=== PATIENT | female | born 1955 | race Caucasian/White ===

== ENCOUNTER 2019-02-26 06:15 | Inpatient (IN) ==
[2019-02-26 06:33] LABS: Basophils % 0.6 % (0.1-2.0); Eosinophils # 0.1 K/mm3 (0.0-0.4); Eosinophils % 2.4 % (0.1-12.0); Hematocrit 38.7 % (37.0-47.0); Hemoglobin 12.9 g/dL (12.2-16.2); Lymphocytes # 0.8 K/mm3 (0.7-4.5); Lymphocytes % 18.7 % (10-50); Mean Corpuscular HGB Conc 33.4 g/dL (31.8-35.4); Mean Corpuscular Volume 96.7 fl (81-99); Mean Platelet Volume 9.5 fl (7.4-10.4); Monocytes # 0.4 K/mm3 (0.1-1.0); Monocytes % 7.9 % (1.7-9.3); Neutrophils # 3.1 K/mm3 (1.8-7.8); Neutrophils % 70.3 % (37.0-80.0); Platelet Count 159 K/mm3 (142-424); Red Blood Count 4.01 M/mm3 (4.20-5.40); Red Cell Distribution Width 13.9 % (11.5-17.5); White Blood Count 4.4 K/mm3 (4.8-10.8)
--- NOTE | 2019-02-26 06:38 | Emergency Department Note ---
ED Disposition Clinical Impression: Obesity (BMI 30.0-34.9), Tobacco use Chest pain Qualifiers: Chest pain type: precordial pain Qualified Code(s): R07.2 - Precordial pain Diabetes Qualifiers: Diabetes mellitus type: type 2 Diabetes mellitus correction insulin use: unspecified correction insulin use status Diabetes mellitus complication status: with other specified complication Qualified Code(s): E11.69 - Type 2 diabetes mellitus with other specified complication Disposition: Admitted as Observation Condition on Discharge: Good Referrals: Provider,Referral, [Referring] - - Critical Care Critical Care Time: No Attestation: On 02/26/19, the high probability of a clinically significant, sudden or life threatening deterioration of the following system(s) required my full and direct attention, intervention and personal management. The time I documented below is in addition to time spent performing reported procedures but includes the following listed in this critical care notation. Medical Decision Making - Medical Records Medical records reviewed: Yes: I reviewed the patient's medical records. - Hi Inquiry Pt receiving controlled substance: No Vital Signs: 02/26/19 06:16 Temperature 97.9 F Temperature Source Oral Pulse Rate [Right] 88 Respiratory Rate 16 Blood Pressure [Right Arm] 113/51 L Blood Pressure Mean [Right Arm] 71 Blood Pressure Position [Right Arm] Supine 02 Sat by Pulse Oximetry 94 L Oxygen Delivery Method Room Air - Lab Data Lab results reviewed: Yes: I reviewed the patient's lab results. Lab Results 02/26/19 06:15: WBC 4.4 L, RBC 4.01 L, Hgb 12.9, Hct 38.7, MCV 96.7, MCH 32.3 H, MCHC 33.4, RDW 13.9, Plt Count 159, MPV 9.5, Neut % (Auto) 70.3, Lymph % (Auto) 18.7, [place] % (Auto) 7.9, Eos % (Auto) 2.4, Baso % (Auto) 0.6, Neut # (Auto) 3.1, Lymph # (Auto) 0.8, [place] # (Auto) 0.4, Eos # (Auto) 0.1, Baso # (Auto) 0.0, ESR 58 H 02/26/19 06:15: Sodium 137, Potassium 3.6, Chloride 103, Carbon Dioxide 25, Anion Gap 12.6, BUN 9, Creatinine 0.88, Estimated Creat Clear 65, Estimated GFR 65, Est GFR ( Amer) 78, Glucose 291 H, Calcium 7.7 L, Troponin I 0.28 H, C-Reactive Protein 6.9 H Result diagrams: 02/26/19 06:15 02/26/19 06:15 Orders (Tests/Meds): ED MEDICATIONS Generic Name Dose Route Start Last Admin Trade Name Freq PRN Reason Stop Dose Admin Sodium Chloride 1,000 mls @ 999 mls/hr 02/26/19 06:30 02/26/19 06:27 Sod Chlor 0.9% 1000ml Bag IV 02/26/19 07:30 999 mls/hr .Q1H1M RALF Administration Discontinued Medications Generic Name Dose Route Start Last Admin Trade Name Freq PRN Reason Stop Dose Admin Nitroglycerin 1 gm 02/26/19 06:24 02/26/19 06:28 Nitroglycerin 1 Inch Oint Udp TD 02/26/19 06:25 1 gm ONCE ONE Administration ORDERS Category Date Time Status XR chest 2V Stat Exams 02/26/19 06:24 Taken Troponin I Q3H Lab 02/26/19 09:30 Ordered Troponin I Q3H Lab 02/26/19 12:30 Ordered - Radiology Data #1 Image(s): Chest Image Reviewed: Yes I reviewed the patient's radiology image Preliminary Findings: Abnormal (copd) - ECG Data Tracing #1 Normal Sinus Rhythm: Yes Ischemic changes: non-specific ST-T wave changes - Physician Consults Physician Consulted: april Reason -: Pt condition Chest Pain HPI - General Chief Complaint: Chest Pain Stated Complaint: chest Pain Time Seen by Provider: 02/26/19 06:25 Mode of Arrival: EMS Source of Information: Patient, Relative, EMS, Medical Record Limitations: No Limitations Description of Symptoms (Recalled from ER Triage Doc. by RN): Pt states she has had chest pain for days, 324 ASA and 2 nitro SL given by EMS - History of Present Illness HPI narrative: progressive chest pain over the last few days - worse this am - had stents in distant past -about 2009 - pt with hx of tob use and diabetes - MD complaint: chest pain indicative of cardiac Onset (ago): day(s) Duration: now resolved Activity at onset: during rest Pain location: left chest Severity: moderate Quality: heaviness Associated symptoms: dyspnea Risk Factors for CAD: Family Hx of CAD, Diabetes, Smoking Treatments prior to or on arrival for Cardiac Chest Pain: aspirin - PURVI Score for Non-Stemi Age of Patient: 60-69 years old Heart Rate: 70-89 bpm Systolic Blood Pressure: 100-119 mmHg Serum Creatinine: 0.80-1.19 mg/dl CHF [place] Class: I-No CHF Other Risk Factors: Elevated Cardiac Enzymes or Biomarkers Non-Stemi Risk Score: 131 - Related Data Prior Cardiac Testing/Procedures: Stenting On Oral Contraceptives: No Home Medications Medication Instructions Recorded Confirmed No Known Home Medications 02/26/19 02/26/19 Allergies Allergy/AdvReac Type Severity Reaction Status Date / Time pentazocine Allergy Severe S-SWELLS-OR Verified 02/26/19 06:48 AL/THROAT [facility] History - Hepatitis A Screen Drug use history?: No High risk sexual behaviors?: No History of sexually transmitted infection?: No Currently employed?: No Childcare worker?: No Do you have indoor plumbing?: Yes Do you have electricity?: Yes Attestation statement:: This patient has been screened for Hepatitis A risk factors. I have reviewed the patient's past medical history: Yes Medical History: Denies:: Diabetes Mellitus Type 1, Diabetes Mellitus Type 2, Internal Pacemaker Other Surgeries: No: Pacemaker Amputation: No Fractures: No - Social History Smoking Status: Current every day smoker Tobacco Type: cigarettes # Packs/Day (cigarettes): 1 Alcohol Intake: never Occupational Status: unemployed ROS Obtained: Yes All systems reviewed & no additional complaints - Constitutional Constitutional: Denies fever(s) - Eyes Eyes: Denies change in vision - ENT Ears, Nose, Mouth, and Throat: Denies sore throat - Cardiovascular Cardiovascular: Reports as per HPI, Reports chest pain, Reports dyspnea - Respiratory Respiratory: No cough - Gastrointestinal Gastrointestingal: Denies: abdominal pain - Genitourinary Female Genitourinary: Denies hematuria - Musculoskeletal Musculoskeletal: Denies joint swelling - Integumentary/Breasts Skin/Breast: Denies rash - Neurologic Neurologic: Denies seizure-like activity Physical Exam - General General appearance: alert, obese - Head Head exam: normocephalic - Eye Eye exam: Present: PERRL, EOMI. Absent: scleral icterus - ENT ENT exam: Present: mucous membranes dry - Neck Neck exam: Present: trachea midline - Respiratory Respiratory exam: Present: normal lung sounds bilaterally, respiratory distress - Cardiovascular Cardiovascular exam: Present: regular rate, systolic murmur, +S4 - Abdominal Exam Abdominal exam: Present: soft - Extremities Exam Extremities exam: Present: full ROM. Absent: calf tenderness - Neurological Exam Neurological exam: Present: alert, oriented X3, CN II-XII intact - Psychiatric Psychiatric exam: Present: normal affect - Skin Skin exam: Absent: rash
[2019-02-26 06:43] LABS: Anion Gap 12.6 mEq/L (5-15); C-Reactive Protein 6.9 mg/dL (0.0-0.9); Calcium 7.7 mg/dL (8.5-10.1)
[2019-02-26 06:58] LABS: Erythrocyte Sedimentation Rate 58 mm/hr (0-30)
[2019-02-26 08:08] LABS: Chol/HDL Ratio 6.7 (1-3.5)
--- NOTE | 2019-02-26 09:27 | History & Physical Report ---
*Admission Date: 02/26/19 *Chief complaint: chest pain *History of present illness: this wf presented to the ed with progressive anterior chest pain which was worse this am - pt has hx of diabetes and tob use and prev cad with stent last in 2009 - pt was seen in the ed with pain relieved with ntg and had elevated troponin [facility] History I have reviewed the patient's past medical history: Yes Medical History: Reports:: Hyperlipidemia, Hypertension, Myocardial Infarction Denies:: Diabetes Mellitus Type 1, Diabetes Mellitus Type 2, Internal Pacemaker *Have you ever received a pneumonia vaccine?: No *Have you received a flu vaccine this season?: No Other Medical History: Reports: Arthritis Other Surgeries: Yes: Cholecystectomy. No: Pacemaker Amputation: No Fractures: No - *Social History Educational Level: Completed High School Smoking Status: Current every day smoker Tobacco Type: cigarettes # Packs/Day (cigarettes): 1 Alcohol Intake: never *Occupational Status:: unemployed Housing: house Household Members: family *Travel in the last 8 weeks: None Family Hx:: Cancer Review of Systems - Review of Systems Review of systems:: pertinent systems reviewed and negative unless documented below - Constitutional Denies fever(s) - Eyes Denies change in vision - ENT Denies sore throat - *Cardiovascular Reports chest pain at rest - *Respiratory Reports shortness of breath, Denies cough - *Gastrointestinal Denies abdominal pain - *Genitourinary Denies blood in urine - *Musculoskeletal Denies joint pain - Integumentary/Breasts Denies rash - *Neurologic Denies seizure-like activity - Psychiatric Denies anxiety Meds Home Medications Medication Instructions Recorded Confirmed Type No Known Home Medications 02/26/19 02/26/19 History Allergies Allergy/AdvReac Type Severity Reaction Status Date / Time pentazocine Allergy Severe S-SWELLS-OR Verified 02/26/19 06:48 AL/THROAT Exam Vital signs and Labs for Last 24 Hours: Temp Pulse Resp BP Pulse Ox 97.7 F 72 22 113/53 L 93 L 02/26/19 09:00 02/26/19 09:00 02/26/19 09:00 02/26/19 09:00 02/26/19 09:00 Laboratory Results - last 24 hr 02/26/19 06:15: WBC 4.4 L, RBC 4.01 L, Hgb 12.9, Hct 38.7, MCV 96.7, MCH 32.3 H, MCHC 33.4, RDW 13.9, Plt Count 159, MPV 9.5, Neut % (Auto) 70.3, Lymph % (Auto) 18.7, [place] % (Auto) 7.9, Eos % (Auto) 2.4, Baso % (Auto) 0.6, Neut # (Auto) 3.1, Lymph # (Auto) 0.8, [place] # (Auto) 0.4, Eos # (Auto) 0.1, Baso # (Auto) 0.0, ESR 58 H 02/26/19 06:15: Sodium 137, Potassium 3.6, Chloride 103, Carbon Dioxide 25, Anion Gap 12.6, BUN 9, Creatinine 0.88, Estimated Creat Clear 65, Estimated GFR 65, Est GFR ( Amer) 78, Glucose 291 H, Calcium 7.7 L, Troponin I 0.28 H, C-Reactive Protein 6.9 H 02/26/19 06:15: Hemoglobin A1c 6.7 02/26/19 06:15: Magnesium 1.9, Triglycerides 99, Cholesterol 114 L, LDL Cholesterol 77, VLDL Cholesterol 20, HDL Cholesterol 17 L, Cholesterol/HDL Ratio 6.7 H I & O for Last 24 hours: Intake & Output 02/23/19 02/24/19 02/25/19 02/26/19 11:59 11:59 11:59 11:59 Weight 176 lb 4 oz - Constitutional no acute distress, obese - *Routine HEENT Exam Head: Present: normocephalic Eye: Present: EOMI, PERRL ENT: Present: mucous membranes dry - *Routine Neck Exam Present: supple. Absent: JVD - *Routine Respiratory Exam Present: rhonchi - *Routine Cardiovascular Exam Present: RRR, murmur, S4 - *Routine Abdominal Exam Present: soft. 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
--- NOTE | 2019-02-26 10:13 | Pharmacy Consult Notes ---
[facility] Pharmacy VTE Monitoring - Patient Demographics Admission date: 02/26/19 Report Date: 02/26/19 Time: 10:13 Allergies/Adverse Reactions: Patient Allergies pentazocine Allergy (Severe, Verified 02/26/19 06:48) [id number]/THROAT Height: 1.52 m Weight: 79.946 kg Patient Problems: Current Active Problems Chest pain (Acute) Diabetes (Acute) Obesity (BMI 30.0-34.9) (Acute) Tobacco use (Acute) - VTE Risk Labs: VTE Related Lab Results Hgb 12.9 g/dL (12.2-16.2) 02/26/19 06:15 Hct 38.7 % (37.0-47.0) 02/26/19 06:15 Plt Count 159 K/mm3 (142-424) 02/26/19 06:15 BUN 9 mg/dL (7-18) 02/26/19 06:15 Creatinine 0.88 mg/dL (0.55-1.02) 02/26/19 06:15 Estimated Creat Clear 65 mL/min (50-200) 02/26/19 06:15 Was VTE Risk Assessment Performed: Yes VTE Score: 6 VTE Risk Level: Moderate Risk - Prophylaxis VTE Prophylaxis Ordered?: Yes Types of VTE Prophylaxis: TEDS Knee High Location of Applied Device: Bilateral Lower Extremeties
--- NOTE | 2019-02-26 11:14 | Electrocardiograph Report ---
APPROVED REPORT Exam: Resting ECG HR:86 bpm ECG Measurements Heart Rate 86 AXES KS 134 P 51 QRSd 76 QRS -60 QT 402 T70 QTc 481 <Conclusion> Normal sinus rhythm Left axis deviation Late R-wave progression Abnormal ECG Electronically signed by : Severiano Moe, 02/26/2019 11:14:23
[2019-02-27 06:08] LABS: Basophils % 0.4 % (0.1-2.0); Eosinophils # 0.2 K/mm3 (0.0-0.4); Eosinophils % 3.6 % (0.1-12.0); Hematocrit 36.1 % (37.0-47.0); Hemoglobin 11.8 g/dL (12.2-16.2); Lymphocytes % 23.2 % (10-50); Mean Corpuscular HGB Conc 32.6 g/dL (31.8-35.4); Mean Corpuscular Volume 98.3 fl (81-99); Mean Platelet Volume 8.5 fl (7.4-10.4); Monocytes # 0.4 K/mm3 (0.1-1.0); Monocytes % 8.9 % (1.7-9.3); Neutrophils # 2.7 K/mm3 (1.8-7.8); Neutrophils % 63.9 % (37.0-80.0); Platelet Count 159 K/mm3 (142-424); Red Blood Count 3.67 M/mm3 (4.20-5.40); Red Cell Distribution Width 14.2 % (11.5-17.5); White Blood Count 4.2 K/mm3 (4.8-10.8)
[2019-02-27 06:16] LABS: Anion Gap 12.4 mEq/L (5-15); Calcium 7.6 mg/dL (8.5-10.1)
--- NOTE | 2019-02-27 09:23 | Progress Note ---
Internal Medicine - PN: Subj *Date: 02/27/19 *Time: 09:20 Interval history: doing better - has occ back pain - trop elevated Exam Vital signs and Labs for Last 24 Hours: Temp Pulse Resp BP Pulse Ox 99.2 F 72 17 131/58 L 97 02/27/19 07:18 02/27/19 07:18 02/27/19 07:18 02/27/19 07:18 02/27/19 07:18 Laboratory Results - last 24 hr 02/26/19 09:15: Troponin I 1.54 H 02/26/19 11:32: POC Glucose 216 H 02/26/19 16:49: POC Glucose 111 H 02/26/19 20:18: POC Glucose 178 H 02/27/19 05:34: POC Glucose 134 H 02/27/19 05:35: WBC 4.2 L, RBC 3.67 L, Hgb 11.8 L, Hct 36.1 L, MCV 98.3, MCH 32.0 H, MCHC 32.6, RDW 14.2, Plt Count 159, MPV 8.5, Neut % (Auto) 63.9, Lymph % (Auto) 23.2, [place] % (Auto) 8.9, Eos % (Auto) 3.6, Baso % (Auto) 0.4, Neut # (Auto) 2.7, Lymph # (Auto) 1.0, [place] # (Auto) 0.4, Eos # (Auto) 0.2, Baso # (Auto) 0.0 02/27/19 05:35: Sodium 141, Potassium 3.4 L, Chloride 107, Carbon Dioxide 25, Anion Gap 12.4, BUN 9, Creatinine 0.73, Estimated Creat Clear 73, Estimated GFR 80, Est GFR ( Amer) 97 D, Glucose 141 H D, Calcium 7.6 L I & O for Last 24 hours: Intake & Output 02/24/19 02/25/19 02/26/19 02/27/19 11:59 11:59 11:59 11:59 Intake Total 110 / 110 1374 / 1374 Output Total 400 / 400 Balance 110 / 110 974 / 974 Weight 176 lb 4 oz 180 lb 5 oz - Constitutional no acute distress, obese - *Routine HEENT Exam Head: Present: normocephalic Eye: Present: EOMI, PERRL ENT: Present: mucous membranes dry - *Routine Neck Exam Absent: JVD - *Routine Respiratory Exam Present: CTA bilaterally - *Routine Cardiovascular Exam Present: RRR, murmur, S4 - *Routine Abdominal Exam Present: soft - *Routine Extremities Exam Absent: calf tenderness - *Routine Skin Exam Present: intact - *Routine Neurological Exam Present: alert, CN II-XII intact - Routine Psychiatric Exam Present: normal affect Assessment and Plan (1) Chest pain Current visit: Yes Status: Acute Qualifiers: Chest pain type: precordial pain Qualified Code(s): R07.2 - Precordial pain Category: Medical Code(s): R07.9 - Chest pain, unspecified (2) Diabetes Current visit: Yes Status: Acute Qualifiers: Diabetes mellitus 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 Diabetes mellitus complication status: with other specified complication Qualified Code(s): E11.69 - Type 2 diabetes mellitus with other specified complication Category: Medical Code(s): E11.9 - Type 2 diabetes mellitus without complications (3) Obesity (BMI 30.0-34.9) Current visit: Yes Status: Acute Category: Medical Code(s): E66.9 - Obesity, unspecified (4) Tobacco use Current visit: Yes Status: Acute Category: Medical Code(s): Z72.0 - Tobacco use (5) Non-STEMI (non-ST elevated myocardial infarction) Current visit: Yes Status: Acute Category: Medical Code(s): I21.4 - Non-ST elevation (NSTEMI) myocardial infarction
[2019-02-28 06:07] LABS: Basophils % 0.6 % (0.1-2.0); Eosinophils # 0.2 K/mm3 (0.0-0.4); Eosinophils % 3.9 % (0.1-12.0); Hematocrit 37.5 % (37.0-47.0); Hemoglobin 12.1 g/dL (12.2-16.2); Lymphocytes # 0.9 K/mm3 (0.7-4.5); Lymphocytes % 21.4 % (10-50); Mean Corpuscular HGB Conc 32.3 g/dL (31.8-35.4); Mean Corpuscular Volume 98.3 fl (81-99); Mean Platelet Volume 8.4 fl (7.4-10.4); Monocytes # 0.4 K/mm3 (0.1-1.0); Monocytes % 9.6 % (1.7-9.3); Neutrophils # 2.6 K/mm3 (1.8-7.8); Neutrophils % 64.5 % (37.0-80.0); Platelet Count 148 K/mm3 (142-424); Red Blood Count 3.81 M/mm3 (4.20-5.40); Red Cell Distribution Width 14.2 % (11.5-17.5); White Blood Count 4.1 K/mm3 (4.8-10.8)
[2019-02-28 06:40] LABS: Anion Gap 11.4 mEq/L (5-15); Calcium 7.7 mg/dL (8.5-10.1)
--- NOTE | 2019-02-28 09:35 | Progress Note ---
Subjective Date: 02/28/19 Time: 09:32 Principal diagnosis: nonstemi Interval history: This is a 64-year-old white female who presented to the hospital with complaints of chest pain. The patient was found to have a non-ST elevation myocardial infarction. She did not undergo left cardiac catheterization yesterday with stenting to her LAD. The patient did have persistent disease to her circumflex artery and right coronary artery. She had a normal EF and an elevated LVEDP consistent with diastolic dysfunction. The patient will be on Brilinta and aspirin for dual antiplatelet therapy. The patient needs aggressive risk factor modifications. Tobacco cessation. MCKENNA inhibitors and beta-blockers. This morning she denies any chest pain or pressure. She denies any shortness of breath or edema. She denies any fevers, chills, nausea, vomiting, diarrhea, PND or orthopnea. The patient states that she is ready to go home. Exam Vital signs and Labs for Last 24 Hours: Temp Pulse Resp BP Pulse Ox 98.3 F 75 15 106/67 L 91 L 02/28/19 08:00 02/28/19 08:00 02/28/19 08:00 02/28/19 08:00 02/28/19 08:00 Laboratory Results - last 24 hr 02/27/19 11:07: POC Glucose 146 H 02/27/19 13:52: Activated Clotting Time > 400 H* 02/27/19 16:10: POC Glucose 150 H 02/27/19 20:00: POC Glucose 159 H 02/28/19 05:11: POC Glucose 150 H 02/28/19 05:42: WBC 4.1 L, RBC 3.81 L, Hgb 12.1 L, Hct 37.5, MCV 98.3, MCH 31.7 H, MCHC 32.3, RDW 14.2, Plt Count 148, MPV 8.4, Neut % (Auto) 64.5, Lymph % (Auto) 21.4, [place] % (Auto) 9.6 H, Eos % (Auto) 3.9, Baso % (Auto) 0.6, Neut # (Auto) 2.6, Lymph # (Auto) 0.9, [place] # (Auto) 0.4, Eos # (Auto) 0.2, Baso # (Auto) 0.0 02/28/19 05:42: Sodium 140, Potassium 3.4 L, Chloride 107, Carbon Dioxide 25, Anion Gap 11.4, BUN 11, Creatinine 0.76, Estimated Creat Clear 73, Estimated GFR 77, Est GFR ( Amer) 93, Glucose 147 H, Calcium 7.7 L I & O for Last 24 hours: Intake & Output 02/25/19 02/26/19 02/27/19 02/28/19 23:59 23:59 23:59 23:59 Intake Total 410 / 410 2027 / 2027 613 / 613 Output Total 100 / 100 300 / 300 Balance 310 / 310 1728 / 1728 613 / 613 Weight 176 lb 4 oz 180 lb 5 oz 180 lb 1 oz Narrative: Her telemetry strip shows sinus rhythm with a rate of 76. LHC shows: Acute non-ST elevation myocardial infarction involving the mid LAD accompanied by significant regional wall motion abnormality Successful stenting of the mid LAD reducing the 50% culprit stenosis/lesion to 0% with one drug-eluting stent Mild to moderate disease in the large dominant circumflex artery Severe diffuse disease in a very small vestigial nondominant right coronary artery which does not contribute any blood supply to the left ventricle Preserved ejection fraction with significant regional wall motion abnormality Moderate Lazaro elevated LVEDP consistent with diastolic dysfunction PLAN 1. Brilinta 90 twice daily plus aspirin 81 mg daily for 1 year 2. LDL less than 55 3. MCKENNA inhibitors beta-blockers specifically carvedilol 4. Cardiac rehabilitation 5. Avoidance of tobacco products - Constitutional no acute distress, obese - *Routine HEENT Exam Head: Present: normocephalic, atraumatic Eye: Present: EOMI, PERRL ENT: Present: mucous membranes moist - *Routine Neck Exam Present: supple, full ROM, normal carotid upstroke. Absent: JVD, carotid bruit, lymphadenopathy - *Routine Respiratory Exam Present: decreased breath sounds, wheezes (Expiratory wheezes noted throughout) - *Routine Cardiovascular Exam Present: RRR, Normal S1, Normal S2. Absent: murmur - *Routine Abdominal Exam Present: soft, normoactive bowel sounds. Absent: tenderness, distended - *Routine Extremities Exam Present: full ROM, pulses intact, normal capillary refill. Absent: cyanosis, clubbing, edema - *Routine Skin Exam Present: intact, warm. Absent: erythema, rash - *Routine Neurological Exam Present: alert, oriented X3, CN II-XII intact. Absent: sensory deficit, motor deficit - Detailed Eye Exam Eyelids: Left normal inspection Progress Note: A&P (1) Non-STEMI (non-ST elevated myocardial infarction) Status: Acute Current Visit: Yes (2) Acute coronary syndrome Status: Acute Current Visit: Yes (3) Chest pain Status: Acute Current Visit: Yes (4) Diabetes Status: Acute Current Visit: Yes (5) Obesity (BMI 30.0-34.9) Status: Chronic Current Visit: Yes (6) Tobacco use Status: Chronic Current Visit: Yes Assessment and Plan for All Diagnoses:: Plan: 1. The patient was admitted to the hospital with chest pain and found to have an elevated troponin consistent with a non-ST elevation myocardial infarction. Given the patient's non-STEMI and acute coronary syndrome, the patient underwent left cardiac catheterization. The patient did have a stent to her LAD which was the culprit of her non-ST elevation myocardial infarction. She had persistent disease to her circumflex artery and right coronary artery. She will be on Brilinta and aspirin for dual antiplatelet therapy. I had a long discussion with the patient about dual antiplatelet therapy, bleeding and side effects of Brilinta. The patient has verbalized understanding and will call our office if she begins to experience any side effects. 2. The patient had a normal EF and an elevated LVEDP consistent with diastolic dysfunction. She may benefit from diuretics in the future if she continues to have chest pain and shortness of breath. We will hold off on this for now as we have added multiple medications at this point. 3. The patient is status post non-STEMI. She will need to be on MCKENNA inhibitors and beta-blockers. We will start her on carvedilol 3.125 mg p.o. twice daily. We will hold off on MCKENNA inhibitor's at this time as her blood pressure is marginal. If she is tolerating the carvedilol well at her outpatient follow-up we will consider starting an MCKENNA inhibitor at that time. 4. Her LDL goal is less than 55. Her LDL is 77. She has been started on Lipitor. 5. We will get an echocardiogram to evaluate her LV function given her non- STEMI. 6. Tobacco cessation is highly advised and counseled. 7. The patient is stable for discharge home today from a cardiac standpoint after her echocardiogram. She will need to follow-up in 1 to 2 weeks on an outpatient basis. Thank you for the opportunity to help participate in the care of this patient.
--- NOTE | 2019-02-28 09:40 | Consult Report ---
History of Present Illness Consult date: 02/27/19 Requesting physician: Salvador Rincon Consult reason: chest pain Chief complaint: chest pain Additional Medical History:: 1. diabetes 2. smoker 3. CAD with stenting in 2009 History of present illness: This is a 64-year-old white female who presented to the emergency department with complaints of progressive chest pain. The patient states that the pain was in the anterior aspect of her chest, The left side of her chest. She describes this as a heavy sensation. The pain did not radiate. It is associated with shortness of breath. Her chest heaviness is at least moderate in severity. The patient reports that it had started several days ago and progressively worsened. She states that nothing was helping to improve her pain and nothing made her chest pain worse. She did take aspirin with no improvement in her symptoms. The patient states that this pain is the same pain that she had had previously when she required stents. Her last stents for coronary artery disease were approximately in 2009. She continues to smoke. She denies any fever, chills, nausea, vomiting, diarrhea, PND or orthopnea. Her chest pain did improve in the emergency department with nitroglycerin. She was found to have an elevated troponin consistent with a non-ST elevation myocardial infarction. [facility] History Medical History: Reports:: Coronary Artery Disease (Coronary stents in 2009), Hyperlipidemia, Hypertension, Myocardial Infarction Denies:: Diabetes Mellitus Type 1, Diabetes Mellitus Type 2, Internal Pacemaker *Have you ever received a pneumonia vaccine?: No *Have you received a flu vaccine this season?: No Other Medical History: Reports: Arthritis Other Surgeries: Yes: Cholecystectomy. No: Pacemaker Amputation: No Fractures: No - *Social History Educational Level: Completed High School Smoking Status: Current every day smoker Tobacco Type: cigarettes # Packs/Day (cigarettes): 1 Alcohol Intake: never *Occupational Status:: unemployed Housing: house Household Members: family *Travel in the last 8 weeks: None Family Hx:: Cancer Meds Home Medications Medication Instructions Recorded Confirmed Type No Known Home Medications 02/26/19 02/26/19 History Allergies Allergy/AdvReac Type Severity Reaction Status Date / Time pentazocine Allergy Severe S-SWELLS-OR Verified 02/26/19 06:48 AL/THROAT Review of Systems - Review of Systems Review of systems:: pertinent systems reviewed and negative unless documented below - *Cardiovascular Reports chest pain, Reports chest pain at rest, Reports chest pain with activity, Reports shortness of breath, Reports shortness of breath with activity - *Respiratory Reports shortness of breath, Reports shortness of breath with activity - *Neurologic Denies seizure-like activity Exam Vital signs and Labs for Last 24 Hours: Temp Pulse Resp BP Pulse Ox 98.3 F 75 15 106/67 L 91 L 02/28/19 08:00 02/28/19 08:00 02/28/19 08:00 02/28/19 08:00 02/28/19 08:00 Laboratory Results - last 24 hr 02/27/19 11:07: POC Glucose 146 H 02/27/19 13:52: Activated Clotting Time > 400 H* 02/27/19 16:10: POC Glucose 150 H 02/27/19 20:00: POC Glucose 159 H 02/28/19 05:11: POC Glucose 150 H 02/28/19 05:42: WBC 4.1 L, RBC 3.81 L, Hgb 12.1 L, Hct 37.5, MCV 98.3, MCH 31.7 H, MCHC 32.3, RDW 14.2, Plt Count 148, MPV 8.4, Neut % (Auto) 64.5, Lymph % (Auto) 21.4, Elliott % (Auto) 9.6 H, Eos % (Auto) 3.9, Baso % (Auto) 0.6, Neut # (Auto) 2.6, Lymph # (Auto) 0.9, Elliott # (Auto) 0.4, Eos # (Auto) 0.2, Baso # (Auto) 0.0 02/28/19 05:42: Sodium 140, Potassium 3.4 L, Chloride 107, Carbon Dioxide 25, Anion Gap 11.4, BUN 11, Creatinine 0.76, Estimated Creat Clear 73, Estimated GFR 77, Est GFR ( Amer) 93, Glucose 147 H, Calcium 7.7 L I & O for Last 24 hours: Intake & Output 02/25/19 02/26/19 02/27/19 02/28/19 23:59 23:59 23:59 23:59 Intake Total 410 / 410 2027 613 / 613 Output Total 100 / 100 300 / 300 Balance 310 / 310 172 / 172 613 / 613 Weight 176 lb 4 oz 180 lb 5 oz 180 lb 1 oz Narrative: EKG is sinus rhythm with a rate of 86, old septal [place] pattern and left axis deviation. - Constitutional no acute distress, obese - *Routine HEENT Exam Head: Present: normocephalic, atraumatic Eye: Present: EOMI, PERRL ENT: Present: mucous membranes moist - *Routine Neck Exam Present: supple, full ROM, normal carotid upstroke. Absent: JVD, carotid bruit, lymphadenopathy - *Routine Respiratory Exam Present: CTA bilaterally - *Routine Cardiovascular Exam Present: RRR, Normal S1, Normal S2. Absent: murmur - *Routine Abdominal Exam Present: soft, normoactive bowel sounds. Absent: tenderness, distended - *Routine Extremities Exam Present: full ROM, pulses intact, normal capillary refill. Absent: cyanosis, clubbing, edema - *Routine Skin Exam Present: intact, warm. Absent: erythema, rash - *Routine Neurological Exam Present: alert, oriented X3, CN II-XII intact. Absent: sensory deficit, motor deficit - Routine Psychiatric Exam Present: normal affect, normal thought process - Detailed Eye Exam Eyelids: Left normal inspection Assessment and Plan (1) Non-STEMI (non-ST elevated myocardial infarction) Current visit: Yes Status: Acute Category: Medical Code(s): I21.4 - Non-ST elevation (NSTEMI) myocardial infarction (2) Acute coronary syndrome Current visit: Yes Status: Acute Category: Medical Code(s): I24.9 - Acute ischemic heart disease, unspecified (3) Diabetes Current visit: Yes Status: Acute Qualifiers: Diabetes mellitus type: type 2 Diabetes mellitus moth exterminator insulin use: unspecified moth exterminator insulin use status Diabetes mellitus complication status: with other specified complication Qualified Code(s): E11.69 - Type 2 diabetes mellitus with other specified complication Category: Medical Code(s): E11.9 - Type 2 diabetes mellitus without complications (4) Obesity (BMI 30.0-34.9) Current visit: Yes Status: Chronic Category: Medical Code(s): E66.9 - Obesity, unspecified (5) Tobacco use Current visit: Yes Status: Chronic Category: Medical Code(s): Z72.0 - Tobacco use (6) Coronary artery disease Current visit: Yes Status: Chronic Category: Medical Code(s): I25.10 - Atherosclerotic heart disease of [place] coronary artery without angina pectoris - Assessment and plan all Dx Assessment and Plan for all problems:: Plan: 1. The patient was admitted to the hospital with chest pain that had progressively worsened over the last several days. She was found to have an elevated troponin consistent with a non-ST elevation myocardial infarction. Given her non-STEMI and her acute coronary syndrome, the patient will be taken to the Oral Surgery Assistant to undergo left cardiac catheterization to evaluate her coronary artery disease. The patient does have a history of coronary disease with stents in approximately 2009. She continues to smoke and is diabetic placing her at high risk for coronary artery disease progression. 2. The patient has been educated the risk and benefits of proceeding with left cardiac catheterization. The patient verbalized understanding is agreeable to proceed with procedure. 3. The patient will be n.p.o. in preparation for left cardiac catheterization. 4. She will get IV fluids and premedications prior to the procedure. 5. Coronary artery disease is present. 6. Her blood pressure is well controlled. 7. Her LDL goal is less than 55. Her LDL is 77. She is on a statin. 8. Tobacco cessation is highly advised and counseled. 9. Further recommendations were made pending the patient's response to treatment and the results of her left cardiac catheterization later today. Thank you for the opportunity to help participate in the care of this patient.
--- NOTE | 2019-02-28 13:34 | Discharge Summary ---
General - General Admission date:: 02/26/19 Discharge date: 02/28/19 HPI HPI: this wf presented to the ed with progressive anterior chest pain which was worse this am - pt has hx of diabetes and tob use and prev cad with stent last in 2009 - pt was seen in the ed with pain relieved with ntg and had elevated troponin Hospital Course Hospital Course: pt did well in the hospital with dec pain but had increased troponin- she had angiogram by dr chen he left main artery Normal The left anterior descending artery Is a large caliber long vessel which has very proximal 10 to 20% luminal irregularities followed by a proximal LAD stent which extends through the mid segment. The stent is widely patent with minimal in-stent restenosis. Distal to the stent is a hazy 50% stenosis which appears to represent a ruptured plaque. The remaining vessel has mild 10% luminal irregularities. The circumflex artery Is a massively large dominant vessel giving rise to multiple very large obtuse marginal arteries. The first obtuse marginal artery has an ostial 30% stenosis and a mid vessel 50 to 60% stenosis. The third obtuse marginal artery has an ostial proximal 40 to 50% stenosis while the terminal obtuse marginal artery is a large posterior descending artery and has a mid vessel 50 to 60% stenosis. The right coronary artery Is a small vestigial vessel with proximal mid vessel and distal 80% stenoses. The entire vessel is 1 mm in diameter. The KEEN ventriculogram reveals Small ventricle normal ejection fraction with mid anterior apical hypokinesis The left ventricular end-diastolic pressure Elevated at 25 to 30 mmHg IMPRESSION Acute non-ST elevation myocardial infarction involving the mid LAD accompanied by significant regional wall motion abnormality Successful stenting of the mid LAD reducing the 50% culprit stenosis/lesion to 0% with one drug-eluting stent Mild to moderate disease in the large dominant circumflex artery Severe diffuse disease in a very small vestigial nondominant right coronary artery which does not contribute any blood supply to the left ventricle Preserved ejection fraction with significant regional wall motion abnormality pt has did well and is toleration room air and diet and meds and is ambulatory-s is a 64-year-old white female who presented to the hospital with complaints of chest pain. The patient was found to have a non-ST elevation myocardial infarction. She did not undergo left cardiac catheterization yesterday with stenting to her LAD. The patient did have persistent disease to her circumflex artery and right coronary artery. She had a normal EF and an elevated LVEDP consistent with diastolic dysfunction. The patient will be on Brilinta and aspirin for dual antiplatelet therapy. The patient needs aggressive risk factor modifications. Tobacco cessation. MCKENNA inhibitors and beta-blockers. This morning she denies any chest pain or pressure. She denies any shortness of breath or edema. She denies any fevers, chills, nausea, vomiting, diarrhea, PND or orthopnea. The patient states that she is ready to go home. The patient was admitted to the hospital with chest pain and found to have an elevated troponin consistent with a non-ST elevation myocardial infarction. Given the patient's non-STEMI and acute coronary syndrome, the patient underwent left cardiac catheterization. The patient did have a stent to her LAD which was the culprit of her non-ST elevation myocardial infarction. She had persistent disease to her circumflex artery and right coronary artery. She will be on Brilinta and aspirin for dual antiplatelet therapy. I had a long discussion with the patient about dual antiplatelet therapy, bleeding and side effects of Brilinta. The patient has verbalized understanding and will call our office if she begins to experience any side effects. 2. The patient had a normal EF and an elevated LVEDP consistent with diastolic dysfunction. She may benefit from diuretics in the future if she continues to have chest pain and shortness of breath. We will hold off on this for now as we have added multiple medications at this point. 3. The patient is status post non-STEMI. She will need to be on MCKENNA inhibitors and beta-blockers. We will start her on carvedilol 3.125 mg p.o. twice daily. We will hold off on MCKENNA inhibitor's at this time as her blood pressure is jad nal. If she is tolerating the carvedilol well at her outpatient follow-up we will consider starting an MCKENNA inhibitor at that time. 4. Her LDL goal is less than 55. Her LDL is 77. She has been started on Lipitor. 5. We will get an echocardiogram to evaluate her LV function given her non- STEMI. 6. Tobacco cessation is highly advised and counseled. 7. The patient is stable for discharge home today from a cardiac standpoint after her echocardiogram. She will need to follow-up in 1 to 2 weeks on an outpatient basis. Thank you for the opportunity to help participate in the care of this patient. will follow closely with pt Objective Vital signs: Temp Pulse Resp BP Pulse Ox 98.3 F 70 16 103/66 L 91 L 02/28/19 08:00 02/28/19 12:00 02/28/19 12:00 02/28/19 12:00 02/28/19 12:00 no acute distress, obese - *Routine HEENT Exam Head: Present: normocephalic Eye: Present: EOMI, PERRL ENT: Present: mucous membranes dry - *Routine Neck Exam Absent: JVD - *Routine Respiratory Exam Present: CTA bilaterally - *Routine Cardiovascular Exam Present: RRR, murmur - *Routine Abdominal Exam Present: soft - *Routine Extremities Exam Absent: calf tenderness - *Routine Skin Exam Present: intact - *Routine Neurological Exam Present: alert, CN II-XII intact - Routine Psychiatric Exam Present: normal affect Results Labs on day of discharge: Labs from last 24 hours 02/28/19 02/28/19 02/28/19 05:42 05:42 05:11 WBC 4.1 L RBC 3.81 L Hgb 12.1 L Hct 37.5 MCV 98.3 MCH 31.7 H MCHC 32.3 RDW 14.2 Plt Count 148 MPV 8.4 Neut % (Auto) 64.5 Lymph % (Auto) 21.4 Jasper % (Auto) 9.6 H Eos % (Auto) 3.9 Baso % (Auto) 0.6 Neut # (Auto) 2.6 Lymph # (Auto) 0.9 Jasper # (Auto) 0.4 Eos # (Auto) 0.2 Baso # (Auto) 0.0 Sodium 140 Potassium 3.4 L Chloride 107 Carbon Dioxide 25 Anion Gap 11.4 BUN 11 Creatinine 0.76 Estimated Creat Clear 73 Estimated GFR 77 Est GFR ( Amer) 93 Glucose 147 H POC Glucose 150 H Calcium 7.7 L 02/27/19 02/27/19 20:00 16:10 WBC RBC Hgb Hct MCV MCH MCHC RDW Plt Count MPV Neut % (Auto) Lymph % (Auto) Jasper % (Auto) Eos % (Auto) Baso % (Auto) Neut # (Auto) Lymph # (Auto) Jasper # (Auto) Eos # (Auto) Baso # (Auto) Sodium Potassium Chloride Carbon Dioxide Anion Gap BUN Creatinine Estimated Creat Clear Estimated GFR Est GFR ( Amer) Glucose POC Glucose 159 H 150 H Calcium DS: Diagnosis - Discharge Diagnosis (1) Non-STEMI (non-ST elevated myocardial infarction) Status: Acute (2) Acute coronary syndrome Status: Acute (3) Diabetes Status: Acute (4) Obesity (BMI 30.0-34.9) Status: Chronic (5) Tobacco use Status: Chronic (6) Coronary artery disease Status: Chronic Discharge Plan - Patient Discharge Instructions ACTIVITY: Continue current activity DIET: continue same diet Patient Instructions: DI for Heart Attack, Heart Attack, Cardiac Catheterization, Heart-Healthy Diet, DI for Cardiac Catheterization, DI for Surgical Site Infection, How to Quit Smoking - Follow up Plan Follow up with: Salvador Rincon MD [Primary Care Provider] - Andre Chen MD [Staff Physician] - 03/07/19 1:30 pm Disposition: Home, Self-[facility] Medications: Home Medications Medication Instructions Recorded Confirmed Type Aspirin [Aspirin 81mg EC Tab] 81 mg PO DAILY #90 tablet. 02/28/19 Rx Atorvastatin Calcium [Lipitor 10mg 10 mg PO HS #90 tab 02/28/19 Rx Tablet] Nicotine [Nicoderm 21mg/24hr 21 mg TD DAILYP PRN #30 patch.td24 02/28/19 Rx patch] Ticagrelor [Brilinta 90mg Tablet] 90 mg PO BID #60 tab 02/28/19 Rx carvediloL [Coreg 3.125mg Tablet] 3.125 mg PO BID #60 tab 02/28/19 Rx Prescriptions/Medication Reconciliation: New carvediloL [Coreg 3.125mg Tablet] 3.125 mg PO BID #60 tab Nicotine [Nicoderm 21mg/24hr patch] 21 mg TD DAILYP PRN #30 patch.td24 PRN Reason: Nicotine Cravings Aspirin [Aspirin 81mg EC Tab] 81 mg PO DAILY #90 tablet. Ticagrelor [Brilinta 90mg Tablet] 90 mg PO BID #60 tab Atorvastatin Calcium [Lipitor 10mg Tablet] 10 mg PO HS #90 tab - Problem Reconciliation Problems Reviewed?: Yes
== END 2019-02-28 14:47 | disposition home or self-care (01) | DRG 247 ==
LOC: 2ND 06:15 → ER 06:15 → 2ND 08:50 → OBSVTOIN 08:55 → 2ND 02-27 13:38
PROVIDERS: ADMIT Emergency Medicine; ATTEND Emergency Medicine
CPT/HCPCS: 36415; 71020; 71046; 80048; 80061; 82962; 83036; 83735; 84484; 85025; 85347; 85651; 86140; 92928; 93005; 93306; 93458; 96365; 96375; 99152; 99285; C1725; C1769; C1876; C9600; J1644; J2405; Q9967

== ENCOUNTER → 2019-03-07 12:13 | Outpatient (CLI) | payer OTHER, SELFPAY ==
[2019-03-07 13:23] LABS: Anion Gap 14.2 mEq/L (5-15); Blood Urea Nitrogen 10 mg/dL (7-18); Calcium 8.2 mg/dL (8.5-10.1); Carbon Dioxide 25 mmol/L (21.0-32.0); Chloride 105 mmol/L (98-107); Creatinine,Serum 0.75 mg/dL (0.55-1.02); Estimated Glomerular Filt Rate 78 ml/min (>60); GFR (African American) 94 ML/MIN (>60); Potassium 4.2 mmoL/L (3.5-5.1); Sodium 140 mmol/L (136-145)
[2019-03-07 13:31] LABS: Glucose 129 mg/dL (74-106)
== END ==
PROVIDERS: Visit Provider Internal Medicine
DX: I25.10 Atherosclerotic heart disease of native coronary artery without angina pectoris (principal)
CPT/HCPCS: 36415; 80048

== ENCOUNTER → 2019-04-25 15:00 | Outpatient (CLI) | payer MEDICAID, SELFPAY ==
[2019-04-25 18:06] LABS: Anion Gap 9.3 mEq/L (5-15); Blood Urea Nitrogen 14 mg/dL (7-18); Calcium 8.5 mg/dL (8.5-10.1); Carbon Dioxide 32 mmol/L (21.0-32.0); Chloride 106 mmol/L (98-107); Creatinine,Serum 0.93 mg/dL (0.55-1.02); Estimated Glomerular Filt Rate 61 ml/min (>60); GFR (African American) 73 ML/MIN (>60); Glucose 158 mg/dL (74-106); Potassium 3.3 mmoL/L (3.5-5.1); Sodium 144 mmol/L (137-145)
== END ==
PROVIDERS: Visit Provider Physician Assistant
DX: R07.9 Chest pain, unspecified (principal); R06.00 Dyspnea, unspecified; E11.9 Type 2 diabetes mellitus without complications; E78.5 Hyperlipidemia, unspecified; I25.10 Atherosclerotic heart disease of native coronary artery without angina pectoris; E66.9 Obesity, unspecified; Z72.0 Tobacco use
CPT/HCPCS: 36415; 80048

== ENCOUNTER → 2019-05-16 12:58 | Outpatient (CLI) | payer MEDICAID, SELFPAY ==
[2019-05-16 14:14] LABS: Anion Gap 8.2 mEq/L (5-15); Blood Urea Nitrogen 14 mg/dl (7-17); Calcium 9.1 mg/dl (8.4-10.2); Carbon Dioxide 28 mmol/L (22.0-30.0); Chloride 104 mmol/L (98-107); Estimated Glomerular Filt Rate 84 ml/min (>60); GFR (African American) 102 ML/MIN (>60); Glucose 181 mg/dl (74-100); Potassium 4.2 mmoL/L (3.5-5.1); Sodium 136 mmol/L (136-145)
== END ==
PROVIDERS: Visit Provider Physician Assistant
DX: E87.6 Hypokalemia (principal)
CPT/HCPCS: 36415; 80048

== ENCOUNTER → 2019-11-24 13:04 | Outpatient (CLI) | payer MEDICAID, SELFPAY | PROVIDERS: PCP Emergency Medicine; Visit Provider Urology | DX: G47.33 Obstructive sleep apnea (adult) (pediatric) (principal) | CPT/HCPCS: G0399 ==

== ENCOUNTER → 2019-12-22 15:00 | Outpatient (CLI) | payer MEDICAID, SELFPAY ==
[2019-12-22 17:33] LABS: Thyroid Stimulating Hormone 3.04 uIU/mL (0.465-4.68)
== END ==
PROVIDERS: Visit Provider Specialist
DX: E03.9 Hypothyroidism, unspecified (principal)
CPT/HCPCS: 36415; 84443

== ENCOUNTER → 2021-01-30 18:12 | Outpatient (CLI) | payer MEDICARE, MEDICAID, SELFPAY ==
[2021-01-30 19:05] LABS: Basophils % 0.6 % (0.1-2.0); Eosinophils # 0.1 K/mm3 (0.0-0.4); Eosinophils % 1.8 % (0.1-12.0); Hematocrit 44.5 % (37.0-47.0); Hemoglobin 14.7 g/dL (12.2-16.2); Lymphocytes # 1.2 K/mm3 (0.7-4.5); Lymphocytes % 19.1 % (10-50); Mean Corpuscular HGB Conc 33.1 g/dL (31.8-35.4); Mean Corpuscular Hemoglobin 33.6 pg (27.0-31.2); Mean Corpuscular Volume 101.7 fl (81-99); Mean Platelet Volume 12.7 fl (7.4-10.4); Monocytes # 0.4 K/mm3 (0.1-1.0); Monocytes % 5.9 % (1.7-9.3); Neutrophils # 4.6 K/mm3 (1.8-7.8); Neutrophils % 72.6 % (37.0-80.0); Platelet Count 139 K/mm3 (142-424); Red Blood Count 4.37 M/mm3 (4.20-5.40); Red Cell Distribution Width 13.6 % (11.5-17.5); White Blood Count 6.3 K/mm3 (4.8-10.8)
[2021-01-30 19:09] LABS: Alanine Aminotransferase 14 U/L (12-78); Albumin Level 3.8 g/dl (3.5-5.0); Albumin/Globulin Ratio 1.2 (1.1-1.8); Alkaline Phosphatase 128 U/L (38-126); Aspartate Amino Transferase 33 U/L (14-36); Blood Urea Nitrogen 14 mg/dl (7-17); Calcium 9.3 mg/dl (8.4-10.2); Carbon Dioxide 25 mmol/L (22.0-30.0); Chloride 102 mmol/L (98-107); Chol/HDL Ratio 3.7 (1-3.5); Cholesterol 140 mg/dl (140-200); Estimated Glomerular Filt Rate 63 ml/min (>60); GFR (African American) 76 ML/MIN (>60); Globulin 3.2 g/dL (1.3-3.2); Glucose 364 mg/dl (74-100); HDL Cholesterol 38 mg/dl (40-60); Sodium 134 mmol/L (136-145); Triglycerides 135 mg/dl (30-150); VLDL Cholesterol 27 mg/dL (0-40)
[2021-01-30 19:20] LABS: Direct LDL Cholesterol 85.48 mg/dL (100-129)
[2021-01-30 19:26] LABS: Free T4 (Free Thyroxine) 1.61 ng/dl (0.78-2.19)
[2021-01-30 19:27] LABS: 25-OH Vitamin D, Total 25.2 ng/mL (30-100)
[2021-01-30 20:17] LABS: Thyroid Stimulating Hormone 2.56 uIU/mL (0.465-4.68)
== END ==
PROVIDERS: Visit Provider Nurse Practitioner Family
DX: I20.9 Angina pectoris, unspecified (principal); R06.00 Dyspnea, unspecified; E55.9 Vitamin D deficiency, unspecified
CPT/HCPCS: 80053; 80061; 82306; 84439; 84443; 85025

== ENCOUNTER 2021-02-14 16:06 | Inpatient (IN) | payer MEDICARE, MEDICAID, SELFPAY ==
[2021-02-14] VITALS (9 sets, daily range): BP systolic 92–110; BP diastolic 54–70; PULSE 84–115; RESP 16–19; TEMP 36.5–36.8; O2SAT 93–98; BMI 33.4; BMI 35.4
--- NOTE | 2021-02-14 16:26 | CT_ITS ---
PROCEDURE INFORMATION: Exam: CT Abdomen And Pelvis With Contrast Exam date and time: 02/14/2021 4:26 PM Age: 66 years old Clinical indication: Nausea and vomiting and other: Diarrhea; Abdominal pain; Generalized; Additional info: N/v/d, lower abd pain TECHNIQUE: Imaging protocol: Computed tomography of the abdomen and pelvis with contrast. Radiation optimization: All CT scans at this facility use at least one of these dose optimization techniques: automated exposure control; mA and/or kV adjustment per patient size (includes targeted exams where dose is matched to clinical indication); or iterative reconstruction. Contrast material: ISOVUE; Contrast volume: 75 ml; Contrast route: IV; COMPARISON: ABDPELW/O CT ABD PELVIS W/O CONTRAST 07/17/2015 10:42 AM FINDINGS: Tubes, catheters and devices: None noted. Lungs: Lung bases appear clear. Heart: No significant coronary calcifications. No cardiomegaly. No significant pericardial effusion. Liver: Normal. No mass. Gallbladder and bile ducts: Cholecystectomy. No ductal dilation. Pancreas: Normal. No ductal dilation. Spleen: Normal. No splenomegaly. Adrenal glands: Normal. No mass. Kidneys and ureters: Normal. No hydronephrosis. Stomach and bowel: Unremarkable. No obstruction. No mucosal thickening. Appendix: No evidence of appendicitis. Intraperitoneal space: Unremarkable. No free air. No significant fluid collection. Retroperitoneal space: No significant retroperitoneal inflammatory changes are noted. Vasculature: Esophageal varices. No abdominal aortic aneurysm. Lymph nodes: Shotty mesenteric adenopathy. No enlarged lymph nodes. Urinary bladder: Unremarkable as visualized. Reproductive: Unremarkable as visualized. Bones/joints: Vacuum disc L5-S1. No acute fracture. Soft tissues: Soft tissue defect in the subxiphoid region contains fat and vascularized omentum. Suspect trocar access point. Anterior abdominal wall mesh in the periumbilical area. IMPRESSION: 1. No CT evidence of bowel obstruction. 2. Gastroesophageal varices. 3. Recanalized umbilical vein 4. Splenomegaly. 5. Cholecystectomy. 6. Vacuum disc L5-S1.
--- NOTE | 2021-02-14 16:46 | HMH.EDGENADL ---
ED Disposition Clinical Impression: Upper gastrointestinal bleeding, Hyperglycemia Esophageal varices Qualifiers: Esophageal varices type: unspecified type Esophageal varices bleeding: with bleeding Qualified Code(s): I85.01 - Esophageal varices with bleeding Disposition: Admitted as Observation Condition on Discharge: Serious Referrals: Salvador Rincon MD [Primary Care Provider] - - Critical Care Critical Care Time: No Attestation: On 02/14/21, the high probability of a clinically significant, sudden or life threatening deterioration of the following system(s) required my full and direct attention, intervention and personal management. The time I documented below is in addition to time spent performing reported procedures but includes the following listed in this critical care notation. Medical Decision Making - Hi Inquiry Pt receiving controlled substance: No Vital Signs: 02/14/21 16:08 02/14/21 16:26 02/14/21 16:50 Temperature 98.2 F Temperature Source Oral Pulse Rate 115 H 93 H Pulse Rate [Right Radial] 99 H Respiratory Rate 18 16 16 Blood Pressure 99/70 L 109/64 L Blood Pressure [Right Arm] 99/70 L Blood Pressure Mean [Right Arm] 79 Blood Pressure Source Automatic Cuff Blood Pressure Source [Right Arm] Automatic Cuff Blood Pressure Position Sitting Blood Pressure Position [Right Arm] Sitting 02 Sat by Pulse Oximetry 93 L 95 98 Oxygen Delivery Method Room Air 02/14/21 19:44 Temperature Temperature Source Pulse Rate Pulse Rate [Right Radial] Respiratory Rate Blood Pressure 93/56 L Blood Pressure [Right Arm] Blood Pressure Mean [Right Arm] Blood Pressure Source Blood Pressure Source [Right Arm] Blood Pressure Position Blood Pressure Position [Right Arm] 02 Sat by Pulse Oximetry Oxygen Delivery Method - Lab Data Lab Results 02/14/21 17:10: WBC 15.7 H, RBC 3.75 L, Hgb 12.3, Hct 37.2, MCV 99.3 H, MCH 32.7 H, MCHC 32.9, RDW 13.7, Plt Count 242, MPV 9.6, Neut % (Auto) 80.4 H, Lymph % (Auto) 14.4, Fisher % (Auto) 3.9, Eos % (Auto) 0.9, Baso % (Auto) 0.5, Neut # (Auto) 12.6 H, Lymph # (Auto) 2.3, Fisher # (Auto) 0.6, Eos # (Auto) 0.1, Baso # (Auto) 0.1, Total Counted 100, Neutrophils % (Manual) 85 H, Lymphocytes % (Manual) 12, Monocytes % (Manual) 3, Platelet Estimate Normal, Macrocytosis 1+ 02/14/21 17:10: Sodium 132 L, Potassium 4.8, Chloride 98, Carbon Dioxide 26, Anion Gap 12.8, BUN 52 H, Creatinine 1.10 H, Estimated Creat Clear 62, Estimated GFR 50 L, Est GFR ( Amer) 60, Glucose 506 H*, Calcium 10.3 H, Total Bilirubin 1.1, AST 36, ALT 26, Alkaline Phosphatase 84, Total Protein 6.5, Albumin 3.5, Globulin 3.0, Albumin/Globulin Ratio 1.2, Amylase 58, Lipase 66 02/14/21 17:10: PT 11.7, INR 1.04, APTT 20.6 L 02/14/21 17:10: Acetone Level None detected 02/14/21 17:15: Urine Color Yellow, Urine Appearance Clear, Urine pH 6.0, Ur Specific Penrose 1.025, Urine Protein Negative, Urine Glucose (UA) 3+, Urine Ketones Negative, Urine Blood 3+, Urine Nitrate Negative, Urine Bilirubin Negative, Urine Urobilinogen 0.2, Ur Leukocyte Esterase Negative, Urine RBC 5-10, Urine WBC Occasional, Ur Squamous Epith Cells 3-5, Urine Bacteria 1+ 02/14/21 17:15: Stool Occult Blood Positive A 02/14/21 18:18: VBG pH 7.27 L, VBG pCO2 50.6, VBG pO2 29.8, VBG HCO3 22.9 L, VBG Total CO2 24.5, VBG O2 Saturation 53.6, VBG Base Excess -3.9 L Result diagrams: 02/14/21 17:10 02/14/21 17:10 Orders (Tests/Meds): ED MEDICATIONS Generic Name Dose Route Start Last Admin Trade Name Freq PRN Reason Stop Dose Admin Pantoprazole Sodium 80 mg/ 100 mls @ 10 mls/hr 02/14/21 18:15 02/14/21 18:40 Sodium Chloride IV 02/17/21 18:14 10 mls/hr .Q10H RALF Administration Octreotide Acetate 500 mcg/ 255 mls @ 25.5 mls/hr 02/14/21 20:30 Sodium Chloride IV 03/16/21 20:29 .Q10H RALF 50 MCG/HR Sodium Chloride 10 ml 02/14/21 17:28 Sodium Chloride 0.9% 10ml Vial IV 03/16/21 17:2
[2021-02-14 17:21] LABS: Campylobacter Not Detected (NotDetected); Clostridium Difficile A/B, PCR Not Detected (NotDetected); Cryptosporidium Not Detected (NotDetected); Enteroaggregative E coli Not Detected (NotDetected); Enteropathogenic E coli Not Detected (NotDetected); Enterotoxigenic E coli Not Detected (NotDetected); Microscopic, Urine URINE MICROSCOPIC (MICROSCOPIC); Plesimonas Shigalloides, PCR Not Detected (NotDetected); Salmonella, PCR Not Detected (NotDetected); Shiga-like toxin E coli Not Detected (NotDetected); Shigella Enterovasive E coli Not Detected (NotDetected); Vibrio Cholerae Not Detected (NotDetected); Vibrio, PCR Not Detected (NotDetected); Yersinia Entercolitica, PCR Not Detected (NotDetected)
[2021-02-14 17:22] LABS: Basophils # 0.1 K/mm3 (0-0.2); Basophils % 0.5 % (0.1-2.0); Eosinophils # 0.1 K/mm3 (0.0-0.4); Eosinophils % 0.9 % (0.1-12.0); Hematocrit 37.2 % (37.0-47.0); Hemoglobin 12.3 g/dL (12.2-16.2); Lymphocytes # 2.3 K/mm3 (0.7-4.5); Lymphocytes % 14.4 % (10-50); Mean Corpuscular HGB Conc 32.9 g/dL (31.8-35.4); Mean Corpuscular Hemoglobin 32.7 pg (27.0-31.2); Mean Corpuscular Volume 99.3 fl (81-99); Mean Platelet Volume 9.6 fl (7.4-10.4); Monocytes # 0.6 K/mm3 (0.1-1.0); Monocytes % 3.9 % (1.7-9.3); Neutrophils # 12.6 K/mm3 (1.8-7.8); Neutrophils % 80.4 % (37.0-80.0); Platelet Count 242 K/mm3 (142-424); Red Blood Count 3.75 M/mm3 (4.20-5.40); Red Cell Distribution Width 13.7 % (11.5-17.5); White Blood Count 15.7 K/mm3 (4.8-10.8)
[2021-02-14 17:22] LABS: Adenovirus F 40/41, stool Not Detected (NotDetected); Astrovirus Not Detected (NotDetected); Cyclospora Cayetanesis Not Detected (NotDetected); Entamoeba histolytica Not Detected (NotDetected); Giardia lamblia Not Detected (NotDetected); Norovirus Not Detected (NotDetected); Rotavirus A Not Detected (NotDetected); Sapovirus Not Detected (NotDetected)
--- NOTE | 2021-02-14 17:27 | XR_ITS ---
PROCEDURE INFORMATION: Exam: XR Chest Exam date and time: 02/14/2021 5:27 PM Age: 66 years old Clinical indication: Condition or disease; Other: Prior diagnosis of lung mass per patient. ; Additional info: Says prior dx of lung mass TECHNIQUE: Imaging protocol: XR of the chest. Views: 1 view. COMPARISON: CR XR CHEST 2V 02/26/2019 6:42 AM FINDINGS: Lungs: Unremarkable. No consolidation. Pleural spaces: Unremarkable. No pleural effusion. No pneumothorax. Heart/Mediastinum: Unremarkable. No cardiomegaly. Bones/joints: Unremarkable. IMPRESSION: No acute findings.
[2021-02-14 17:31] LABS: MANUAL DIFFERENTIAL MANUAL DIFFERENTIAL (MANUAL DIFF)
[2021-02-14 17:41] LABS: Appearance,Urine CLEAR (Clear); Bilirubin,Urine Negative (Negative); Blood, Urine 3+ (Negative); Color,Urine YELLOW (Yellow); Glucose,Urine (UA) 3+ (Negative); Ketones,Urine Negative (Negative); Leukocyte Esterase,Urine Negative (Negative); Nitrate,Urine Negative (Negative); Protein,Urine Negative (Negative); Specific Gravity, Urine 1.025 (1.005-1.030); Urobilinogen,Urine 0.2 EU/dl (0.2)
[2021-02-14 17:48] LABS: Alanine Aminotransferase 26 U/L (12-78); Albumin Level 3.5 g/dl (3.5-5.0); Albumin/Globulin Ratio 1.2 (1.1-1.8); Alkaline Phosphatase 84 U/L (38-126); Amylase 58 U/L (30-110); Anion Gap 12.8 mEq/L (5-15); Aspartate Amino Transferase 36 U/L (14-36); Bilirubin,Total 1.1 mg/dl (0.2-1.3); Blood Urea Nitrogen 52 mg/dl (7-17); Calcium 10.3 mg/dl (8.4-10.2); Carbon Dioxide 26 mmol/L (22.0-30.0); Chloride 98 mmol/L (98-107); Creatinine Clearance Estimated 62 mL/min (50-200); Estimated Glomerular Filt Rate 50 ml/min (>60); GFR (African American) 60 ML/MIN (>60); Lipase 66 U/L (23-300); Potassium 4.8 mmoL/L (3.5-5.1); Sodium 132 mmol/L (136-145); Total Protein,Serum 6.5 g/dl (6.3-8.2)
[2021-02-14 18:01] LABS: Bacteria,Urine 1+ /lpf; WBC,Urine Occasional #/hpf (0-3)
[2021-02-14 18:12] LABS: Glucose 506 mg/dl (74-100)
--- NOTE | 2021-02-14 18:12 | PC.NURSE ---
Anali called from lab to advise of a glucose of 506. notified.
--- NOTE | 2021-02-14 18:15 | PC.NURSE ---
PT STARTED VOMITING DARK BLOOD WITH LOTS OF CLOTS APPROX 300CC
[2021-02-14 18:16] LABS: Lymphocytes % 12 % (10-50); Macrocytosis 1+; Monocytes % 3 % (2-9); Neutrophils % 85 % (42-76); Platelet Estimate Normal; Total Cells Counted 100
[2021-02-14 18:35] LABS: Activated Partial Thrombo Time 20.6 seconds (22.8-30.6); INR 1.04 (0.9-1.1); Prothrombin Time 11.7 seconds (10.1-12.5)
[2021-02-14 18:35] LABS: Occult Blood,Stool Positive (Negative)
[2021-02-14 18:39] LABS: VBG Base Excess -3.9 mmol/L (-2.4-2.3); VBG HCO3 22.9 mmol/L (23-30); VBG Oxygen Saturation 53.6 % (50-70); VBG PH 7.27 mmol/L (7.31-7.41); VBG PO2 29.8 mmol/L (28-40); VBG Total CO2 24.5 mmol/L (23-27)
[2021-02-14 18:44] LABS: VBG PCO2 50.6 mmol/L (35-51)
--- NOTE | 2021-02-14 18:44 | PC.NURSE ---
Spoke with clara from [facility] pts VBGS are PH-7.27, PCO-50.6, PO-29.8, BICARB-22.9, SAT-53.6, glucose-534, and LAC-6.35.
[2021-02-14 19:32] LABS: Acetone, Serum (Rapid) None Detected (None Detect)
--- NOTE | 2021-02-14 20:11 | PC.NURSE ---
10units iv push insulin given to patient per Mar order. Dose verified with REYMUNDO Borjas rn.
[2021-02-14 20:44] LABS: Coronavirus 19, PCR Not Detected (NotDetected); Influenza A, PCR Not Detected (NotDetected); Influenza B, PCR Not Detected (NotDetected)
--- NOTE | 2021-02-14 21:15 | PC.NURSE ---
500mcg of octreotide not avalible on had. This RN spoke with [employer] and was advised to do 200mcg octreotide in 100ml of NS instead.
--- NOTE | 2021-02-14 21:28 | PC.NURSE ---
Protonix stopped at this time
--- NOTE | 2021-02-14 22:07 | PC.NURSE ---
I spoke with Dillon in pharmacy and he says he will come in early in the AM and get more octreotide
--- NOTE | 2021-02-14 22:09 | PC.NURSE ---
pt arrived to the floor via stretcher at this time
[2021-02-15] VITALS (26 sets, daily range): BP systolic 99–133; BP diastolic 46–73; PULSE 84–101; RESP 14–20; TEMP 36.5–37.3; O2SAT 94–100; BMI 35.4; BMI 35.0
--- NOTE | 2021-02-15 05:30 | PC.NURSE ---
pt complains of abdominal cramping and nausea, no vomiting noted, pt is still have dark tarry black stools, VSS, pt medicated x1 for nausea.
[2021-02-15 05:35] LABS: POC Glucose,Bedside 464 (70-110)
--- NOTE | 2021-02-15 06:55 | HMH.PHAVTE ---
[facility] Pharm[facility] VTE Monitoring - Patient Demographics Admission date: 02/14/21 Report Date: 02/15/21 Time: 06:55 Allergies/Adverse Reactions: Patient Allergies pentazocine Allergy (Severe, Verified 01/30/21 14:32) [id number]/THROAT Height: 1.52 m Weight: 81.828 kg Patient Problems: Current Active Problems Upper gastrointestinal bleeding (Acute) Esophageal varices (Acute) Hyperglycemia (Acute) - VTE Risk Labs: VTE Related Lab Results Hgb 12.3 g/dL (12.2-16.2) 02/14/21 17:10 Hct 37.2 % (37.0-47.0) 02/14/21 17:10 Plt Count 242 K/mm3 (142-424) 02/14/21 17:10 PT 11.7 seconds (10.1-12.5) 02/14/21 17:10 INR 1.04 (0.9-1.1) 02/14/21 17:10 APTT 20.6 seconds (22.8-30.6) L 02/14/21 17:10 BUN 52 mg/dl (7-17) H 02/14/21 17:10 Creatinine 1.10 mg/dl (0.52-1.04) H 02/14/21 17:10 Estimated Creat Clear 62 mL/min (50-200) 02/14/21 17:10 Was VTE Risk Assessment Performed: Yes VTE Score: 6 VTE Risk Level: Moderate Risk - Prophylaxis VTE Prophylaxis Ordered?: Yes Types of VTE Prophylaxis: TEDS Knee High Location of Applied Device: Bilateral Lower Extremeties
--- NOTE | 2021-02-15 07:24 | PC.NURSE ---
Dr. quevedo notified of consult.
[2021-02-15 07:49] LABS: Basophils # 0.1 K/mm3 (0-0.2); Basophils % 0.5 % (0.1-2.0); Eosinophils # 0.1 K/mm3 (0.0-0.4); Eosinophils % 0.5 % (0.1-12.0); Hematocrit 27.6 % (37.0-47.0); Lymphocytes # 2.5 K/mm3 (0.7-4.5); Mean Corpuscular HGB Conc 32.3 g/dL (31.8-35.4); Mean Corpuscular Hemoglobin 32.7 pg (27.0-31.2); Mean Corpuscular Volume 101.3 fl (81-99); Mean Platelet Volume 11.6 fl (7.4-10.4); Monocytes # 1.1 K/mm3 (0.1-1.0); Monocytes % 7.8 % (1.7-9.3); Neutrophils # 10.9 K/mm3 (1.8-7.8); Neutrophils % 74.3 % (37.0-80.0); Platelet Count 215 K/mm3 (142-424); Red Blood Count 2.72 M/mm3 (4.20-5.40); Red Cell Distribution Width 13.7 % (11.5-17.5); White Blood Count 14.6 K/mm3 (4.8-10.8)
[2021-02-15 08:10] LABS: Hemoglobin 8.9 g/dL (12.2-16.2)
--- NOTE | 2021-02-15 10:34 | HMH.GSCON ---
*Admission Date: 02/14/21 *Reason for consult:: Upper gastrointestinal hemorrhage/esophageal varices *History of present illness: This is a 66-year-old female with a diagnosis of esophageal varices and recent upper gastrointestinal hemorrhage. She presented to emergency department with concerns for hematemesis and was admitted to the primary service. Please see HPI and additional data forwarded from emergency department evaluation below. Currently, the patient states that everything's seems to have slowed down . Forwarded from emergency department evaluation: - Reevaluation(s) Time: 18:07 Reevaluation #1: Nurse reports patient vomited up a large amount of bright red blood. Medical Decision Narrative: Discussed esophageal varices seen on CT with patient. No prior diagnosis of esophageal varices. No diagnosis of cirrhosis, no history of alcohol abuse/alcoholism. She states that she was diagnosed with hepatitis B at a young age. General Adult HPI - General Chief complaint: Nausea/Vomiting/Diarrhea Stated complaint: stool is black,vomiting blood Time Seen by Provider: 02/14/21 16:46 Mode of Arrival: Wheelchair Limitations: No Limitations Description of Symptoms (Recalled from ER Triage Doc. by RN): Pt states that she has had black, tarry diarrhea since 0200 and began having dark emesis at approx 1200 today. C/O lower abd pain - History of Present Illness HPI narrative: States that in the middle of the night she began having nausea, vomiting, diarrhea, abdominal cramping, dizziness. States that her diarrhea is very black. Her vomitus had blood in it. She is still having abdominal cramping. States that she has had this once before couple of years ago and was seen in the emergency department in [facility]. She says she had a scam and was told that there was an issue with her colon and a mass on her lung that needed follow-up, but she has never followed up. Denies fever. Review of Systems - Constitutional Denies chills - *Cardiovascular Denies chest pain - *Respiratory Denies cough - *Gastrointestinal Reports vomiting blood, Reports black, tarry stools, Denies abdominal pain [facility] History Medical History: Reports:: Atherosclerotic Heart Disease, Cancer, Chronic Obstructive Pulmonary Disease (COPD), Coronary Artery Disease, Diabetes Mellitus Type 2, Gastroesophageal Reflux Disease(GERD), Hyperlipidemia, Hypertension, Myocardial Infarction Denies:: Diabetes Mellitus Type 1, Internal Pacemaker, MRSA *Have you ever received a pneumonia vaccine?: No *Have you received a flu vaccine this season?: No Other Medical History: Reports: Arthritis Laterality Cases: Bilateral: Cataract Other Surgeries: Yes: Cardiac Catheterization, Cholecystectomy, Coronary Stent, Hernia Repair, Other. No: Pacemaker Amputation: No Fractures: No - *Social History Last grade of school completed: High school graduate Smoking Status: Current every day smoker Tobacco Type: cigarettes # Packs/Day (cigarettes): 1 Alcohol Intake: never Substance Use Type: denies use *Occupational Status:: unemployed Housing: house Household Members: children *Travel in the last 8 weeks: None Family Hx:: Adopted, Unable to obtain Meds Home Medications Medication Instructions Recorded Confirmed Type Aspirin [Aspirin 81mg EC Tab] 81 mg PO DAILY 02/14/21 02/15/21 History Atorvastatin Calcium [Lipitor 10mg 10 mg PO DAILY 02/14/21 02/15/21 History Tab] Cholecalciferol (Vitamin D3) 1,250 mcg PO WEEKLY 02/14/21 02/15/21 History [Dialyvite Vitamin D3 Max] Cholecalciferol (Vitamin D3) 50 mcg PO DAILY 02/14/21 02/15/21 History [Vitamin D3] Clopidogrel Bisulfate [Plavix] 75 mg PO DAILY 02/14/21 02/15/21 History Losartan Potassium [Cozaar 25mg 25 mg PO DAILY 02/14/21 02/15/21 History Tablets]
--- NOTE | 2021-02-15 10:46 | HMH.PHAINT ---
Confirmed home medications with [facility]
[2021-02-15 11:35] LABS: POC Glucose,Bedside 423 (70-110)
--- NOTE | 2021-02-15 13:47 | HMH.HP ---
*Admission Date: 02/14/21 *Chief complaint: gi bleed *History of present illness: 66-year-old female presented to ed with c/o of gi bleeding. Patient states she has been having blood tinged coffee ground vomit and dark stools. Ct in ed shows a diagnosis of esophageal varices and recent upper gastrointestinal hemorrhage. Patient admitted for gi bleeding and surgery consult. [facility] History I have reviewed the patient's past medical history: Yes Medical History: Reports:: Atherosclerotic Heart Disease, Cancer, Chronic Obstructive Pulmonary Disease (COPD), Coronary Artery Disease, Diabetes Mellitus Type 2, Gastroesophageal Reflux Disease(GERD), Hyperlipidemia, Hypertension, Myocardial Infarction Denies:: Diabetes Mellitus Type 1, Internal Pacemaker, MRSA *Have you ever received a pneumonia vaccine?: No *Have you received a flu vaccine this season?: No Other Medical History: Reports: Arthritis Laterality Cases: Bilateral: Cataract Other Surgeries: Yes: Cardiac Catheterization, Cholecystectomy, Coronary Stent, Hernia Repair, Other. No: Pacemaker Amputation: No Fractures: No - *Social History Last grade of school completed: High school graduate Smoking Status: Current every day smoker Tobacco Type: cigarettes # Packs/Day (cigarettes): 1 Alcohol Intake: never Substance Use Type: denies use *Occupational Status:: unemployed Housing: house Household Members: children *Travel in the last 8 weeks: None Family Hx:: Adopted, Unable to obtain Review of Systems - Review of Systems Review of systems:: pertinent systems reviewed and negative unless documented below - Constitutional Denies body ache(s) - Eyes Denies blurry vision - ENT Denies bleeding gums - *Cardiovascular Denies chest pain at rest - *Respiratory Denies change in phlegm color - *Gastrointestinal Reports abdominal pain, Reports coffee ground vomit, Reports black, tarry stools, Reports nausea, Reports vomiting - *Genitourinary Denies vaginal odor - *Musculoskeletal Denies joint pain - Integumentary/Breasts Denies rash - *Neurologic Denies dizziness, Denies fainting - Psychiatric Denies lack of enjoyment - Endocrine Denies excessive sweating - Hematologic/Lymphatic Denies easy bruising - Allergic/Immunologic Denies itchy eyes Meds Home Medications Medication Instructions Recorded Confirmed Type Aspirin [Aspirin 81mg EC Tab] 81 mg PO DAILY 02/14/21 02/15/21 History Atorvastatin Calcium [Lipitor 10mg 10 mg PO DAILY 02/14/21 02/15/21 History Tab] Cholecalciferol (Vitamin D3) 1,250 mcg PO WEEKLY 02/14/21 02/15/21 History [Dialyvite Vitamin D3 Max] Cholecalciferol (Vitamin D3) 50 mcg PO DAILY 02/14/21 02/15/21 History [Vitamin D3] Clopidogrel Bisulfate [Plavix] 75 mg PO DAILY 02/14/21 02/15/21 History Losartan Potassium [Cozaar 25mg 25 mg PO DAILY 02/14/21 02/15/21 History Tablets] Metformin HCl 500 mg PO BID 02/14/21 02/15/21 History Spironolactone [Spironolactone 25 mg PO DAILY 02/14/21 02/15/21 History 25mg Tablet] carvediloL [Carvedilol 3.125mg Tab] 3.125 mg PO BID 02/14/21 02/15/21 History Allergies Allergy/AdvReac Type Severity Reaction Status Date / Time pentazocine Allergy Severe S-SWELLS-OR Verified 01/30/21 14:32 AL/THROAT Exam Vital signs and Labs for Last 24 Hours: Temp Pulse Resp BP Pulse Ox 98.9 F 88 14 124/60 99 02/15/21 13:00 02/15/21 13:00 02/15/21 13:00 02/15/21 13:00 02/15/21 13:00 Laboratory Results - last 24 hr 02/14/21 17:10: WBC 15.7 H, RBC 3.75 L, Hgb 12.3, Hct 37.2, MCV 99.3 H, MCH 32.7 H, MCHC 32.9, RDW 13.7, Plt Count 242, MPV 9.6, Neut % (Auto) 80.4 H, Lymph % (Auto) 14.4, [place] % (Auto) 3.9, Eos % (Auto) 0.9, Baso % (Auto) 0.5, Neut # (Auto) 12.6 H, Lymph # (Auto) 2.3, [place] # (Auto) 0.6, Eos # (Auto) 0.1, Baso # (Auto) 0.1, Total Counted 100, Neutrophils % (Manual) 85 H, Lymphocytes % (Manual) 12, Monocytes % (Manual) 3, Platelet Estimate Normal,
[2021-02-15 16:03] LABS: POC Glucose,Bedside 350 (70-110)
--- NOTE | 2021-02-15 17:11 | PC.NURSE ---
Pt has been pleasant and cooperative this shift. A&O X4. Pt has had a few complaints of abdominal pain for which she has been medicated with Morphine per MAR. Pt reports favorable results. Pt is on room air with sats. >90%. Lungs CTA. No edema noted. Skin is C/D/I. Appetite is good and pt is tolerating a clear liquid diet well. Pt is currently receiving her 2nd unit of PRBC's. Pt ambulates with stand-by assistance in the room and uses the BSC. Pt has had a few episodes of incontinence this shift due to urgency/diarrhea. Urine is clear and yellow. Stool is dark and tarry. FSBS results have been 423 and 350. 20 G peripheral IV in the RT AC is patent and infusing NS @ 100 ML/HR + Octreotide @ 25.5 ML/HR. 20 G peripheral IV in the LT AC is patent and SL. 20 G peripheral IV in the LT hand is patent and infusing Protonix @ 10 ML/HR. VSS. Call light within reach. Will continue to monitor.
[2021-02-15 20:45] LABS: Basophils # 0.1 K/mm3 (0-0.2); Basophils % 0.6 % (0.1-2.0); Eosinophils # 0.2 K/mm3 (0.0-0.4); Eosinophils % 1.4 % (0.1-12.0); Hematocrit 31.8 % (37.0-47.0); Lymphocytes # 3.3 K/mm3 (0.7-4.5); Lymphocytes % 22.4 % (10-50); Mean Corpuscular Hemoglobin 32.2 pg (27.0-31.2); Mean Corpuscular Volume 97.5 fl (81-99); Mean Platelet Volume 9.2 fl (7.4-10.4); Monocytes # 1.1 K/mm3 (0.1-1.0); Monocytes % 7.3 % (1.7-9.3); Neutrophils % 68.2 % (37.0-80.0); Platelet Count 159 K/mm3 (142-424); Red Blood Count 3.26 M/mm3 (4.20-5.40); Red Cell Distribution Width 15.1 % (11.5-17.5); White Blood Count 14.7 K/mm3 (4.8-10.8)
[2021-02-15 20:50] LABS: Hemoglobin 10.5 g/dL (12.2-16.2)
[2021-02-15 21:47] LABS: POC Glucose,Bedside 334 (70-110)
[2021-02-16] VITALS (22 sets, daily range): BP systolic 92–165; BP diastolic 36–74; PULSE 64–107; RESP 14–20; TEMP 36.8–37.5; O2SAT 93–99; BMI 36.7
--- NOTE | 2021-02-16 04:33 | PC.NURSE ---
pt A&Ox4, has had one BM this shift, dark red in color, pt did remove IV in right arm, has two IVs remaining in left arm, has not complained of pain this shift, remains on room air with sats 95-99%
[2021-02-16 06:33] LABS: Basophils # 0.1 K/mm3 (0-0.2); Basophils % 0.5 % (0.1-2.0); Eosinophils # 0.3 K/mm3 (0.0-0.4); Eosinophils % 2.2 % (0.1-12.0); Hemoglobin 9.5 g/dL (12.2-16.2); Lymphocytes # 2.4 K/mm3 (0.7-4.5); Lymphocytes % 15.8 % (10-50); Mean Corpuscular HGB Conc 33.7 g/dL (31.8-35.4); Mean Corpuscular Hemoglobin 32.7 pg (27.0-31.2); Mean Corpuscular Volume 97.1 fl (81-99); Mean Platelet Volume 9.6 fl (7.4-10.4); Monocytes # 1.1 K/mm3 (0.1-1.0); Monocytes % 7.4 % (1.7-9.3); Neutrophils # 11.1 K/mm3 (1.8-7.8); Neutrophils % 74.2 % (37.0-80.0); Platelet Count 165 K/mm3 (142-424); Red Cell Distribution Width 15.3 % (11.5-17.5); White Blood Count 14.9 K/mm3 (4.8-10.8)
[2021-02-16 06:34] LABS: Hematocrit 28.1 % (37.0-47.0)
[2021-02-16 06:52] LABS: Chloride 106 mmol/L (98-107); Potassium 5.1 mmoL/L (3.5-5.1); Sodium 134 mmol/L (136-145)
[2021-02-16 06:55] LABS: Anion Gap 8.1 mEq/L (5-15); Blood Urea Nitrogen 46 mg/dl (7-17); Calcium 7.8 mg/dl (8.4-10.2); Carbon Dioxide 25 mmol/L (22.0-30.0); Creatinine Clearance Estimated 74 mL/min (50-200); Estimated Glomerular Filt Rate 55 ml/min (>60); GFR (African American) 67 ML/MIN (>60); Glucose 308 mg/dl (74-100)
--- NOTE | 2021-02-16 09:51 | HMH.ACPN2 ---
Internal Medicine - PN: Subj *Date: 02/16/21 *Time: 09:51 Interval history: feels better w/o vomiting blood but still dark stool-pt has no abd pain - no fever Exam Vital signs and Labs for Last 24 Hours: Temp Pulse Resp BP Pulse Ox 98.2 F 64 16 115/36 L 98 02/16/21 08:00 02/16/21 08:00 02/16/21 08:00 02/16/21 08:00 02/16/21 08:00 Laboratory Results - last 24 hr 02/15/21 06:21: Blood Type Confirm O Positive 02/15/21 09:20: Blood Type O Positive, Antibody Screen Negative, Crossmatch (AHG) See Detail 02/15/21 10:43: POC Glucose 423 H* 02/15/21 15:48: POC Glucose 350 H* 02/15/21 20:11: WBC 14.7 H, RBC 3.26 L, Hgb 10.5 L D, Hct 31.8 L, MCV 97.5, MCH 32.2 H, MCHC 33.0, RDW 15.1, Plt Count 159 D, MPV 9.2, Neut % (Auto) 68.2, Lymph % (Auto) 22.4, [place] % (Auto) 7.3, Eos % (Auto) 1.4, Baso % (Auto) 0.6, Neut # (Auto) 10.0 H, Lymph # (Auto) 3.3, [place] # (Auto) 1.1 H, Eos # (Auto) 0.2, Baso # (Auto) 0.1 02/15/21 21:32: POC Glucose 334 H* 02/16/21 05:50: WBC 14.9 H, RBC 2.90 L, Hgb 9.5 L, Hct 28.1 L, MCV 97.1, MCH 32.7 H, MCHC 33.7, RDW 15.3, Plt Count 165, MPV 9.6, Neut % (Auto) 74.2, Lymph % (Auto) 15.8, [place] % (Auto) 7.4, Eos % (Auto) 2.2, Baso % (Auto) 0.5, Neut # (Auto) 11.1 H, Lymph # (Auto) 2.4, [place] # (Auto) 1.1 H, Eos # (Auto) 0.3, Baso # (Auto) 0.1 02/16/21 05:50: Sodium 134 L, Potassium 5.1, Chloride 106, Carbon Dioxide 25, Anion Gap 8.1, BUN 46 H, Creatinine 1.00, Estimated Creat Clear 74, Estimated GFR 55 L, Est GFR ( Amer) 67, Glucose 308 H, Calcium 7.8 L I & O for Last 24 hours: Intake & Output 02/13/21 02/14/21 02/15/21 02/16/21 11:59 11:59 11:59 11:59 Intake Total 1000 / 1000 3035 / 3035 Output Total 0 / 0 Balance 1000 / 1000 3035 / 3035 Weight 180 lb 6.398 oz 187 lb 1 oz - Constitutional no acute distress, obese - *Routine HEENT Exam Head: Present: normocephalic Eye: Present: EOMI, PERRL ENT: Present: mucous membranes dry - *Routine Neck Exam Absent: JVD - *Routine Respiratory Exam Present: CTA bilaterally - *Routine Cardiovascular Exam Present: RRR - *Routine Abdominal Exam Present: soft. Absent: tenderness, distended, rebound - *Routine Extremities Exam Absent: calf tenderness - *Routine Skin Exam Present: intact - *Routine Neurological Exam Present: alert, CN II-XII intact - Routine Psychiatric Exam Present: cooperative Assessment and Plan (1) Esophageal varices Status: Acute Qualifiers: Esophageal varices type: unspecified type Esophageal varices bleeding: with bleeding Qualified Code(s): I85.01 - Esophageal varices with bleeding Category: Medical Code(s): I85.00 - Esophageal varices without bleeding (2) Upper gastrointestinal bleeding Status: Acute Category: Medical Code(s): K92.2 - Gastrointestinal hemorrhage, unspecified (3) Coronary artery disease Status: Chronic Qualifiers: Coronary Disease-Associated Artery/Lesion type: [place] artery [place] vs. 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
--- NOTE | 2021-02-16 10:12 | P.PN_ITS ---
Subjective Narrative: Feels a little weak . Continues to have melena. Progress Note: A&P (1) Esophageal varices Status: Acute (2) Upper gastrointestinal bleeding Status: Acute Assessment and plan: Most likely secondary to variceal bleeding. Banding of esophageal varices and/or sclerotherapy not performed by the general surgical service at this facility. Continue to recommend transfer to a facility where banding and/or sclerotherapy performed as soon as a bed becomes available. Repeat hemoglobin/hematocrit at 12 noon. Transfuse as needed. (3) Coronary artery disease Status: Chronic (4) Diabetes Status: Chronic (5) Obesity (BMI 30-39.9) Status: Acute (6) Anemia Status: Acute Exam Vital signs and Labs for Last 24 Hours: Temp Pulse Resp BP Pulse Ox 98.2 F 64 16 115/36 L 98 02/16/21 08:00 02/16/21 08:00 02/16/21 08:00 02/16/21 08:00 02/16/21 08:00 Laboratory Results - last 24 hr 02/15/21 06:21: Blood Type Confirm O Positive 02/15/21 09:20: Blood Type O Positive, Antibody Screen Negative, Crossmatch (AHG) See Detail 02/15/21 10:43: POC Glucose 423 H* 02/15/21 15:48: POC Glucose 350 H* 02/15/21 20:11: WBC 14.7 H, RBC 3.26 L, Hgb 10.5 L D, Hct 31.8 L, MCV 97.5, MCH 32.2 H, MCHC 33.0, RDW 15.1, Plt Count 159 D, MPV 9.2, Neut % (Auto) 68.2, Lymph % (Auto) 22.4, [place] % (Auto) 7.3, Eos % (Auto) 1.4, Baso % (Auto) 0.6, Neut # (Auto) 10.0 H, Lymph # (Auto) 3.3, [place] # (Auto) 1.1 H, Eos # (Auto) 0.2, Baso # (Auto) 0.1 02/15/21 21:32: POC Glucose 334 H* 02/16/21 05:50: WBC 14.9 H, RBC 2.90 L, Hgb 9.5 L, Hct 28.1 L, MCV 97.1, MCH 32.7 H, MCHC 33.7, RDW 15.3, Plt Count 165, MPV 9.6, Neut % (Auto) 74.2, Lymph % (Auto) 15.8, [place] % (Auto) 7.4, Eos % (Auto) 2.2, Baso % (Auto) 0.5, Neut # (Auto) 11.1 H, Lymph # (Auto) 2.4, [place] # (Auto) 1.1 H, Eos # (Auto) 0.3, Baso # (Auto) 0.1 02/16/21 05:50: Sodium 134 L, Potassium 5.1, Chloride 106, Carbon Dioxide 25, Anion Gap 8.1, BUN 46 H, Creatinine 1.00, Estimated Creat Clear 74, Estimated GFR 55 L, Est GFR ( Amer) 67, Glucose 308 H, Calcium 7.8 L I & O for Last 24 hours: Intake & Output 02/13/21 02/14/21 02/15/21 02/16/21 11:59 11:59 11:59 11:59 Intake Total 1000 / 1000 3035 / 3035 Output Total 0 / 0 Balance 1000 / 1000 3035 / 3035 Weight 180 lb 6.398 oz 187 lb 1 oz Narrative: 2 unit packed red blood cell transfusion yesterday - Constitutional no acute distress - *Routine Respiratory Exam Absent: respiratory distress - *Routine Cardiovascular Exam Absent: tachycardia
[2021-02-16 13:10] LABS: POC Glucose,Bedside 341 (70-110)
[2021-02-16 13:47] LABS: Hematocrit 23.9 % (37.0-47.0)
[2021-02-16 13:53] LABS: Hemoglobin 7.9 g/dL (12.2-16.2)
[2021-02-16 17:12] LABS: POC Glucose,Bedside 283 (70-110)
--- NOTE | 2021-02-16 17:25 | PC.NURSE ---
Pt has been pleasant and cooperative this shift. A&O X4. Pt has complained of abdominal pain X1 thus far today and received Morphine per MAR with favorable results. Pt also reported nausea this AM and received Zofran. No vomiting noted. Pt is on room air with sats. >90%. Lungs CTA. No edema noted. Skin is C/D/I. Appetite is fair and pt is tolerating a clear liquid diet well. Pt is currently receiving #1 of 3 units of PRBC's. Pt ambulates with stand-by assistance in the room and uses the BSC. Pt has had a few episodes of incontinence this shift due to urgency/diarrhea. Attends in place. Urine is clear and yellow. Stool is dark and tarry. 3 stools thus far today. FSBS results have been 341 and 283. 20 G peripheral IV in the LT upper arm is patent and infusing NS @ 100 ML/HR + Octreotide @ 25.5 ML/HR. 20 G peripheral IV in the LT AC is patent and infusing Protonix @ 10 ML/HR. VSS. Call light within reach. Will continue to monitor.
--- NOTE | 2021-02-16 20:30 | PC.NURSE ---
Addendum entered by Anais Mcrae RN 02/17/21 16:19: spoke with Dr Holloway this am and notified him of issues with non compressible veins. stated he still would like a PICC line. Attempted to stick for PICC line x 4. all attempts were unsuccessful. 2nd PICC RN attempted to insert PICC as well, which was also unsuccessful. Dr Holloway was notified of unsuccessful attempts. asked what IV access pt currently had. as of 1527 pt had 20g us in r ua, and 20 l ac. was asked if he was interested in inserting a central line. states that he would rather pt to have PIV as opposed to inserting a deep line. was informed that at this time the pt does not have any veins that can be access with or without US guidance. Original Note: pt has multiple peripheral and US guided IV's attempted and then some started as well. pt has had 2 of [address] US iv's infiltrate. Dr Holloway was notified and asked about vascular access. stated to attempt a PICC line. was informed of difficulty with veins being accessed and lasting with and without using the US. R/t order being received at 1820 for PICC, when asked MD said it was ok to wait and attempt picc in the am r/t minimal resources and lack of in house radiologist. was agreeable. At the end of dayshift 02/16 US iv was started but was difficult to obtain r/t several non compressible veins. IV was ultimately achieved.
[2021-02-16 21:33] LABS: POC Glucose,Bedside 415 (70-110)
[2021-02-16 21:33] LABS: POC Glucose,Bedside 352 (70-110)
[2021-02-16 21:55] LABS: POC Glucose,Bedside 218 (70-110)
[2021-02-17] VITALS (16 sets, daily range): BP systolic 93–128; BP diastolic 39–67; PULSE 64–91; RESP 14–20; TEMP 36.7–37.4; O2SAT 90–97; BMI 36.6
[2021-02-17 05:37] LABS: POC Glucose,Bedside 234 (70-110)
--- NOTE | 2021-02-17 07:03 | PC.NURSE ---
pt has rested well t/o shift, has remained on room air, no complaints of pain this shift, received 2 units of blood this shift with no s/s of transfusion reaction
--- NOTE | 2021-02-17 07:16 | HMH.GSPN ---
Subjective Narrative: The patient received 3 units of additional packed red blood cells yesterday. She has had a total of 5 units of packed red blood cells during this admission. She states that she currently feels better . Posttransfusion hemoglobin/hematocrit is pending. Per nursing, she has had very tenuous IV access. A PICC has been ordered. Additional attempts at transfer to a facility capable of endoscopic treatment (banding and/or sclerotherapy) for esophageal varices were made yesterday. As of now, no bed availability remains an issue. Progress Note: A&P (1) Esophageal varices Status: Acute (2) Upper gastrointestinal bleeding Status: Acute Assessment and plan: Most likely secondary from esophageal varices. 3 additional units of packed red blood cells transfused yesterday. Follow-up hemoglobin/hematocrit this morning Additional transfusion as needed Efforts for transfer to facility were banding/sclerotherapy available will continue (3) Coronary artery disease Status: Chronic (4) Diabetes Status: Chronic (5) Obesity (BMI 30-39.9) Status: Acute (6) Anemia Status: Acute Exam Vital signs and Labs for Last 24 Hours: Temp Pulse Resp BP Pulse Ox 98.5 F 83 15 110/62 92 L 02/17/21 05:45 02/17/21 05:45 02/17/21 05:45 02/17/21 05:45 02/17/21 05:45 Laboratory Results - last 24 hr 02/15/21 06:16: POC Glucose 415 H* 02/15/21 09:20: Blood Type O Positive, Antibody Screen Negative, Crossmatch (AHG) See Detail 02/16/21 06:02: POC Glucose 352 H* 02/16/21 12:53: POC Glucose 341 H* 02/16/21 13:11: Hgb 7.9 L D, Hct 23.9 L 02/16/21 16:15: POC Glucose 283 H 02/16/21 21:39: POC Glucose 218 H 02/17/21 05:26: POC Glucose 234 H I & O for Last 24 hours: Intake & Output 02/14/21 02/15/21 02/16/21 02/17/21 11:59 11:59 11:59 11:59 Intake Total 1000 / 1000 3035 / 3035 2651 / 2651 Output Total 0 / 0 Balance 1000 / 1000 3035 / 3035 2651 / 2651 Weight 180 lb 6.398 oz 187 lb 1 oz 186 lb 4 oz - Constitutional no acute distress - *Routine Respiratory Exam Absent: respiratory distress - *Routine Cardiovascular Exam Absent: tachycardia
[2021-02-17 08:55] LABS: Hematocrit 31.7 % (37.0-47.0)
[2021-02-17 08:56] LABS: Hemoglobin 10.6 g/dL (12.2-16.2)
--- NOTE | 2021-02-17 10:32 | P.PN_ITS ---
Internal Medicine - PN: Subj *Date: 02/17/21 *Time: 10:32 Interval history: doing ok - no vomiting - surg note reviewed Exam Vital signs and Labs for Last 24 Hours: Temp Pulse Resp BP Pulse Ox 98.8 F 64 16 121/39 L 93 L 02/17/21 08:00 02/17/21 08:00 02/17/21 08:00 02/17/21 08:00 02/17/21 08:00 Laboratory Results - last 24 hr 02/15/21 06:16: POC Glucose 415 H* 02/15/21 09:20: Blood Type O Positive, Antibody Screen Negative, Crossmatch (AHG) See Detail 02/16/21 06:02: POC Glucose 352 H* 02/16/21 12:53: POC Glucose 341 H* 02/16/21 13:11: Hgb 7.9 L D, Hct 23.9 L 02/16/21 16:15: POC Glucose 283 H 02/16/21 21:39: POC Glucose 218 H 02/17/21 05:26: POC Glucose 234 H 02/17/21 07:10: Hgb 10.6 L D, Hct 31.7 L I & O for Last 24 hours: Intake & Output 02/14/21 02/15/21 02/16/21 02/17/21 11:59 11:59 11:59 11:59 Intake Total 1000 / 1000 3035 / 3035 2771 / 2771 Output Total 0 / 0 Balance 1000 / 1000 3035 / 3035 2771 / 2771 Weight 180 lb 6.398 oz 187 lb 1 oz 186 lb 4 oz - Constitutional no acute distress - *Routine HEENT Exam Head: Present: normocephalic Eye: Present: EOMI, PERRL ENT: Present: mucous membranes dry - *Routine Neck Exam Absent: JVD - *Routine Respiratory Exam Present: CTA bilaterally - *Routine Cardiovascular Exam Present: RRR - *Routine Abdominal Exam Present: soft - *Routine Extremities Exam Absent: calf tenderness - *Routine Skin Exam Present: intact - *Routine Neurological Exam Present: alert, CN II-XII intact - Routine Psychiatric Exam Present: normal affect Assessment and Plan (1) Esophageal varices Status: Acute Qualifiers: Esophageal varices type: unspecified type Esophageal varices bleeding: with bleeding Qualified Code(s): I85.01 - Esophageal varices with bleeding Category: Medical Code(s): I85.00 - Esophageal varices without bleeding (2) Upper gastrointestinal bleeding Status: Acute Category: Medical Code(s): K92.2 - Gastrointestinal hemorrhage, unspecified (3) Coronary artery disease Status: Chronic Qualifiers: Coronary Disease-Associated Artery/Lesion type: [place] artery [place] vs. 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
[2021-02-17 11:58] LABS: POC Glucose,Bedside 328 (70-110)
[2021-02-17 15:11] LABS: Hematocrit 32.1 % (37.0-47.0); Hemoglobin 11.1 g/dL (12.2-16.2)
[2021-02-17 16:10] LABS: POC Glucose,Bedside 124 (70-110)
--- NOTE | 2021-02-17 16:59 | PC.NURSE ---
Pt has been pleasant and cooperative this shift. A&O X4. No complaints of pain or SOA. Pt is on room air with sats. >90%. Lungs CTA. No edema noted. Scattered bruising noted to BUE. Appetite is fair and pt is tolerating a clear liquid diet well. No nausea reported today. Pt ambulates with stand-by assistance to/from the bathroom and throughout the room. Urine is clear and yellow. Stool is dark and tarry. 2 stools thus far today. FSBS results have been 328 and 124. 20 G peripheral IV in the RT upper arm is patent and infusing NS @ 100 ML/HR + Octreotide @ 25.5 ML/HR. VSS. Call light within reach. Will continue to monitor.
[2021-02-17 22:19] LABS: POC Glucose,Bedside 223 (70-110)
[2021-02-18 04:00] VITALS: BP 146/86; PULSE 92; RESP 22; TEMP 37.2; O2SAT 94
[2021-02-18 05:06] VITALS: BMI 35.3
[2021-02-18 05:53] LABS: POC Glucose,Bedside 349 (70-110)
--- NOTE | 2021-02-18 06:24 | PC.NURSE ---
pt has rested well this shift, has remained on room air with O2 sats 94-97%, lost IV access again this shift, Dr. Rincon made aware
[2021-02-18 07:03] LABS: Hemoglobin 10.1 g/dL (12.2-16.2)
[2021-02-18 08:00] VITALS: BP 111/37; PULSE 88; RESP 18; TEMP 36.9; O2SAT 98
--- NOTE | 2021-02-18 08:39 | HMH.GSPN ---
Subjective Patient reports: no new complaints Narrative: Per nursing the patient no longer has IV access. Progress Note: A&P (1) Esophageal varices Status: Acute (2) Upper gastrointestinal bleeding Status: Acute Assessment and plan: Likely from esophageal varices. Overall, the patient is currently stable with no signs of definitive/ongoing blood loss. If she is deemed appropriate for discharge...she will need outpatient follow-up as soon as possible with gastroenterology at a facility capable of esophageal variceal banding and/or sclerotherapy. If she is not deemed appropriate for discharge...she will likely require a triple-lumen catheter for IV access as she has none currently. (3) Coronary artery disease Status: Chronic (4) Diabetes Status: Chronic (5) Obesity (BMI 30-39.9) Status: Acute (6) Anemia Status: Acute Exam Vital signs and Labs for Last 24 Hours: Temp Pulse Resp BP Pulse Ox 99.0 F 92 H 22 146/86 H 94 L 02/18/21 04:00 02/18/21 04:00 02/18/21 04:00 02/18/21 04:00 02/18/21 04:00 Laboratory Results - last 24 hr 02/17/21 07:10: Hgb 10.6 L D, Hct 31.7 L 02/17/21 11:31: POC Glucose 328 H* 02/17/21 14:45: Hgb 11.1 L, Hct 32.1 L 02/17/21 15:38: POC Glucose 124 H 02/17/21 22:08: POC Glucose 223 H 02/18/21 05:37: POC Glucose 349 H* 02/18/21 06:14: Hgb 10.1 L, Hct 30.0 L I & O for Last 24 hours: Intake & Output 02/15/21 02/16/21 02/17/21 02/18/21 11:59 11:59 11:59 11:59 Intake Total 1000 / 1000 3035 / 3035 2771 / 2771 2523 / 252 Output Total 0 / 0 Balance 1000 / 1000 3035 / 3035 2771 / 2771 2523 / 2523 Weight 180 lb 6.398 oz 187 lb 1 oz 186 lb 4 oz 180 lb - Constitutional no acute distress - *Routine Respiratory Exam Absent: respiratory distress - *Routine Cardiovascular Exam Absent: tachycardia
[2021-02-18 11:39] LABS: POC Glucose,Bedside 158 (70-110)
--- NOTE | 2021-02-18 11:56 | HMH.DCSUM ---
General - General Admission date:: 02/14/21 Discharge date: 02/18/21 HPI HPI: 66-year-old female presented to ed with c/o of gi bleeding. Patient states she has been having blood tinged coffee ground vomit and dark stools. Ct in ed shows a diagnosis of esophageal varices and recent upper gastrointestinal hemorrhage. Patient admitted for gi bleeding and surgery consult. Hospital Course Hospital Course: Laboratory Tests 02/14/21 02/14/21 02/14/21 17:10 17:10 17:10 WBC 15.7 H RBC 3.75 L Hgb 12.3 Hct 37.2 MCV 99.3 H MCH 32.7 H MCHC 32.9 RDW 13.7 Plt Count 242 MPV 9.6 Neut % (Auto) 80.4 H Lymph % (Auto) 14.4 [place] % (Auto) 3.9 Eos % (Auto) 0.9 Baso % (Auto) 0.5 Neut # (Auto) 12.6 H Lymph # (Auto) 2.3 [place] # (Auto) 0.6 Eos # (Auto) 0.1 Baso # (Auto) 0.1 Total Counted 100 Neutrophils % (Manual) 85 H Lymphocytes % (Manual) 12 Monocytes % (Manual) 3 Platelet Estimate Normal Macrocytosis 1+ PT 11.7 INR 1.04 APTT 20.6 L VBG pH VBG pCO2 VBG pO2 VBG HCO3 VBG Total CO2 VBG O2 Saturation VBG Base Excess Sodium 132 L Potassium 4.8 Chloride 98 Carbon Dioxide 26 Anion Gap 12.8 BUN 52 H Creatinine 1.10 H Estimated Creat Clear 62 Estimated GFR 50 L Est GFR ( Amer) 60 Glucose 506 H* POC Glucose Calcium 10.3 H Total Bilirubin 1.1 AST 36 ALT 26 Alkaline Phosphatase 84 Total Protein 6.5 Albumin 3.5 Globulin 3.0 Albumin/Globulin Ratio 1.2 Amylase 58 Lipase 66 Urine Color Urine Appearance Urine pH Ur Specific [place] Urine Protein Urine Glucose (UA) Urine Ketones Urine Blood Urine Nitrate Urine Bilirubin Urine Urobilinogen Ur Leukocyte Esterase Urine RBC Urine WBC Ur Squamous Epith Cells Urine Bacteria Stool Occult Blood Stl Aeromonas (PCR) Stl C. cayetanensis PCR Stool Rotavirus (PCR) Stl Adenov F 40/41 PCR Stool Astrovirus (PCR) Stool Campylobacter PCR Stl C.difficile Tox PCR Stool Cryptosporidium PCR Stl E.coli Shiga Tox PCR Stool E coli O157 PCR Stl Enterotoxigenic E PCR Stool EPEC (PCR) Stool EAEC (PCR) Stl E. histolytica PCR Stool Giardia Lamblia PCR Stool Salmonella PCR Stool Sapovirus (PCR) Stl P. shigelloides PCR Stl Shigella/EIEC PCR St Y.enterocolitica PCR Stool Vibrio (PCR) Stl Vibrio cholerae PCR Stl Norovirus GI/GII PCR Acetone Level SARS-CoV-2 (PCR) Influenza A Untype (PCR) Influenza Type B (PCR) Blood Type Blood Type Confirm Antibody Screen Crossmatch (AHG) 02/14/21 02/14/21 02/14/21 17:10 17:15 17:15 WBC RBC Hgb Hct MCV MCH MCHC RDW Plt Count MPV Neut % (Auto) Lymph % (Auto) [place] % (Auto) Eos % (Auto) Baso % (Auto) Neut # (Auto) Lymph # (Auto) [place] # (Auto) Eos # (Auto) Baso # (Auto) Total Counted Neutrophils % (Manual) Lymphocytes % (Manual) Monocytes % (Manual) Platelet Estimate Macrocytosis PT INR APTT VBG pH VBG pCO2 VBG pO2 VBG HCO3 VBG Total CO2 VBG O2 Saturation VBG Base Excess Sodium Potassium Chloride Carbon Dioxide Anion Gap BUN Creatinine Estimated Creat Clear Estimated GFR Est GFR ( Amer) Glucose POC Glucose Calcium Total Bilirubin AST ALT Alkaline Phosphatase Total Protein Albumin Globulin Albumin/Globulin Ratio Amylase Lipase Urine Color Yellow Urine Appearance Clear Urine pH 6.0 Ur Specific [place] 1.025 Urine Protein Negative Urine Glucose (UA) 3+ Urine Ketones Negative Urine Blood 3+ Urine Nitrate Negative Urine Bilirubin Negative Urine Urobilinogen 0.2 Ur Sal
== END 2021-02-18 15:48 | disposition home or self-care (01) | DRG 369 ==
LOC: ER 20:37 → 2ND 21:14
PROVIDERS: Nurse Practitioner Family; Surgery; Admitting Provider Family Medicine; Emergency Provider Emergency Medicine; PCP Emergency Medicine; Visit Provider Emergency Medicine
DX: I85.01 Esophageal varices with bleeding (principal); D62 Acute posthemorrhagic anemia; E11.9 Type 2 diabetes mellitus without complications; I25.10 Atherosclerotic heart disease of native coronary artery without angina pectoris; Z95.5 Presence of coronary angioplasty implant and graft; Z79.01 Long term (current) use of anticoagulants; Z20.822 Contact with and (suspected) exposure to COVID-19; F17.210 Nicotine dependence, cigarettes, uncomplicated; J44.9 Chronic obstructive pulmonary disease, unspecified; K21.9 Gastro-esophageal reflux disease without esophagitis; E78.5 Hyperlipidemia, unspecified; I25.2 Old myocardial infarction; M19.90 Unspecified osteoarthritis, unspecified site; E66.9 Obesity, unspecified; Z68.35 Body mass index [BMI] 35.0-35.9, adult; I11.0 Hypertensive heart disease with heart failure; I50.9 Heart failure, unspecified
CPT/HCPCS: 36415; 71045; 74177; 80048; 80053; 81001; 82009; 82150; 82272; 82803; 82962; 83690; 85007; 85014; 85018; 85025; 85610; 85730; 86850; 87506; 96365; 96367; 96375; 96376; 99284; C1751; C9803; G0328; J2354; J2405; P9016; Q9967; U0003; U0005

== ENCOUNTER → 2021-02-21 11:22 | Outpatient (CLI) | payer MEDICARE, MEDICAID, SELFPAY ==
--- NOTE | 2021-02-21 | CA_ITS ---
APPROVED REPORT Exam: Pharmacologic Technologist: Mary Spann, Ht: 4 ft 11 in Wt: 180 lbs BSA: 1.76 m2 HR: 72 bpm BP: 99/50 mmHg Rhythm: NSR, old septal VA, low voltage QRS Indications: CP, CAD, preop Medical History Medical History: HTN, Hyperlipidemia, Diabetic ??? Insulin Medications: Metformin,,,,, Losartan,,,,, Pantoprazole,,,,, Atorvastatin,,,,, Carvedilol,,,,, Vit D3,,,,, SpirOnALACTONE,,,,, Cardiac Risk Factors: HTN, Hyperlipidemia, Diabetes (insulin), Smoking Stress Test Details Test: LEXISCAN HR Resting HR: 74 bpm Max Heart Rate (APMHR): 154.770301 bpm Max HR Achieved: 89 bpm Target HR (85% APMHR): 130.123345 bpm % of APMHR: 57.79 Recovery HR: 81 bpm BP Resting BP: 99/50 mmHg Max BP: 99/50 mmHg Recovery BP: 87.0/35.0 mmHg ECG Resting ECG: NSR, old septal VA, low voltage QRS Clinical Exercise duration: 04:01 min Highest Stage Achieved: Exercise capacity: 1.0 METs Stress ECG Conclusion During lexiscan pt experinced SOA, nausea, lightheaded. No CP. No arrthymthias noted. No significant ST changes. Non diagnostic lexiscan stress. Myoview images reported separately. Aminophylline 100mg slow IV given at 1 minute recovery. Pt went back to baseline. Test Summary REST . . . . . . . Sitting REST 04:31 . . 74 . 99/ 50 . . Stage 1 01:00 . . 86 . . . . Stage 2 01:00 . . 89 . . . . Stage 3 01:00 . . 85 . 95/ 48 . . Stage 4 01:00 . . 83 . 85/ 42 . . Stage 4 01:01 . . 83 . 85/ 42 . Stop exercise at 04:01 RECOVERY 01:00 . . 84 . . . . RECOVERY 02:00 . . 84 . . . . RECOVERY 03:00 . . 80 . . . . RECOVERY 04:00 . . 77 . 87/ 35 . . RECOVERY 05:00 . . 82 . 87/ 35 . . RECOVERY 06:00 . . 81 . 90/ 43 . . RECOVERY 07:00 . . 81 . 90/ 43 . . RECOVERY 07:30 . . 83 . 98/ 53 . . Electronically signed by : Jamarcus Mayen MD 02/21/2021 14:31:47
--- NOTE | 2021-02-21 11:23 | CA_ITS ---
APPROVED REPORT EXAM: Comprehensive 2D, Doppler, and color-flow Echocardiogram Graduate Advisor: WANDA Perla, RVS Ht: 4 ft 11 in Wt: 180lbs BSA: 1.76 BP: 100/54 mmHg Indications: GI Bleed with hemoptisi, Smoker, SOA, CP, COPDHTN, DM 2D Dimensions LVDs 2.62 cm LA Volume 27.00 mL Left Atrium 3.54 cm LA Volume Index 15.648079 mL/m2 (M/F) 16-34 LVOT 1.63 cm (M/F) 1.5-2.5 M-Mode Dimensions TAPSE 2.04 (<1.7) LV Diastology E Decel Time 237.00 (160-240 msec) E/A Ratio 1.01 MED E' 8.50 (< 7 cm/sec) MED A' 14.20 cm/s E'/MED E' Ratio 12.19 (>14) LAT E' 10.20 (<10 cm/sec) LAT A' 13.50 cm/s E/LAT E' Ratio 10.16 (>14) Aortic Valve LVOT Max 147.00 (70-110 cm/s) LVOT VTI 32.24 cm AoV Peak Sotero. 183.00 (50-130 cm/s) AO Peak GR. 13.30 mmHg AO Mean GR. 5.90 (<5 mmHg) AO VTI 33.86 (18-25 cm) FITZ (VTI) 1.99 (2.5-4.5 cm2) Mitral Valve MV A Velocity 102.00 (40-130 cm/s) E/A Ratio 1.01 MV Decel. Time 237.00 (160-240 ms) Tricuspid Valve TR P. Velocity 130.00 cm/s RAP Estimate 10.00 mmHg RVSP 16.80 mmHg Left Ventricle Left atrium is mildly enlarged, left ventricle is normal size, mild concentric left ventricular hypertrophy, visually estimated 55% with no regional wall motion abnormality, grade 1 diastolic dysfunction seen without tissue Doppler evidence of raise left atrial pressure. Right Ventricle Right atrium and right ventricle are normal size and contractility. Aortic Valve Aortic valve is minimally thickened and fibrosed, there is no aortic stenosis or aortic insufficiency. Mitral Valve Mitral valve is grossly normal, there is no mitral stenosis, there is mild mitral regurgitation. Tricuspid Valve Tricuspid valve grossly normal, there is mild tricuspid regurgitation, tricuspid regurgitation jet velocity is inadequate for calculation of the right ventricular systolic pressure. Pulmonic Valve Pulmonic valve is poorly visualized. Great Vessels Aortic root is normal size. Pericardium There is small pericardial effusion noted. There is large left-sided pleural effusion seen. Conclusion 1. Mildly enlarged left atrium, normal left ventricular size, mild concentric left ventricular hypertrophy, visually estimated ejection fraction 55% with no regional wall motion abnormality, diastolic parameters are consistent with grade 1 diastolic dysfunction without tissue Doppler evidence of raise left atrial pressure. 2. Mild mitral and tricuspid regurgitation. 3. Small pericardial effusion and large left-sided pleural effusion seen. 4. Inferior vena cava is poorly visualized. Electronically signed by : Jamarcus Mayen MD 02/22/2021 09:16:55
--- NOTE | 2021-02-21 11:34 | NM_ITS ---
APPROVED REPORT Exam: Nuclear Stress Test Indication: chest pain..short of breath..syncope..fatigue Stress Tech: Mary Maria Ines RAMOS Tech:Anais ElizondoSAM RT(R)(N) Ht: 5 ft 0 in Wt: 170 lbs Bra Size: c HR: 72 bpm BP: 99/50 mmHg BSA: 1.74 m2 History: chest pain..short of breath..syncope..fatigue Procedure: Patient received a 0.4 mg of intravenous Lexiscan, resting heart rate 72 bpm, resting blood pressure 99/50 mmHg, with Lexiscan maximum heart rate achived was 87 bpm which is Less than 85 % of the maximum predicted heart rate and blood pressure was 95/48 mmHg. With Lexiscan, patient denied any complaint of chest pain. pt was unable to lay on her belly for prone pictures Electrocardiogram Resting electrocardiogram shows sinus rhythm, with Lexiscan there is less than 1.[address] segment depression noted from the baseline EKG. X-ray scan is nondiagnostic. Cardiac Stress and Resting SPECT Images: Cardiac Stress and Resting SPECT images were obtained using technetium 99m Myoview 31.8 mCi stress and 9.95 mCi at rest. Gated SPECT for analysis of segmental wall motion and calculation of the ejection fraction also done. Cardiac stress and resting SPECT images show uniform myocardial activity without segmental perfusion abnormality, computer derived ejection fraction is over 65% with no regional wall motion abnormality, right ventricle is normal size and contractility. Reported transient ischemic dilatation appears to be artifactual. Conclusion: 1. The EKG portion of the Lexiscan is nondiagnostic. 2. No scintigraphic evidence of reversible ischemia seen, compared right ejection fraction is over 65% with no regional wall motion abnormality, right ventricle is normal size and contractility. Computer derived transient ischemic dilatation appears to be artifactual. 3. Likely normal Lexiscan Myoview study. Electronically signed by : Jamarcus Mayen MD 02/21/2021 14:51:01
== END ==
PROVIDERS: PCP Emergency Medicine; Visit Provider Physician Assistant
DX: E11.9 Type 2 diabetes mellitus without complications (principal); E66.9 Obesity, unspecified; E78.5 Hyperlipidemia, unspecified; I11.9 Hypertensive heart disease without heart failure; I20.9 Angina pectoris, unspecified; R06.00 Dyspnea, unspecified
CPT/HCPCS: 78452; 93017; 93306; A9502; J2785

== ENCOUNTER 2021-02-21 15:10 | Inpatient (IN) | payer MEDICARE, MEDICAID, SELFPAY ==
[2021-02-21] VITALS (12 sets, daily range): BP systolic 114–143; BP diastolic 46–82; PULSE 65–95; RESP 16–28; TEMP 36.7–36.8; O2SAT 96–100; BMI 33.4; BMI 37.3
--- NOTE | 2021-02-21 15:28 | ECG_ITS ---
APPROVED REPORT Exam: Resting ECG HR:75 bpm ECG Measurements Heart Rate 75 AXES AK 130 P 41 QRSd 72 QRS -22 QT 420 T 87 QTc 469 Conclusion Normal sinus rhythm Low voltage QRS Septal infarct, age undetermined Abnormal ECG Electronically signed by : Severiano Moe MD 02/23/2021 06:20:52
--- NOTE | 2021-02-21 15:35 | HMH.EDGENADL ---
ED Disposition Clinical Impression: Pleural effusion, left Disposition: Admitted as Observation Condition on Discharge: Fair Referrals: Salvador Rincon MD [Primary Care Provider] - - Critical Care Critical Care Time: No Attestation: On 02/21/21, the high probability of a clinically significant, sudden or life threatening deterioration of the following system(s) required my full and direct attention, intervention and personal management. The time I documented below is in addition to time spent performing reported procedures but includes the following listed in this critical care notation. Medical Decision Making - Medical Records Medical records reviewed: Yes: I reviewed the patient's medical records. MR Comment: Reviewed stress test results from today, see below. Reviewed discharge summary from recent admission 02/14/2021 through 02/18/2021 for upper GI bleed, presumed esophageal varices source. - Hi Inquiry Pt receiving controlled substance: No Vital Signs: 02/21/21 15:11 02/21/21 16:15 02/21/21 16:27 Temperature 98.2 F Temperature Source Oral Pulse Rate 76 79 Pulse Rate [Radial] 76 Respiratory Rate 28 H 21 20 Blood Pressure 124/56 L 143/46 H Blood Pressure [Right Radial Artery] 128/50 L Blood Pressure Mean 78 Blood Pressure Mean [Right Radial Artery] 76 Blood Pressure Position [Right Radial Artery] Sitting 02 Sat by Pulse Oximetry 98 98 98 Oxygen Delivery Method Nasal Cannula Nasal Cannula Nasal Cannula Oxygen Flow Rate (LPM) 2 2 2 02/21/21 16:31 02/21/21 17:00 02/21/21 17:30 Temperature Temperature Source Pulse Rate 65 78 83 Pulse Rate [Radial] Respiratory Rate 21 23 21 Blood Pressure 119/56 L 120/82 132/78 Blood Pressure [Right Radial Artery] Blood Pressure Mean 77 Blood Pressure Mean [Right Radial Artery] Blood Pressure Position [Right Radial Artery] 02 Sat by Pulse Oximetry 99 97 97 Oxygen Delivery Method Nasal Cannula Oxygen Flow Rate (LPM) 2 02/21/21 18:00 Temperature Temperature Source Pulse Rate 81 Pulse Rate [Radial] Respiratory Rate 21 Blood Pressure 114/82 Blood Pressure [Right Radial Artery] Blood Pressure Mean Blood Pressure Mean [Right Radial Artery] Blood Pressure Position [Right Radial Artery] 02 Sat by Pulse Oximetry 100 Oxygen Delivery Method Oxygen Flow Rate (LPM) - Lab Data Lab Results 02/21/21 18:30: WBC 9.9, RBC 3.32 L, Hgb 10.8 L, Hct 31.5 L, MCV 95.0, MCH 32.6 H, MCHC 34.3, RDW 16.2, Plt Count 215, MPV 9.0, Neut % (Auto) 72.0, Lymph % (Auto) 17.4, [place] % (Auto) 7.6, Eos % (Auto) 2.3, Baso % (Auto) 0.7, Neut # (Auto) 7.1, Lymph # (Auto) 1.7, [place] # (Auto) 0.8, Eos # (Auto) 0.2, Baso # (Auto) 0.1 02/21/21 18:30: Sodium 136, Potassium 3.6, Chloride 104, Carbon Dioxide 25, Anion Gap 10.6, BUN 22 H, Creatinine 1.00, Estimated Creat Clear 68, Estimated GFR 55 L, Est GFR ( Amer) 67, Glucose 250 H, Calcium 8.5, Troponin I < 0.01, NT-Pro-B Natriuret Pep 289 H 02/21/21 18:30: SARS-CoV-2 (PCR) Not detected, Influenza A Untype (PCR) Not detected, Influenza Type B (PCR) Not detected Result diagrams: 02/21/21 18:30 02/21/21 18:30 Orders (Tests/Meds): ED MEDICATIONS Discontinued Medications Generic Name Dose Route Start Last Admin Trade Name Kennethq PRN Reason Stop Dose Admin Iopamidol 70 ml 02/21/21 19:54 02/21/21 19:55 Iopamidol-370 (76%);100ml Bottle IV 02/21/21 19:55 70 ml ONCE ONE Administration Ondansetron HCl 4 mg 02/21/21 18:39 02/21/21 18:39 Ondansetron 4mg/2ml Vial IV 02/21/21 18:40 4 mg ONCE ONE Administration Sodium Chloride 50 ml 02/21/21 19:54 02/21/21 19:56 0.9 % Sodium Chloride 50 Ml Vial IV 02/21/21 19:55 50 ml ONCE ONE Administration Sodium Chloride 10 ml 02/21/21 19:54 02/21/21 19:56 Sodium Chloride 0.9% 10ml Syr (Rad Only) IV 02/21/21 19:55 10 ml ONCE ONE Administration ORDERS Category Date Time Status CTA Chest [CT angio lizzie
--- NOTE | 2021-02-21 15:38 | XR_ITS ---
PROCEDURE: XR CHEST PORTABLE CLINICAL HISTORY: SOB COMPARISON: CR CXR1 CHEST-PORTABLE from 02/01/2014 CR XR CHEST 2V from 02/26/2019 CR XR CHEST PORTABLE from 02/14/[address] ABDOMEN PELVIS W CON from 02/14/2021 FINDINGS: There is complete whiteout of the left lung. No mediastinal shift. This has developed since 02/14/2021 and may be related to large effusion. Cannot exclude underlying pneumonia. The right lung is clear. No acute bony findings. IMPRESSION: Interval development of complete whiteout of the left lung without mediastinal shift suggesting large left effusion. Cannot exclude underlying alveolar disease. Dictated by: Wan Osuna MD 02/21/2021 16:00 Wan Osuna MD in [facility] 02/21/2021 16:00
--- NOTE | 2021-02-21 16:39 | PC.NURSE ---
Johanna at bedside with the US machine attempting IV
--- NOTE | 2021-02-21 16:50 | PC.NURSE ---
speaking with Dr. Hardy
--- NOTE | 2021-02-21 16:58 | PC.NURSE ---
PT DIFFICULT IV ACCESS. ATTEMPTING ULTRASOUND IV
--- NOTE | 2021-02-21 18:29 | XR_ITS ---
PROCEDURE INFORMATION: Exam: XR Chest Exam date and time: 02/21/2021 6:29 PM Age: 66 years old Clinical indication: Device placement; Other: Central line placed in er. ; Patient HX: Evaluate central line placement. ; Additional info: Confirm central line TECHNIQUE: Imaging protocol: XR of the chest. Views: 1 view. COMPARISON: CR XR CHEST PORTABLE 02/21/2021 3:54 PM FINDINGS: Tubes, catheters and devices: Right IJ line terminates in the right atrium. Lungs: Persistent left lung white out. Right lung is grossly clear. Pleural spaces: No right effusion or pneumothorax Heart/Mediastinum: Unremarkable. No cardiomegaly. Bones/joints: Unremarkable. IMPRESSION: Right IJ line terminates in the right atrium.
--- NOTE | 2021-02-21 18:30 | PC.NURSE ---
Pt was difficult IV stick, multiple people attempted, attempted EJ's and US guided IV with no success. Dr. Guillaume made the decision to place central line.
[2021-02-21 18:42] LABS: Coronavirus 19, PCR Not Detected (NotDetected); Influenza A, PCR Not Detected (NotDetected); Influenza B, PCR Not Detected (NotDetected)
[2021-02-21 18:44] LABS: Basophils # 0.1 K/mm3 (0-0.2); Basophils % 0.7 % (0.1-2.0); Eosinophils # 0.2 K/mm3 (0.0-0.4); Eosinophils % 2.3 % (0.1-12.0); Hematocrit 31.5 % (37.0-47.0); Hemoglobin 10.8 g/dL (12.2-16.2); Lymphocytes # 1.7 K/mm3 (0.7-4.5); Lymphocytes % 17.4 % (10-50); Mean Corpuscular HGB Conc 34.3 g/dL (31.8-35.4); Mean Corpuscular Hemoglobin 32.6 pg (27.0-31.2); Monocytes # 0.8 K/mm3 (0.1-1.0); Monocytes % 7.6 % (1.7-9.3); Neutrophils # 7.1 K/mm3 (1.8-7.8); Platelet Count 215 K/mm3 (142-424); Red Blood Count 3.32 M/mm3 (4.20-5.40); Red Cell Distribution Width 16.2 % (11.5-17.5); White Blood Count 9.9 K/mm3 (4.8-10.8)
[2021-02-21 18:53] LABS: Anion Gap 10.6 mEq/L (5-15); Blood Urea Nitrogen 22 mg/dl (7-17); Calcium 8.5 mg/dl (8.4-10.2); Carbon Dioxide 25 mmol/L (22.0-30.0); Chloride 104 mmol/L (98-107); Creatinine Clearance Estimated 68 mL/min (50-200); Estimated Glomerular Filt Rate 55 ml/min (>60); GFR (African American) 67 ML/MIN (>60); Glucose 250 mg/dl (74-100); Potassium 3.6 mmoL/L (3.5-5.1); Sodium 136 mmol/L (136-145)
[2021-02-21 19:06] LABS: NT Pro Brain Natriuretic Pep. 289 pg/mL (0-125)
--- NOTE | 2021-02-21 19:07 | CT_ITS ---
PROCEDURE INFORMATION: Exam: CTA Chest With Contrast Exam date and time: 02/21/2021 7:07 PM Age: 66 years old Clinical indication: Abnormal findings; Abnormal radiologic exam of lung or chest; Additional info: White out left hemithorax TECHNIQUE: Imaging protocol: Computed tomographic angiography of the chest with contrast. 3D rendering (Not supervised by radiologist): MIP and/or 3D reconstructed images were created by the technologist. Radiation optimization: All CT scans at this facility use at least one of these dose optimization techniques: automated exposure control; mA and/or kV adjustment per patient size (includes targeted exams where dose is matched to clinical indication); or iterative reconstruction. Contrast material: ISOVUE 370; Contrast volume: 70 ml; Contrast route: INTRAVENOUS (IV); COMPARISON: CR XR CHEST PORTABLE 02/21/2021 6:35 PM FINDINGS: Tubes, catheters and devices: Right IJ line terminates near the tricuspid valve. Consider repositioning. Pulmonary arteries: No evidence of pulmonary embolus to lobar level. Motion limits exam. Systemic arteries: There is high-grade stenosis in the proximal left subclavian artery. Irregular atherosclerosis seen in the aorta. No aneurysmal dilatation. Lungs: Large left effusion. Complete collapse of the left lung. There is occlusion of the left mainstem bronchus. Concern is for tumor or potentially aspiration. On the right in the lower lobe medially is 15 mm nodule that is worrisome for metastatic disease. It was present on comparison abdominal CT. A few other tiny nodules are seen in the right lung measuring 3 mm or smaller. Pleural spaces: Unremarkable. No pneumothorax. No pleural effusion. Heart: Coronary artery calcifications seen. Lymph nodes: Mild mediastinal adenopathy. Intraperitoneal space: Small volume ascites partially imaged. Bones/joints: Unremarkable. No acute fracture. Soft tissues: Unremarkable. IMPRESSION: 1. Obstructed left mainstem bronchus may be due to tumor or less likely aspiration. 2. Complete left lung collapse and large left effusion. 3. Right IJ line terminates near the tricuspid valve. Consider repositioning. 4. A 15 mm pulmonary nodule in the right base is worrisome for malignancy. 5. No evidence of pulmonary embolus.
[2021-02-21 19:17] LABS: Troponin I < 0.01 ng/ml (0.00-0.034)
--- NOTE | 2021-02-21 21:56 | PC.NURSE ---
patient up to floor via wheelchair @ this time.
[2021-02-21 23:12] LABS: POC Glucose,Bedside 377 (70-110)
[2021-02-22] VITALS (11 sets, daily range): BP systolic 110–132; BP diastolic 51–66; PULSE 70–100; RESP 14–21; TEMP 36.6–38.1; O2SAT 90–96
[2021-02-22 02:13] LABS: Troponin I 0.07 ng/ml (0.00-0.034)
[2021-02-22 06:37] LABS: POC Glucose,Bedside 220 (70-110)
--- NOTE | 2021-02-22 09:15 | HMH.PHAINT ---
MEDICATION RECONCILIATION COMPLETE USING LIST FROM MOST RECENT MD OFFICE VISIT.
--- NOTE | 2021-02-22 09:16 | HMH.PHAVTE ---
[facility] Pharmacy VTE Monitoring - Patient Demographics Admission date: 02/21/21 Report Date: 02/22/21 Time: 09:16 Allergies/Adverse Reactions: Patient Allergies pentazocine Allergy (Severe, Verified 02/20/21 13:25) [id number]/THROAT Height: 1.52 m Weight: 86.319 kg Patient Problems: Current Active Problems Pleural effusion, left (Acute) - VTE Risk Labs: VTE Related Lab Results Hgb 10.8 g/dL (12.2-16.2) L 02/21/21 18:30 Hct 31.5 % (37.0-47.0) L 02/21/21 18:30 Plt Count 215 K/mm3 (142-424) 02/21/21 18:30 BUN 22 mg/dl (7-17) H 02/21/21 18:30 Creatinine 1.00 mg/dl (0.52-1.04) 02/21/21 18:30 Estimated Creat Clear 68 mL/min (50-200) 02/21/21 18:30 Was VTE Risk Assessment Performed: Yes VTE Score: 6 VTE Risk Level: Moderate Risk Clinical Trial Participant: No - Prophylaxis VTE Prophylaxis Ordered?: Yes Types of VTE Prophylaxis: TEDS Knee High Location of Applied Device: Bilateral Lower Extremeties
--- NOTE | 2021-02-22 09:47 | HMH.CNCARD ---
History of Present Illness Consult date: 02/22/21 Requesting physician: Oswaldo Gooden Consult reason: known to you Chief complaint: SOA History of present illness: This is a 66-year-old white female who presented to the emergency department today with complaints of shortness of breath. The patient had recently been admitted here at [facility] for an upper GI bleed and was discharged and supposed to have an EGD with Dr. Chaudhry in [facility] today. She states since being discharged from the hospital she has been short of breath and having tightness in her chest. She needed a cardiology work-up prior to having her EGD. She came into the hospital yesterday and underwent Myoview stress testing which showed no ischemia and the patient was cleared to have her EGD completed. While they were completing her echocardiogram the patient had sudden onset of severe shortness of breath while trying to lie flat. She states that this was severe and associated with chest tightness. The patient states that her shortness of breath is associated with cough which is nonproductive. She states that her shortness of breath is also associated with orthopnea. She denies any fevers, chills, nausea, vomiting or diarrhea. The patient states that since discharge she has not had any vomiting of blood. On her last hospital admission she was noted to have bleeding esophageal varices and that is why she was scheduled to have an EGD with Dr. Chaudhry. [facility] History I have reviewed the patient's past medical history: Yes Medical History: Reports:: Atherosclerotic Heart Disease, Cancer, Chronic Obstructive Pulmonary Disease (COPD), Coronary Artery Disease, Diabetes Mellitus Type 2, Gastroesophageal Reflux Disease(GERD), Hyperlipidemia, Hypertension, Myocardial Infarction Denies:: Diabetes Mellitus Type 1, Internal Pacemaker, MRSA *Have you ever received a pneumonia vaccine?: No *Have you received a flu vaccine this season?: No Other Medical History: Reports: Arthritis Laterality Cases: Bilateral: Cataract Other Surgeries: Yes: Cardiac Catheterization, Cholecystectomy, Coronary Stent, Hernia Repair, Other. No: Pacemaker Amputation: No Fractures: No - *Social History Last grade of school completed: High school graduate Smoking Status: Current every day smoker Tobacco Type: cigarettes # Packs/Day (cigarettes): 1 Alcohol Intake: never Substance Use Type: denies use *Occupational Status:: unemployed Housing: house Household Members: children *Travel in the last 8 weeks: None Family Hx:: Adopted, Unable to obtain Meds Home Medications Medication Instructions Recorded Confirmed Type Atorvastatin Calcium [Lipitor 10mg 10 mg PO DAILY 02/14/21 02/21/21 History Tab] Cholecalciferol (Vitamin D3) 1,250 mcg PO WEEKLY 02/14/21 02/21/21 History [Dialyvite Vitamin D3 Max] Cholecalciferol (Vitamin D3) 50 mcg PO DAILY 02/14/21 02/21/21 History [Vitamin D3] Losartan Potassium [Cozaar 25mg 25 mg PO DAILY 02/14/21 02/21/21 History Tablets] Metformin HCl 500 mg PO BID 02/14/21 02/21/21 History Spironolactone [Spironolactone 25 mg PO DAILY 02/14/21 02/21/21 History 25mg Tablet] carvediloL [Carvedilol 3.125mg Tab] 3.125 mg PO BID 02/14/21 02/21/21 History Pantoprazole Sodium [Protonix 40mg 40 mg PO DAILY 02/21/21 02/21/21 History tablet] Allergies Allergy/AdvReac Type Severity Reaction Status Date / Time pentazocine Allergy Severe S-SWELLS-OR Verified 02/20/21 13:25 AL/THROAT Exam Vital signs and Labs for Last 24 Hours: Temp Pulse Resp BP Pulse Ox 98.2 F 75 20 132/62 95 02/22/21 07:34 02/22/21 07:34 02/22/21 07:34 02/22/21 07:34 02/22/21 07:34 Laboratory Results - last 24 hr 02/21/21 18:30: WBC 9.9, RBC 3.32 L, Hgb 10.8 L, Hct 31.5 L, MCV 95.0, MCH 32.6 H, MCHC 34.3, RDW 16.2, Plt Count 215, MPV 9.0, Neut % (Auto) 72.0, Lymph % (Auto) 17.4, [place] % (Auto) 7.6, Eos % (Auto) 2.3, Baso % (Auto) 0.7,
--- NOTE | 2021-02-22 10:43 | HMH.HP ---
*Admission Date: 02/21/21 *Chief complaint: soa *History of present illness: 66-year-old white female who presented to the emergency department today with complaints of shortness of breath. The patient had recently been admitted here at [facility] for an upper GI bleed and was discharged and supposed to have an EGD with Dr. Chaudhry in [facility] today. She states since being discharged from the hospital she has been short of breath and having tightness in her chest. She needed a cardiology work-up prior to having her EGD. She came into the hospital yesterday and underwent Myoview stress testing which showed no ischemia and the patient was cleared to have her EGD completed. While they were completing her echocardiogram the patient had sudden onset of severe shortness of breath while trying to lie flat. She states that this was severe and associated with chest tightness. The patient states that her shortness of breath is associated with cough which is nonproductive. She states that her shortness of breath is also associated with orthopnea. She denies any fevers, chills, nausea, vomiting or diarrhea. The patient states that since discharge she has not had any vomiting of blood. On her last hospital admission she was noted to have bleeding esophageal varices and that is why she was scheduled to have an EGD with Dr. Chaudhry.- per cardiology [facility] History I have reviewed the patient's past medical history: Yes Medical History: Reports:: Atherosclerotic Heart Disease, Cancer, Chronic Obstructive Pulmonary Disease (COPD), Coronary Artery Disease, Diabetes Mellitus Type 2, Gastroesophageal Reflux Disease(GERD), Hyperlipidemia, Hypertension, Myocardial Infarction Denies:: Diabetes Mellitus Type 1, Internal Pacemaker, MRSA *Have you ever received a pneumonia vaccine?: No *Have you received a flu vaccine this season?: No Other Medical History: Reports: Arthritis Laterality Cases: Bilateral: Cataract Other Surgeries: Yes: Cardiac Catheterization, Cholecystectomy, Coronary Stent, Hernia Repair, Other. No: Pacemaker Amputation: No Fractures: No - *Social History Last grade of school completed: High school graduate Smoking Status: Current every day smoker Tobacco Type: cigarettes # Packs/Day (cigarettes): 1 Alcohol Intake: never Substance Use Type: denies use *Occupational Status:: unemployed Housing: house Household Members: children *Travel in the last 8 weeks: None Family Hx:: Adopted, Unable to obtain Review of Systems - Review of Systems Review of systems:: pertinent systems reviewed and negative unless documented below - Constitutional Denies body ache(s), Denies lack of energy - Eyes Denies blurry vision - ENT Denies bleeding gums - *Cardiovascular Denies chest pain at rest - *Respiratory Reports cough, Reports wheezing, Denies change in phlegm color - *Gastrointestinal Denies abdominal pain - *Genitourinary Denies abnormal periods - *Musculoskeletal Denies joint pain - Integumentary/Breasts Denies hair loss - *Neurologic Denies abnormal walking - Psychiatric Denies abnormal sleep pattern - Endocrine Denies cold intolerance - Hematologic/Lymphatic Denies easy bleeding Meds Home Medications Medication Instructions Recorded Confirmed Type Atorvastatin Calcium [Lipitor 10mg 10 mg PO DAILY 02/14/21 02/21/21 History Tab] Cholecalciferol (Vitamin D3) 1,250 mcg PO WEEKLY 02/14/21 02/21/21 History [Dialyvite Vitamin D3 Max] Cholecalciferol (Vitamin D3) 50 mcg PO DAILY 02/14/21 02/21/21 History [Vitamin D3] Losartan Potassium [Cozaar 25mg 25 mg PO DAILY 02/14/21 02/21/21 History Tablets] Metformin HCl 500 mg PO BID 02/14/21 02/21/21 History Spironolactone [Spironolactone 25 mg PO DAILY 02/14/21 02/21/21 History 25mg Tablet] carvediloL [Carvedilol 3.125mg Tab] 3.125 mg PO BID 02/14/21 02/21/21 History Pantoprazole Sodium [Protonix 40mg 40 mg PO DAILY 1
--- NOTE | 2021-02-22 10:57 | US_ITS ---
PROCEDURE: US THORACENTESIS CLINICAL INDICATION: Pleural Effusion COMPARISON: No exams were available for comparison FINDINGS: Ultrasound was used to localize left-sided pleural effusion demonstrating a large left effusion. IMPRESSION: Ultrasound localization for left pleural effusion Dictated by: Wan Osuna MD 02/22/2021 17:58 Wan Osuna MD in [place] 02/22/2021 17:58
--- NOTE | 2021-02-22 14:07 | HMH.PULMCON ---
*Admission Date: 02/21/21 *Reason for consult:: Acute hypoxic respiratory failure, pleural effusion *History of present illness: Ms. Ardon is a 66-year-old female greater than [id number] smoking history, baseline respiratory symptoms not on any inhalers, not on any home oxygen therapy, history hepatitis B, esophageal varices status post GI bleeding presented hospital worsening respiratory status and found to be having large left-sided pleural effusion with atelectasis and pulmonary was called for further management. [facility] History Medical History: Reports:: Atherosclerotic Heart Disease, Cancer, Chronic Obstructive Pulmonary Disease (COPD), Coronary Artery Disease, Diabetes Mellitus Type 2, Gastroesophageal Reflux Disease(GERD), Hyperlipidemia, Hypertension, Myocardial Infarction Denies:: Diabetes Mellitus Type 1, Internal Pacemaker, MRSA *Have you ever received a pneumonia vaccine?: No *Have you received a flu vaccine this season?: No Other Medical History: Reports: Arthritis Laterality Cases: Bilateral: Cataract Other Surgeries: Yes: Cardiac Catheterization, Cholecystectomy, Coronary Stent, Hernia Repair, Other. No: Pacemaker Amputation: No Fractures: No - *Social History Last grade of school completed: High school graduate Smoking Status: Current every day smoker Tobacco Type: cigarettes # Packs/Day (cigarettes): 1 Alcohol Intake: never Substance Use Type: denies use *Occupational Status:: unemployed Housing: house Household Members: children *Travel in the last 8 weeks: None Family Hx:: Adopted, Unable to obtain ROS - Cons Reports anorexia, Denies body ache(s), Denies chills - ENT Denies bleeding gums - Card Reports shortness of breath, Reports shortness of breath with activity - Resp Respiratory: Reports shortness of breath, Denies chest congestion, Reports cough, Reports non-productive cough, Reports dyspnea, Denies cough with sputum production - GI Gastrointestingal: Reports: nausea. Denies: abdominal pain - Psych Denies thoughts of hurting/killing others, Denies thoughts of hurting/killing yourself Meds Home Medications Medication Instructions Recorded Confirmed Type Atorvastatin Calcium [Lipitor 10mg 10 mg PO DAILY 02/14/21 02/21/21 History Tab] Cholecalciferol (Vitamin D3) 1,250 mcg PO WEEKLY 02/14/21 02/21/21 History [Dialyvite Vitamin D3 Max] Cholecalciferol (Vitamin D3) 50 mcg PO DAILY 02/14/21 02/21/21 History [Vitamin D3] Losartan Potassium [Cozaar 25mg 25 mg PO DAILY 02/14/21 02/21/21 History Tablets] Metformin HCl 500 mg PO BID 02/14/21 02/21/21 History Spironolactone [Spironolactone 25 mg PO DAILY 02/14/21 02/21/21 History 25mg Tablet] carvediloL [Carvedilol 3.125mg Tab] 3.125 mg PO BID 02/14/21 02/21/21 History Pantoprazole Sodium [Protonix 40mg 40 mg PO DAILY 02/21/21 02/21/21 History tablet] Allergies Allergy/AdvReac Type Severity Reaction Status Date / Time pentazocine Allergy Severe S-SWELLS-OR Verified 02/20/21 13:25 AL/THROAT Exam - Constitutional Constitutional:: Present: no acute distress, comfortable - HENMT Exam HENMT: Present: normocephalic, atraumatic - Eye Exam Eyes:: Present: normal appearance both eyes and related structures - Neck Exam Neck:: Present: normal visual inspection - Respiratory Exam Respiratory:: Present: able to speak in complete sentences, respiratory distress, decreased breath sounds. Absent: wheezing - Cardiovascular Exam Cardiac:: Present: S1, S2 - GI Exam GI:: Present: soft, no tenderness - Skin Exam Skin: Present: warm, no rash - Neurological Exam Neurological: Present: alert, awake, normal cognition - Extremities Exam Extremities: Present: no cyanosis, no clubbing, no edema Internal Medicine - CN: Reslt - Labs CBC & Chem 7: 02/21/21 18:30 02/21/21 18:30 Labs: Short CBC 02/21/21 Range/Units 18:30 WBC 9.9 (4.8-10.8) K/mm3 Hgb 10.8 L (12.2-16.2) g/dL Hct
--- NOTE | 2021-02-22 14:31 | XR_ITS ---
PROCEDURE: XR CHEST PORTABLE CLINICAL HISTORY: Postprocedure COMPARISON: CR XR CHEST PORTABLE from 02/14/[address] ANGIO CHEST PE PROTOCOL from 02/21/2021 CR XR CHEST PORTABLE from 02/21/2021 CR XR CHEST PORTABLE from 02/21/2021 FINDINGS: Status post left-sided thoracentesis with marked decrease in size of the left-sided pleural effusion. Airspace disease noted in the left upper and left lower lobe greater in the lower lobe which could be due to pneumonia or re-expansion edema.. There is no evidence of pneumothorax. Right lung is clear. Right IJ central venous line is present. The tip is in the region of the right atrium. The lungs are clear without infiltrates, suspicious nodules, or pleural effusions. No acute bony abnormalities. IMPRESSION: Status post left-sided thoracentesis with marked decrease in size of left pleural effusion with opacification of the left upper and lower lobe which could be due to pneumonia or re-expansion edema. No evidence of pneumothorax. Dictated by: Wan Osuna MD 02/22/2021 15:05 Wan Osuna MD in [place] 02/22/2021 15:05
--- NOTE | 2021-02-22 15:09 | HMH.PROC ---
[facility] Procedure Note Procedure Note:: Procedure: Left Thoracentesis Indication for procedure: Pleural Effusion, Hypoxic Respiratory failure A time out was performed and the chest x-ray was reviewed, the appropriate side was confirmed and marked. My hands were washed immediately prior to the procedure. I wore a surgical cap, mask with protective eyewear, sterile gown and sterile gloves throughout the procedure. The patient was prepped and draped in a sterile manner using chlorhexidine scrub after the appropriate level was percussed and confirmed by ultrasound. 1% lidocaine was used to anesthesize the skin, subcutaneous tissue, superior aspect of the rib periosteum and parietal pleura. A finder needle was then introduced at the seventh intercoastal space posteriorly to locate the pleural fluid; straw colored / Clear / blood tinged fluid was aspirated. A 10-blade scalpel was used to nunu the skin at the insertion site. The Leqi-q-Vuoubygs needle was then introduced through the skin incision into the pleural space using negative aspiration pressure and the red colormetric indicator to confirm appropriate positioning of the needle. The thoracentesis catheter was then threaded without difficulty. 2250 ml of straw colored fluid was removed without difficulty. The catheter was then removed. No immediate complications were noted during the procedure. A post-procedure chest X-ray is pending at the time of this note. The fluid will be sent for routine pleural studies, cultures along with cytopathology. Patient tolerated the procedure well Estimated blood loss is 2cc.
[2021-02-22 15:23] LABS: Appearance,Body Fld. Slightly hazy; Source, Body Fld. Thoracentesis Fluid
[2021-02-22 15:34] LABS: Volume,Body Fld. 20 mL
[2021-02-22 16:05] LABS: RBC,Body Fluid < 10 cells/uL (< 10 X 10^3); TNC,Body Fluid 57 cells/uL (< 1000)
[2021-02-22 18:07] LABS: Mononuclear WBCs,Body Fluid 82 %; Polynuclear WBC,Body Fluid 18 %
[2021-02-22 20:15] LABS: Alanine Aminotransferase 16 U/L (12-78); Albumin Level 2.3 g/dl (3.5-5.0); Albumin/Globulin Ratio 0.9 (1.1-1.8); Alkaline Phosphatase 79 U/L (38-126); Anion Gap 6.9 mEq/L (5-15); Aspartate Amino Transferase 34 U/L (14-36); Blood Urea Nitrogen 16 mg/dl (7-17); Calcium 7.8 mg/dl (8.4-10.2); Carbon Dioxide 27 mmol/L (22.0-30.0); Chloride 105 mmol/L (98-107); Creatinine Clearance Estimated 75 mL/min (50-200); Estimated Glomerular Filt Rate 84 ml/min (>60); GFR (African American) 101 ML/MIN (>60); Globulin 2.6 g/dL (1.3-3.2); Glucose 351 mg/dl (74-100); Lactate Dehydrogenase 390 U/L (313-618); Potassium 3.9 mmoL/L (3.5-5.1); Sodium 135 mmol/L (136-145); Total Protein,Serum 4.9 g/dl (6.3-8.2)
[2021-02-23] VITALS (10 sets, daily range): BP systolic 93–111; BP diastolic 48–76; PULSE 67–80; RESP 16–18; TEMP 36.5–37.3; O2SAT 93–98; BMI 37.3
--- NOTE | 2021-02-23 05:49 | PC.NURSE ---
pt slept all night, VSS, pt with crackles noted in LLL, o2 sat 96% on o2 at 4 L, will attempt to wean 02 as tolerated.
[2021-02-23 06:43] LABS: POC Glucose,Bedside 233 (70-110)
--- NOTE | 2021-02-23 08:07 | XR_ITS ---
PROCEDURE INFORMATION: Exam: XR Chest Exam date and time: 02/23/2021 8:07 AM Age: 66 years old Clinical indication: Shortness of breath; Additional info: Hypoxia TECHNIQUE: Imaging protocol: XR of the chest. Views: 1 view. COMPARISON: CR XR CHEST PORTABLE 02/22/2021 2:43 PM FINDINGS: Tubes, catheters and devices: Right central line terminates in the right atrium and is stable. Overlying EKG wires Lungs: Diffuse opacities in the left hemithorax and right base may represent atelectasis or pneumonia.. Pleural spaces: Unremarkable. No pleural effusion. No pneumothorax. Heart/Mediastinum: Stable cardiac silhouette Bones/joints: Unremarkable. IMPRESSION: Diffuse opacities in the left hemithorax and right base may represent atelectasis or pneumonia..
--- NOTE | 2021-02-23 09:18 | PC.NURSE ---
RESP CARE NOTE: Oxygen saturations at 98% on 4 lpm. Oxygen weaned to 2lpm per Dr Tipton t/o to wean oxygen to keep SPO2 above 90%. Will monitor patient.
--- NOTE | 2021-02-23 11:53 | HMH.ACPN2 ---
Internal Medicine - PN: Subj *Date: 02/23/21 *Time: 11:57 Interval history: feels better -and labs pending - will obtain repeat ct today Exam Vital signs and Labs for Last 24 Hours: Temp Pulse Resp BP Pulse Ox 98.2 F 70 16 93/76 L 98 02/23/21 11:16 02/23/21 11:16 02/23/21 11:16 02/23/21 11:16 02/23/21 11:16 Laboratory Results - last 24 hr 02/22/21 13:00: Fluid Source Thoracentesis fluid, Fluid Volume 20, Fluid Appearance Slightly hazy, Fluid RBC (Auto) < 10, Fld Tot Nucleated Cell 57, Fld Polynuclear WBCs % 18, Fld Mononuclear WBCs % 82 02/22/21 19:45: Sodium 135 L, Potassium 3.9, Chloride 105, Carbon Dioxide 27, Anion Gap 6.9, BUN 16 D, Creatinine 0.70 D, Estimated Creat Clear 75, Estimated GFR 84, Est GFR ( Amer) 101 D, Glucose 351 H, Calcium 7.8 L, Total Bilirubin 1.0, AST 34, ALT 16, Alkaline Phosphatase 79, Lactate Dehydrogenase 390, Total Protein 4.9 L, Albumin 2.3 L, Globulin 2.6, Albumin/Globulin Ratio 0.9 L 02/23/21 06:30: POC Glucose 233 H I & O for Last 24 hours: Intake & Output 02/20/21 02/21/21 02/22/21 02/23/21 11:59 11:59 11:59 11:59 Intake Total 360 / 360 Output Total 0 / 0 Balance 0 / 0 360 / 360 Weight 190 lb 4.8 oz 189 lb 14.4 oz Microbiology Reports for the Last 24 Hours: Microbiology 02/22/21 13:00 Pleural Fluid - Pleura,Lt Lung Gram Stain - Final - Constitutional no acute distress, obese - *Routine HEENT Exam Head: Present: normocephalic Eye: Present: EOMI, PERRL. Absent: conjunctival icterus ENT: Present: mucous membranes dry - *Routine Neck Exam Absent: JVD - *Routine Respiratory Exam Present: decreased breath sounds - *Routine Cardiovascular Exam Present: RRR, murmur. Absent: rubs - *Routine Abdominal Exam Present: soft. Absent: tenderness - *Routine Extremities Exam Absent: calf tenderness - *Routine Skin Exam Present: intact - *Routine Neurological Exam Present: alert, CN II-XII intact - Routine Psychiatric Exam Present: normal affect Assessment and Plan (1) Collapse of left lung Status: Acute Category: Medical Code(s): J98.11 - Atelectasis (2) Pleural effusion, left Status: Acute Category: Medical Code(s): J90 - Pleural effusion, not elsewhere classified (3) HHD (hypertensive heart disease) Status: Chronic Qualifiers: Heart failure presence: without heart failure Qualified Code(s): I11.9 - Hypertensive heart disease without heart failure Category: Medical Code(s): I11.9 - Hypertensive heart disease without heart failure (4) HLD (hyperlipidemia) Status: Chronic Qualifiers: Hyperlipidemia type: mixed hyperlipidemia Qualified Code(s): E78.2 - Mixed hyperlipidemia Category: Medical Code(s): E78.5 - Hyperlipidemia, unspecified (5) Esophageal varices Status: Acute Qualifiers: Esophageal varices type: unspecified type Esophageal varices bleeding: with bleeding Qualified Code(s): I85.01 - Esophageal varices with bleeding Category: Medical Code(s): I85.00 - Esophageal varices without bleeding (6) Upper gastrointestinal bleeding Status: Acute Category: Medical Code(s): K92.2 - Gastrointestinal hemorrhage, unspecified (7) Coronary artery disease Status: Chronic Qualifiers: Coronary Disease-Associated Artery/Lesion type: [place] artery [place] vs. transplanted heart: [place] heart Associated angina: with other forms of angina Qualified Code(s): I25.118 - Atherosclerotic heart disease of [place] coronary artery with other forms of angina pectoris Category: Medical Code(s): I25.10 - Atherosclerotic heart disease of [place] coronary artery without angina pectoris (8) Obesity (BMI 30-39.9) Status: Acute Category: Medical Code(s): E66.9 - Obesity, unspecified (9) Diabetes Status: Chronic Qualifiers: Diabetes mellitus type: type 2 Diabetes mellitus longterm insulin use: without terminal computer operator use Diabetes anastasiya
--- NOTE | 2021-02-23 12:00 | CT_ITS ---
PROCEDURE INFORMATION: Exam: CT Chest Without Contrast; Diagnostic Exam date and time: 02/23/2021 12:00 PM Age: 66 years old Clinical indication: Other: Pleural effusion; Patient HX: Post thoracentesis- possible mass TECHNIQUE: Imaging protocol: Diagnostic computed tomography of the chest without contrast. Radiation optimization: All CT scans at this facility use at least one of these dose optimization techniques: automated exposure control; mA and/or kV adjustment per patient size (includes targeted exams where dose is matched to clinical indication); or iterative reconstruction. COMPARISON: CT ANGIO CHEST PE PROTOCOL 02/21/2021 7:28 PM FINDINGS: Tubes, catheters and devices: Transvenous pacemaker leads in the heart Lungs: Opacities in the left lung parenchyma may represent atelectasis or pneumonia. Recommend follow-up studies to rule out persistent mass. Pleural spaces: Status post thoracentesis of the left pleural effusion. Mild to moderate pleural effusion remains.. 14 mm pleural based nodule in the right lower lobe. Heart: Coronary artery calcifications may indicate coronary artery disease.. Transvenous pacemaker leads in the heart . Aorta: Unremarkable. No aortic aneurysm. Lymph nodes: Pathologic node 13 mm anterior to the trachea Gallbladder and bile ducts: Cholecystectomy Intraperitoneal space: Mild ascites in the upper abdomen Bones/joints: Unremarkable. No acute fracture. Soft tissues: Ventral hernia contains fluid. Series 3, image 69 IMPRESSION: 1. Status post thoracentesis of the left pleural effusion. Mild to moderate pleural effusion remains.. 2. Opacities in the left lung parenchyma may represent atelectasis or pneumonia. Recommend follow-up studies to rule out persistent mass. 3. 14 mm pleural based nodule in the right lower lobe. For both low risk and high risk patients, consider CT Chest at 3 months, PET/CT, or biopsy. (Reference: Rima) References: Rima Manriquez et al. Guidelines for Management of Incidental Pulmonary Nodules Detected on CT Images: From the Fleischner Society 2017. Radiology. 2017;284(1):228-243.
[2021-02-23 12:43] LABS: POC Glucose,Bedside 282 (70-110)
[2021-02-23 13:01] LABS: Chloride 108 mmol/L (98-107)
[2021-02-23 13:02] LABS: Potassium 3.9 mmoL/L (3.5-5.1); Sodium 138 mmol/L (136-145)
[2021-02-23 13:04] LABS: Alanine Aminotransferase 16 U/L (12-78); Alkaline Phosphatase 88 U/L (38-126); Anion Gap 7.9 mEq/L (5-15); Aspartate Amino Transferase 29 U/L (14-36); Bilirubin,Total 0.6 mg/dl (0.2-1.3); Blood Urea Nitrogen 14 mg/dl (7-17); Carbon Dioxide 26 mmol/L (22.0-30.0); Creatinine Clearance Estimated 75 mL/min (50-200); Estimated Glomerular Filt Rate 72 ml/min (>60); GFR (African American) 87 ML/MIN (>60)
[2021-02-23 13:05] LABS: Albumin Level 2.4 g/dl (3.5-5.0); Albumin/Globulin Ratio 0.9 (1.1-1.8); Calcium 7.6 mg/dl (8.4-10.2); Globulin 2.8 g/dL (1.3-3.2); Glucose 269 mg/dl (74-100); Total Protein,Serum 5.2 g/dl (6.3-8.2)
[2021-02-23 13:50] LABS: Basophils % 0.4 % (0.1-2.0); Eosinophils # 0.2 K/mm3 (0.0-0.4); Eosinophils % 2.5 % (0.1-12.0); Hematocrit 30.1 % (37.0-47.0); Hemoglobin 10.2 g/dL (12.2-16.2); Lymphocytes # 1.1 K/mm3 (0.7-4.5); Lymphocytes % 14.8 % (10-50); Mean Corpuscular HGB Conc 33.8 g/dL (31.8-35.4); Mean Corpuscular Hemoglobin 32.3 pg (27.0-31.2); Mean Corpuscular Volume 95.4 fl (81-99); Monocytes # 0.4 K/mm3 (0.1-1.0); Monocytes % 5.7 % (1.7-9.3); Neutrophils # 5.5 K/mm3 (1.8-7.8); Neutrophils % 76.6 % (37.0-80.0); Platelet Count 127 K/mm3 (142-424); Red Blood Count 3.15 M/mm3 (4.20-5.40); Red Cell Distribution Width 15.6 % (11.5-17.5); White Blood Count 7.2 K/mm3 (4.8-10.8)
[2021-02-23 16:57] LABS: POC Glucose,Bedside 266 (70-110)
[2021-02-23 17:21] LABS: POC Glucose,Bedside 398 (70-110)
--- NOTE | 2021-02-23 18:51 | PC.NURSE ---
No acute events throughout shift. Central line dressing changed completed aseptically. Hubs and all tubing changed as per protocol.
[2021-02-23 21:20] LABS: POC Glucose,Bedside 203 (70-110)
[2021-02-24] VITALS: BP 110/55; PULSE 67; PULSE 70; RESP 19; TEMP 37.1; O2SAT 94
[2021-02-24 04:00] VITALS: BP 104/55; PULSE 60; PULSE 64; RESP 18; TEMP 37.1; O2SAT 94
[2021-02-24 05:05] VITALS: BMI 39.0
[2021-02-24 06:43] LABS: POC Glucose,Bedside 229 (70-110)
--- NOTE | 2021-02-24 07:10 | PC.NURSE ---
pt rested well, 02 at 2L pnc, noted bilateral expiratory rhonchi, VSS, pt complaints of lower back pain and given tylenol through the night, no other issues noted, central line to right IJ CDI
[2021-02-24 08:00] VITALS: BP 98/54; PULSE 74; PULSE 77; RESP 20; TEMP 36.8; O2SAT 90
[2021-02-24 09:08] LABS: Basophils % 0.5 % (0.1-2.0); Eosinophils # 0.2 K/mm3 (0.0-0.4); Eosinophils % 2.7 % (0.1-12.0); Hematocrit 31.5 % (37.0-47.0); Lymphocytes # 1.1 K/mm3 (0.7-4.5); Lymphocytes % 17.7 % (10-50); Mean Corpuscular HGB Conc 31.8 g/dL (31.8-35.4); Mean Corpuscular Hemoglobin 31.7 pg (27.0-31.2); Mean Corpuscular Volume 99.5 fl (81-99); Monocytes # 0.6 K/mm3 (0.1-1.0); Neutrophils # 4.5 K/mm3 (1.8-7.8); Neutrophils % 70.1 % (37.0-80.0); Platelet Count 120 K/mm3 (142-424); Red Blood Count 3.17 M/mm3 (4.20-5.40); Red Cell Distribution Width 15.6 % (11.5-17.5); White Blood Count 6.4 K/mm3 (4.8-10.8)
[2021-02-24 09:09] LABS: Chloride 109 mmol/L (98-107)
[2021-02-24 09:10] LABS: Potassium 3.7 mmoL/L (3.5-5.1); Sodium 137 mmol/L (136-145)
[2021-02-24 09:12] LABS: Alanine Aminotransferase 16 U/L (12-78); Alkaline Phosphatase 76 U/L (38-126); Anion Gap 5.7 mEq/L (5-15); Aspartate Amino Transferase 31 U/L (14-36); Bilirubin,Total 0.5 mg/dl (0.2-1.3); Blood Urea Nitrogen 13 mg/dl (7-17); Carbon Dioxide 26 mmol/L (22.0-30.0); Creatinine Clearance Estimated 79 mL/min (50-200); Estimated Glomerular Filt Rate 84 ml/min (>60); GFR (African American) 101 ML/MIN (>60)
[2021-02-24 09:13] LABS: Albumin Level 2.3 g/dl (3.5-5.0); Albumin/Globulin Ratio 0.8 (1.1-1.8); Calcium 7.5 mg/dl (8.4-10.2); Globulin 2.8 g/dL (1.3-3.2); Glucose 290 mg/dl (74-100); Total Protein,Serum 5.1 g/dl (6.3-8.2)
[2021-02-24 12:00] VITALS: BP 98/60; PULSE 101; PULSE 73; RESP 18; TEMP 37.5; O2SAT 100
--- NOTE | 2021-02-24 12:57 | CT_ITS ---
PROCEDURE INFORMATION: Exam: CT Abdomen And Pelvis With Contrast Exam date and time: 02/24/2021 12:57 PM Age: 66 years old Clinical indication: Other: Ascites; Additional info: Cirrhosis and ascites TECHNIQUE: Imaging protocol: Computed tomography of the abdomen and pelvis with contrast. Radiation optimization: All CT scans at this facility use at least one of these dose optimization techniques: automated exposure control; mA and/or kV adjustment per patient size (includes targeted exams where dose is matched to clinical indication); or iterative reconstruction. Contrast material: ISOVUE; Contrast volume: 75 ml; Contrast route: IV; COMPARISON: CT ABDOMEN PELVIS W CON 02/14/2021 7:07 PM FINDINGS: Pleural spaces: Moderate left pleural effusion.. Liver: Mildly lobulated liver may reflect cirrhosis Gallbladder and bile ducts: Cholecystectomy. The common duct is prominent. It measures 18 millimeters. This may be due to post cholecystectomy state and elderly status. However, if biliary obstruction is suspected clinically, recommend further evaluation. Pancreas: Inflammatory changes around the pancreas may represent mild pancreatitis in the appropriate clinical setting.. Spleen: Normal. No splenomegaly. Adrenal glands: Normal. No mass. Kidneys and ureters: Normal. No hydronephrosis. Stomach and bowel: Unremarkable. No obstruction. No mucosal thickening. Appendix: No evidence of appendicitis. Intraperitoneal space: Moderate ascites in the abdomen and pelvis. Soft tissue densities and inflammatory changes in the anterior aspect of the omentum. For example series 3, image 48 and adjacent images. Findings may reflect omental metastasis.. Vasculature: Unremarkable. No abdominal aortic aneurysm. Lymph nodes: Unremarkable. No enlarged lymph nodes. Urinary bladder: Unremarkable as visualized. Reproductive: Unremarkable as visualized. Bones/joints: Unremarkable. No acute fracture. Soft tissues: The ventral hernia anteriorly in the midline contains ascites. Sutures in the midline anteriorly consistent with anterior herniorrhaphy. Mesh herniorrhaphy anteriorly in the midline. Series 3, image [id number] -[id number] . Edema in the flanks IMPRESSION: 1. Inflammatory changes around the pancreas may represent mild pancreatitis in the appropriate clinical setting.. 2. The common duct is prominent. It measures 18 millimeters. This may be due to post cholecystectomy state and elderly status. However, if biliary obstruction is suspected clinically, recommend further evaluation. 3. Moderate left pleural effusion.. 4. Sutures in the midline anteriorly consistent with anterior herniorrhaphy. Mesh herniorrhaphy anteriorly in the midline. Series 3, image [id number] -[id number] . 5. Soft tissue densities and inflammatory changes in the anterior aspect of the omentum. For example series 3, image 48 and adjacent images. Findings may reflect omental metastasis..
--- NOTE | 2021-02-24 13:00 | HMH.ACPN2 ---
Internal Medicine - PN: Subj *Date: 02/24/21 *Time: 13:00 Interval history: Patient denies significant adverse events overnight. He is status post centesis with a total of 2250 mL returned. Grow so far showing no growth. He has a history of hepatitis with varices no active bleeding. Pulmonary notes are reviewed, there is a questionable lesion in the left mainstem bronchus with several worrisome nodules. She has a history of heavy tobacco. She is maintaining decent saturations on 2 L/min [id number] glucose has been in the 200s Exam Vital signs and Labs for Last 24 Hours: Temp Pulse Resp BP Pulse Ox 98.3 F 74 20 98/54 L 90 L 02/24/21 08:00 02/24/21 08:00 02/24/21 08:00 02/24/21 08:00 02/24/21 08:00 Laboratory Results - last 24 hr 02/22/21 20:17: POC Glucose 398 H* 02/23/21 12:32: WBC 7.2 D, RBC 3.15 L, Hgb 10.2 L, Hct 30.1 L, MCV 95.4, MCH 32.3 H, MCHC 33.8, RDW 15.6, Plt Count 127 L D, MPV 11.0 H, Neut % (Auto) 76.6, Lymph % (Auto) 14.8, [place] % (Auto) 5.7, Eos % (Auto) 2.5, Baso % (Auto) 0.4, Neut # (Auto) 5.5, Lymph # (Auto) 1.1, [place] # (Auto) 0.4, Eos # (Auto) 0.2, Baso # (Auto) 0.0 02/23/21 12:32: Sodium 138, Potassium 3.9, Chloride 108 H, Carbon Dioxide 26, Anion Gap 7.9, BUN 14, Creatinine 0.80, Estimated Creat Clear 75, Estimated GFR 72, Est GFR ( Amer) 87, Glucose 269 H D, Calcium 7.6 L, Total Bilirubin 0.6, AST 29, ALT 16, Alkaline Phosphatase 88, Total Protein 5.2 L, Albumin 2.4 L, Globulin 2.8, Albumin/Globulin Ratio 0.9 L 02/23/21 16:37: POC Glucose 266 H 02/23/21 21:02: POC Glucose 203 H 12/19/21 06:30: POC Glucose 229 H 02/24/21 08:49: WBC 6.4, RBC 3.17 L, Hgb 10.0 L, Hct 31.5 L, MCV 99.5 H, MCH 31.7 H, MCHC 31.8, RDW 15.6, Plt Count 120 L, MPV 10.0, Neut % (Auto) 70.1, Lymph % (Auto) 17.7, [place] % (Auto) 9.0, Eos % (Auto) 2.7, Baso % (Auto) 0.5, Neut # (Auto) 4.5, Lymph # (Auto) 1.1, [place] # (Auto) 0.6, Eos # (Auto) 0.2, Baso # (Auto) 0.0 02/24/21 08:49: Sodium 137, Potassium 3.7, Chloride 109 H, Carbon Dioxide 26, Anion Gap 5.7, BUN 13, Creatinine 0.70, Estimated Creat Clear 79, Estimated GFR 84, Est GFR ( Amer) 101, Glucose 290 H, Calcium 7.5 L, Total Bilirubin 0.5, AST 31, ALT 16, Alkaline Phosphatase 76, Total Protein 5.1 L, Albumin 2.3 L, Globulin 2.8, Albumin/Globulin Ratio 0.8 L I & O for Last 24 hours: Intake & Output 02/21/21 02/22/21 02/23/21 02/24/21 23:59 23:59 23:59 23:59 Intake Total 60 / 120 1020 / 1020 1815 / 1815 Output Total 0 / 0 Balance 60 / 120 1020 / 1020 1815 / 1815 Weight 190 lb 4.8 oz 189 lb 14.4 oz 199 lb Microbiology Reports for the Last 24 Hours: Microbiology 02/22/21 13:00 Pleural Fluid - Pleura,Lt Lung Gram Stain - Final 02/22/21 13:00 Pleural Fluid - Pleura,Lt Lung Body Fluid Culture - Preliminary NO GROWTH AFTER 24 HOURS - Constitutional no acute distress, obese, chronically ill appearing - *Routine HEENT Exam Head: Present: normocephalic Eye: Present: EOMI, PERRL ENT: Present: mucous membranes moist - *Routine Neck Exam Present: supple. Absent: lymphadenopathy - *Routine Respiratory Exam Present: diminished air movement. Absent: accessory muscle use Comments: blunted left - *Routine Cardiovascular Exam Present: RRR - *Routine Abdominal Exam Present: soft, distended, obese. Absent: tenderness, rigid, mass - *Routine Extremities Exam Absent: cyanosis, clubbing, edema - *Routine Skin Exam Present: warm. Absent: cyanosis, jaundice, rash - *Routine Neurological Exam Present: alert, oriented X3, vision grossly intact, hearing grossly intact. Absent: altered mental status Assessment and Plan (1) Collapse of left lung Status: Acute Category: Medical Code(s): J98.11 - Atelectasis (2) Pleural effusion, left Status: Acute Category: Medical Code(s): J90 - Pleural effusion, not elsewhere classified (3) HHD (hypertensive heart disease) Status: Chronic Qualif
[2021-02-24 16:00] VITALS: BP 132/70; PULSE 100; PULSE 81; RESP 18; TEMP 36.9; O2SAT 95
[2021-02-24 16:10] LABS: POC Glucose,Bedside 327 (70-110)
[2021-02-24 20:00] VITALS: BP 107/55; PULSE 62; PULSE 70; RESP 17; TEMP 37; O2SAT 93; O2SAT 96
[2021-02-24 21:01] LABS: POC Glucose,Bedside 385 (70-110)
--- NOTE | 2021-02-24 22:59 | PC.NURSE ---
PT ARRIVED TO FLOOR VIA STRETCHER FROM ED W/STAFF @ [id number]
[2021-02-25] VITALS (7 sets, daily range): BP systolic 100–128; BP diastolic 39–71; PULSE 61–90; RESP 15–18; TEMP 36.4–37.1; O2SAT 92–95; BMI 37.3
[2021-02-25 00:58] LABS: POC Glucose,Bedside 241 (70-110)
--- NOTE | 2021-02-25 05:29 | PC.NURSE ---
pt was restless through the night, pt seemed in better spirits, VSS, right IJ central line intact, pt axo, tele reveals NSR, pt up with assist to BR, no other issues or concerns noted at this time.
--- NOTE | 2021-02-25 09:12 | XR_ITS ---
PROCEDURE: XR CHEST PORTABLE CLINICAL HISTORY: Effusion COMPARISON: CR XR CHEST PORTABLE from 02/21/2021 CR XR CHEST PORTABLE from 02/22/2021 CR XR CHEST PORTABLE from 02/23/[address] CHEST WO CON from 02/23/2021 FINDINGS: The cardiomediastinal silhouette and pulmonary vascularity are within normal limits. Right IJ central venous line tip in the region of the right atrium. Left-sided pleural effusion with left perihilar infiltrate and increasing atelectatic change in the left midlung. No acute bony findings. IMPRESSION: Medium-sized left pleural effusion with left perihilar infiltrate and increasing atelectatic change in the left midlung. Dictated by: Wan Osuna MD 02/25/2021 10:37 Wan Osuna MD in [facility] 02/25/2021 10:37
[2021-02-25 09:27] LABS: Basophils % 0.6 % (0.1-2.0); Eosinophils # 0.2 K/mm3 (0.0-0.4); Eosinophils % 3.4 % (0.1-12.0); Hematocrit 30.1 % (37.0-47.0); Hemoglobin 9.6 g/dL (12.2-16.2); Lymphocytes # 1.3 K/mm3 (0.7-4.5); Lymphocytes % 20.8 % (10-50); Mean Corpuscular HGB Conc 31.9 g/dL (31.8-35.4); Mean Corpuscular Hemoglobin 31.7 pg (27.0-31.2); Mean Corpuscular Volume 99.1 fl (81-99); Mean Platelet Volume 9.4 fl (7.4-10.4); Monocytes # 0.5 K/mm3 (0.1-1.0); Monocytes % 7.8 % (1.7-9.3); Neutrophils # 4.1 K/mm3 (1.8-7.8); Neutrophils % 67.4 % (37.0-80.0); Platelet Count 111 K/mm3 (142-424); Red Blood Count 3.03 M/mm3 (4.20-5.40); Red Cell Distribution Width 15.9 % (11.5-17.5); White Blood Count 6.1 K/mm3 (4.8-10.8)
[2021-02-25 09:31] LABS: Chloride 108 mmol/L (98-107)
[2021-02-25 09:32] LABS: Potassium 3.6 mmoL/L (3.5-5.1); Sodium 137 mmol/L (136-145)
[2021-02-25 09:34] LABS: Alanine Aminotransferase 16 U/L (12-78); Albumin Level 2.3 g/dl (3.5-5.0); Albumin/Globulin Ratio 0.9 (1.1-1.8); Alkaline Phosphatase 84 U/L (38-126); Anion Gap 6.6 mEq/L (5-15); Aspartate Amino Transferase 31 U/L (14-36); Bilirubin,Total 0.4 mg/dl (0.2-1.3); Blood Urea Nitrogen 10 mg/dl (7-17); Carbon Dioxide 26 mmol/L (22.0-30.0); Creatinine Clearance Estimated 75 mL/min (50-200); Estimated Glomerular Filt Rate 84 ml/min (>60); GFR (African American) 101 ML/MIN (>60); Globulin 2.7 g/dL (1.3-3.2)
[2021-02-25 09:35] LABS: Calcium 7.4 mg/dl (8.4-10.2); Glucose 251 mg/dl (74-100)
--- NOTE | 2021-02-25 11:19 | HMH.PULMPN ---
Internal Medicine - PN: Subj *Date: 02/25/21 *Time: 11:19 Interval history: No acute respiratory events over the weekend. Patient weaned to room air with saturation maintained in 92% and above. Exam - Constitutional Constitutional:: Present: no acute distress, comfortable - HENMT Exam HENMT: Present: normocephalic, atraumatic - Eye Exam Eyes:: Present: normal appearance both eyes and related structures - Neck Exam Neck:: Present: normal visual inspection - Respiratory Exam Respiratory:: Present: able to speak in complete sentences, no respiratory distress, decreased breath sounds - Cardiovascular Exam Cardiac:: Present: S1, S2 - GI Exam GI:: Present: soft - Skin Exam Skin: Present: warm, no rash - Neurological Exam Neurological: Present: alert, awake, normal cognition - Extremities Exam Extremities: Present: no cyanosis, no clubbing, no edema Assessment and Plan (1) Collapse of left lung Status: Acute Category: Medical Code(s): J98.11 - Atelectasis (2) Pleural effusion, left Status: Acute Category: Medical Code(s): J90 - Pleural effusion, not elsewhere classified (3) HHD (hypertensive heart disease) Status: Chronic Qualifiers: Heart failure presence: without heart failure Qualified Code(s): I11.9 - Hypertensive heart disease without heart failure Category: Medical Code(s): I11.9 - Hypertensive heart disease without heart failure (4) HLD (hyperlipidemia) Status: Chronic Qualifiers: Hyperlipidemia type: mixed hyperlipidemia Qualified Code(s): E78.2 - Mixed hyperlipidemia Category: Medical Code(s): E78.5 - Hyperlipidemia, unspecified (5) Esophageal varices Status: Acute Qualifiers: Esophageal varices type: unspecified type Esophageal varices bleeding: with bleeding Qualified Code(s): I85.01 - Esophageal varices with bleeding Category: Medical Code(s): I85.00 - Esophageal varices without bleeding (6) Upper gastrointestinal bleeding Status: Acute Category: Medical Code(s): K92.2 - Gastrointestinal hemorrhage, unspecified (7) Coronary artery disease Status: Chronic Qualifiers: Coronary Disease-Associated Artery/Lesion type: [place] artery [place] vs. 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 History hepatitis B, esophageal varices and GI bleeding. Patient recent CT chest from February 2021 did not show any evidence of cirrhosis. CTA patient chest imaging from 10 days ago did not show any evidence of effusion, given rapid accumulation of effusion and pleural fluid being nonbloody and concerned that patient may be having cirrhosis with hepatohydrothorax at this point of time. Thoracentesis performed with removal of straw-colored 2050 cc fluid, sent for studies will follow. Patient repeat chest x-ray AND CT abdomen 48 hours post thoracentesis continue to show reaccumulation of fluid which makes this
--- NOTE | 2021-02-25 11:58 | HMH.DCSUM ---
General - General Admission date:: 02/21/21 Discharge date: 02/25/21 HPI HPI: 66-year-old white female who presented to the emergency department today with complaints of shortness of breath. The patient had recently been admitted here at [facility] for an upper GI bleed and was discharged and supposed to have an EGD with Dr. Chaudhry in [facility] today. She states since being discharged from the hospital she has been short of breath and having tightness in her chest. She needed a cardiology work-up prior to having her EGD. She came into the hospital yesterday and underwent Myoview stress testing which showed no ischemia and the patient was cleared to have her EGD completed. While they were completing her echocardiogram the patient had sudden onset of severe shortness of breath while trying to lie flat. She states that this was severe and associated with chest tightness. The patient states that her shortness of breath is associated with cough which is nonproductive. She states that her shortness of breath is also associated with orthopnea. She denies any fevers, chills, nausea, vomiting or diarrhea. The patient states that since discharge she has not had any vomiting of blood. On her last hospital admission she was noted to have bleeding esophageal varices and that is why she was scheduled to have an EGD with Dr. Chaudhry.- per cardiology Hospital Course Hospital Course: Laboratory Tests 02/21/21 02/21/21 02/21/21 18:30 18:30 18:30 WBC 9.9 RBC 3.32 L Hgb 10.8 L Hct 31.5 L MCV 95.0 MCH 32.6 H MCHC 34.3 RDW 16.2 Plt Count 215 MPV 9.0 Neut % (Auto) 72.0 Lymph % (Auto) 17.4 [place] % (Auto) 7.6 Eos % (Auto) 2.3 Baso % (Auto) 0.7 Neut # (Auto) 7.1 Lymph # (Auto) 1.7 [place] # (Auto) 0.8 Eos # (Auto) 0.2 Baso # (Auto) 0.1 Sodium 136 Potassium 3.6 Chloride 104 Carbon Dioxide 25 Anion Gap 10.6 BUN 22 H Creatinine 1.00 Estimated Creat Clear 68 Estimated GFR 55 L Est GFR ( Amer) 67 Glucose 250 H POC Glucose Calcium 8.5 Total Bilirubin AST ALT Alkaline Phosphatase Lactate Dehydrogenase Troponin I < 0.01 NT-Pro-B Natriuret Pep 289 H Total Protein Albumin Globulin Albumin/Globulin Ratio Fluid Source Fluid Volume Fluid Appearance Fluid RBC (Auto) Fld Tot Nucleated Cell Fld Polynuclear WBCs % Fld Mononuclear WBCs % SARS-CoV-2 (PCR) Not detected Influenza A Untype (PCR) Not detected Influenza Type B (PCR) Not detected 02/21/21 02/21/21 02/22/21 21:40 22:56 01:42 WBC RBC Hgb Hct MCV MCH MCHC RDW Plt Count MPV Neut % (Auto) Lymph % (Auto) [place] % (Auto) Eos % (Auto) Baso % (Auto) Neut # (Auto) Lymph # (Auto) [place] # (Auto) Eos # (Auto) Baso # (Auto) Sodium Potassium Chloride Carbon Dioxide Anion Gap BUN Creatinine Estimated Creat Clear Estimated GFR Est GFR ( Amer) Glucose POC Glucose 377 H* Calcium Total Bilirubin AST ALT Alkaline Phosphatase Lactate Dehydrogenase Troponin I 0.10 H 0.07 H NT-Pro-B Natriuret Pep Total Protein Albumin Globulin Albumin/Globulin Ratio Fluid Source Fluid Volume Fluid Appearance Fluid RBC (Auto) Fld Tot Nucleated Cell Fld Polynuclear WBCs % Fld Mononuclear WBCs % SARS-CoV-2 (PCR) Influenza A Untype (PCR) Influenza Type B (PCR) 02/22/21 02/22/21 02/22/21 06:23 13:00 19:45 WBC RBC Hgb Hct MCV MCH MCHC RDW Plt Count MPV Neut % (Auto) Lymph % (Auto) [place] % (Auto) Eos % (Auto) Baso % (Auto) Neut # (Auto) Lymph # (Auto) [place] # (Auto) Eos # (Auto) Baso # (Auto) Sodium 135 L Potassium 3.9 Chloride 105 Ca
[2021-02-25 12:27] LABS: POC Glucose,Bedside 241 (70-110)
--- NOTE | 2021-02-25 12:48 | US_ITS ---
PROCEDURE: US ABDOMEN LIMITED CLINICAL INDICATION: check fluid in abd/pelvis COMPARISON: CT CT ANGIO CHEST PE PROTOCOL from 02/21/[address] ABDOMEN W CON from 02/24/2021 FINDINGS: Study is obtained for ascites evaluation. Small pocket of fluid is present in the right lower quadrant. No other abnormal abdominal or pelvic fluid demonstrated. The IMPRESSION: Small amount of ascites demonstrated by ultrasound Dictated by: Wan Osuna MD 02/25/2021 16:02 Wan Osuna MD in [facility] 02/25/2021 16:02
[2021-02-25 14:09] LABS: Lactate Dehydrogenase 312 U/L (313-618)
--- NOTE | 2021-02-25 16:25 | HMH.ACPN2 ---
Internal Medicine - PN: Subj *Date: 02/25/21 *Time: 09:10 Interval history: pt states she is feeling better and wants to go home Exam Vital signs and Labs for Last 24 Hours: Temp Pulse Resp BP Pulse Ox 98.8 F 67 16 121/61 92 L 02/25/21 16:00 02/25/21 16:00 02/25/21 16:00 02/25/21 16:00 02/25/21 16:00 Laboratory Results - last 24 hr 02/24/21 16:58: POC Glucose 385 H* 02/24/21 21:47: POC Glucose 241 H 02/25/21 09:05: WBC 6.1, RBC 3.03 L, Hgb 9.6 L, Hct 30.1 L, MCV 99.1 H, MCH 31.7 H, MCHC 31.9, RDW 15.9, Plt Count 111 L, MPV 9.4, Neut % (Auto) 67.4, Lymph % (Auto) 20.8, [place] % (Auto) 7.8, Eos % (Auto) 3.4, Baso % (Auto) 0.6, Neut # (Auto) 4.1, Lymph # (Auto) 1.3, [place] # (Auto) 0.5, Eos # (Auto) 0.2, Baso # (Auto) 0.0 02/25/21 09:05: Sodium 137, Potassium 3.6, Chloride 108 H, Carbon Dioxide 26, Anion Gap 6.6, BUN 10, Creatinine 0.70, Estimated Creat Clear 75, Estimated GFR 84, Est GFR ( Amer) 101, Glucose 251 H, Calcium 7.4 L, Total Bilirubin 0.4, AST 31, ALT 16, Alkaline Phosphatase 84, Total Protein 5.0 L, Albumin 2.3 L, Globulin 2.7, Albumin/Globulin Ratio 0.9 L 02/25/21 09:05: Lactate Dehydrogenase 312 L 02/25/21 12:13: POC Glucose 241 H I & O for Last 24 hours: Intake & Output 02/23/21 02/24/21 02/25/21 02/26/21 11:59 11:59 11:59 11:59 Intake Total 360 / 360 2415 / 2415 2627 / 2627 120 / 120 Output Total 350 / 350 Balance 360 / 360 2415 / 2415 2277 / 2277 120 / 120 Weight 189 lb 14.4 oz 199 lb 190 lb Microbiology Reports for the Last 24 Hours: Microbiology 02/22/21 13:00 Pleural Fluid - Pleura,Lt Lung Gram Stain - Final 02/22/21 13:00 Pleural Fluid - Pleura,Lt Lung Body Fluid Culture - Preliminary NO GROWTH AFTER 72 HOURS - Constitutional no acute distress, chronically ill appearing - *Routine HEENT Exam Head: Present: normocephalic Eye: Present: PERRL ENT: Present: mucous membranes moist - *Routine Neck Exam Present: supple. Absent: lymphadenopathy - *Routine Respiratory Exam Present: CTA bilaterally - *Routine Cardiovascular Exam Present: RRR - *Routine Abdominal Exam Present: soft, normoactive bowel sounds. Absent: tenderness - *Routine Extremities Exam Absent: cyanosis, clubbing, edema - *Routine Skin Exam Present: warm. Absent: rash - *Routine Neurological Exam Present: alert, oriented X3 Assessment and Plan (1) Collapse of left lung Status: Acute Category: Medical Code(s): J98.11 - Atelectasis (2) Pleural effusion, left Status: Acute Category: Medical Code(s): J90 - Pleural effusion, not elsewhere classified (3) HHD (hypertensive heart disease) Status: Chronic Qualifiers: Heart failure presence: without heart failure Qualified Code(s): I11.9 - Hypertensive heart disease without heart failure Category: Medical Code(s): I11.9 - Hypertensive heart disease without heart failure (4) HLD (hyperlipidemia) Status: Chronic Qualifiers: Hyperlipidemia type: mixed hyperlipidemia Qualified Code(s): E78.2 - Mixed hyperlipidemia Category: Medical Code(s): E78.5 - Hyperlipidemia, unspecified (5) Esophageal varices Status: Acute Qualifiers: Esophageal varices type: unspecified type Esophageal varices bleeding: with bleeding Qualified Code(s): I85.01 - Esophageal varices with bleeding Category: Medical Code(s): I85.00 - Esophageal varices without bleeding (6) Upper gastrointestinal bleeding Status: Acute Category: Medical Code(s): K92.2 - Gastrointestinal hemorrhage, unspecified (7) Coronary artery disease Status: Chronic Qualifiers: Coronary Disease-Associated Artery/Lesion type: [place] artery [place] vs. transplanted heart: [place] heart Associated angina: with other forms of angina Qualified Code(s): I25.118 - Atherosclerotic heart disease of [place] coronary artery with other forms of angina pectoris Category: Medical Code(s):
--- NOTE | 2021-02-25 16:29 | HMH.ITSTN ---
Dr. Osuna spoke to physician and advised to cancel he is not doing the paracentisis on patient. I called 2nd floor and advised Ashely at desk. I also cancelled order per Dr. Osuna
[2021-02-25 21:03] LABS: POC Glucose,Bedside 174 (70-110)
--- NOTE | 2021-02-25 21:48 | PC.NURSE ---
No care needed
[2021-02-26] VITALS: BP 110/55; PULSE 70; PULSE 75; RESP 16; TEMP 37.1; O2SAT 90
[2021-02-26 03:35] VITALS: BP 124/57; PULSE 70; RESP 16; TEMP 36.9; O2SAT 91
[2021-02-26 04:00] VITALS: PULSE 70
--- NOTE | 2021-02-26 04:09 | PC.NURSE ---
Pt. has not c/o n/v/d, soa, dizziness or pain. Remains on ra.
[2021-02-26 05:04] VITALS: BMI 39.2
--- NOTE | 2021-02-26 05:46 | PC.NURSE ---
Gave orange juice. Emptied trash and linens
[2021-02-26 06:07] LABS: POC Glucose,Bedside 236 (70-110)
[2021-02-26 06:40] LABS: Basophils % 0.5 % (0.1-2.0); Eosinophils # 0.2 K/mm3 (0.0-0.4); Eosinophils % 3.1 % (0.1-12.0); Hematocrit 29.8 % (37.0-47.0); Hemoglobin 9.9 g/dL (12.2-16.2); Lymphocytes # 1.5 K/mm3 (0.7-4.5); Lymphocytes % 23.6 % (10-50); Mean Corpuscular HGB Conc 33.3 g/dL (31.8-35.4); Mean Corpuscular Hemoglobin 32.6 pg (27.0-31.2); Mean Platelet Volume 8.6 fl (7.4-10.4); Monocytes # 0.4 K/mm3 (0.1-1.0); Monocytes % 6.3 % (1.7-9.3); Neutrophils # 4.1 K/mm3 (1.8-7.8); Neutrophils % 66.5 % (37.0-80.0); Platelet Count 93 K/mm3 (142-424); Red Blood Count 3.04 M/mm3 (4.20-5.40); Red Cell Distribution Width 15.7 % (11.5-17.5); White Blood Count 6.2 K/mm3 (4.8-10.8)
[2021-02-26 07:20] LABS: Chloride 109 mmol/L (98-107)
[2021-02-26 07:21] LABS: Potassium 3.9 mmoL/L (3.5-5.1); Sodium 138 mmol/L (136-145)
[2021-02-26 07:23] LABS: Alanine Aminotransferase 12 U/L (12-78); Alkaline Phosphatase 94 U/L (38-126); Aspartate Amino Transferase 35 U/L (14-36); Bilirubin,Total 0.7 mg/dl (0.2-1.3); Blood Urea Nitrogen 10 mg/dl (7-17); Creatinine Clearance Estimated 79 mL/min (50-200); Estimated Glomerular Filt Rate 84 ml/min (>60); GFR (African American) 101 ML/MIN (>60)
[2021-02-26 07:24] LABS: Albumin Level 2.3 g/dl (3.5-5.0); Albumin/Globulin Ratio 0.8 (1.1-1.8); Anion Gap 3.9 mEq/L (5-15); Calcium 7.9 mg/dl (8.4-10.2); Carbon Dioxide 29 mmol/L (22.0-30.0); Globulin 2.8 g/dL (1.3-3.2); Glucose 220 mg/dl (74-100); Total Protein,Serum 5.1 g/dl (6.3-8.2)
[2021-02-26 08:00] VITALS: BP 154/60; PULSE 87; RESP 18; RESP 22; TEMP 36.6; O2SAT 92
--- NOTE | 2021-02-26 09:05 | HMH.DCSUM ---
General - General Admission date:: 02/21/21 Discharge date: 02/26/21 HPI HPI: 66-year-old white female who presented to the emergency department today with complaints of shortness of breath. The patient had recently been admitted here at [facility] for an upper GI bleed and was discharged and supposed to have an EGD with Dr. Chaudhry in [facility] today. She states since being discharged from the hospital she has been short of breath and having tightness in her chest. She needed a cardiology work-up prior to having her EGD. She came into the hospital yesterday and underwent Myoview stress testing which showed no ischemia and the patient was cleared to have her EGD completed. While they were completing her echocardiogram the patient had sudden onset of severe shortness of breath while trying to lie flat. She states that this was severe and associated with chest tightness. The patient states that her shortness of breath is associated with cough which is nonproductive. She states that her shortness of breath is also associated with orthopnea. She denies any fevers, chills, nausea, vomiting or diarrhea. The patient states that since discharge she has not had any vomiting of blood. On her last hospital admission she was noted to have bleeding esophageal varices and that is why she was scheduled to have an EGD with Dr. Chaudhry.- per cardiology Hospital Course Hospital Course: 02/21/21 CXR: FINDINGS: There is complete whiteout of the left lung. No mediastinal shift. This has developed since 02/14/2021 and may be related to large effusion. Cannot exclude underlying pneumonia. The right lung is clear. No acute bony findings. IMPRESSION: Interval development of complete whiteout of the left lung without mediastinal shift suggesting large left effusion. Cannot exclude underlying alveolar disease. Dictated by: Wan Osuna MD 02/23/[address]: FINDINGS: Tubes, catheters and devices: Transvenous pacemaker leads in the heart Lungs: Opacities in the left lung parenchyma may represent atelectasis or pneumonia. Recommend follow-up studies to rule out persistent mass. Pleural spaces: Status post thoracentesis of the left pleural effusion. Mild to moderate pleural effusion remains.. 14 mm pleural based nodule in the right lower lobe. Heart: Coronary artery calcifications may indicate coronary artery disease.. Transvenous pacemaker leads in the heart Aorta: Unremarkable. No aortic aneurysm. Lymph nodes: Pathologic node 13 mm anterior to the trachea Gallbladder and bile ducts: Cholecystectomy Intraperitoneal space: Mild ascites in the upper abdomen Bones/joints: Unremarkable. No acute fracture. Soft tissues: Ventral hernia contains fluid. Series 3, image 69 IMPRESSION: 1. Status post thoracentesis of the left pleural effusion. Mild to moderate pleural effusion remains.. 2. Opacities in the left lung parenchyma may represent atelectasis or pneumonia. Recommend follow-up studies to rule out persistent mass. 3. 14 mm pleural based nodule in the right lower lobe. For both low risk and high risk patients, consider CT Chest at 3 months, PET/CT, or biopsy. Electronically signed by Allison Thomson MD 02/25/21 CXR: FINDINGS: The cardiomediastinal silhouette and pulmonary vascularity are within normal limits. Right IJ central venous line tip in the region of the right atrium. Left-sided pleural effusion with left perihilar infiltrate and increasing atelectatic change in the left midlung. No acute bony findings. IMPRESSION: Medium-sized left pleural effusion with left perihilar infiltrate and increasing atelectatic change in the left midlung. Dictated by: Wan Osuna MD 02/25/2021 02/25/21 Abd US: FINDINGS: Study is obtained for ascites evaluation. Small pocket of fluid is present in the right lower quadrant. No other abnormal abdominal or pe
--- NOTE | 2021-02-26 10:01 | HMH.PULMPN ---
Internal Medicine - PN: Subj *Date: 02/26/21 *Time: 10:01 Interval history: No acute respiratory vents overnight. Patient continued to remain on room air. Exam - Constitutional Constitutional:: Present: no acute distress - HENMT Exam HENMT: Present: normocephalic, atraumatic - Eye Exam Eyes:: Present: normal appearance both eyes and related structures - Neck Exam Neck:: Present: normal visual inspection - Respiratory Exam Respiratory:: Present: able to speak in complete sentences, no respiratory distress, decreased breath sounds. Absent: wheezing - Cardiovascular Exam Cardiac:: Present: S1, S2 - GI Exam GI:: Present: soft, no tenderness. Absent: rebound, guarding - Skin Exam Skin: Present: warm, no rash - Neurological Exam Neurological: Present: alert, awake, normal cognition - Extremities Exam Extremities: Present: no cyanosis, no clubbing, no edema Assessment and Plan (1) Collapse of left lung Status: Acute Category: Medical Code(s): J98.11 - Atelectasis (2) Pleural effusion, left Status: Acute Category: Medical Code(s): J90 - Pleural effusion, not elsewhere classified (3) HHD (hypertensive heart disease) Status: Chronic Qualifiers: Heart failure presence: without heart failure Qualified Code(s): I11.9 - Hypertensive heart disease without heart failure Category: Medical Code(s): I11.9 - Hypertensive heart disease without heart failure (4) HLD (hyperlipidemia) Status: Chronic Qualifiers: Hyperlipidemia type: mixed hyperlipidemia Qualified Code(s): E78.2 - Mixed hyperlipidemia Category: Medical Code(s): E78.5 - Hyperlipidemia, unspecified (5) Esophageal varices Status: Acute Qualifiers: Esophageal varices type: unspecified type Esophageal varices bleeding: with bleeding Qualified Code(s): I85.01 - Esophageal varices with bleeding Category: Medical Code(s): I85.00 - Esophageal varices without bleeding (6) Upper gastrointestinal bleeding Status: Acute Category: Medical Code(s): K92.2 - Gastrointestinal hemorrhage, unspecified (7) Coronary artery disease Status: Chronic Qualifiers: Coronary Disease-Associated Artery/Lesion type: [place] artery [place] vs. transplanted heart: [place] heart Associated angina: with other forms of angina Qualified Code(s): I25.118 - Atherosclerotic heart disease of [place] coronary artery with other forms of angina pectoris Category: Medical Code(s): I25.10 - Atherosclerotic heart disease of [place] coronary artery without angina pectoris (8) Obesity (BMI 30-39.9) Status: Acute Category: Medical Code(s): E66.9 - Obesity, unspecified (9) Diabetes Status: Chronic Qualifiers: Diabetes mellitus type: type 2 Diabetes mellitus buttermaker helper insulin use: without buttermaker helper use Diabetes mellitus complication status: without complication Qualified Code(s): E11.9 - Type 2 diabetes mellitus without complications Category: Medical Code(s): E11.9 - Type 2 diabetes mellitus without complications - Assessment and plan all Dx Assessment and Plan for all problems:: #Acute hypoxic respiratory failure: #Left-sided pleural effusion: #Hepatic hydrothorax: 66-year-old female greater than [id number] smoking no significant baseline symptom burden, not using any inhalers or oxygen at home. History hepatitis B, esophageal varices and GI bleeding. Patient recent CT chest from February 2021 did not show any evidence of cirrhosis. CTA patient chest imaging from 10 days ago did not show any evidence of effusion, given rapid accumulation of effusion and pleural fluid being nonbloody and concerned that patient may be having cirrhosis with hepatohydrothorax at this point of time. Thoracentesis performed with removal of straw-colored 2050 cc fluid, sent for studies will follow. Patient repeat chest x-ray AND CT abdomen 48 hours post thoracentesis continue to show reaccumulation of fluid which ma
[2021-02-26 11:20] VITALS: BP 102/63; PULSE 72; RESP 18; TEMP 36.7; O2SAT 90
--- NOTE | 2021-02-26 11:47 | SW/DCPLANNER ---
SPOKE WITH PATIENT THIS MORNING AFTER MD MADE ROUNDS AND IS DISCHARGING HOME TODAY.. SHE SAID SHE COULD BENEFIT FROM HOME HEALTH SERVICES AND [facility] WILL BE HER AGENCY PER REQUEST. SHE WILL RECEIVE HOME HEALTH PT/OT AND [facility].. SOMEONE WILL BE CONTACTING PATIENT TO START SERVICES...DAUGHTER IS COMING TO PICK HER UP SHORTLY AFTER LUNCH...MEDS SENT TO [facility]...
[2021-02-26 12:49] LABS: Albumin, Body Fluid 0.2 g/dL (Not Estab.); Glucose, Body Fluid 256 mg/dL (.); LD, Body Fluid 63 IU/L (.); Protein, Body Fluid 0.6 g/dL (.)
[2021-02-26 21:19] LABS: POC Glucose,Bedside 322 (70-110)
[2021-02-26 21:19] LABS: POC Glucose,Bedside 259 (70-110)
[2021-02-26 21:19] LABS: POC Glucose,Bedside 262 (70-110)
== END 2021-02-26 13:14 | disposition home health service (06) | DRG 432 ==
LOC: ER 20:42 → 2ND 21:08
PROVIDERS: Internal Medicine Pulmonary Disease; Nurse Practitioner Family; Admitting Provider Emergency Medicine; Emergency Provider Emergency Medicine; PCP Emergency Medicine; Visit Provider Emergency Medicine
DX: K74.60 Unspecified cirrhosis of liver (principal); J96.01 Acute respiratory failure with hypoxia; J90 Pleural effusion, not elsewhere classified; J98.11 Atelectasis; J94.8 Other specified pleural conditions; J98.19 Other pulmonary collapse; I85.00 Esophageal varices without bleeding; Z20.822 Contact with and (suspected) exposure to COVID-19; Z95.5 Presence of coronary angioplasty implant and graft; J44.9 Chronic obstructive pulmonary disease, unspecified; I25.10 Atherosclerotic heart disease of native coronary artery without angina pectoris; E11.9 Type 2 diabetes mellitus without complications; K21.9 Gastro-esophageal reflux disease without esophagitis; I25.2 Old myocardial infarction; F17.210 Nicotine dependence, cigarettes, uncomplicated; E78.5 Hyperlipidemia, unspecified; I10 Essential (primary) hypertension; R91.1 Solitary pulmonary nodule; E66.9 Obesity, unspecified; Z68.39 Body mass index [BMI] 39.0-39.9, adult; R77.8 Other specified abnormalities of plasma proteins
CPT/HCPCS: 32554; 32555; 71045; 71250; 71275; 74160; 76705; 78452; 80048; 80053; 82042; 82945; 82962; 83615; 83880; 84155; 84484; 85025; 87070; 87205; 88112; 89051; 93005; 93017; 93306; 94760; 94761; 96374; 99284; A9502; C1751; C9803; J2405; J2785; Q9967; U0003; U0005

== ENCOUNTER 2021-03-04 01:05 | Inpatient (IN) | payer MEDICAID, MEDICARE, SELFPAY ==
[2021-03-04] VITALS (15 sets, daily range): BP systolic 85–172; BP diastolic 47–84; PULSE 69–78; RESP 16–26; TEMP 36.7–36.8; O2SAT 83–98; BMI 52.7; BMI 37.0; BMI 38.1; BMI 38.0
--- NOTE | 2021-03-04 01:17 | ECG_ITS ---
APPROVED REPORT Exam: Resting ECG HR:80 bpm ECG Measurements Heart Rate 80 AXES [place] 128 P 32 QRSd 74 QRS 46 QT 380 T 73 QTc 438 Conclusion Normal sinus rhythm Low voltage QRS Septal infarct, age undetermined Abnormal ECG Electronically signed by : Severiano Moe MD 03/06/2021 13:28:27
--- NOTE | 2021-03-04 01:52 | XR_ITS ---
PROCEDURE INFORMATION: Exam: XR Chest Exam date and time: 03/04/2021 1:52 AM Age: 66 years old Clinical indication: Shortness of breath; Additional info: santiago MADRIGAL TECHNIQUE: Imaging protocol: XR of the chest. Views: 2 views. COMPARISON: CR XR CHEST PORTABLE 02/25/2021 9:38 AM FINDINGS: Lungs: There is opacification of the majority of the left hemithorax with relative sparing of the left upper lobe. This is increased from prior exam. This may reflect a combination of pleural fluid and parenchymal process. Correlate clinically. Cannot exclude postobstructive atelectasis. The right lung appears overall clear with slight increase in lung volumes. Pleural spaces: No pleural effusions or appreciable adenopathy. Negative for pneumothorax. Heart/Mediastinum: Heart size and pulmonary vasculature are difficult to evaluate due to left hemithorax opacification, but are likely within range of normal. Bones/joints: There is no evidence of acute fracture. The thoracic spine demonstrates mild degenerative changes at multiple levels. IMPRESSION: Increase in near complete opacification of the left hemithorax since prior exam with relative mild sparing of the left lung apex. Findings likely reflect a combination of pleuroparenchymal process. Cannot exclude postobstructive atelectasis. Correlate clinically.
[2021-03-04 02:00] LABS: Basophils # 0.1 K/mm3 (0-0.2); Basophils % 1.6 % (0.1-2.0); Eosinophils # 0.2 K/mm3 (0.0-0.4); Eosinophils % 2.8 % (0.1-12.0); Hematocrit 35.3 % (37.0-47.0); Hemoglobin 11.1 g/dL (12.2-16.2); Lymphocytes # 1.1 K/mm3 (0.7-4.5); Lymphocytes % 16.9 % (10-50); Mean Corpuscular HGB Conc 31.4 g/dL (31.8-35.4); Mean Corpuscular Hemoglobin 32.1 pg (27.0-31.2); Mean Corpuscular Volume 102.1 fl (81-99); Mean Platelet Volume 10.9 fl (7.4-10.4); Monocytes # 0.4 K/mm3 (0.1-1.0); Monocytes % 6.7 % (1.7-9.3); Neutrophils # 4.5 K/mm3 (1.8-7.8); Platelet Count 148 K/mm3 (142-424); Red Blood Count 3.46 M/mm3 (4.20-5.40); Red Cell Distribution Width 16.8 % (11.5-17.5); White Blood Count 6.2 K/mm3 (4.8-10.8)
--- NOTE | 2021-03-04 02:03 | HMH.EDCP ---
ED Disposition Clinical Impression: Pleural effusion Diabetes Qualifiers: Diabetes mellitus type: type 2 Diabetes mellitus care home insulin use: unspecified buttermaker helper insulin use status Diabetes mellitus complication status: with other specified complication Qualified Code(s): E11.69 - Type 2 diabetes mellitus with other specified complication Esophageal varices Qualifiers: Esophageal varices type: unspecified type Esophageal varices bleeding: without bleeding Qualified Code(s): I85.00 - Esophageal varices without bleeding Disposition: Admitted as Observation Condition on Discharge: Fair - Critical Care Critical Care Time: No Attestation: On 03/04/21, the high probability of a clinically significant, sudden or life threatening deterioration of the following system(s) required my full and direct attention, intervention and personal management. The time I documented below is in addition to time spent performing reported procedures but includes the following listed in this critical care notation. Medical Decision Making - Medical Records Medical records reviewed: Yes: I reviewed the patient's medical records. - Hi Inquiry Pt receiving controlled substance: No Vital Signs: 03/04/21 01:06 03/04/21 01:42 Temperature 98.3 F Temperature Source Oral Pulse Rate 76 Pulse Rate [Right] 77 Respiratory Rate 26 H Blood Pressure 121/65 Blood Pressure [Right Arm] 172/69 H Blood Pressure Mean [Right Arm] 103 Blood Pressure Source [Right Arm] Automatic Cuff 02 Sat by Pulse Oximetry 83 L 98 Oxygen Delivery Method Room Air Room Air - Lab Data Lab results reviewed: Yes: I reviewed the patient's lab results. Lab Results 03/04/21 01:26: SARS-CoV-2 (PCR) Not detected, Influenza A Untype (PCR) Not detected, Influenza Type B (PCR) Not detected 03/04/21 01:36: WBC 6.2, RBC 3.46 L, Hgb 11.1 L, Hct 35.3 L, MCV 102.1 H, MCH 32.1 H, MCHC 31.4 L, RDW 16.8, Plt Count 148, MPV 10.9 H, Neut % (Auto) 72.0, Lymph % (Auto) 16.9, [place] % (Auto) 6.7, Eos % (Auto) 2.8, Baso % (Auto) 1.6, Neut # (Auto) 4.5, Lymph # (Auto) 1.1, [place] # (Auto) 0.4, Eos # (Auto) 0.2, Baso # (Auto) 0.1 03/04/21 01:36: Sodium 138, Potassium 4.4, Chloride 104, Carbon Dioxide 26, Anion Gap 12.4, BUN 23 H, Creatinine 1.30 H, Estimated Creat Clear 31, Estimated GFR 41 L, Est GFR ( Amer) 50 L, Glucose 250 H, Calcium 9.0, Magnesium 1.7, Total Bilirubin 1.1, Direct Bilirubin 0.2, Conjugated Bilirubin 0.0, Indirect Bilirubin 0.9, Unconjugated Bilirubin 0.9, AST 35, ALT 19, Alkaline Phosphatase 105, Troponin I < 0.01, C-Reactive Protein 28.5 H, NT-Pro-B Natriuret Pep 329 H, Total Protein 5.8 L, Albumin 2.9 L 03/04/21 01:36: ESR 50 H 03/04/21 01:36: Lactate 3.3 H 03/04/21 01:36: Procalcitonin 0.071 Result diagrams: 03/04/21 01:36 03/04/21 01:36 Orders (Tests/Meds): ED MEDICATIONS Generic Name Dose Route Start Last Admin Trade Name Freq PRN Reason Stop Dose Admin Vancomycin/PEG/NADA/Lysine/Water 1.5 gm in 300 mls @ 150 mls/hr 03/04/21 04:00 Vancomycin 1.5gm/300ml (Peg) Premix IV 03/18/21 03:59 Q24H [facility] Cefepime HCl 1 gm/ Sodium 50 mls @ 100 mls/hr 03/04/21 03:45 Chloride IV 03/18/21 03:44 Q12H [facility] ORDERS Category Date Time Status Troponin I Q3H Lab 03/04/21 05:00 Ordered Troponin I Q3H Lab 03/04/21 08:00 Ordered UA [Urinalysis and Microscopic] Routine Lab 03/04/21 Ordered Blood Culture Stat Micro 03/04/21 03:00 Received ECG Request by /Hemanth Stat Y 03/04/21 01:52 Ordered - Radiology Data #1 Image(s): Chest Image Reviewed: Yes I have reviewed radiologist's interpretation Preliminary Findings: Abnormal (lt pleural effusion) - ECG Data Tracing #1 Normal Sinus Rhythm: Yes Ischemic changes: non-specific ST-T wave changes Medical Decision Narrative: has low sat with pleural effusion - has hx of copd and has cirrhosis - will cover with abx and admit Chest Pain HPI - General Chief Compl
[2021-03-04 02:08] LABS: Alanine Aminotransferase 19 U/L (12-78); Albumin Level 2.9 g/dl (3.5-5.0); Alkaline Phosphatase 105 U/L (38-126); Anion Gap 12.4 mEq/L (5-15); Aspartate Amino Transferase 35 U/L (14-36); Bilirubin,Direct 0.2 mg/dl (0.0-0.4); Bilirubin,Indirect 0.9 mg/dL (0.0-0.9); Bilirubin,Total 1.1 mg/dl (0.2-1.3); Bilirubin,Unconjugated 0.9 mg/dL (0.0-1.1); Blood Urea Nitrogen 23 mg/dl (7-17); Carbon Dioxide 26 mmol/L (22.0-30.0); Chloride 104 mmol/L (98-107); Creatinine Clearance Estimated 31 mL/min (50-200); Estimated Glomerular Filt Rate 41 ml/min (>60); GFR (African American) 50 ML/MIN (>60); Glucose 250 mg/dl (74-100); Magnesium 1.7 mg/dl (1.6-2.3); Potassium 4.4 mmoL/L (3.5-5.1); Sodium 138 mmol/L (136-145); Total Protein,Serum 5.8 g/dl (6.3-8.2)
[2021-03-04 02:13] LABS: C-Reactive Protein 28.5 mg/L (0-4); Lactic Acid 3.3 mmol/L (0.7-2.1)
[2021-03-04 02:22] LABS: NT Pro Brain Natriuretic Pep. 329 pg/mL (0-125)
[2021-03-04 02:24] LABS: Erythrocyte Sedimentation Rate 50 mm/hr (0-30)
[2021-03-04 02:25] LABS: Troponin I < 0.01 ng/ml (0.00-0.034)
[2021-03-04 02:27] LABS: Procalcitonin 0.071 ng/mL (0.0-2.0)
[2021-03-04 03:16] LABS: Coronavirus 19, PCR Not Detected (NotDetected); Influenza A, PCR Not Detected (NotDetected); Influenza B, PCR Not Detected (NotDetected)
[2021-03-04 03:39] LABS: Reflex Lactic Add Lactic Reflex
--- NOTE | 2021-03-04 04:36 | PC.NURSE ---
patient up to floor via wheelchair @ this time .
[2021-03-04 04:59] LABS: INR 1.16 (0.9-1.1)
[2021-03-04 06:04] LABS: Troponin I < 0.01 ng/ml (0.00-0.034)
[2021-03-04 06:54] LABS: POC Glucose,Bedside 220 (70-110)
[2021-03-04 08:37] LABS: Troponin I < 0.01 ng/ml (0.00-0.034)
--- NOTE | 2021-03-04 09:12 | HMH.HP ---
*Admission Date: 03/04/21 *Chief complaint: soa *History of present illness: 66 yr old female presented to ed with c/o generalized chest pain that began 03/03 that accompanied SOA. Patient states increasing sob over the last few days - has hx of cirrhosis and had gi bleed and received blood transfusion and has f/u at for egd and eval- pt has been seen by card and noted to have lt pleural effusion and seen by pul med and thoracentesis. Patient has been out of hospital for about 1 week. the 1st was for GI bleed that pt states she was taken off her aspirin in preparation for egd and gi bleed. Patient was admitted for plural effusion, pulm consult. will obtain us abd also due to swelling. [facility] History I have reviewed the patient's past medical history: Yes Medical History: Reports:: Atherosclerotic Heart Disease, Cancer, Chronic Obstructive Pulmonary Disease (COPD), Coronary Artery Disease, Diabetes Mellitus Type 2, Gastroesophageal Reflux Disease(GERD), Hyperlipidemia, Hypertension, Myocardial Infarction Denies:: Diabetes Mellitus Type 1, Internal Pacemaker, MRSA *Have you ever received a pneumonia vaccine?: No *Have you received a flu vaccine this season?: No Other Medical History: Reports: Arthritis Other Surgeries: Yes: Cardiac Catheterization, Cholecystectomy, Coronary Stent, Hernia Repair, Other. No: Pacemaker Amputation: No Fractures: No - *Social History Last grade of school completed: GED Smoking Status: Former smoker Tobacco Type: cigarettes # Packs/Day (cigarettes): 2 Smoking End Date: 2 weeks ago Alcohol Intake: never Substance Use Type: denies use *Occupational Status:: unemployed Housing: house Household Members: family, children *Travel in the last 8 weeks: None Family Hx:: Adopted, Unable to obtain Review of Systems - Review of Systems Review of systems:: pertinent systems reviewed and negative unless documented below - Constitutional Reports fatigue, Reports weakness - Eyes Denies blurry vision - ENT Denies bleeding gums - *Cardiovascular Reports shortness of breath, Reports shortness of breath with activity, Denies chest pain at rest - *Respiratory Reports cough, Reports shortness of breath, Reports shortness of breath with activity - *Gastrointestinal Denies abdominal pain - *Genitourinary Denies urinary incontinence - *Musculoskeletal Denies abnormal walking - Integumentary/Breasts Denies rash - *Neurologic Denies headache(s), Denies seizure-like activity - Psychiatric Denies anxiety - Endocrine Denies excessive sweating - Hematologic/Lymphatic Denies easy bruising - Allergic/Immunologic Denies GI upset with certain foods Meds Home Medications Medication Instructions Recorded Confirmed Type Atorvastatin Calcium [Lipitor 10mg 10 mg PO DAILY 02/14/21 03/04/21 History Tab] Losartan Potassium [Cozaar 25mg 25 mg PO DAILY 02/14/21 03/04/21 History Tablets] Metformin HCl 500 mg PO BID 02/14/21 03/04/21 History Spironolactone [Spironolactone 25 mg PO DAILY 02/14/21 03/04/21 History 25mg Tablet] carvediloL [Carvedilol 3.125mg Tab] 3.125 mg PO BID 02/14/21 03/04/21 History Pantoprazole Sodium [Protonix 40mg 40 mg PO DAILY 02/21/21 03/04/21 History tablet] Blood Sugar Diagnostic [Blood 1 each TID 03/04/21 03/04/21 History Glucose Test Strip] Blood-Glucose Meter [Blood Glucose 1 each MC TID 03/04/21 03/04/21 History Meter] Blood-Glucose Meter [Blood Glucose 1 each MC TID 03/04/21 03/04/21 History Monitoring] Allergies Allergy/AdvReac Type Severity Reaction Status Date / Time pentazocine Allergy Severe S-SWELLS-OR Verified 02/20/21 13:25 AL/THROAT Exam Vital signs and Labs for Last 24 Hours: Temp Pulse Resp BP Pulse Ox 98.1 F 69 18 91/62 L 95 03/04/21 08:00 03/04/21 08:00 03/04/21 08:00 03/04/21 08:00 03/04/21 08:00 Laboratory Results - last 24 hr 03/04/21 01:26: SARS-CoV-2 (PCR) Not detect
--- NOTE | 2021-03-04 09:17 | US_ITS ---
PROCEDURE: US ABDOMEN COMPLETE CLINICAL INDICATION: swelling in abd COMPARISON: CT CT ABDOMEN W CON from 02/24/2021 US US ABDOMEN LIMITED from 02/25/2021 FINDINGS: PANCREAS: Poorly visualized due to overlying bowel gas LIVER: No focal liver lesion evident. There is coarse echogenicity of the liver which is nonspecific. There periphery direction of blood flow within non dilated portal vein. Small amount of perihepatic fluid noted RIGHT KIDNEY: Unremarkable. Normal size and echogenicity. No hydronephrosis LEFT KIDNEY: Unremarkable. Normal size and echogenicity. No hydronephrosis GALLBLADDER: Status post cholecystectomy. Common bile duct is normal at 3 mm. AORTA: Poorly demonstrated due to overlying bowel gas SPLEEN: Unremarkable. Normal size and echogenicity ASCITES: There is a mild amount of intra-abdominal ascites which appears to have increased since 02/25/2021. Left pleural effusion noted. IMPRESSION: Mild amount of ascites which appears greater compared to the previous exam. Left pleural effusion. Status post cholecystectomy. Poor visualization of the pancreas and aorta. Status post cholecystectomy Dictated by: Wan Osuna MD 03/04/2021 10:59 Wan Osuna MD in [place] 03/04/2021 10:59
--- NOTE | 2021-03-04 09:29 | HMH.PHACONS ---
- Pharmacy Consult Date: 03/04/21 Time: 09:29 Referring provider: DR. SUAREZ Reason for Consult:: VANCOMYCIN DOSING CONSULT Allergies and ADEs:: Allergies Allergy/AdvReac Type Severity Reaction Status Date / Time pentazocine Allergy Severe S-SWELLS-OR Verified 02/20/21 13:25 AL/THROAT Home Medications:: Home Medications Medication Instructions Recorded Confirmed Type Atorvastatin Calcium [Lipitor 10mg 10 mg PO DAILY 02/14/21 03/04/21 History Tab] Losartan Potassium [Cozaar 25mg 25 mg PO DAILY 02/14/21 03/04/21 History Tablets] Metformin HCl 500 mg PO BID 02/14/21 03/04/21 History Spironolactone [Spironolactone 25 mg PO DAILY 02/14/21 03/04/21 History 25mg Tablet] carvediloL [Carvedilol 3.125mg Tab] 3.125 mg PO BID 02/14/21 03/04/21 History Pantoprazole Sodium [Protonix 40mg 40 mg PO DAILY 02/21/21 03/04/21 History tablet] Blood Sugar Diagnostic [Blood 1 each MC TID 03/04/21 03/04/21 History Glucose Test Strip] Blood-Glucose Meter [Blood Glucose 1 each MC TID 03/04/21 03/04/21 History Meter] Blood-Glucose Meter [Blood Glucose 1 each MC TID 03/04/21 03/04/21 History Monitoring] Height: 1.52 m Weight: 88.621 kg Laboratory Results:: Laboratory Results - last 24 hr 03/04/21 01:26: SARS-CoV-2 (PCR) Not detected, Influenza A Untype (PCR) Not detected, Influenza Type B (PCR) Not detected 03/04/21 01:36: WBC 6.2, RBC 3.46 L, Hgb 11.1 L, Hct 35.3 L, MCV 102.1 H, MCH 32.1 H, MCHC 31.4 L, RDW 16.8, Plt Count 148, MPV 10.9 H, Neut % (Auto) 72.0, Lymph % (Auto) 16.9, [place] % (Auto) 6.7, Eos % (Auto) 2.8, Baso % (Auto) 1.6, Neut # (Auto) 4.5, Lymph # (Auto) 1.1, [place] # (Auto) 0.4, Eos # (Auto) 0.2, Baso # (Auto) 0.1 03/04/21 01:36: Sodium 138, Potassium 4.4, Chloride 104, Carbon Dioxide 26, Anion Gap 12.4, BUN 23 H, Creatinine 1.30 H, Estimated Creat Clear 31, Estimated GFR 41 L, Est GFR ( Amer) 50 L, Glucose 250 H, Calcium 9.0, Magnesium 1.7, Total Bilirubin 1.1, Direct Bilirubin 0.2, Conjugated Bilirubin 0.0, Indirect Bilirubin 0.9, Unconjugated Bilirubin 0.9, AST 35, ALT 19, Alkaline Phosphatase 105, Troponin I < 0.01, C-Reactive Protein 28.5 H, NT-Pro-B Natriuret Pep 329 H, Total Protein 5.8 L, Albumin 2.9 L 03/04/21 01:36: ESR 50 H 03/04/21 01:36: Lactate 3.3 H 03/04/21 01:36: Procalcitonin 0.071 03/04/21 01:36: PT 13.0 H, INR 1.16 H 03/04/21 05:31: Troponin I < 0.01 03/04/21 05:31: Lactate 2.0 03/04/21 05:40: POC Glucose 220 H 03/04/21 08:01: Troponin I < 0.01 Medical History: Reports:: Atherosclerotic Heart Disease, Cancer, Chronic Obstructive Pulmonary Disease (COPD), Coronary Artery Disease, Diabetes Mellitus Type 2, Gastroesophageal Reflux Disease(GERD), Hyperlipidemia, Hypertension, Myocardial Infarction Denies:: Diabetes Mellitus Type 1, Internal Pacemaker, MRSA Assessment and Plan (1) Esophageal varices Status: Acute Qualifiers: Esophageal varices type: unspecified type Esophageal varices bleeding: without bleeding Qualified Code(s): I85.00 - Esophageal varices without bleeding Category: Medical Code(s): I85.00 - Esophageal varices without bleeding (2) Pleural effusion Status: Acute Category: Medical Code(s): J90 - Pleural effusion, not elsewhere classified (3) Diabetes Status: Chronic Qualifiers: Diabetes mellitus type: type 2 Diabetes mellitus terminal make up operator insulin use: unspecified terminal make up operator insulin use status Diabetes mellitus complication status: with other specified complication Qualified Code(s): E11.69 - Type 2 diabetes mellitus with other specified complication Category: Medical Code(s): E11.9 - Type 2 diabetes mellitus without complications (4) Anemia Status: Acute Qualifiers: Anemia type: unspecified type Qualified Code(s): D64.9 - Anemia, unspecified Category: Medical Code(s): D64.9 - Anemia, unspecified (5) Pleural effusion, left Status: Acute Category: Medical Code(s): J90 - Pleural eff
--- NOTE | 2021-03-04 10:04 | HMH.PULMCON ---
*Admission Date: 03/04/21 *Reason for consult:: Pleural effusion *History of present illness: Ms. Ardon is a 66-year-old female greater than [id number] smoking history, last smoked 2 months ago, to hepatitis B, cirrhosis, esophageal varices status post bleeding recently admitted to the hospital for left-sided pleural effusion status post thoracentesis which is transudate of presented to the hospital again with worsening respiratory distress and chest pain and found to be having reaccumulation of her left-sided pleural fluid and pulmonary was called for further management [facility] History Medical History: Reports:: Atherosclerotic Heart Disease, Cancer, Chronic Obstructive Pulmonary Disease (COPD), Coronary Artery Disease, Diabetes Mellitus Type 2, Gastroesophageal Reflux Disease(GERD), Hyperlipidemia, Hypertension, Myocardial Infarction Denies:: Diabetes Mellitus Type 1, Internal Pacemaker, MRSA *Have you ever received a pneumonia vaccine?: No *Have you received a flu vaccine this season?: No Other Medical History: Reports: Arthritis Other Surgeries: Yes: Cardiac Catheterization, Cholecystectomy, Coronary Stent, Hernia Repair, Other. No: Pacemaker Amputation: No Fractures: No - *Social History Last grade of school completed: GED Smoking Status: Former smoker Tobacco Type: cigarettes # Packs/Day (cigarettes): 2 Smoking End Date: 2 weeks ago Alcohol Intake: never Substance Use Type: denies use *Occupational Status:: unemployed Housing: house Household Members: family, children *Travel in the last 8 weeks: None Family Hx:: Adopted, Unable to obtain ROS - Cons Reports anorexia, Reports body ache(s), Denies chills - ENT Denies bleeding gums - Card Reports chest pain, Reports chest pain at rest, Reports shortness of breath, Reports shortness of breath with activity - Resp Respiratory: Reports chest congestion, Reports cough, Reports non-productive cough, Reports dyspnea, Reports dyspnea on exertion, Denies excessive phlegm production, Denies coughing up blood, Denies pain on inspiration, Denies pain with cough, Denies cough with sputum production, Denies pain with breathing - GI Gastrointestingal: Reports: dyspepsia Comments: Abdominal distension - [place] Musculoskeletal: Reports muscle aches - Psych Denies thoughts of hurting/killing others, Denies thoughts of hurting/killing yourself Meds Home Medications Medication Instructions Recorded Confirmed Type Atorvastatin Calcium [Lipitor 10mg 10 mg PO DAILY 02/14/21 03/04/21 History Tab] Losartan Potassium [Cozaar 25mg 25 mg PO DAILY 02/14/21 03/04/21 History Tablets] Metformin HCl 500 mg PO BID 02/14/21 03/04/21 History Spironolactone [Spironolactone 25 mg PO DAILY 02/14/21 03/04/21 History 25mg Tablet] carvediloL [Carvedilol 3.125mg Tab] 3.125 mg PO BID 02/14/21 03/04/21 History Pantoprazole Sodium [Protonix 40mg 40 mg PO DAILY 02/21/21 03/04/21 History tablet] Blood Sugar Diagnostic [Blood 1 each MC TID 03/04/21 03/04/21 History Glucose Test Strip] Blood-Glucose Meter [Blood Glucose 1 each MC TID 03/04/21 03/04/21 History Meter] Blood-Glucose Meter [Blood Glucose 1 each MC TID 03/04/21 03/04/21 History Monitoring] Allergies Allergy/AdvReac Type Severity Reaction Status Date / Time pentazocine Allergy Severe S-SWELLS-OR Verified 02/20/21 13:25 AL/THROAT Exam - Constitutional Constitutional:: Present: no acute distress, comfortable - HENMT Exam HENMT: Present: normocephalic, atraumatic - Eye Exam Eyes:: Present: normal appearance both eyes and related structures - Neck Exam Neck:: Present: normal visual inspection - Respiratory Exam Respiratory:: Present: able to speak in complete sentences, normal respiratory effort, decreased breath sounds - Cardiovascular Exam Cardiac:: Present: S1, S2 - GI Exam GI:: Present: soft, no tenderness, distended. Absent: rebound, guarding, firm - Skin Exam Skin:
--- NOTE | 2021-03-04 10:32 | HMH.PHAVTE ---
[facility] Pharmacy VTE Monitoring - Patient Demographics Allergies/Adverse Reactions: Patient Allergies pentazocine Allergy (Severe, Verified 02/20/21 13:25) [id number]/THROAT Height: 1.52 m Weight: 88.621 kg Patient Problems: Current Active Problems Esophageal varices (Acute) Anemia (Acute) Pleural effusion, left (Acute) Pulmonary nodule seen on imaging study (Acute) Pleural effusion (Acute) Diabetes (Chronic) - VTE Risk Labs: VTE Related Lab Results Hgb 11.1 g/dL (12.2-16.2) L 03/04/21 01:36 Hct 35.3 % (37.0-47.0) L 03/04/21 01:36 Plt Count 148 K/mm3 (142-424) 03/04/21 01:36 PT 13.0 seconds (10.1-12.5) H 03/04/21 01:36 INR 1.16 (0.9-1.1) H 03/04/21 01:36 BUN 23 mg/dl (7-17) H 03/04/21 01:36 Creatinine 1.30 mg/dl (0.52-1.04) H 03/04/21 01:36 Estimated Creat Clear 31 mL/min (50-200) 03/04/21 01:36 Was VTE Risk Assessment Performed: No Clinical Trial Participant: No - Prophylaxis VTE Prophylaxis Ordered?: Yes Types of VTE Prophylaxis: TEDS Knee High Location of Applied Device: Bilateral Lower Extremeties
--- NOTE | 2021-03-04 10:33 | HMH.PHAINT ---
MEDICATION RECONCILIATION COMPLETE USING LIST FROM MD OFFICE.
[2021-03-04 11:50] LABS: POC Glucose,Bedside 148 (70-110)
--- NOTE | 2021-03-04 14:12 | DIET.NUTRFU ---
weight Review : Office visit on 01/30 weight was 175#, Current wt is 193.6# up 18.6# in 30 days or 10%. Significant unintentional weight gains. Hx of Atherosclerotic Heart Disease with elevated NT-Natriuretic Peptide elevated at 329 and takes aldactone at home, not currently in place. Currently on IVF which can cause weight changes. Will continue to monitor weights and review changes with provider
[2021-03-04 15:23] LABS: POC Glucose,Bedside 167 (70-110)
--- NOTE | 2021-03-04 19:43 | PC.NURSE ---
Dr. North international marketing specialist for Dr. Rincon and stated pt could have PO tylenol as ordered per may. VSS at this time. This RN did also request diet for pt and Dr. Red office requested pt to be NPO, for plans for paracentesis/thoracentesis. CB in reach.
--- NOTE | 2021-03-04 19:47 | PC.NURSE ---
Dr. North also stated liquid tylenol or suppository tylenol could be given if need be. Emilee,RN primary RN made aware.
[2021-03-04 22:19] LABS: POC Glucose,Bedside 138 (70-110)
[2021-03-05] VITALS (17 sets, daily range): BP systolic 84–143; BP diastolic 46–88; PULSE 70–91; RESP 16–20; TEMP 36.6–37.2; O2SAT 90–99; BMI 38.9
[2021-03-05 06:40] LABS: POC Glucose,Bedside 166 (70-110)
[2021-03-05 06:55] LABS: Basophils % 0.7 % (0.1-2.0); Eosinophils # 0.1 K/mm3 (0.0-0.4); Eosinophils % 2.2 % (0.1-12.0); Hematocrit 31.2 % (37.0-47.0); Hemoglobin 9.5 g/dL (12.2-16.2); Lymphocytes # 0.9 K/mm3 (0.7-4.5); Lymphocytes % 16.3 % (10-50); Mean Corpuscular HGB Conc 30.3 g/dL (31.8-35.4); Mean Corpuscular Hemoglobin 31.6 pg (27.0-31.2); Mean Platelet Volume 9.4 fl (7.4-10.4); Monocytes # 0.5 K/mm3 (0.1-1.0); Monocytes % 8.1 % (1.7-9.3); Neutrophils # 4.1 K/mm3 (1.8-7.8); Neutrophils % 72.6 % (37.0-80.0); Platelet Count 108 K/mm3 (142-424); Red Cell Distribution Width 16.7 % (11.5-17.5); White Blood Count 5.6 K/mm3 (4.8-10.8)
[2021-03-05 07:00] LABS: Chloride 110 mmol/L (98-107); Sodium 139 mmol/L (136-145)
[2021-03-05 07:01] LABS: Potassium 4.5 mmoL/L (3.5-5.1)
[2021-03-05 07:03] LABS: Blood Urea Nitrogen 21 mg/dl (7-17); Creatinine Clearance Estimated 79 mL/min (50-200); Estimated Glomerular Filt Rate 55 ml/min (>60); GFR (African American) 67 ML/MIN (>60)
[2021-03-05 07:04] LABS: Anion Gap 8.5 mEq/L (5-15); Calcium 8.1 mg/dl (8.4-10.2); Carbon Dioxide 25 mmol/L (22.0-30.0); Glucose 157 mg/dl (74-100)
--- NOTE | 2021-03-05 08:02 | PC.NURSE ---
pt axo, lungs diminished on left side and very sob with minimal to no exertion, pt abd distended and tender, pt V/S low b/p through the night, b/p noted to be higher in right arm and daughter states that it has been that way at home as well, o2 at 3L, no other issues or concerns noted.
--- NOTE | 2021-03-05 09:07 | US_ITS ---
PROCEDURE: US THORACENTESIS CLINICAL INDICATION: Right pleural effusion COMPARISON: No exams were available for comparison TECHNIQUE: Informed consent was obtain prior to procedure. After appropriate Time out, under aseptic conditions and local anesthesia with 1% buffered lidocaine using sonographic guidance a 6 Urdu Lrsv-N-Ppouooxy catheter was inserted into pleural space in the posterior hemithorax inferiorly. Patient began experiencing some coughing and unusual sensation. There was concern that the patient may be passing out, therefore, the study was discontinued and catheter was then withdrawn.. Approximately 1600 mL of serous fluid was drained. The patient tolerated the procedure well and left the radiology suite in stable condition. Post thoracentesis radiograph showed no evidence of pneumothorax FINDINGS: Large left pleural effusion IMPRESSION: Successful sonographic guided paracentesis without complication. Dictated by: Wan Osuna MD 03/05/2021 15:52 Wan Osuna MD in [facility] 03/05/2021 15:52
--- NOTE | 2021-03-05 09:09 | US_ITS ---
PROCEDURE: US PARACENTESIS CLINICAL INDICATION: Ascites COMPARISON: No exams were available for comparison TECHNIQUE: Informed consent was obtain prior to procedure. After appropriate Time out, under aseptic conditions and local anesthesia with 1% buffered lidocaine using sonographic guidance a 6 Telugu Azhp-O-Pnoykceq catheter was inserted into the largest pocket of fluid localized in the right lower quadrant. Approximately 2000 mL of serous fluid was drained. The patient tolerated the procedure well and left the radiology suite in stable condition. FINDINGS: Moderate ascites IMPRESSION: Successful sonographic guided paracentesis without complication. Dictated by: Wan Osuna MD 03/05/2021 16:01 Wan Osuna MD in [facility] 03/05/2021 16:01
--- NOTE | 2021-03-05 09:15 | HMH.PULMPN ---
Internal Medicine - PN: Subj *Date: 03/06/21 *Time: 09:12 Interval history: No acute respiratory vents overnight. Exam - Constitutional Constitutional:: Present: no acute distress, comfortable - HENMT Exam HENMT: Present: normocephalic, atraumatic - Eye Exam Eyes:: Present: normal appearance both eyes and related structures - Neck Exam Neck:: Present: normal visual inspection - Respiratory Exam Respiratory:: Present: able to speak in complete sentences, normal breath sounds, decreased breath sounds - Cardiovascular Exam Cardiac:: Present: S1, S2 - GI Exam GI:: Present: soft - Skin Exam Skin: Present: warm, no rash - Neurological Exam Neurological: Present: alert, awake - Extremities Exam Extremities: Present: no cyanosis, no clubbing, no edema Assessment and Plan (1) Esophageal varices Status: Acute Qualifiers: Esophageal varices type: unspecified type Esophageal varices bleeding: without bleeding Qualified Code(s): I85.00 - Esophageal varices without bleeding Category: Medical Code(s): I85.00 - Esophageal varices without bleeding (2) Pleural effusion Status: Acute Category: Medical Code(s): J90 - Pleural effusion, not elsewhere classified (3) Diabetes Status: Chronic Qualifiers: Diabetes mellitus type: type 2 Diabetes mellitus ferry terminal agent insulin use: unspecified ferry terminal agent insulin use status Diabetes mellitus complication status: with other specified complication Qualified Code(s): E11.69 - Type 2 diabetes mellitus with other specified complication Category: Medical Code(s): E11.9 - Type 2 diabetes mellitus without complications (4) Anemia Status: Acute Qualifiers: Anemia type: unspecified type Qualified Code(s): D64.9 - Anemia, unspecified Category: Medical Code(s): D64.9 - Anemia, unspecified (5) Pleural effusion, left Status: Acute Category: Medical Code(s): J90 - Pleural effusion, not elsewhere classified (6) Pulmonary nodule seen on imaging study Status: Acute Category: Medical Code(s): R91.1 - Solitary pulmonary nodule - Assessment and plan all Dx Assessment and Plan for all problems:: #Acute hypoxic respiratory failure: #Left-sided pleural effusion: 66-year-old female greater than 11-kuhh-lhnm smoking no significant baseline symptom burden, not using any inhalers or oxygen at home. History hepatitis B, esophageal varices and GI bleeding. Recent abdominal ultrasound showed minimal acetic fluid after thoracentesis and cirrhotic liver Pleural fluid studies from 02/22 reviewed, showed albumin of 0.2, total protein of 0.6 and LDH of 63 consistent with transudative pleural effusion. Pleural fluid glucose of 256. Pleural fluid cytology studies reviewed, negative for malignant cells. Acute on chronic inflammation with reactive mesothelial cells present. No neoplastic cells identified. 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 Afebrile. No evidence of leukocytosis. Abdominal ultrasound shows ascites, patient underwent paracentesis with removal of 2000 cc on thoracentesis with removal of 1600 cc this morning. Repeat chest x-ray improving aeration. We will follow repeat CT chest without contrast. Plan: -Follow with pleural fluid and ascitic fluid studies along with pleural fluid cytology. -DuoNebs every 6 hours on as-needed basis -No need for antibiotics at this point of time from pulmonary standpoint. #Multiple pulmonary nodules-14mm RLL nodule: #Left mainstem endobronchial lesion: CT also reported to be concerning for left main stem endobronchial lesion Patient CT scan also noted to have multiple pulmonary nodules the largest being 15 mm in the right lower lobe. Unclear of any other nodules on the left lung. Patient also noted to have 14 mm right lower lobe pulmonary nodule t
[2021-03-05 09:27] LABS: Lactate Dehydrogenase 254 U/L (313-618)
--- NOTE | 2021-03-05 10:34 | XR_ITS ---
PROCEDURE: XR CHEST PORTABLE CLINICAL HISTORY: POST THORA- EVAL LEFT LUNG COMPARISON: CR XR CHEST PORTABLE from 02/25/2021 FINDINGS: The cardiomediastinal silhouette and pulmonary vascularity are within normal limits. Decrease in size of left pleural effusion. Left basilar atelectasis noted. No evidence of pneumothorax. No acute bony abnormalities. IMPRESSION: Status post left-sided thoracentesis with decrease in effusion with no evidence of pneumothorax and with left basilar atelectasis. Dictated by: Wan Osuna MD 03/05/2021 11:28 Wan Osuna MD in [facility] 03/05/2021 11:28
--- NOTE | 2021-03-05 10:47 | HMH.ACPN2 ---
Internal Medicine - PN: Subj *Date: 03/05/21 *Time: 20:45 Interval history: 66-year-old female patient resting quietly in bed, daughter at bedside. Patient denies any chest pain or shortness of breath during the night does report some generalized abdominal pain. Explained paracentesis and thoracentesis to patient today she verbalizes understanding. Daughter does report some generalized depression and patient verbalizes agreement, Exam Vital signs and Labs for Last 24 Hours: Temp Pulse Resp BP Pulse Ox 98.7 F 73 18 121/88 96 03/05/21 08:00 03/05/21 08:00 03/05/21 08:00 03/05/21 08:00 03/05/21 08:00 Laboratory Results - last 24 hr 03/04/21 11:00: POC Glucose 148 H 03/04/21 15:06: POC Glucose 167 H 03/04/21 22:09: POC Glucose 138 H 03/05/21 06:33: POC Glucose 166 H 03/05/21 06:39: WBC 5.6, RBC 3.00 L, Hgb 9.5 L, Hct 31.2 L, MCV 104.0 H, MCH 31.6 H, MCHC 30.3 L, RDW 16.7, Plt Count 108 L D, MPV 9.4, Neut % (Auto) 72.6, Lymph % (Auto) 16.3, Parmer % (Auto) 8.1, Eos % (Auto) 2.2, Baso % (Auto) 0.7, Neut # (Auto) 4.1, Lymph # (Auto) 0.9, Parmer # (Auto) 0.5, Eos # (Auto) 0.1, Baso # (Auto) 0.0 03/05/21 06:39: Sodium 139, Potassium 4.5, Chloride 110 H, Carbon Dioxide 25, Anion Gap 8.5, BUN 21 H, Creatinine 1.00 D, Estimated Creat Clear 79, Estimated GFR 55 L, Est GFR ( Amer) 67 D, Glucose 157 H, Calcium 8.1 L 03/05/21 06:39: Lactate Dehydrogenase 254 L I & O for Last 24 hours: Intake & Output 03/02/21 03/03/21 03/04/21 03/05/21 23:59 23:59 23:59 23:59 Intake Total 0 / 0 1395 / 1395 Balance 0 / 0 1395 / 1395 Weight 194 lb 0.108 oz 198 lb 9 oz - Constitutional no acute distress, chronically ill appearing - *Routine HEENT Exam Head: Present: normocephalic Eye: Present: EOMI ENT: Present: mucous membranes moist - *Routine Neck Exam Present: trachea midline. Absent: tracheal deviation - *Routine Respiratory Exam Present: decreased breath sounds. Absent: accessory muscle use - *Routine Cardiovascular Exam Present: RRR - *Routine Abdominal Exam Present: soft, normoactive bowel sounds, tenderness, distended - *Routine Extremities Exam Present: full ROM, pulses intact. Absent: cyanosis, clubbing - *Routine Skin Exam Present: intact, dry, warm. Absent: cyanosis, erythema - *Routine Neurological Exam Present: alert, oriented X3. Absent: motor deficit, altered mental status - Routine Psychiatric Exam Present: normal affect, normal thought process. Absent: auditory hallucinations, visual hallucinations Assessment and Plan (1) Esophageal varices Status: Acute Qualifiers: Esophageal varices type: unspecified type Esophageal varices bleeding: without bleeding Qualified Code(s): I85.00 - Esophageal varices without bleeding Category: Medical Code(s): I85.00 - Esophageal varices without bleeding (2) Pleural effusion Status: Acute Category: Medical Code(s): J90 - Pleural effusion, not elsewhere classified (3) Diabetes Status: Chronic Qualifiers: Diabetes mellitus type: type 2 Diabetes mellitus care home insulin use: unspecified assistant terminal manager insulin use status Diabetes mellitus complication status: with other specified complication Qualified Code(s): E11.69 - Type 2 diabetes mellitus with other specified complication Category: Medical Code(s): E11.9 - Type 2 diabetes mellitus without complications (4) Anemia Status: Acute Qualifiers: Anemia type: unspecified type Qualified Code(s): D64.9 - Anemia, unspecified Category: Medical Code(s): D64.9 - Anemia, unspecified (5) Pleural effusion, left Status: Acute Category: Medical Code(s): J90 - Pleural effusion, not elsewhere classified (6) Pulmonary nodule seen on imaging study Status: Acute Category: Medical Code(s): R91.1 - Solitary pulmonary nodule - Assessment and plan all Dx Assessment and Plan for all problems:: Rounded with Dr. Gooden, all orders per
--- NOTE | 2021-03-05 12:04 | CT_ITS ---
PROCEDURE: CT CHEST WO CON CLINICAL INDICATION: Endobronchial lesion COMPARISON: CT CT ANGIO CHEST PE PROTOCOL from 02/21/[address] CHEST WO CON from 02/23/2021 CR XR CHEST PORTABLE from 03/05/2021 TECHNIQUE: Axial images obtained with sagittal and coronal reformats. All CT scans at the facility use one or more dose reduction, viz: automated exposure control, ma/kV adjustment per patient size (including targeted exams where dose is matched to indication, i.e. head), or iterative reconstruction technique. FINDINGS: HEART AND MEDIASTINAL STRUCTURES: There is a mildly prominent precarinal lymph node not significantly changed measuring 1.5 cm. It is a coronary artery stent is present in the LAD. The heart size is normal. LUNGS AND PLEURAL SPACES: There remains a moderate-sized left pleural effusion. There is trace right effusion. There is consolidation present within the lingula and left lower lobe with scattered areas of atelectasis versus more dense consolidation posteriorly. A 1.4 cm subpleural nodule is once again noted in the right lower lobe posteriorly unchanged. 3 mm nodule is present in the right upper lobe posteriorly unchanged. No evidence of pneumothorax. BONY STRUCTURES: Degenerative changes of the thoracic spine UPPER ABDOMEN: Prior cholecystectomy. Small amount fluid in the perirenal space laterally on the right. Minimal haziness of the central mesenteric fat. Ventral abdominal wall hernia incompletely imaged ADDITIONAL FINDINGS: No other significant abnormalities. IMPRESSION: Medium-sized left pleural effusion. Consolidation/pneumonia in the lingula, posterior aspect of the left upper lobe, and left lower lobe consistent with underlying pneumonia. Compared to the previous exam the consolidation in the left upper lobe has shown some improvement while the consolidation in the lingula and left lower lobe is somewhat worse. No change 1.4 cm subpleural nodule right lower lobe Dictated by: Wan Osuna MD 03/05/2021 15:04 Wan Osuna MD in [facility] 03/05/2021 15:04
--- NOTE | 2021-03-05 12:46 | PC.NURSE ---
called and spoke with chikis franco about patient blood pressure being significantly different in bilateral arms. l arm noted to be 60s systolic while the r was 120s. also relayed patient would like to eat. and asked if it would be okay to administer the morphine.
[2021-03-05 14:04] LABS: Appearance,Body Fld. Slightly hazy; Source, Body Fld. Thoracentesis Fluid
[2021-03-05 14:05] LABS: Volume,Body Fld. 16 mL
[2021-03-05 14:06] LABS: RBC,Body Fluid < 10 cells/uL (< 10 X 10^3); TNC,Body Fluid 58 cells/uL (< 1000)
--- NOTE | 2021-03-05 14:08 | PC.NURSE ---
mahesh edouard stated that we could advance diet as tolerated, and it would be fine ot give the morphine.
--- NOTE | 2021-03-05 14:13 | XR_ITS ---
PROCEDURE: XR CHEST 2V CLINICAL HISTORY: post thorocentesis COMPARISON: CT CT CHEST WO CON from 02/23/2021 CR XR CHEST PORTABLE from 02/25/2021 CR XR CHEST 2V from 03/04/2021 CR XR CHEST PORTABLE from 03/05/2021 FINDINGS: No evidence of pneumothorax. Unremarkable cardiovascular structures. Increased opacification noted in the left lower lobe and may represent re-expansion edema or pneumonia. Small left pleural effusion persists. Right lung is clear. No acute bony findings. IMPRESSION: Increasing opacification of the left lower lobe which could represent re-expansion edema or pneumonia with small left-sided pleural effusion and no evidence of pneumothorax. Dictated by: Wan Osuna MD 03/05/2021 15:20 Wan Osuna MD in [facility] 03/05/2021 15:20
[2021-03-05 14:42] LABS: Mononuclear WBCs,Body Fluid 72 %; Polynuclear WBC,Body Fluid 28 %
--- NOTE | 2021-03-05 17:13 | PC.NURSE ---
patient arrived back from paracentesis and thoracentesis earlier this shift in a better mood. patient had some relief after procedure and did request to eat. diet was obtained and able to advance as tolerated. has been up to chair. some cramping in abdomen noted. sites are clean and dry. vitals have been stable. md aware of difference in bp in arms. tolerated pain medication well. family has visited. did speak some with radha damian aprn, who will return to finish assessment with patient.
[2021-03-05 19:56] LABS: POC Glucose,Bedside 161 (70-110)
[2021-03-05 19:56] LABS: POC Glucose,Bedside 268 (70-110)
[2021-03-05 21:29] LABS: Microscopic, Urine URINE MICROSCOPIC (MICROSCOPIC)
[2021-03-05 21:30] LABS: Appearance,Urine CLEAR (Clear); Bilirubin,Urine Negative (Negative); Blood, Urine Negative (Negative); Color,Urine YELLOW (Yellow); Glucose,Urine (UA) 2+ (Negative); Ketones,Urine TRACE (Negative); Leukocyte Esterase,Urine TRACE (Negative); Nitrate,Urine Negative (Negative); PH,Urine 5.5 (5.0-8.5); Protein,Urine Negative (Negative); Specific Gravity, Urine 1.025 (1.005-1.030); Urobilinogen,Urine 0.2 EU/dl (0.2)
[2021-03-05 21:45] LABS: Bacteria,Urine 2+ /lpf; Mucus,Urine 1+ /lpf; Yeast,Urine 2+ /lpf
[2021-03-05 21:51] LABS: POC Glucose,Bedside 227 (70-110)
[2021-03-06] VITALS (7 sets, daily range): BP systolic 99–133; BP diastolic 37–61; PULSE 68–100; RESP 16–20; TEMP 36.6–37.1; O2SAT 90–94; BMI 38.3
[2021-03-06 06:48] LABS: Basophils % 0.7 % (0.1-2.0); Eosinophils # 0.2 K/mm3 (0.0-0.4); Eosinophils % 3.5 % (0.1-12.0); Hematocrit 30.6 % (37.0-47.0); Hemoglobin 9.5 g/dL (12.2-16.2); Lymphocytes # 1.1 K/mm3 (0.7-4.5); Lymphocytes % 20.5 % (10-50); Mean Corpuscular Hemoglobin 31.7 pg (27.0-31.2); Mean Corpuscular Volume 102.2 fl (81-99); Mean Platelet Volume 10.5 fl (7.4-10.4); Monocytes # 0.5 K/mm3 (0.1-1.0); Monocytes % 9.1 % (1.7-9.3); Neutrophils # 3.5 K/mm3 (1.8-7.8); Neutrophils % 66.1 % (37.0-80.0); Platelet Count 106 K/mm3 (142-424); Red Blood Count 2.99 M/mm3 (4.20-5.40); Red Cell Distribution Width 16.5 % (11.5-17.5); White Blood Count 5.2 K/mm3 (4.8-10.8)
--- NOTE | 2021-03-06 06:49 | PC.NURSE ---
pt rested well through the nite, iv restarted, pt states she feels much better and up ambulating well with minimal soa noted, vss, no other issues or concerns noted.
[2021-03-06 06:52] LABS: POC Glucose,Bedside 141 (70-110)
[2021-03-06 06:56] LABS: Chloride 108 mmol/L (98-107); Potassium 3.9 mmoL/L (3.5-5.1); Sodium 138 mmol/L (136-145)
[2021-03-06 06:59] LABS: Anion Gap 6.9 mEq/L (5-15); Blood Urea Nitrogen 17 mg/dl (7-17); Carbon Dioxide 27 mmol/L (22.0-30.0); Creatinine Clearance Estimated 77 mL/min (50-200); Estimated Glomerular Filt Rate 72 ml/min (>60); GFR (African American) 87 ML/MIN (>60); Glucose 137 mg/dl (74-100)
--- NOTE | 2021-03-06 09:12 | HMH.PULMPN ---
Internal Medicine - PN: Subj *Date: 03/06/21 *Time: 12:17 Interval history: No acute respiratory events overnight. Patient admits significant improvement in her symptoms. Exam - Constitutional Constitutional:: Present: no acute distress, comfortable - HENMT Exam HENMT: Present: normocephalic, atraumatic - Eye Exam Eyes:: Present: normal appearance both eyes and related structures - Neck Exam Neck:: Present: normal visual inspection - Respiratory Exam Respiratory:: Present: able to speak in complete sentences, no respiratory distress, decreased breath sounds, wheezing - Cardiovascular Exam Cardiac:: Present: S1, S2 - GI Exam GI:: Present: soft - Skin Exam Skin: Present: warm, no rash - Neurological Exam Neurological: Present: alert, awake, normal cognition - Extremities Exam Extremities: Present: no cyanosis, no clubbing, no edema - Psychiatric Exam Psychiatric: Present: normal affect Assessment and Plan (1) Esophageal varices Status: Acute Qualifiers: Esophageal varices type: unspecified type Esophageal varices bleeding: without bleeding Qualified Code(s): I85.00 - Esophageal varices without bleeding Category: Medical Code(s): I85.00 - Esophageal varices without bleeding (2) Pleural effusion Status: Acute Category: Medical Code(s): J90 - Pleural effusion, not elsewhere classified (3) Diabetes Status: Chronic Qualifiers: Diabetes mellitus type: type 2 Diabetes mellitus terminal computer operator insulin use: unspecified terminal computer operator insulin use status Diabetes mellitus complication status: with other specified complication Qualified Code(s): E11.69 - Type 2 diabetes mellitus with other specified complication Category: Medical Code(s): E11.9 - Type 2 diabetes mellitus without complications (4) Anemia Status: Acute Qualifiers: Anemia type: unspecified type Qualified Code(s): D64.9 - Anemia, unspecified Category: Medical Code(s): D64.9 - Anemia, unspecified (5) Pleural effusion, left Status: Acute Category: Medical Code(s): J90 - Pleural effusion, not elsewhere classified (6) Pulmonary nodule seen on imaging study Status: Acute Category: Medical Code(s): R91.1 - Solitary pulmonary nodule - Assessment and plan all Dx Assessment and Plan for all problems:: #Acute hypoxic respiratory failure: #Left-sided pleural effusion: # Greater than 85-kyka-oydr smokin-year-old female greater than 77-[id number]-syqp smoking no significant baseline symptom burden, not using any inhalers or oxygen at home. History hepatitis B, esophageal varices and GI bleeding. Recent abdominal ultrasound showed minimal acetic fluid after thoracentesis and cirrhotic liver Pleural fluid studies from 02/22 reviewed, showed albumin of 0.2, total protein of 0.6 and LDH of 63 consistent with transudative pleural effusion. Pleural fluid glucose of 256. Pleural fluid cytology studies reviewed, negative for malignant cells. Acute on chronic inflammation with reactive mesothelial cells present. No neoplastic cells identified. 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 Afebrile. No evidence of leukocytosis. Abdominal ultrasound shows ascites, patient underwent paracentesis with removal of 2000 cc on thoracentesis with removal of 1600 cc this morning. Repeat chest x-ray improving aeration. Repeat CT chest showed left upper lobe infiltrates concerning for reexpansion pulmonary edema Plan: -Trelegy 100 inhaler scheduled along with Albuterol Q6 hrs PRN -Lasix 40mg IV once -Follow with pleural fluid and ascitic fluid studies along with pleural fluid cytology. -No need for antibiotics at this point of time from pulmonary standpoint. -Management of decompensated cirrhosis as per primary team, patient may benefit from increasing her Lasix and spiron
--- NOTE | 2021-03-06 10:12 | HMH.PTEV ---
Physical Therapy Evaluation Rehab PT IP Evaluation Start: 03/06/21 10:03 Freq: ONCE Status: Active Protocol: Document 03/06/21 10:08 FRANDY (Rec: 03/06/21 10:11 FRANDY [id number]) Subjective/History History History 66 yr old female presented to ed with c/o generalized chest pain that began 03/03 that accompanied SOA. Patient states increasing sob over the last few days - has hx of cirrhosis and had gi bleed and received blood transfusion and has f/u at for egd and eval- pt has been seen by card and noted to have lt pleural effusion and seen by pul med and thoracentesis. Patient has been out of hospital for about 1 week. the 1st was for GI bleed that pt states she was taken off her aspirin in preparation for egd and gi bleed. Patient was admitted for plural effusion, pulm consult. will obtain us abd also due to swelling. copied from H&P Subjective Subjective No complaints from PT - pt states she is feeling better than when I came in Rehab PT IP Eval Objective Appearance Patient Behavior Appropriate,Cooperative Patient Orientation Place,Name,Birthday,Situation Difficulty following instructions none Speech Pattern Clear,Appropriate Ambulation Patient Able to Ambulate Yes Ambulation Observation IP General Gait Pattern Observation No Deviations/Normal Ambulation Distance (feet) 25 Ambulation Assistive Device None Ambulation Ability Supervision/Stand by,Contact Guard/Hand Hold Balance Ability to Arise Able, uses arms to help Sitting Balance Steady, safe Standing Balance Narrow stance w/o support Dynamic Sitting Balance Ability Normal Dynamic Standing Balance Ability Good Transfers Bed Transfer Ability Independent Chair Transfer Ability Independent Sit to Stand Bed Transfer Ability Independent Sit to Stand Chair Transfer Ability Independent ROM All Extremities PT ROM Status WFL MMT All Extremities PT MMT WFL Rehab PT IP prob,goals,plan Pro
[2021-03-06 10:29] LABS: Albumin, Body Fluid 0.4 g/dL (Not Estab.); Albumin, Body Fluid 0.5 g/dL (Not Estab.); Glucose, Body Fluid 162 mg/dL (.); LD, Body Fluid 27 IU/L (.); LD, Body Fluid 47 IU/L (.); Protein, Body Fluid 0.5 g/dL (.); Protein, Body Fluid 0.7 g/dL (.)
--- NOTE | 2021-03-06 11:38 | HMH.OTEV ---
OT Inpatient Evaluation Rehab OT IP Evaluation Start: 03/06/21 10:03 Freq: ONCE Status: Complete Protocol: Document 03/06/21 11:29 KUSUMRONN (Rec: 03/06/21 11:38 LOWELLERYNA [id number]) Rehab OT IP Assessment Subjective History 66 yr old female presented to ed with c/o generalized chest pain that began 03/03 that accompanied SOA. Patient states increasing sob over the last few days - has hx of cirrhosis and had gi bleed and received blood transfusion and has f/u at for egd and eval- pt has been seen by card and noted to have lt pleural effusion and seen by pul med and thoracentesis. Patient has been out of hospital for about 1 week. the 1st was for GI bleed that pt states she was taken off her aspirin in preparation for egd and gi bleed. Patient was admitted for plural effusion, pulm consult. will obtain us abd also due to swelling. [facility] History I have reviewed the patient's past medical history: Yes Medical History: Reports:: Atherosclerotic Heart Disease, Cancer, Chronic Obstructive Pulmonary Disease (COPD), Coronary Artery Disease, Diabetes Mellitus Type 2, Gastroesophageal Reflux Disease(GERD), Hyperlipidemia, Hypertension, Myocardial Infarction Denies:: Diabetes Mellitus Type 1, Internal Pacemaker, MRSA. Patient lives in 1 story home with 2 MATIAS. Patient was independent with all ADLs and fx'l mobility as needed within home. Patient lives with dtr, son-in-law and grandchildren who assist patient when needed . Patient stated being active and taki
[2021-03-06 12:01] LABS: POC Glucose,Bedside 243 (70-110)
--- NOTE | 2021-03-06 13:42 | DIET.NUTRFU ---
Patient continues to have stable wt at 88kg, anticipate weight loss d/t paracentesis of 2000ml yesterday. 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 She continues on low sodium full liquid diet with good intake at 100% at lunch. Diet handouts already provided and reviewed for cardiac and diabetic. Labs reviewed, hydration WNL on 03/06. Lasix was discontinued.
--- NOTE | 2021-03-06 16:22 | HMH.DCSUM ---
General - General Admission date:: 03/04/21 Discharge date: 03/06/21 HPI HPI: 66 yr old female presented to ed with c/o generalized chest pain that began 03/03 that accompanied SOA. Patient states increasing sob over the last few days - has hx of cirrhosis and had gi bleed and received blood transfusion and has f/u at for egd and eval- pt has been seen by card and noted to have lt pleural effusion and seen by pul med and thoracentesis. Patient has been out of hospital for about 1 week. the 1st was for GI bleed that pt states she was taken off her aspirin in preparation for egd and gi bleed. Patient was admitted for plural effusion, pulm consult. will obtain us abd also due to swelling. Hospital Course Hospital Course: Laboratory Tests 03/04/21 03/04/21 03/04/21 01:26 01:36 01:36 WBC 6.2 RBC 3.46 L Hgb 11.1 L Hct 35.3 L MCV 102.1 H MCH 32.1 H MCHC 31.4 L RDW 16.8 Plt Count 148 MPV 10.9 H Neut % (Auto) 72.0 Lymph % (Auto) 16.9 [place] % (Auto) 6.7 Eos % (Auto) 2.8 Baso % (Auto) 1.6 Neut # (Auto) 4.5 Lymph # (Auto) 1.1 [place] # (Auto) 0.4 Eos # (Auto) 0.2 Baso # (Auto) 0.1 ESR PT INR Sodium 138 Potassium 4.4 Chloride 104 Carbon Dioxide 26 Anion Gap 12.4 BUN 23 H Creatinine 1.30 H Estimated Creat Clear 31 Estimated GFR 41 L Est GFR ( Amer) 50 L Glucose 250 H POC Glucose Lactate Calcium 9.0 Magnesium 1.7 Total Bilirubin 1.1 Direct Bilirubin 0.2 Conjugated Bilirubin 0.0 Indirect Bilirubin 0.9 Unconjugated Bilirubin 0.9 AST 35 ALT 19 Alkaline Phosphatase 105 Lactate Dehydrogenase Troponin I < 0.01 C-Reactive Protein 28.5 H NT-Pro-B Natriuret Pep 329 H Total Protein 5.8 L Albumin 2.9 L Procalcitonin Urine Color Urine Appearance Urine pH Ur Specific [place] Urine Protein Urine Glucose (UA) Urine Ketones Urine Blood Urine Nitrate Urine Bilirubin Urine Urobilinogen Ur Leukocyte Esterase Urine WBC Ur Squamous Epith Cells Urine Bacteria Urine Mucus Urine Yeast Fluid Source Fluid Volume Fluid Appearance Fluid RBC (Auto) Fld Tot Nucleated Cell Fld Polynuclear WBCs % Fld Mononuclear WBCs % Fluid Glucose Fluid Total Protein Fluid Albumin Fluid LDH SARS-CoV-2 (PCR) Not detected Influenza A Untype (PCR) Not detected Influenza Type B (PCR) Not detected 03/04/21 03/04/21 03/04/21 01:36 01:36 01:36 WBC RBC Hgb Hct MCV MCH MCHC RDW Plt Count MPV Neut % (Auto) Lymph % (Auto) [place] % (Auto) Eos % (Auto) Baso % (Auto) Neut # (Auto) Lymph # (Auto) [place] # (Auto) Eos # (Auto) Baso # (Auto) ESR 50 H PT INR Sodium Potassium Chloride Carbon Dioxide Anion Gap BUN Creatinine Estimated Creat Clear Estimated GFR Est GFR ( Amer) Glucose POC Glucose Lactate 3.3 H Calcium Magnesium Total Bilirubin Direct Bilirubin Conjugated Bilirubin Indirect Bilirubin Unconjugated Bilirubin AST ALT Alkaline Phosphatase Lactate Dehydrogenase Troponin I C-Reactive Protein NT-Pro-B Natriuret Pep Total Protein Albumin Procalcitonin 0.071 Urine Color Urine Appearance Urine pH Ur Specific [place] Urine Protein Urine Glucose (UA) Urine Ketones Urine Blood Urine Nitrate Urine Bilirubin Urine Urobilinogen Ur Leukocyte Esterase Urine WBC Ur Squamous Epith Cells Urine Bacteria Urine Mucus Urine Yeast Fluid Source Fluid Volume Fluid Appearance Fluid RBC (Auto) Fld Tot Nucleated Cell Fld Polynuclear WBCs % Fld Mononuclear WBCs % Fluid Glucose Fluid Total Protein Fluid Albumin Flu
--- NOTE | 2021-03-07 09:12 | HMH.BHCONS ---
*Admission Date: 03/04/21 *Reason for consult:: depression *History of present illness: I interviewed Ms. Ardon in her room on 03/05/2021. She was accompanied by her daughter, Gina; but she stepped out while we talked. Maris states: -she has never had depression like this before -she did have some as a teenager and as an adult -but nothing like now; in the past month -she states that this past month has been terrible -it is the holidays; and she is in the hospital -2 of her [place] in [place] [facility] -one for a year; and her daughter is in there for 3 years -she states that this is the daughter that usually would help her get things done -would take her to the doctor; just the one that she would call on for anything -she states that this is really hard on her -with her kids not being there -she had 8 kids -all are living -5 girls; 3 boys -she states that 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 -she did go to the doctor once -they prescribed her prozac -but her mother in law at the time wouldn't let her take this -cause of bad stories they would see on the TV -she states that in the past she could always handle her anxiety and depression too -she never really felt that she needed to be on anything It was at this time that transport came to get her for a follow-up CT scan from a procedure she had this morning. -I instructed her that I would come back later today or tomorrow (03/05/2021) to continue talking to her. Before I was able to talk to her any further; patient was discharged on 03/05/2021. I will have my staff reach out to her to see if she would like to continue this; by seeing me in the outpatient clinic. And see if medications would be something she could benefit from at this time. [facility] History Medical History: Reports:: Atherosclerotic Heart Disease, Cancer, Chronic Obstructive Pulmonary Disease (COPD), Coronary Artery Disease, Diabetes Mellitus Type 2, Gastroesophageal Reflux Disease(GERD), Hyperlipidemia, Hypertension, Myocardial Infarction Denies:: Diabetes Mellitus Type 1, Internal Pacemaker, MRSA *Have you ever received a pneumonia vaccine?: No *Have you received a flu vaccine this season?: No Other Medical History: Reports: Arthritis Other Surgeries: Yes: Cardiac Catheterization, Cholecystectomy, Coronary Stent, Hernia Repair, Other. No: Pacemaker Amputation: No Fractures: No - *Social History Last grade of school completed: GED Smoking Status: Former smoker Tobacco Type: cigarettes # Packs/Day (cigarettes): 2 Smoking End Date: 2 weeks ago Alcohol Intake: never Substance Use Type: denies use *Occupational Status:: unemployed Housing: house Household Members: family, children *Travel in the last 8 weeks: None Family Hx:: Adopted, Unable to obtain Review of Systems - *Neurologic Reports weakness, Denies abnormal walking, Denies headache(s), Denies seizure-like activity Meds Home Medications Medication Instructions Recorded Confirmed Type Atorvastatin Calcium [Lipitor 10mg 10 mg PO DAILY 02/14/21 03/04/21 History Tab] Losartan Potassium [Cozaar 25mg 25 mg PO DAILY 02/14/21 03/04/21 History Tablets] Metformin HCl 500 mg PO BID 02/14/21 03/04/21 History Spironolactone [Spironolactone 25 mg PO DAILY 02/14/21 03/04/21 History 25mg Tablet] carvediloL [Carvedilol 3.125mg Tab] 3.125 mg PO BID
== END 2021-03-06 17:54 | disposition home or self-care (01) | DRG 186 ==
LOC: ER 01:47 → 2ND 03:26
PROVIDERS: Internal Medicine Pulmonary Disease; Nurse Practitioner Family; Admitting Provider Emergency Medicine; Emergency Provider Emergency Medicine; PCP Emergency Medicine; Visit Provider Emergency Medicine
DX: J94.8 Other specified pleural conditions (principal); J96.01 Acute respiratory failure with hypoxia; I85.00 Esophageal varices without bleeding; R18.8 Other ascites; N39.0 Urinary tract infection, site not specified; K74.60 Unspecified cirrhosis of liver; J43.9 Emphysema, unspecified; E11.9 Type 2 diabetes mellitus without complications; D64.9 Anemia, unspecified; R91.1 Solitary pulmonary nodule; Z20.822 Contact with and (suspected) exposure to COVID-19; Z79.84 Long term (current) use of oral hypoglycemic drugs; I25.10 Atherosclerotic heart disease of native coronary artery without angina pectoris; Z87.891 Personal history of nicotine dependence
CPT/HCPCS: 32554; 49082; 32555; 36415; 49083; 71045; 71046; 71250; 76700; 80048; 80076; 81001; 82042; 82945; 82962; 83605; 83615; 83735; 83880; 84145; 84155; 84484; 85025; 85610; 85651; 86140; 87040; 87070; 87077; 87086; 87186; 87205; 88112; 89051; 93005; 96365; 96367; 97161; 97165; 97530; 99284; C9803; J0280; J0692; U0003; U0005

== ENCOUNTER 2021-03-14 21:28 | Inpatient (IN) | payer MEDICARE, MEDICAID, SELFPAY ==
[2021-03-14 21:29] VITALS: BP 143/71; PULSE 101; RESP 26; TEMP 36.6; O2SAT 59; BMI 49.6
[2021-03-14 21:35] VITALS: BP 135/70; PULSE 92; RESP 27; O2SAT 89
--- NOTE | 2021-03-14 21:38 | ECG_ITS ---
APPROVED REPORT Exam: Resting ECG HR:98 bpm ECG Measurements Heart Rate 98 AXES HI 138 P 45 QRSd 70 QRS -23 QT 342 T 123 QTc 436 Conclusion Normal sinus rhythm Low voltage QRS Late r wave progression Abnormal ECG Electronically signed by : Severiano Moe MD 03/15/2021 14:25:43
[2021-03-14 21:40] VITALS: BMI 46.8
--- NOTE | 2021-03-14 21:49 | XR_ITS ---
PROCEDURE INFORMATION: Exam: XR Chest Exam date and time: 03/14/2021 9:49 PM Age: 66 years old Clinical indication: Shortness of breath; Additional info: SOA, desat, recent L pleural effusion TECHNIQUE: Imaging protocol: XR of the chest. Views: 1 view. COMPARISON: CT CHEST WO CON 03/05/2021 2:13 PM FINDINGS: Lungs: Hyperinflation/emphysema. Central vascular congestion with likely mild edema. Ill-defined patchy right infrahilar opacity. There is near complete atelectatic collapse of the left lung, with only a small portion of the left upper lobe aerated. A pneumonia was also noted within the left lung on recent CT of 03/05/2021, not well evaluated currently. Known right lower lobe nodule also not well seen. Pleural spaces: Large left pleural effusion occupying nearly the entire left hemithorax. No right pleural effusion. No pneumothorax. Heart/Mediastinum: Normal heart size. Bones/joints: Unremarkable. IMPRESSION: 1. Large left pleural effusion with near complete atelectatic collapse of the left lung. Underlying left pneumonia seen on prior chest CT not well visualized. 2. Suspect mild pulmonary edema. 3. Ill-defined patchy right infrahilar opacity could be atelectasis or pneumonia.
[2021-03-14 22:02] LABS: ABG Base Excess -2.5 mmol/L (-2.4-2.3); ABG HCO3 22.4 mmhg (22.0-26.0); ABG Oxygen Saturation 93 % (90-100); ABG PCO2 37.6 mmhg (35.0-45.0); ABG PH 7.39 mmol/L (7.35-7.45); ABG PO2 65.9 mmhg (80-100); ABG TCO2 23.6 mmhg (23-27); Oxygen 4 %
[2021-03-14 22:03] LABS: Allen's Test Non Applicable; Source Right Brachial
[2021-03-14 22:18] VITALS: BP 116/66; PULSE 86; RESP 30; O2SAT 95
[2021-03-14 22:20] LABS: Influenza A, PCR Not Detected (NotDetected); Influenza B, PCR Not Detected (NotDetected)
[2021-03-14 22:21] LABS: Basophils # 0.1 K/mm3 (0-0.2); Basophils % 1.7 % (0.1-2.0); Eosinophils % 0.1 % (0.1-12.0); Hematocrit 35.6 % (37.0-47.0); Hemoglobin 10.8 g/dL (12.2-16.2); Lymphocytes # 0.5 K/mm3 (0.7-4.5); Lymphocytes % 12.7 % (10-50); Mean Corpuscular HGB Conc 30.5 g/dL (31.8-35.4); Mean Corpuscular Hemoglobin 31.2 pg (27.0-31.2); Mean Corpuscular Volume 102.3 fl (81-99); Mean Platelet Volume 9.2 fl (7.4-10.4); Monocytes # 0.4 K/mm3 (0.1-1.0); Monocytes % 9.6 % (1.7-9.3); Neutrophils # 3.1 K/mm3 (1.8-7.8); Platelet Count 163 K/mm3 (142-424); Red Blood Count 3.48 M/mm3 (4.20-5.40); Red Cell Distribution Width 16.2 % (11.5-17.5); White Blood Count 4.1 K/mm3 (4.8-10.8)
[2021-03-14 22:33] LABS: Alanine Aminotransferase 24 U/L (12-78); Albumin Level 3.2 g/dl (3.5-5.0); Alkaline Phosphatase 88 U/L (38-126); Amylase 48 U/L (30-110); Anion Gap 13.9 mEq/L (5-15); Aspartate Amino Transferase 49 U/L (14-36); Bilirubin,Direct 0.3 mg/dl (0.0-0.4); Bilirubin,Indirect 0.2 mg/dL (0.0-0.9); Bilirubin,Total 0.5 mg/dl (0.2-1.3); Bilirubin,Unconjugated 0.2 mg/dL (0.0-1.1); Blood Urea Nitrogen 32 mg/dl (7-17); Calcium 8.7 mg/dl (8.4-10.2); Carbon Dioxide 26 mmol/L (22.0-30.0); Chloride 98 mmol/L (98-107); Creatinine Clearance Estimated 23 mL/min (50-200); Estimated Glomerular Filt Rate 30 ml/min (>60); GFR (African American) 36 ML/MIN (>60); Glucose 189 mg/dl (74-100); Potassium 4.9 mmoL/L (3.5-5.1); Sodium 133 mmol/L (136-145); Total Protein,Serum 6.3 g/dl (6.3-8.2)
[2021-03-14 22:37] LABS: C-Reactive Protein 34.2 mg/L (0-4)
[2021-03-14 22:43] LABS: NT Pro Brain Natriuretic Pep. 1450 pg/mL (0-125)
[2021-03-14 22:46] LABS: Troponin I 0.02 ng/ml (0.00-0.034)
[2021-03-14 22:49] LABS: Coronavirus 19, PCR Detected (NotDetected)
[2021-03-14 22:51] LABS: Procalcitonin 0.098 ng/mL (0.0-2.0)
[2021-03-14 22:59] LABS: Lipase 60 U/L (23-300)
[2021-03-14 23:00] VITALS: BP 97/72; PULSE 82; RESP 27; O2SAT 98
[2021-03-14 23:05] LABS: Erythrocyte Sedimentation Rate 59 mm/hr (0-30)
--- NOTE | 2021-03-14 23:22 | HMH.EDSOB ---
ED Disposition Clinical Impression: COVID-19, Pleural effusion, Tobacco use, Renal insufficiency Disposition: Admitted as Observation Condition on Discharge: Good Referrals: Salvador Rincon MD [Primary Care Provider] - - Critical Care Critical Care Time: No Attestation: On 03/14/21, the high probability of a clinically significant, sudden or life threatening deterioration of the following system(s) required my full and direct attention, intervention and personal management. The time I documented below is in addition to time spent performing reported procedures but includes the following listed in this critical care notation. Medical Decision Making - Medical Records Medical records reviewed: Yes: I reviewed the patient's medical records. - Hi Inquiry Pt receiving controlled substance: No Vital Signs: 03/14/21 21:29 03/14/21 21:35 03/14/21 22:18 Temperature 97.9 F Temperature Source Oral Pulse Rate 92 H 86 Pulse Rate [Right] 101 H Respiratory Rate 26 H 27 H 30 H Blood Pressure 135/70 116/66 Blood Pressure [Right Arm] 143/71 H Blood Pressure Mean 82 Blood Pressure Mean [Right Arm] 95 Blood Pressure Source [Right Arm] Automatic Cuff 02 Sat by Pulse Oximetry 59 L 89 L 95 Oxygen Delivery Method Room Air Nasal Cannula Nasal Cannula Oxygen Flow Rate (LPM) 4 4 03/14/21 23:00 Temperature Temperature Source Pulse Rate 82 Pulse Rate [Right] Respiratory Rate 27 H Blood Pressure 97/72 L Blood Pressure [Right Arm] Blood Pressure Mean 78 Blood Pressure Mean [Right Arm] Blood Pressure Source [Right Arm] 02 Sat by Pulse Oximetry 98 Oxygen Delivery Method Nasal Cannula Oxygen Flow Rate (LPM) 4 - Lab Data Lab results reviewed: Yes: I reviewed the patient's lab results. Lab Results 03/14/21 21:49: ABG pH 7.40 03/14/21 21:58: Specimen Source Right brachial, O2 % 4, ABG pH 7.39, ABG pCO2 37.6, ABG pO2 65.9 L, ABG HCO3 22.4, ABG Total CO2 23.6, ABG O2 Saturation 93, ABG Base Excess -2.5 L, Wan Test Non applicable 03/14/21 22:08: ESR 59 H 03/14/21 22:08: Troponin I 0.02, C-Reactive Protein 34.2 H, Procalcitonin 0.098 03/14/21 22:08: WBC 4.1 L, RBC 3.48 L, Hgb 10.8 L, Hct 35.6 L, MCV 102.3 H, MCH 31.2, MCHC 30.5 L, RDW 16.2, Plt Count 163, MPV 9.2, Neut % (Auto) 76.0, Lymph % (Auto) 12.7, [place] % (Auto) 9.6 H, Eos % (Auto) 0.1, Baso % (Auto) 1.7, Neut # (Auto) 3.1, Lymph # (Auto) 0.5 L, [place] # (Auto) 0.4, Eos # (Auto) 0.0, Baso # (Auto) 0.1 03/14/21 22:08: Sodium 133 L, Potassium 4.9, Chloride 98, Carbon Dioxide 26, Anion Gap 13.9, BUN 32 H, Creatinine 1.70 H, Estimated Creat Clear 23, Estimated GFR 30 L, Est GFR ( Amer) 36 L, Glucose 189 H, Calcium 8.7, Total Bilirubin 0.5, Direct Bilirubin 0.3, Conjugated Bilirubin 0.0, Indirect Bilirubin 0.2, Unconjugated Bilirubin 0.2, AST 49 H, ALT 24, Alkaline Phosphatase 88, NT-Pro-B Natriuret Pep 1450 H, Total Protein 6.3, Albumin 3.2 L, Amylase 48 03/14/21 22:08: Lactate 3.0 H 03/14/21 22:08: Lipase 60 03/14/21 22:10: SARS-CoV-2 (PCR) Detected A, Influenza A Untype (PCR) Not detected, Influenza Type B (PCR) Not detected Result diagrams: 03/14/21 22:08 03/14/21 22:08 Orders (Tests/Meds): ED MEDICATIONS Discontinued Medications Generic Name Dose Route Start Last Admin Trade Name Freq PRN Reason Stop Dose Admin Dexamethasone Sodium Phosphate 10 mg 03/14/21 23:06 03/14/21 23:12 Dexamethasone 4mg/Ml 5ml Mdv IV 03/14/21 23:07 10 mg ONCE ONE Administration ORDERS Category Date Time Status Troponin I Q3H Lab 03/15/21 01:00 Ordered Troponin I Q3H Lab 03/15/21 04:00 Ordered UA [Urinalysis and Microscopic] Stat Lab 03/14/21 21:51 Ordered Blood Culture Stat Micro 03/14/21 22:08 Received ECG Request by /Hemanth Stat Y 03/14/21 21:49 Ordered - Radiology Data #1 Image(s): Chest Image Reviewed: Yes I have reviewed radiologist's interpretation Preliminary Findings: Abnormal - ECG Data Tracing
--- NOTE | 2021-03-14 23:23 | CT_ITS ---
PROCEDURE INFORMATION: Exam: CT Abdomen And Pelvis Without Contrast Exam date and time: 03/14/2021 11:23 PM Age: 66 years old Clinical indication: Abdominal pain; Additional info: Abd pain, recent parcentesis (03/05) TECHNIQUE: Imaging protocol: Computed tomography of the abdomen and pelvis without contrast. Radiation optimization: All CT scans at this facility use at least one of these dose optimization techniques: automated exposure control; mA and/or kV adjustment per patient size (includes targeted exams where dose is matched to clinical indication); or iterative reconstruction. COMPARISON: CT ABDOMEN W CON 02/24/2021 1:23 PM FINDINGS: Tubes, catheters and devices: Prior ventral abdominal hernia repair with mesh. Cranial to the mass, there is a small to moderate size midline upper ventral abdominal hernia containing ascitic fluid and peritoneal fat. Lungs: Partially imaged large left pleural effusion with near complete atelectatic collapse of the left lung. Small right pleural effusion with mild right basilar atelectasis. Partially obscured posterior right lower lobe nodule measuring 1.4 cm, similar to prior. Liver: Nodular contour of the liver suggesting cirrhosis. Gallbladder and bile ducts: Cholecystectomy. No biliary dilation. Pancreas: Fatty atrophy of the pancreas. Peripancreatic fluid/stranding is mildly decreased since prior. Spleen: Spleen measures 11 cm in craniocaudal dimension, not abnormally enlarged. Adrenal glands: Normal. No mass. Kidneys and ureters: Renal vascular calcifications without definite caliceal calculi. No hydronephrosis. Stomach and bowel: Duodenal diverticula. No small bowel dilation or obstruction. [id number] amount of solid stool throughout the colon. There are scattered colonic diverticula, without evidence of acute diverticulitis. Appendix: No evidence of appendicitis. Intraperitoneal space: Moderate to large volume ascites, which measures simple attenuation. Despite interval recent paracentesis, the ascites volume is increased compared to prior CT of 02/24/2021. No pneumoperitoneum. Diffuse mesenteric congestion/edema. Perceived omental nodularity is slightly less conspicuous compared to prior, but continued follow-up is recommended. Vasculature: Scattered atherosclerotic calcifications. Mild fusiform ectasia of the distal abdominal aorta near the level of the inferior mesenteric artery ostium, measuring up to 2.5 cm in caliber. Lymph nodes: No enlarged lymph nodes. Urinary bladder: Bladder is mostly decompressed, without evidence of wall thickening. Reproductive: Unremarkable as visualized. Bones/joints: Multilevel degenerative changes of the spine, greatest distally. No acute fracture. Soft tissues: Body wall edema. IMPRESSION: 1. Cirrhosis. Moderate to large volume ascites, which has increased since 02/24/2021 despite interval paracentesis. 2. Mesenteric edema/congestion. Slight interval decrease in perceived omental nodularity as compared to prior, but continued follow-up is recommended to exclude metastatic disease. 3. Decreased peripancreatic fluid/stranding as compared to prior study. Unclear if this is related to partially resolved pancreatitis or generalized mesenteric edema and congestion. 4. Large left pleural effusion with near complete atelectatic collapse of the left lung (which recently also demonstrated pneumonia) partially visualized. Small right pleural effusion. 5. Body wall edema.
[2021-03-14 23:30] VITALS: BP 99/73; PULSE 80; RESP 26; O2SAT 92
[2021-03-14 23:38] VITALS: BMI 35.3
[2021-03-14 23:42] LABS: Microscopic, Urine URINE MICROSCOPIC (MICROSCOPIC)
[2021-03-14 23:57] VITALS: BP 97/62; PULSE 81; RESP 23; O2SAT 94
[2021-03-15] VITALS: BP 93/55; BP 98/60; PULSE 79; RESP 19; RESP 20; TEMP 36.9; O2SAT 95; O2SAT 98
[2021-03-15 00:23] LABS: Appearance,Urine CLEAR (Clear); Bilirubin,Urine 1+ (Negative); Blood, Urine Negative (Negative); Color,Urine YELLOW (Yellow); Glucose,Urine (UA) Negative (Negative); Ketones,Urine Negative (Negative); Leukocyte Esterase,Urine Negative (Negative); Nitrate,Urine Negative (Negative); Protein,Urine Negative (Negative); Specific Gravity, Urine >= 1.030 (1.005-1.030); Urobilinogen,Urine 0.2 EU/dl (0.2)
[2021-03-15 00:24] LABS: Bacteria,Urine 3+ /lpf
--- NOTE | 2021-03-15 00:57 | PC.NURSE ---
PT ARRIVED TO FLOOR VIA STRETCHER FROM ED W/STAFF @ [id number]
[2021-03-15 02:16] LABS: Reflex Lactic Add Lactic Reflex
[2021-03-15 02:22] LABS: Lactic Acid Follow Up (RFLX 1) 1.9 mmol/L (0.7-2.1)
[2021-03-15 04:00] VITALS: BP 111/67; PULSE 72; RESP 15; TEMP 37.4; O2SAT 93
[2021-03-15 05:13] VITALS: BMI 35.3
[2021-03-15 07:05] LABS: Lymphocytes # 0.3 K/mm3 (0.7-4.5); Mean Corpuscular Volume 101.4 fl (81-99); Monocytes # 0.1 K/mm3 (0.1-1.0); Platelet Count 118 K/mm3 (142-424)
[2021-03-15 07:18] LABS: Anion Gap 11.7 mEq/L (5-15); Blood Urea Nitrogen 35 mg/dl (7-17); Calcium 8.4 mg/dl (8.4-10.2); Carbon Dioxide 25 mmol/L (22.0-30.0); Chloride 101 mmol/L (98-107); Creatinine Clearance Estimated 48 mL/min (50-200); Estimated Glomerular Filt Rate 35 ml/min (>60); GFR (African American) 42 ML/MIN (>60); Glucose 202 mg/dl (74-100); INR 1.21 (0.9-1.1); Magnesium 1.5 mg/dl (1.6-2.3); Potassium 4.7 mmoL/L (3.5-5.1); Prothrombin Time 13.5 seconds (10.1-12.5); Sodium 133 mmol/L (136-145)
[2021-03-15 07:25] LABS: POC Glucose,Bedside 232 (70-110)
[2021-03-15 07:29] LABS: Basophils % 0.2 % (0.1-2.0); Eosinophils % 0.1 % (0.1-12.0); Hematocrit 31.4 % (37.0-47.0); Lymphocytes % 15.2 % (10-50); Mean Corpuscular HGB Conc 30.3 g/dL (31.8-35.4); Mean Corpuscular Hemoglobin 30.7 pg (27.0-31.2); Mean Platelet Volume 10.7 fl (7.4-10.4); Monocytes % 6.2 % (1.7-9.3); Neutrophils # 1.7 K/mm3 (1.8-7.8); Neutrophils % 78.4 % (37.0-80.0); White Blood Count 2.1 K/mm3 (4.8-10.8)
--- NOTE | 2021-03-15 07:29 | P.CONPHA_ITS ---
[facility] Pharmacy VTE Monitoring - Patient Demographics Admission date: 03/15/21 Report Date: 03/15/21 Time: 07:29 Allergies/Adverse Reactions: Patient Allergies pentazocine Allergy (Severe, Verified 03/15/21 01:41) [id number]/THROAT Height: 1.52 m Weight: 81.6 kg Patient Problems: Current Active Problems Pleural effusion (Acute) COVID-19 (Acute) Renal insufficiency (Acute) Tobacco use (Chronic) - VTE Risk Labs: VTE Related Lab Results Hgb 10.8 g/dL (12.2-16.2) L 03/14/21 22:08 Hct 35.6 % (37.0-47.0) L 03/14/21 22:08 Plt Count 163 K/mm3 (142-424) 03/14/21 22:08 BUN 35 mg/dl (7-17) H 03/15/21 06:30 Creatinine 1.50 mg/dl (0.52-1.04) H 03/15/21 06:30 Estimated Creat Clear 48 mL/min (50-200) 03/15/21 06:30 Was VTE Risk Assessment Performed: Yes VTE Score: 7 VTE Risk Level: Moderate Risk Clinical Trial Participant: No - Prophylaxis VTE Prophylaxis Ordered?: Yes Types of VTE Prophylaxis: TEDS Knee High
[2021-03-15 07:33] LABS: Hemoglobin 9.5 g/dL (12.2-16.2)
[2021-03-15 07:34] VITALS: BP 110/70; PULSE 66; RESP 16; TEMP 36.8; O2SAT 93
--- NOTE | 2021-03-15 07:34 | HMH.PHAINT ---
verified home medication list with the previous [facility] discharge list from 03/06/21
--- NOTE | 2021-03-15 07:46 | PC.NURSE ---
Patient rested comfortably through night without complaints. VSS on 4L per NC.
--- NOTE | 2021-03-15 09:19 | HMH.PULMCON ---
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 [facility] History Medical History: Reports:: Atherosclerotic Heart Disease, Congestive Heart Failure, Chronic Obstructive Pulmonary Disease (COPD), Coronary Artery Disease, Diabetes Mellitus Type 2, Gastroesophageal Reflux Disease(GERD), Hyperlipidemia, Hypertension, Myocardial Infarction Denies:: Cancer, Diabetes Mellitus Type 1, Internal Pacemaker, MRSA *Have you ever received a pneumonia vaccine?: No *Have you received a flu vaccine this season?: No Other Medical History: Reports: Anemia, Arthritis Other Surgeries: Yes: Cardiac Catheterization, Cholecystectomy, Coronary Stent, Hernia Repair, Other. No: Pacemaker Amputation: No Fractures: No - *Social History Smoking Status: Former smoker Tobacco Type: cigarettes # Packs/Day (cigarettes): 2 Alcohol Intake: never Substance Use Type: denies use *Occupational Status:: retired Housing: house Household Members: family, children *Travel in the last 8 weeks: None Family Hx:: Adopted, Unable to obtain ROS - Cons Reports anorexia, Reports body ache(s) - Card Reports shortness of breath with activity - Resp Respiratory: Reports chest congestion, Reports cough - GI Gastrointestingal: Reports: dyspepsia. Denies: abdominal pain Comments: distension - [place] Musculoskeletal: Denies joint stiffness - Psych Denies thoughts of hurting/killing others, Denies thoughts of hurting/killing yourself Meds Home Medications Medication Instructions Recorded Confirmed Type Atorvastatin Calcium [Lipitor 10mg 10 mg PO DAILY 02/14/21 03/14/21 History Tab] Losartan Potassium [Cozaar 25mg 25 mg PO DAILY 02/14/21 03/14/21 History Tablets] Metformin HCl 500 mg PO BID 02/14/21 03/15/21 History Spironolactone [Spironolactone 25 mg PO DAILY 02/14/21 03/15/21 History 25mg Tablet] carvediloL [Carvedilol 3.125mg Tab] 3.125 mg PO BID 02/14/21 03/15/21 History Pantoprazole Sodium [Protonix 40mg 40 mg PO DAILY 02/21/21 03/15/21 History tablet] Cholecalciferol (Vitamin D3) 50,000 unit PO WEEKLY 03/04/21 03/14/21 History [Vitamin D3 50,000 unit Cap] Cholecalciferol (Vitamin D3) 2,000 unit PO DAILY 03/04/21 03/15/21 History [Vitamin D3] albuterol sulfate 90 mcg/actuation 1 inh INHALATION Q6H PRN 90 Days 03/06/21 03/15/21 Rx aerosol inhaler #8.5 g diphenoxylate-atropine 2.5 1 tab PO BID PRN #10 tab 03/08/21 03/15/21 Rx mg-0.025 mg tablet ondansetron HCl 4 mg tablet 4 mg PO Q8H PRN #20 tab 03/08/21 03/15/21 Rx Fluticasone/Umeclidin/Vilanter 1 inh INHALATION DAILY 03/14/21 03/14/21 History [[place] 100-62.5-25] Allergies Allergy/AdvReac Type Severity Reaction Status Date / Time pentazocine Allergy Severe S-SWELLS-OR Verified 03/15/21 01:41 AL/THROAT Exam - Constitutional Constitutional:: Present: no acute distress, comfortable - HENMT Exam HENMT: Present: normocephalic, atraumatic - Eye Exam Eyes:: Present: normal appearance both eyes and related structures - Neck Exam Neck:: Present: normal visual inspection - Respiratory Exam Respiratory:: Present: able to speak in complete sentences, no respiratory distress, decreased breath sounds. Absent: wheezing - Cardiovascular Exam Cardiac:: Present: S1, S2 - GI Exam GI:: Present: soft, no tenderness, distended - Skin Exam Skin: Present: warm, no rash - Neurological Exam Neurological: Present: alert, awake, normal cognition - Extremities Exam Extremities: Present: no cyanosis, no clubbing, no edema Internal Medicine - CN: Reslt - Labs CBC & Chem 7: 03/15/21 06:30 03/15/21 06:30 Labs:
--- NOTE | 2021-03-15 10:12 | HMH.HP ---
*Admission Date: 03/15/21 *Chief complaint: Shortness of Breath *History of present illness: 66-year-old female patient presented to the [facility] emergency department with reports of shortness of breath, abdominal tightness, and I think I am full again . She was recently inpatient at [facility] for pleural effusion and on 03/05 had a paracentesis with 2000 mL removed and a left-sided thoracentesis with 1600 mL removed. She missed her GI GI follow-up appointment due to illness. She reports she has been nauseated, abdomen has been tight, tender, and distended. She denies fever chills or body aches, admits nausea denies vomiting or diarrhea. Reports she does have a nonproductive cough but no worse than usual with slight shortness of breath. 03/14/21 CXR: IMPRESSION: 1. Large left pleural effusion with near complete atelectatic collapse of the left lung. Underlying left pneumonia seen on prior chest CT not well visualized. 2. Suspect mild pulmonary edema. 3. Ill-defined patchy right infrahilar opacity could be atelectasis or pneumonia. Electronically signed by Bryan Kelley MD 03/14/21 Abd/Pelvis CT: IMPRESSION: 1. Cirrhosis. Moderate to large volume ascites, which has increased since 02/24/2021 despite interval paracentesis. 2. Mesenteric edema/congestion. Slight interval decrease in perceived omental nodularity as compared to prior, but continued follow-up is recommended to exclude metastatic disease. 3. Decreased peripancreatic fluid/stranding as compared to prior study. Unclear if this is related to partially resolved pancreatitis or generalized mesenteric edema and congestion. 4. Large left pleural effusion with near complete atelectatic collapse of the left lung (which recently also demonstrated pneumonia) partially visualized. Small right pleural effusion. 5. Body wall edema. Electronically signed by Bryan Kelley MD 66-year-old female patient sitting up in bed resting quietly she denies any abdominal pain/tenderness, oxygen saturation 94% on 4 L per nasal cannula. Abdomen is slightly distended. After discussion with general surgery and pulmonology she will be scheduled for a paracentesis on 03/18/2021 with a thoracentesis to follow. Long discussion with patient regarding importance of making all medical appointments especially specialty appointments in regard to her current medical situation. [facility] History I have reviewed the patient's past medical history: Yes Medical History: Reports:: Atherosclerotic Heart Disease, Congestive Heart Failure, Chronic Obstructive Pulmonary Disease (COPD), Coronary Artery Disease, Diabetes Mellitus Type 2, Gastroesophageal Reflux Disease(GERD), Hyperlipidemia, Hypertension, Myocardial Infarction Denies:: Cancer, Diabetes Mellitus Type 1, Internal Pacemaker, MRSA *Have you ever received a pneumonia vaccine?: No *Have you received a flu vaccine this season?: No Other Medical History: Reports: Anemia, Arthritis Other Surgeries: Yes: Cardiac Catheterization, Cholecystectomy, Coronary Stent, Hernia Repair, Other. No: Pacemaker Amputation: No Fractures: No - *Social History Smoking Status: Former smoker Tobacco Type: cigarettes # Packs/Day (cigarettes): 2 Alcohol Intake: never Substance Use Type: denies use *Occupational Status:: retired Housing: house Household Members: family, children *Travel in the last 8 weeks: None Family Hx:: Adopted, Unable to obtain Review of Systems - Review of Systems Review of systems:: pertinent systems reviewed and negative unless documented below - Constitutional Reports body ache(s), Reports fatigue - Eyes Denies blurry vision, Denies change in vision - ENT Denies dizziness, Denies difficulty swallowing - *Cardiovascular Reports shortness of breath, Reports shortness of breath with activity, Denies chest pain at rest, Denies chest pain with activity - *Respiratory Reports cough, Report
[2021-03-15 10:42] VITALS: BMI 35.1
[2021-03-15 11:21] VITALS: BP 114/68; PULSE 64; RESP 16; TEMP 36.8; O2SAT 96
--- NOTE | 2021-03-15 13:13 | HMH.GSCON ---
*Admission Date: 03/15/21 *Reason for consult:: Ascites *History of present illness: This is a 66-year-old female with multiple medical problems including cirrhosis with concomitant ascites. She has undergone paracentesis via ultrasound-guided drainage on multiple occasions. She has represented with worsening ascites. She states that she feels better right now . She is currently having no abdominal pain. From pulmonology consultation: 66-year-old female greater than [id number] smoking H/O of hepatitis B, esophageal varices and GI bleeding, this is decompensated, recently admitted to the hospital twice for hepatic hydrothorax status post thoracentesis twice and paracentesis was presented to the hospital again with worsening ascites and pleural effusion. Review of Systems - *Gastrointestinal Denies abdominal pain - *Neurologic Reports weakness, Denies headache(s), Denies seizure-like activity [facility] History Medical History: Reports:: Atherosclerotic Heart Disease, Congestive Heart Failure, Chronic Obstructive Pulmonary Disease (COPD), Coronary Artery Disease, Diabetes Mellitus Type 2, Gastroesophageal Reflux Disease(GERD), Hyperlipidemia, Hypertension, Myocardial Infarction Denies:: Cancer, Diabetes Mellitus Type 1, Internal Pacemaker, MRSA *Have you ever received a pneumonia vaccine?: No *Have you received a flu vaccine this season?: No Other Medical History: Reports: Anemia, Arthritis Other Surgeries: Yes: Cardiac Catheterization, Cholecystectomy, Coronary Stent, Hernia Repair, Other. No: Pacemaker Amputation: No Fractures: No - *Social History Smoking Status: Former smoker Tobacco Type: cigarettes # Packs/Day (cigarettes): 2 Alcohol Intake: never Substance Use Type: denies use *Occupational Status:: retired Housing: house Household Members: family, children *Travel in the last 8 weeks: None Family Hx:: Adopted, Unable to obtain Meds Home Medications Medication Instructions Recorded Confirmed Type Atorvastatin Calcium [Lipitor 10mg 10 mg PO DAILY 02/14/21 03/14/21 History Tab] Losartan Potassium [Cozaar 25mg 25 mg PO DAILY 02/14/21 03/14/21 History Tablets] Metformin HCl 500 mg PO BID 02/14/21 03/15/21 History Spironolactone [Spironolactone 25 mg PO DAILY 02/14/21 03/15/21 History 25mg Tablet] carvediloL [Carvedilol 3.125mg Tab] 3.125 mg PO BID 02/14/21 03/15/21 History Pantoprazole Sodium [Protonix 40mg 40 mg PO DAILY 02/21/21 03/15/21 History tablet] Cholecalciferol (Vitamin D3) 50,000 unit PO WEEKLY 03/04/21 03/14/21 History [Vitamin D3 50,000 unit Cap] Cholecalciferol (Vitamin D3) 2,000 unit PO DAILY 03/04/21 03/15/21 History [Vitamin D3] albuterol sulfate 90 mcg/actuation 1 inh INHALATION Q6H PRN 90 Days 03/06/21 03/15/21 Rx aerosol inhaler #8.5 g diphenoxylate-atropine 2.5 1 tab PO BID PRN #10 tab 03/08/21 03/15/21 Rx mg-0.025 mg tablet ondansetron HCl 4 mg tablet 4 mg PO Q8H PRN #20 tab 03/08/21 03/15/21 Rx Fluticasone/Umeclidin/Vilanter 1 inh INHALATION DAILY 03/14/21 03/14/21 History [[place] 100-62.5-25] Allergies Allergy/AdvReac Type Severity Reaction Status Date / Time pentazocine Allergy Severe S-SWELLS-OR Verified 03/15/21 01:41 AL/THROAT Exam Vital signs and Labs for Last 24 Hours: Temp Pulse Resp BP Pulse Ox 98.3 F 64 16 114/68 96 03/15/21 11:21 03/15/21 11:21 03/15/21 11:21 03/15/21 11:21 03/15/21 11:21 Laboratory Results - last 24 hr 03/14/21 21:49: ABG pH 7.40 03/14/21 21:58: Specimen Source Right brachial, O2 % 4, ABG pH 7.39, ABG pCO2 37.6, ABG pO2 65.9 L, ABG HCO3 22.4, ABG Total CO2 23.6, ABG O2 Saturation 93, ABG Base Excess -2.5 L, Wan Test Non applicable 03/14/21 22:08: ESR 59 H 03/14/21 22:08: Troponin I 0.02, C-Reactive Protein 34.2 H, Procalcitonin 0.098 03/14/21 22:08: WBC 4.1 L, RBC 3.48 L, Hgb 10.8 L, Hct 35.6 L, MCV 102.3 H, MCH 31.2, MCHC 30.5 L, RDW 16.2, Plt Count 163, MPV 9.2, Neut %
[2021-03-15 15:42] VITALS: BP 96/64; PULSE 65; RESP 18; TEMP 36.4; O2SAT 95
[2021-03-15 19:48] VITALS: BP 96/59; PULSE 66; RESP 18; TEMP 36.5; O2SAT 98
[2021-03-15 21:09] LABS: POC Glucose,Bedside 215 (70-110)
[2021-03-16] VITALS: BP 103/61; PULSE 79; RESP 16; TEMP 36.6; O2SAT 99
[2021-03-16 04:00] VITALS: BP 117/59; PULSE 61; RESP 20; TEMP 36.5; O2SAT 95
--- NOTE | 2021-03-16 04:19 | PC.NURSE ---
Pt has been restless all night. Pt c/o of pain in back and upper shoulders x2 this shift, admin meds per MAR with some relief. Remains on 5L NC with o2 sats >90%.
[2021-03-16 05:03] VITALS: BMI 37.0
[2021-03-16 05:37] LABS: POC Glucose,Bedside 137 (70-110)
[2021-03-16 06:49] LABS: Alanine Aminotransferase 14 U/L (12-78); Albumin Level 2.7 g/dl (3.5-5.0); Alkaline Phosphatase 67 U/L (38-126); Anion Gap 7.2 mEq/L (5-15); Aspartate Amino Transferase 37 U/L (14-36); Bilirubin,Total 0.3 mg/dl (0.2-1.3); Blood Urea Nitrogen 38 mg/dl (7-17); Calcium 8.4 mg/dl (8.4-10.2); Carbon Dioxide 30 mmol/L (22.0-30.0); Chloride 102 mmol/L (98-107); Creatinine Clearance Estimated 58 mL/min (50-200); Estimated Glomerular Filt Rate 41 ml/min (>60); GFR (African American) 50 ML/MIN (>60); Globulin 2.8 g/dL (1.3-3.2); Glucose 125 mg/dl (74-100); Potassium 4.2 mmoL/L (3.5-5.1); Sodium 135 mmol/L (136-145); Total Protein,Serum 5.5 g/dl (6.3-8.2)
[2021-03-16 08:00] VITALS: BP 115/44; PULSE 65; RESP 21; TEMP 36.4; O2SAT 92; O2SAT 95
--- NOTE | 2021-03-16 09:58 | P.PN_ITS ---
Internal Medicine - PN: Subj *Date: 03/17/21 *Time: 04:55 Interval history: doing ok - anxious - stable labs - awaiting procedures Exam Vital signs and Labs for Last 24 Hours: Temp Pulse Resp BP Pulse Ox 97.5 F L 65 21 115/44 L 95 03/16/21 08:00 03/16/21 08:00 03/16/21 08:00 03/16/21 08:00 03/16/21 08:00 Laboratory Results - last 24 hr 03/15/21 20:50: POC Glucose 215 H 03/16/21 05:20: POC Glucose 137 H 03/16/21 05:39: Sodium 135 L, Potassium 4.2, Chloride 102, Carbon Dioxide 30, Anion Gap 7.2, BUN 38 H, Creatinine 1.30 H, Estimated Creat Clear 58, Estimated GFR 41 L, Est GFR ( Amer) 50 L, Glucose 125 H D, Calcium 8.4, Total Bilirubin 0.3, AST 37 H, ALT 14 D, Alkaline Phosphatase 67, Total Protein 5.5 L , Albumin 2.7 L D, Globulin 2.8, Albumin/Globulin Ratio 1.0 L I & O for Last 24 hours: Intake & Output 03/13/21 03/14/21 03/15/21 03/16/21 11:59 11:59 11:59 11:59 Intake Total 0 / 0 420 / 420 Balance 0 / 0 420 / 420 Weight 179 lb 0.246 oz 188 lb 11.451 oz Microbiology Reports for the Last 24 Hours: Microbiology 03/14/21 23:35 Urine,Catheterized Urine Culture - Preliminary NO GROWTH AFTER 24 HOURS - Constitutional no acute distress, cooperative - *Routine HEENT Exam Head: Present: normocephalic Eye: Present: EOMI, PERRL. Absent: conjunctival icterus ENT: Present: mucous membranes dry - *Routine Neck Exam Absent: JVD - *Routine Respiratory Exam Present: decreased breath sounds - *Routine Cardiovascular Exam Present: RRR - *Routine Abdominal Exam Present: distended, other (ascites) - *Routine Extremities Exam Absent: edema - *Routine Skin Exam Present: intact - *Routine Neurological Exam Present: alert, CN II-XII intact - Routine Psychiatric Exam Present: normal affect Assessment and Plan (1) Obesity (BMI 30-39.9) Status: Acute Category: Medical Code(s): E66.9 - Obesity, unspecified (2) Pleural effusion Status: Acute Category: Medical Code(s): J90 - Pleural effusion, not elsewhere classified (3) COVID-19 Status: Acute Category: Medical Code(s): U07.1 - COVID-19 (4) Renal insufficiency Status: Acute Category: Medical Code(s): N28.9 - Disorder of kidney and ureter, unspecified (5) Ascites Status: Acute Category: Medical Code(s): R18.8 - Other ascites (6) Tobacco use Status: Chronic Category: Social Hx Code(s): Z72.0 - Tobacco use (7) Esophageal varices Status: Acute Qualifiers: Esophageal varices type: unspecified type Esophageal varices bleeding: without bleeding Qualified Code(s): I85.00 - Esophageal varices without bleeding Category: Medical Code(s): I85.00 - Esophageal varices without bleeding (8) Pulmonary nodule seen on imaging study Status: Acute Category: Medical Code(s): R91.1 - Solitary pulmonary nodule (9) Cirrhosis of liver Status: Acute Qualifiers: Hepatic cirrhosis type: unspecified hepatic cirrhosis Ascites presence: with ascites Qualified Code(s): K74.60 - Unspecified cirrhosis of liver; R18.8 - Other ascites Category: Medical Code(s): K74.60 - Unspecified cirrhosis of liver
[2021-03-16 10:16] LABS: Basophils % 0.2 % (0.1-2.0); Eosinophils % 0.1 % (0.1-12.0); Hematocrit 32.7 % (37.0-47.0); Lymphocytes # 0.6 K/mm3 (0.7-4.5); Lymphocytes % 9.5 % (10-50); Mean Corpuscular HGB Conc 30.5 g/dL (31.8-35.4); Mean Corpuscular Hemoglobin 31.3 pg (27.0-31.2); Mean Corpuscular Volume 102.8 fl (81-99); Mean Platelet Volume 11.6 fl (7.4-10.4); Monocytes # 0.4 K/mm3 (0.1-1.0); Monocytes % 6.5 % (1.7-9.3); Neutrophils % 83.8 % (37.0-80.0); Platelet Count 123 K/mm3 (142-424); Red Blood Count 3.18 M/mm3 (4.20-5.40); Red Cell Distribution Width 16.2 % (11.5-17.5)
[2021-03-16 10:58] LABS: POC Glucose,Bedside 207 (70-110)
[2021-03-16 11:41] VITALS: BP 106/51; PULSE 59; RESP 16; TEMP 36.4; O2SAT 94
[2021-03-16 15:48] VITALS: BP 111/60; PULSE 71; RESP 18; TEMP 36.4; O2SAT 97
[2021-03-16 17:42] LABS: POC Glucose,Bedside 258 (70-110)
--- NOTE | 2021-03-16 18:48 | PC.NURSE ---
pt has been resting on and off through out the day. scattered wheezing and pt has tolerated 4lnc the majority of the shift. incontinent multiple times of bladder and reports occasional diarrhea. encouraged pt to get up to chair but she did not want to this shift. Will continue to monitor.
[2021-03-16 19:43] VITALS: BP 111/48; PULSE 76; RESP 20; TEMP 36.4; O2SAT 92
[2021-03-16 23:10] LABS: POC Glucose,Bedside 272 (70-110)
[2021-03-17] VITALS (8 sets, daily range): BP systolic 95–124; BP diastolic 40–59; PULSE 59–69; RESP 17–22; TEMP 36.4–36.6; O2SAT 92–98; BMI 37.1
[2021-03-17 06:01] LABS: POC Glucose,Bedside 181 (70-110)
[2021-03-17 06:13] LABS: Basophils % 0.1 % (0.1-2.0); Eosinophils % 0.1 % (0.1-12.0); Hemoglobin 10.1 g/dL (12.2-16.2); Lymphocytes # 0.4 K/mm3 (0.7-4.5); Lymphocytes % 6.7 % (10-50); Mean Corpuscular HGB Conc 30.7 g/dL (31.8-35.4); Mean Corpuscular Hemoglobin 31.1 pg (27.0-31.2); Mean Corpuscular Volume 101.5 fl (81-99); Mean Platelet Volume 9.9 fl (7.4-10.4); Monocytes # 0.4 K/mm3 (0.1-1.0); Monocytes % 5.7 % (1.7-9.3); Neutrophils # 5.6 K/mm3 (1.8-7.8); Neutrophils % 87.4 % (37.0-80.0); Platelet Count 109 K/mm3 (142-424); Red Blood Count 3.25 M/mm3 (4.20-5.40); Red Cell Distribution Width 15.8 % (11.5-17.5); White Blood Count 6.5 K/mm3 (4.8-10.8)
[2021-03-17 06:14] LABS: MANUAL DIFFERENTIAL MANUAL DIFFERENTIAL (MANUAL DIFF)
[2021-03-17 06:32] LABS: Hypochromasia 2+; Lymphocytes % 3 % (10-50); Macrocytosis 1+; Monocytes % 1 % (2-9); Neutrophils % 86 % (42-76); Platelet Estimate Slight Decrease; Total Cells Counted 100
[2021-03-17 06:33] LABS: Alanine Aminotransferase 15 U/L (12-78); Albumin Level 2.7 g/dl (3.5-5.0); Albumin/Globulin Ratio 0.9 (1.1-1.8); Alkaline Phosphatase 70 U/L (38-126); Anion Gap 9.2 mEq/L (5-15); Aspartate Amino Transferase 38 U/L (14-36); Bilirubin,Total 0.4 mg/dl (0.2-1.3); Blood Urea Nitrogen 39 mg/dl (7-17); Calcium 8.5 mg/dl (8.4-10.2); Carbon Dioxide 29 mmol/L (22.0-30.0); Chloride 102 mmol/L (98-107); Creatinine Clearance Estimated 68 mL/min (50-200); Estimated Glomerular Filt Rate 50 ml/min (>60); GFR (African American) 60 ML/MIN (>60); Globulin 2.9 g/dL (1.3-3.2); Glucose 169 mg/dl (74-100); Potassium 4.2 mmoL/L (3.5-5.1); Sodium 136 mmol/L (136-145); Total Protein,Serum 5.6 g/dl (6.3-8.2)
[2021-03-17 11:42] LABS: POC Glucose,Bedside 217 (70-110)
--- NOTE | 2021-03-17 13:28 | HMH.ACPN2 ---
Internal Medicine - PN: Subj *Date: 03/17/21 *Time: 08:15 Interval history: pt laying in bed states soa. Exam Vital signs and Labs for Last 24 Hours: Temp Pulse Resp BP Pulse Ox 97.8 F 60 17 114/48 L 94 L 03/17/21 12:00 03/17/21 12:00 03/17/21 12:00 03/17/21 12:00 03/17/21 12:00 Laboratory Results - last 24 hr 03/16/21 16:59: POC Glucose 258 H 03/16/21 21:08: POC Glucose 272 H 03/17/21 05:29: WBC 6.5, RBC 3.25 L, Hgb 10.1 L, Hct 33.0 L, MCV 101.5 H, MCH 31.1, MCHC 30.7 L, RDW 15.8, Plt Count 109 L, MPV 9.9, Neut % (Auto) 87.4 H, Lymph % (Auto) 6.7 L, [place] % (Auto) 5.7, Eos % (Auto) 0.1, Baso % (Auto) 0.1, Neut # (Auto) 5.6, Lymph # (Auto) 0.4 L, [place] # (Auto) 0.4, Eos # (Auto) 0.0, Baso # (Auto) 0.0, Total Counted 100, Neutrophils % (Manual) 86 H, Band Neutrophils % 10.0 H, Lymphocytes % (Manual) 3 L, Monocytes % (Manual) 1 L, Platelet Estimate Slight decrease, Hypochromasia 2+, Macrocytosis 1+ 03/17/21 05:29: Sodium 136, Potassium 4.2, Chloride 102, Carbon Dioxide 29, Anion Gap 9.2, BUN 39 H, Creatinine 1.10 H, Estimated Creat Clear 68, Estimated GFR 50 L, Est GFR ( Amer) 60, Glucose 169 H D, Calcium 8.5, Total Bilirubin 0.4, AST 38 H, ALT 15, Alkaline Phosphatase 70, Total Protein 5.6 L, Albumin 2.7 L, Globulin 2.9, Albumin/Globulin Ratio 0.9 L 03/17/21 05:51: POC Glucose 181 H 03/17/21 11:30: POC Glucose 217 H I & O for Last 24 hours: Intake & Output 01/09/2703/16/21 03/17/21 03/18/21 11:59 11:59 11:59 11:59 Intake Total 0 / 0 420 / 420 480 / 480 Output Total 100 / 100 Balance 0 / 0 420 / 420 480 / 480 -100 / -100 Weight 179 lb 0.246 oz 188 lb 11.451 oz 189 lb 2.506 oz Microbiology Reports for the Last 24 Hours: Microbiology 03/14/21 23:35 Urine,Catheterized Urine Culture - Final NO GROWTH AFTER 48 HOURS 03/14/21 22:08 Blood Blood Culture - Preliminary NO GROWTH AFTER 48 HOURS 03/14/21 22:08 Blood Blood Culture - Preliminary NO GROWTH AFTER 48 HOURS - Constitutional no acute distress, chronically ill appearing - *Routine HEENT Exam Head: Present: normocephalic Eye: Present: PERRL ENT: Present: mucous membranes moist - *Routine Neck Exam Present: supple. Absent: lymphadenopathy - *Routine Respiratory Exam Present: decreased breath sounds - *Routine Cardiovascular Exam Present: RRR - *Routine Abdominal Exam Present: soft, normoactive bowel sounds. Absent: tenderness - *Routine Extremities Exam Absent: cyanosis, clubbing, edema - *Routine Skin Exam Present: warm. Absent: rash - *Routine Neurological Exam Present: alert, oriented X3 - Routine Psychiatric Exam Present: anxious Assessment and Plan (1) Obesity (BMI 30-39.9) Status: Acute Category: Medical Code(s): E66.9 - Obesity, unspecified (2) Pleural effusion Status: Acute Category: Medical Code(s): J90 - Pleural effusion, not elsewhere classified (3) COVID-19 Status: Acute Category: Medical Code(s): U07.1 - COVID-19 (4) Renal insufficiency Status: Acute Category: Medical Code(s): N28.9 - Disorder of kidney and ureter, unspecified (5) Ascites Status: Acute Category: Medical Code(s): R18.8 - Other ascites (6) Tobacco use Status: Chronic Category: Social Hx Code(s): Z72.0 - Tobacco use (7) Esophageal varices Status: Acute Qualifiers: Esophageal varices type: unspecified type Esophageal varices bleeding: without bleeding Qualified Code(s): I85.00 - Esophageal varices without bleeding Category: Medical Code(s): I85.00 - Esophageal varices without bleeding (8) Pulmonary nodule seen on imaging study Status: Acute Category: Medical Code(s): R91.1 - Solitary pulmonary nodule (9) Cirrhosis of liver Status: Acute Qualifiers: Hepatic cirrhosis type: unspecified hepatic cirrhosis Ascites presence: with ascites Qualified Code
--- NOTE | 2021-03-17 14:19 | HMH.GSPN ---
Subjective Narrative: Ms. Ardon is a 66-year-old female with known history of hepatitis B complicated by cirrhosis. Moderate ascites noted. General surgery consultation requested for paracentesis. Prior paracentesis has been completed; radiology guided. Patient reports that she is feeling relatively well. Progress Note: A&P (1) Obesity (BMI 30-39.9) Status: Acute (2) Pleural effusion Status: Acute (3) COVID-19 Status: Acute (4) Renal insufficiency Status: Acute (5) Ascites Status: Acute (6) Tobacco use Status: Chronic (7) Esophageal varices Status: Acute (8) Pulmonary nodule seen on imaging study Status: Acute (9) Cirrhosis of liver Status: Acute Assessment and Plan for All Diagnoses:: 1. Cirrhosis. Evidence of ascites on CT imaging. Recommend ultrasound-guided paracentesis. Tentatively scheduled for March 18, 2021. Exam Vital signs and Labs for Last 24 Hours: Temp Pulse Resp BP Pulse Ox 97.8 F 60 17 114/48 L 94 L 03/17/21 12:00 03/17/21 12:00 03/17/21 12:00 03/17/21 12:00 03/17/21 12:00 Laboratory Results - last 24 hr 03/16/21 16:59: POC Glucose 258 H 03/16/21 21:08: POC Glucose 272 H 03/17/21 05:29: WBC 6.5, RBC 3.25 L, Hgb 10.1 L, Hct 33.0 L, MCV 101.5 H, MCH 31.1, MCHC 30.7 L, RDW 15.8, Plt Count 109 L, MPV 9.9, Neut % (Auto) 87.4 H, Lymph % (Auto) 6.7 L, [place] % (Auto) 5.7, Eos % (Auto) 0.1, Baso % (Auto) 0.1, Neut # (Auto) 5.6, Lymph # (Auto) 0.4 L, [place] # (Auto) 0.4, Eos # (Auto) 0.0, Baso # (Auto) 0.0, Total Counted 100, Neutrophils % (Manual) 86 H, Band Neutrophils % 10.0 H, Lymphocytes % (Manual) 3 L, Monocytes % (Manual) 1 L, Platelet Estimate Slight decrease, Hypochromasia 2+, Macrocytosis 1+ 03/17/21 05:29: Sodium 136, Potassium 4.2, Chloride 102, Carbon Dioxide 29, Anion Gap 9.2, BUN 39 H, Creatinine 1.10 H, Estimated Creat Clear 68, Estimated GFR 50 L, Est GFR ( Amer) 60, Glucose 169 H D, Calcium 8.5, Total Bilirubin 0.4, AST 38 H, ALT 15, Alkaline Phosphatase 70, Total Protein 5.6 L, Albumin 2.7 L, Globulin 2.9, Albumin/Globulin Ratio 0.9 L 03/17/21 05:51: POC Glucose 181 H 03/17/21 11:30: POC Glucose 217 H I & O for Last 24 hours: Intake & Output 03/15/21 03/16/21 03/17/21 03/18/21 11:59 11:59 11:59 11:59 Intake Total 0 / 0 420 / 420 480 / 480 Output Total 100 / 100 Balance 0 / 0 420 / 420 480 / 480 -100 / -100 Weight 81.2 kg 85.6 kg 85.8 kg Microbiology Reports for the Last 24 Hours: Microbiology 03/14/21 23:35 Urine,Catheterized Urine Culture - Final NO GROWTH AFTER 48 HOURS 03/14/21 22:08 Blood Blood Culture - Preliminary NO GROWTH AFTER 48 HOURS 03/14/21 22:08 Blood Blood Culture - Preliminary NO GROWTH AFTER 48 HOURS - Constitutional no acute distress
[2021-03-17 17:52] LABS: POC Glucose,Bedside 273 (70-110)
[2021-03-17 22:45] LABS: POC Glucose,Bedside 219 (70-110)
[2021-03-18] VITALS (10 sets, daily range): BP systolic 84–113; BP diastolic 47–66; PULSE 54–66; RESP 16–20; TEMP 36.3–36.4; O2SAT 90–95; BMI 37.0
--- NOTE | 2021-03-18 | XR_ITS ---
FINAL REPORT CLINICAL HISTORY: . EVAL FOR PNEMO POST THORA COMPARISON: March 14, 2021 FINDINGS: The heart size is normal. The mediastinum is normal. There is marked improvement in the left pleural effusion. Bilateral pulmonary opacities are worrisome for pneumonia. There is no pneumothorax. There is no osseous abnormality. IMPRESSION: Marked improvement in left pleural effusion. No pneumothorax. Bilateral pulmonary opacities worrisome for pneumonia. Reviewed, Interpreted and Dictated by Micky France III, MD Transcribed by Michael Ren Authenticated by Micky France III, MD on 03/18/2021 10:29:25 AM [facility]
[2021-03-18 06:18] LABS: POC Glucose,Bedside 203 (70-110)
--- NOTE | 2021-03-18 06:49 | PC.NURSE ---
Pt is scheduled to have a thoracentesis this AM. Pt has been npo since midnight. Pt is currently on 6 L NC. Pt has been up to bedside tonight with x 1 assist. Fingersticks ACHS, medicating per sliding scale. IV infusing per order. No acute episodes during my shift. Call light in reach.
[2021-03-18 07:10] LABS: Basophils % 0.1 % (0.1-2.0); Eosinophils % 0.1 % (0.1-12.0); Hematocrit 34.7 % (37.0-47.0); Hemoglobin 10.6 g/dL (12.2-16.2); Lymphocytes # 0.4 K/mm3 (0.7-4.5); Lymphocytes % 4.7 % (10-50); Mean Corpuscular HGB Conc 30.5 g/dL (31.8-35.4); Mean Corpuscular Hemoglobin 31.1 pg (27.0-31.2); Mean Corpuscular Volume 101.9 fl (81-99); Mean Platelet Volume 9.8 fl (7.4-10.4); Monocytes # 0.7 K/mm3 (0.1-1.0); Monocytes % 7.7 % (1.7-9.3); Neutrophils # 7.7 K/mm3 (1.8-7.8); Neutrophils % 87.4 % (37.0-80.0); Platelet Count 113 K/mm3 (142-424); Red Blood Count 3.41 M/mm3 (4.20-5.40); Red Cell Distribution Width 15.9 % (11.5-17.5); White Blood Count 8.8 K/mm3 (4.8-10.8)
[2021-03-18 07:18] LABS: MANUAL DIFFERENTIAL MANUAL DIFFERENTIAL (MANUAL DIFF)
[2021-03-18 07:23] LABS: Alanine Aminotransferase 19 U/L (12-78); Albumin Level 2.9 g/dl (3.5-5.0); Alkaline Phosphatase 69 U/L (38-126); Anion Gap 7.1 mEq/L (5-15); Aspartate Amino Transferase 43 U/L (14-36); Bilirubin,Total 0.5 mg/dl (0.2-1.3); Blood Urea Nitrogen 34 mg/dl (7-17); Calcium 8.7 mg/dl (8.4-10.2); Carbon Dioxide 28 mmol/L (22.0-30.0); Chloride 105 mmol/L (98-107); Creatinine Clearance Estimated 75 mL/min (50-200); Estimated Glomerular Filt Rate 63 ml/min (>60); GFR (African American) 76 ML/MIN (>60); Glucose 173 mg/dl (74-100); Potassium 4.1 mmoL/L (3.5-5.1); Sodium 136 mmol/L (136-145); Total Protein,Serum 5.9 g/dl (6.3-8.2)
--- NOTE | 2021-03-18 08:00 | US_ITS ---
FINAL REPORT CLINICAL HISTORY: Pleural effusion FINDINGS: ULTRASOUND-GUIDED THORACENTESIS HISTORY: Pleural effusion. ATTENDING PHYSICIAN: Dr. France PHYSICIAN CASE MANAGEMENT SPECIALIST: Amanuel Eric PA-C TECHNIQUE: Informed consent was obtained from the patient. The indications and complications were discussed with the patient prior to beginning the procedure. This included, but was not limited to pain, bleeding, infection, and pneumothorax requiring chest tube placement. The Left back was then prepped and draped in sterile fashion. 1% Lidocaine was used for local anesthesia. Utilizing sonographic guidance, a standard thoracentesis needle and sheath were inserted into the pleural space and approximately 1.6 L pleural fluid was successfully removed without complication. The patient tolerated the procedure well. IMPRESSION: Technically successful sonographic guided Left-sided thoracentesis as above. Films reviewed , interpreted and dictated by Dr. France Transcribed by Amanuel Eric PA-C. Reviewed, Interpreted and Dictated by Micky France III, MD Transcribed by ESPERANZA Hope Authenticated by iMcky France III, MD on 03/18/2021 12:02:20 PM [facility]
[2021-03-18 08:09] LABS: Hypochromasia 2+; Lymphocytes % 6 % (10-50); Macrocytosis 1+; Monocytes % 3 % (2-9); Neutrophils % 90 % (42-76); Platelet Estimate Slight Decrease; Total Cells Counted 100
--- NOTE | 2021-03-18 09:13 | HMH.PULMPN ---
Internal Medicine - PN: Subj *Date: 03/18/21 *Time: 13:09 Interval history: No acute respiratory events over the weekend. Slight increase in oxygen requirements. Exam - Constitutional Constitutional:: Present: no acute distress, comfortable - HENMT Exam HENMT: Present: normocephalic, atraumatic - Eye Exam Eyes:: Present: normal appearance both eyes and related structures - Neck Exam Neck:: Present: normal visual inspection - Respiratory Exam Respiratory:: Present: respiratory distress, decreased breath sounds, crackles. Absent: wheezing - Cardiovascular Exam Cardiac:: Present: S1, S2 - GI Exam GI:: Present: soft, no tenderness, distended - Skin Exam Skin: Present: warm - Neurological Exam Neurological: Present: alert, awake, normal cognition - Extremities Exam Extremities: Present: no cyanosis, no clubbing, no edema Assessment and Plan (1) Obesity (BMI 30-39.9) Status: Acute Category: Medical Code(s): E66.9 - Obesity, unspecified (2) Pleural effusion Status: Acute Category: Medical Code(s): J90 - Pleural effusion, not elsewhere classified (3) COVID-19 Status: Acute Category: Medical Code(s): U07.1 - COVID-19 (4) Renal insufficiency Status: Acute Category: Medical Code(s): N28.9 - Disorder of kidney and ureter, unspecified (5) Ascites Status: Acute Category: Medical Code(s): R18.8 - Other ascites (6) Tobacco use Status: Chronic Category: Social Hx Code(s): Z72.0 - Tobacco use (7) Esophageal varices Status: Acute Qualifiers: Esophageal varices type: unspecified type Esophageal varices bleeding: without bleeding Qualified Code(s): I85.00 - Esophageal varices without bleeding Category: Medical Code(s): I85.00 - Esophageal varices without bleeding (8) Pulmonary nodule seen on imaging study Status: Acute Category: Medical Code(s): R91.1 - Solitary pulmonary nodule (9) Cirrhosis of liver Status: Acute Qualifiers: Hepatic cirrhosis type: unspecified hepatic cirrhosis Ascites presence: with ascites Qualified Code(s): K74.60 - Unspecified cirrhosis of liver; R18.8 - Other ascites Category: Medical Code(s): K74.60 - Unspecified cirrhosis of liver - Assessment and plan all Dx Assessment and Plan for all problems:: #Acute hypoxic respiratory failure: #COVID-19 pneumonia: 66-year-old from female with multiple comorbidities. Presented with respiratory distress which is worsening from her recent discharge. Found to be positive for COVID-19 pneumonia. Chest x-ray large left-sided effusion along with small right-sided effusion. No obvious airspace disease noted. Patient on 5 L nasal cannula. Does not appear to be any respiratory distress. No wheezing noted. Decreased breath sounds on the right lower lung snow on left lung snow. Slight worsening oxygen equipments, currently on 6 L nasal cannula. Blood and urine cultures no growth. Plan: -Levofloxacin to complete a total of 5-day course. -Remdesivir for 5 days along with dexamethasone x 10 days. -Continue home trilogy inhaler along with Combivent every 6 hours as needed #Left-sided pleural effusion: # Greater than 51-[id number] smokin-year-old female greater than [id number] smoking, hepatitis B, decompensated cirrhosis, esophageal varices status post bleeding Thoracentesis twice so far for left-sided pleural effusion, transudate pleural effusion negative for malignancy both times. Presented with worsening respiratory distress, showed recurrence of left pleural effusion pleural effusion along with large volume ascitic fluid along with new small right-sided pleural effusion. Patient scheduled for paracentesis followed by thoracentesis or as per radiology could not find ascitic fluid pocket for paracentesis, she only underwent thoracentesis with removal of 1.[address] recent [address] abdomen and reported large volume ascitic fluid. Plan: -Follow-up repeat chest x-ra
--- NOTE | 2021-03-18 09:16 | HMH.ACPN2 ---
Internal Medicine - PN: Subj *Date: 03/18/21 *Time: 10:18 Interval history: 66-year-old female patient resting quietly in bed thoracentesis was performed today, PA reports not enough fluid and loops of bowel and did not perform paracentesis Exam Vital signs and Labs for Last 24 Hours: Temp Pulse Resp BP Pulse Ox 97.5 F L 54 L 18 96/66 L 91 L 03/18/21 04:00 03/18/21 08:00 03/18/21 08:00 03/18/21 08:00 03/18/21 08:00 Laboratory Results - last 24 hr 03/17/21 11:30: POC Glucose 217 H 03/17/21 17:03: POC Glucose 273 H 03/17/21 22:31: POC Glucose 219 H 03/18/21 05:59: POC Glucose 203 H 03/18/21 06:42: WBC 8.8 D, RBC 3.41 L, Hgb 10.6 L, Hct 34.7 L, MCV 101.9 H, MCH 31.1, MCHC 30.5 L, RDW 15.9, Plt Count 113 L, MPV 9.8, Neut % (Auto) 87.4 H, Lymph % (Auto) 4.7 L, [place] % (Auto) 7.7, Eos % (Auto) 0.1, Baso % (Auto) 0.1, Neut # (Auto) 7.7, Lymph # (Auto) 0.4 L, [place] # (Auto) 0.7, Eos # (Auto) 0.0, Baso # (Auto) 0.0, Total Counted 100, Neutrophils % (Manual) 90 H, Band Neutrophils % 1.0, Lymphocytes % (Manual) 6 L, Monocytes % (Manual) 3, Platelet Estimate Slight decrease, Hypochromasia 2+, Macrocytosis 1+ 03/18/21 06:42: Sodium 136, Potassium 4.1, Chloride 105, Carbon Dioxide 28, Anion Gap 7.1, BUN 34 H, Creatinine 0.90, Estimated Creat Clear 75, Estimated GFR 63, Est GFR ( Amer) 76 D, Glucose 173 H, Calcium 8.7, Total Bilirubin 0.5, AST 43 H, ALT 19 D, Alkaline Phosphatase 69, Total Protein 5.9 L, Albumin 2.9 L, Globulin 3.0, Albumin/Globulin Ratio 1.0 L I & O for Last 24 hours: Intake & Output 03/15/21 03/16/21 03/17/21 03/18/21 23:59 23:59 23:59 23:59 Intake Total 360 / 360 300 / 300 480 / 480 600 / 600 Output Total 100 / 100 Balance 360 / 360 300 / 300 380 / 380 600 / 600 Weight 179 lb 0.246 oz 188 lb 11.451 oz 189 lb 2.506 oz 188 lb 7.924 oz - Constitutional no acute distress, chronically ill appearing - *Routine HEENT Exam Head: Present: normocephalic Eye: Present: EOMI ENT: Present: mucous membranes moist - *Routine Neck Exam Present: trachea midline. Absent: tracheal deviation - *Routine Respiratory Exam Present: decreased breath sounds. Absent: accessory muscle use - *Routine Cardiovascular Exam Present: RRR - *Routine Abdominal Exam Present: soft, normoactive bowel sounds, distended. Absent: tenderness, firm - *Routine Extremities Exam Present: edema, full ROM, pulses intact. Absent: cyanosis, clubbing - *Routine Skin Exam Present: intact, dry. Absent: cyanosis, erythema - *Routine Neurological Exam Present: alert, oriented X3, moving all extremities. Absent: motor deficit - Routine Psychiatric Exam Present: normal affect, normal thought process. Absent: auditory hallucinations Assessment and Plan (1) Obesity (BMI 30-39.9) Status: Acute Category: Medical Code(s): E66.9 - Obesity, unspecified (2) Pleural effusion Status: Acute Category: Medical Code(s): J90 - Pleural effusion, not elsewhere classified (3) COVID-19 Status: Acute Category: Medical Code(s): U07.1 - COVID-19 (4) Renal insufficiency Status: Acute Category: Medical Code(s): N28.9 - Disorder of kidney and ureter, unspecified (5) Ascites Status: Acute Category: Medical Code(s): R18.8 - Other ascites (6) Tobacco use Status: Chronic Category: Social Hx Code(s): Z72.0 - Tobacco use (7) Esophageal varices Status: Acute Qualifiers: Esophageal varices type: unspecified type Esophageal varices bleeding: without bleeding Qualified Code(s): I85.00 - Esophageal varices without bleeding Category: Medical Code(s): I85.00 - Esophageal varices without bleeding (8) Pulmonary nodule seen on imaging study Status: Acute Category: Medical Code(s): R91.1 - Solitary pulmonary nodule (9) Cirrhosis of liver Status: Acute Qualifiers: Hepatic cirrhosis type: unspecified hepatic cirrhosis Ascites presence: with ascites Qualified Code(s): K7
--- NOTE | 2021-03-18 12:57 | XR_ITS ---
FINAL REPORT CLINICAL HISTORY: hypoxia COMPARISON: Earlier the same day FINDINGS: SINGLE VIEW CHEST. The heart is normal in size. The mediastinum is unremarkable. There are persistent left lung opacities. There has been partial improvement in aeration of the left lung. There is a small left pleural effusion. There is no pneumothorax. IMPRESSION: Persistent left lung opacities with partial improvement in aeration. Small left pleural effusion. Reviewed, Interpreted and Dictated by Micky France III, MD Transcribed by Manuela Forrester Authenticated by Micky France III, MD on 03/18/2021 02:17:46 PM [facility]
--- NOTE | 2021-03-18 13:08 | US_ITS ---
FINAL REPORT CLINICAL HISTORY: Ascites FINDINGS: US ABDOMINAL LIMITED Limited sonographic images were obtained of the abdomen to evaluate for ascites. There is a small amount of ascites present. IMPRESSION: Small amount of ascites. Reviewed, Interpreted and Dictated by Micky France III, MD Transcribed by Michael Ren Authenticated by Micky France III, MD on 04/26/2021 04:10:40 PM [facility]
[2021-03-18 17:21] LABS: POC Glucose,Bedside 192 (70-110)
[2021-03-18 17:21] LABS: POC Glucose,Bedside 161 (70-110)
[2021-03-19] VITALS (12 sets, daily range): BP systolic 93–128; BP diastolic 52–72; PULSE 63–72; RESP 16–22; TEMP 36.3–36.6; O2SAT 91–98; BMI 36.9
--- NOTE | 2021-03-19 05:27 | PC.NURSE ---
Patient rested without complaints this shift. Alert and oriented x4. No c/o pain. BP low this shift, coreg dose held at HS per order. Remains on 10L per HFNC. No increased oxygen requirement this shift. No change in assessment this shift. IVF infusing per orders. UP to BSC with sba, incontinent of urine and bowel also. Dressing to left thoracic CDI with surrounding bruising noted. Able to make needs known.
--- NOTE | 2021-03-19 06:00 | XR_ITS ---
PROCEDURE INFORMATION: Exam: XR Chest Exam date and time: 03/19/2021 6:00 AM Age: 66 years old Clinical indication: Condition or disease; Lung condition and disease; Pneumonia; Additional info: Pnm TECHNIQUE: Imaging protocol: XR of the chest. Views: 1 view. COMPARISON: CR XR CHEST PORTABLE 03/18/2021 1:10 PM FINDINGS: Lungs: Patchy left mid lower and right upper and lower lung infiltrates. Vascular congestion cannot be excluded. Pleural spaces: Small left pleural effusion. Heart/Mediastinum: Unremarkable. No cardiomegaly. Bones/joints: Unremarkable. Intraperitoneal space: Right upper quadrant clips. IMPRESSION: 1. Patchy bilateral infiltrates described above. 2. Small left pleural effusion. Vascular congestion not excluded.
[2021-03-19 07:16] LABS: Alanine Aminotransferase 17 U/L (12-78); Albumin Level 2.6 g/dl (3.5-5.0); Albumin/Globulin Ratio 0.9 (1.1-1.8); Alkaline Phosphatase 66 U/L (38-126); Anion Gap 9.5 mEq/L (5-15); Aspartate Amino Transferase 45 U/L (14-36); Bilirubin,Total 0.6 mg/dl (0.2-1.3); Blood Urea Nitrogen 33 mg/dl (7-17); Calcium 8.6 mg/dl (8.4-10.2); Carbon Dioxide 29 mmol/L (22.0-30.0); Chloride 105 mmol/L (98-107); Creatinine Clearance Estimated 75 mL/min (50-200); Estimated Glomerular Filt Rate 63 ml/min (>60); GFR (African American) 76 ML/MIN (>60); Globulin 2.8 g/dL (1.3-3.2); Glucose 149 mg/dl (74-100); Potassium 4.5 mmoL/L (3.5-5.1); Sodium 139 mmol/L (136-145); Total Protein,Serum 5.4 g/dl (6.3-8.2)
--- NOTE | 2021-03-19 09:15 | HMH.PULMPN ---
Internal Medicine - PN: Subj *Date: 03/19/21 *Time: 11:27 Interval history: Patient admits worsening respiratory distress. Worsening oxygen requirements noted. Exam - Constitutional Constitutional:: Present: no acute distress, comfortable - HENMT Exam HENMT: Present: normocephalic, atraumatic - Eye Exam Eyes:: Present: normal appearance both eyes and related structures - Neck Exam Neck:: Present: normal visual inspection - Respiratory Exam Respiratory:: Present: able to speak in complete sentences, respiratory distress, decreased breath sounds, rales, wheezing - Cardiovascular Exam Cardiac:: Present: S1, S2 - GI Exam GI:: Present: soft, no tenderness, distended - Skin Exam Skin: Present: warm - Neurological Exam Neurological: Present: alert, awake, normal cognition - Extremities Exam Extremities: Present: no cyanosis, no clubbing, no edema Assessment and Plan (1) Obesity (BMI 30-39.9) Status: Acute Category: Medical Code(s): E66.9 - Obesity, unspecified (2) Pleural effusion Status: Acute Category: Medical Code(s): J90 - Pleural effusion, not elsewhere classified (3) COVID-19 Status: Acute Category: Medical Code(s): U07.1 - COVID-19 (4) Renal insufficiency Status: Acute Category: Medical Code(s): N28.9 - Disorder of kidney and ureter, unspecified (5) Ascites Status: Acute Category: Medical Code(s): R18.8 - Other ascites (6) Tobacco use Status: Chronic Category: Social Hx Code(s): Z72.0 - Tobacco use (7) Esophageal varices Status: Acute Qualifiers: Esophageal varices type: unspecified type Esophageal varices bleeding: without bleeding Qualified Code(s): I85.00 - Esophageal varices without bleeding Category: Medical Code(s): I85.00 - Esophageal varices without bleeding (8) Pulmonary nodule seen on imaging study Status: Acute Category: Medical Code(s): R91.1 - Solitary pulmonary nodule (9) Cirrhosis of liver Status: Acute Qualifiers: Hepatic cirrhosis type: unspecified hepatic cirrhosis Ascites presence: with ascites Qualified Code(s): K74.60 - Unspecified cirrhosis of liver; R18.8 - Other ascites Category: Medical Code(s): K74.60 - Unspecified cirrhosis of liver - Assessment and plan all Dx Assessment and Plan for all problems:: #Acute hypoxic respiratory failure: #COVID-19 pneumonia: 66-year-old from female with multiple comorbidities. Presented with respiratory distress which is worsening from her recent discharge. Found to be positive for COVID-19 pneumonia. Chest x-ray large left-sided effusion along with small right-sided effusion. Interval update: Worsening respiratory status with increasing oxygen requirements despite thoracentesis, concerning for worsening COVID-19 pneumonia Status post left-sided thoracentesis, worsening effusion on today's chest x-ray. Patient also showed increasing interstitial markings concerning for volume overload. repeat CRP at 28.5 Plan: -Follow-up with D-dimer will further determine the need for CTA / LE doppler -Lasix 40 mg IV once -Levofloxacin to complete a total of 5-day course. -Continue remdesivir for 5 days along with dexamethasone x 10 days. -Will initiate baricitinib given her worsening respiratory status and increasing oxygen requirements currently at 10 L flow - DuoNebs every 6 hours scheduled along with budesonide every 12 scheduled #Left-sided pleural effusion: # Greater than 54-[id number] smokin-year-old female greater than 34-[id number]-tiqg smoking, hepatitis B, decompensated cirrhosis, esophageal varices status post bleeding Thoracentesis twice so far for left-sided pleural effusion, transudate pleural effusion negative for malignancy both times. Presented with worsening respiratory distress, showed recurrence of left pleural effusion pleural effusion along with large volume ascitic fluid along with new small right-sided pleural effusion. Patient scheduled for pa
[2021-03-19 10:02] LABS: C-Reactive Protein 28.5 mg/L (0-4)
[2021-03-19 11:34] LABS: D-Dimer 3.18 ug/mL (0.0-0.5)
--- NOTE | 2021-03-19 14:41 | HMH.ACPN2 ---
Internal Medicine - PN: Subj *Date: 03/19/21 *Time: 16:49 Interval history: 66-year-old female patient sitting up in bed she reports she was having some respiratory distress during the night, oxygen requirements have increased to 10 L per high flow nasal cannula. Thoracentesis was performed with removal of 1.6 L yesterday. Exam Vital signs and Labs for Last 24 Hours: Temp Pulse Resp BP Pulse Ox 98 F 68 18 128/65 94 L 03/19/21 11:40 03/19/21 13:50 03/19/21 11:40 03/19/21 11:40 03/19/21 13:50 Laboratory Results - last 24 hr 03/18/21 11:28: POC Glucose 161 H 03/18/21 16:10: POC Glucose 192 H 03/19/21 06:30: C-Reactive Protein 28.5 H 03/19/21 06:37: Sodium 139, Potassium 4.5, Chloride 105, Carbon Dioxide 29, Anion Gap 9.5, BUN 33 H, Creatinine 0.90, Estimated Creat Clear 75, Estimated GFR 63, Est GFR ( Amer) 76, Glucose 149 H, Calcium 8.6, Total Bilirubin 0.6, AST 45 H, ALT 17, Alkaline Phosphatase 66, Total Protein 5.4 L, Albumin 2.6 L D, Globulin 2.8, Albumin/Globulin Ratio 0.9 L 03/19/21 10:55: D-Dimer 3.18 H I & O for Last 24 hours: Intake & Output 03/16/21 03/17/21 03/18/21 03/19/21 23:59 23:59 23:59 23:59 Intake Total 300 / 300 480 / 480 600 / 600 Output Total 100 / 100 0 / 0 Balance 300 / 300 380 / 380 600 / 600 0 / 0 Weight 188 lb 11.451 oz 189 lb 2.506 oz 188 lb 7.924 oz 188 lb 1.6 oz - Constitutional no acute distress, chronically ill appearing - *Routine Neck Exam Present: trachea midline. Absent: tracheal deviation - *Routine Respiratory Exam Present: rales. Absent: accessory muscle use - *Routine Cardiovascular Exam Present: RRR - *Routine Abdominal Exam Present: soft, normoactive bowel sounds, distended. Absent: tenderness - *Routine Extremities Exam Present: edema, full ROM, pulses intact. Absent: cyanosis, clubbing - *Routine Skin Exam Present: intact, dry, warm. Absent: cyanosis, erythema - *Routine Neurological Exam Present: alert. Absent: motor deficit - Routine Psychiatric Exam Present: normal affect, normal thought process. Absent: auditory hallucinations Assessment and Plan (1) Obesity (BMI 30-39.9) Status: Acute Category: Medical Code(s): E66.9 - Obesity, unspecified (2) Pleural effusion Status: Acute Category: Medical Code(s): J90 - Pleural effusion, not elsewhere classified (3) COVID-19 Status: Acute Category: Medical Code(s): U07.1 - COVID-19 (4) Renal insufficiency Status: Acute Category: Medical Code(s): N28.9 - Disorder of kidney and ureter, unspecified (5) Ascites Status: Acute Category: Medical Code(s): R18.8 - Other ascites (6) Tobacco use Status: Chronic Category: Social Hx Code(s): Z72.0 - Tobacco use (7) Esophageal varices Status: Acute Qualifiers: Esophageal varices type: unspecified type Esophageal varices bleeding: without bleeding Qualified Code(s): I85.00 - Esophageal varices without bleeding Category: Medical Code(s): I85.00 - Esophageal varices without bleeding (8) Pulmonary nodule seen on imaging study Status: Acute Category: Medical Code(s): R91.1 - Solitary pulmonary nodule (9) Cirrhosis of liver Status: Acute Qualifiers: Hepatic cirrhosis type: unspecified hepatic cirrhosis Ascites presence: with ascites Qualified Code(s): K74.60 - Unspecified cirrhosis of liver; R18.8 - Other ascites Category: Medical Code(s): K74.60 - Unspecified cirrhosis of liver - Assessment and plan all Dx Assessment and Plan for all problems:: Rounded with Dr. Rincon, all orders per Dr. Rincon: 1. We will add Lasix 40 mg daily 2. Increase spironolactone 100 mg daily 3. Wean O2 as tolerated 4. Pulmonology following
--- NOTE | 2021-03-19 16:49 | DIET.NUTRFU ---
RD reviewed chart, scheduled for paracentesis followed by thoracentesis or as per radiology could not find ascitic fluid pocket for paracentesis, she only underwent thoracentesis with removal of 1.6 L. She continues on aldactone for diuresis. CBW is 85kg, up from 81kg on 03/15, maybe still holding some fluid. Due to dx of cirrhosis she will continue to gain fluids. Providers are recommending a paracentesis as outpatient. Spoke to nursing and oral diet was started today- 2gmNa. Will continue to monitor meal intake, fluid status and POC
[2021-03-19 17:43] LABS: POC Glucose,Bedside 150 (70-110)
[2021-03-19 17:43] LABS: POC Glucose,Bedside 156 (70-110)
--- NOTE | 2021-03-19 19:12 | PC.NURSE ---
Patient proned [id number]
[2021-03-19 21:30] LABS: POC Glucose,Bedside 201 (70-110)
[2021-03-20] VITALS (11 sets, daily range): BP systolic 78–156; BP diastolic 48–85; PULSE 61–77; RESP 16–20; TEMP 36.3–36.9; O2SAT 90–96; BMI 35.7
--- NOTE | 2021-03-20 06:00 | XR_ITS ---
PROCEDURE INFORMATION: Exam: XR Chest Exam date and time: 03/20/2021 6:00 AM Age: 66 years old Clinical indication: Condition or disease; Lung condition and disease; Pneumonia; Additional info: Pnm TECHNIQUE: Imaging protocol: XR of the chest. Views: 1 view. COMPARISON: CR XR CHEST PORTABLE 03/19/2021 4:47 AM FINDINGS: Lungs: Similar bilateral interstitial and airspace opacities. Pleural spaces: Increased size of a left pleural effusion. No pneumothorax. Heart/Mediastinum: Unremarkable. No cardiomegaly. Bones/joints: Unremarkable. IMPRESSION: 1. Similar bilateral airspace opacities. 2. Increased size of a left pleural effusion.
[2021-03-20 07:13] LABS: Anion Gap 9.7 mEq/L (5-15); Blood Urea Nitrogen 37 mg/dl (7-17); Calcium 8.7 mg/dl (8.4-10.2); Carbon Dioxide 25 mmol/L (22.0-30.0); Chloride 106 mmol/L (98-107); Creatinine Clearance Estimated 72 mL/min (50-200); Estimated Glomerular Filt Rate 63 ml/min (>60); GFR (African American) 76 ML/MIN (>60); Glucose 140 mg/dl (74-100); Potassium 4.7 mmoL/L (3.5-5.1); Sodium 136 mmol/L (136-145)
[2021-03-20 07:14] LABS: POC Glucose,Bedside 157 (70-110)
--- NOTE | 2021-03-20 08:08 | PC.NURSE ---
Patient rested fair during night. Remains on 10 L per high flow nasal cannula. Proned intermittently through shift. up with sba to bsc. tolerated well.
[2021-03-20 08:33] LABS: Basophils % 0.2 % (0.1-2.0); Eosinophils % 0.2 % (0.1-12.0); Hematocrit 34.5 % (37.0-47.0); Lymphocytes # 0.6 K/mm3 (0.7-4.5); Lymphocytes % 12.3 % (10-50); Mean Corpuscular Hemoglobin 31.2 pg (27.0-31.2); Mean Corpuscular Volume 97.5 fl (81-99); Mean Platelet Volume 10.5 fl (7.4-10.4); Monocytes # 0.5 K/mm3 (0.1-1.0); Monocytes % 10.1 % (1.7-9.3); Neutrophils # 3.4 K/mm3 (1.8-7.8); Neutrophils % 77.2 % (37.0-80.0); Platelet Count 90 K/mm3 (142-424); Red Blood Count 3.54 M/mm3 (4.20-5.40); Red Cell Distribution Width 15.7 % (11.5-17.5); White Blood Count 4.4 K/mm3 (4.8-10.8)
--- NOTE | 2021-03-20 09:24 | HMH.PULMPN ---
Internal Medicine - PN: Subj *Date: 03/20/21 *Time: 13:29 Interval history: No acute respiratory events overnight. Exam - Constitutional Constitutional:: Present: no acute distress, comfortable - HENMT Exam HENMT: Present: normocephalic, atraumatic - Eye Exam Eyes:: Present: normal appearance both eyes and related structures - Neck Exam Neck:: Present: normal visual inspection - Respiratory Exam Respiratory:: Present: able to speak in complete sentences, no respiratory distress, decreased breath sounds. Absent: wheezing - Cardiovascular Exam Cardiac:: Present: S1, S2 - GI Exam GI:: Present: soft, no tenderness, distended - Skin Exam Skin: Present: warm, no rash - Neurological Exam Neurological: Present: alert, awake, normal cognition - Extremities Exam Extremities: Present: no cyanosis, no clubbing, no edema Assessment and Plan (1) Obesity (BMI 30-39.9) Status: Acute Category: Medical Code(s): E66.9 - Obesity, unspecified (2) Pleural effusion Status: Acute Category: Medical Code(s): J90 - Pleural effusion, not elsewhere classified (3) COVID-19 Status: Acute Category: Medical Code(s): U07.1 - COVID-19 (4) Renal insufficiency Status: Acute Category: Medical Code(s): N28.9 - Disorder of kidney and ureter, unspecified (5) Ascites Status: Acute Category: Medical Code(s): R18.8 - Other ascites (6) Tobacco use Status: Chronic Category: Social Hx Code(s): Z72.0 - Tobacco use (7) Esophageal varices Status: Acute Qualifiers: Esophageal varices type: unspecified type Esophageal varices bleeding: without bleeding Qualified Code(s): I85.00 - Esophageal varices without bleeding Category: Medical Code(s): I85.00 - Esophageal varices without bleeding (8) Pulmonary nodule seen on imaging study Status: Acute Category: Medical Code(s): R91.1 - Solitary pulmonary nodule (9) Cirrhosis of liver Status: Acute Qualifiers: Hepatic cirrhosis type: unspecified hepatic cirrhosis Ascites presence: with ascites Qualified Code(s): K74.60 - Unspecified cirrhosis of liver; R18.8 - Other ascites Category: Medical Code(s): K74.60 - Unspecified cirrhosis of liver - Assessment and plan all Dx Assessment and Plan for all problems:: #Acute hypoxic respiratory failure: #COVID-19 pneumonia: 66-year-old from female with multiple comorbidities. Presented with respiratory distress which is worsening from her recent discharge. Found to be positive for COVID-19 pneumonia. Chest x-ray large left-sided effusion along with small right-sided effusion. Completed 5 days of levofloxacin. Continue to receive remdesivir, dexamethasone and broad-spectrum. Interval update: Slight improvement in respiratory status, weaned to 8 L nasal cannula. We will continue diuresis and current management of antibiotics, anti-inflammatory and and antivirals. Plan: -Continue Lasix IV once daily, will change oral to IV dosing today. -Continue remdesivir for 10 days along with dexamethasone x 10 days. - Continue baricitinib x 14 days - DuoNebs every 6 hours scheduled along with budesonide every 12 scheduled #Left-sided pleural effusion: # Greater than 86-dgme-iffi smokin-year-old female greater than 20-stef-dvel smoking, hepatitis B, decompensated cirrhosis, esophageal varices status post bleeding Thoracentesis twice so far for left-sided pleural effusion, transudate pleural effusion negative for malignancy both times. Presented with worsening respiratory distress, showed recurrence of left pleural effusion pleural effusion along with large volume ascitic fluid along with new small right-sided pleural effusion. Patient scheduled for paracentesis followed by thoracentesis or as per radiology could not find ascitic fluid pocket for paracentesis, she only underwent thoracentesis with removal of 1.[address] recent [address] abdomen and reported large volume ascitic fluid. Inte
--- NOTE | 2021-03-20 09:35 | HMH.ACPN2 ---
Internal Medicine - PN: Subj *Date: 03/20/21 *Time: 08:10 Interval history: pt states she is frustrated due to more meds and interventions, pt states she just wants to go home, pt states meds taste bad, encouraged pudding with med. I discussed with pt options she declined hospice. after talking to her about treatment she states she just wants left alone so she can rest. Exam Vital signs and Labs for Last 24 Hours: Temp Pulse Resp BP Pulse Ox 97.5 F L 68 17 112/59 L 95 03/20/21 08:00 03/20/21 08:00 03/20/21 08:00 03/20/21 08:00 03/20/21 08:00 Laboratory Results - last 24 hr 03/19/21 06:30: C-Reactive Protein 28.5 H 03/19/21 06:38: POC Glucose 150 H 03/19/21 10:55: D-Dimer 3.18 H 03/19/21 11:16: POC Glucose 156 H 03/19/21 21:06: POC Glucose 201 H 03/20/21 06:03: Sodium 136, Potassium 4.7, Chloride 106, Carbon Dioxide 25, Anion Gap 9.7, BUN 37 H, Creatinine 0.90, Estimated Creat Clear 72, Estimated GFR 63, Est GFR ( Amer) 76, Glucose 140 H, Calcium 8.7 03/20/21 06:51: POC Glucose 157 H 03/20/21 08:17: WBC 4.4 L D, RBC 3.54 L, Hgb 11.0 L, Hct 34.5 L, MCV 97.5, MCH 31.2, MCHC 32.0, RDW 15.7, Plt Count 90 L, MPV 10.5 H, Neut % (Auto) 77.2, Lymph % (Auto) 12.3, [place] % (Auto) 10.1 H, Eos % (Auto) 0.2, Baso % (Auto) 0.2, Neut # (Auto) 3.4, Lymph # (Auto) 0.6 L, [place] # (Auto) 0.5, Eos # (Auto) 0.0, Baso # (Auto) 0.0 I & O for Last 24 hours: Intake & Output 03/17/21 03/18/21 03/19/21 03/20/21 11:59 11:59 11:59 11:59 Intake Total 480 / 480 840 / 840 1972 Output Total 100 / 100 0 / 0 Balance 480 / 480 740 / 740 0 / 0 1972 Weight 189 lb 2.506 oz 188 lb 7.924 oz 188 lb 1.6 oz 182 lb 1.629 oz Microbiology Reports for the Last 24 Hours: Microbiology 03/14/21 22:08 Blood Blood Culture - Final NO GROWTH AFTER 5 DAYS 03/14/21 22:08 Blood Blood Culture - Final NO GROWTH AFTER 5 DAYS - Constitutional no acute distress, chronically ill appearing - *Routine HEENT Exam Head: Present: normocephalic Eye: Present: PERRL ENT: Present: mucous membranes moist - *Routine Neck Exam Present: supple, full ROM - *Routine Respiratory Exam Present: decreased breath sounds - *Routine Cardiovascular Exam Present: RRR - *Routine Abdominal Exam Present: soft, normoactive bowel sounds. Absent: tenderness - *Routine Extremities Exam Present: normal capillary refill. Absent: cyanosis, clubbing, edema - *Routine Skin Exam Present: warm. Absent: rash - *Routine Neurological Exam Present: alert, oriented X3 Assessment and Plan (1) Obesity (BMI 30-39.9) Status: Acute Category: Medical Code(s): E66.9 - Obesity, unspecified (2) Pleural effusion Status: Acute Category: Medical Code(s): J90 - Pleural effusion, not elsewhere classified (3) COVID-19 Status: Acute Category: Medical Code(s): U07.1 - COVID-19 (4) Renal insufficiency Status: Acute Category: Medical Code(s): N28.9 - Disorder of kidney and ureter, unspecified (5) Ascites Status: Acute Category: Medical Code(s): R18.8 - Other ascites (6) Tobacco use Status: Chronic Category: Social Hx Code(s): Z72.0 - Tobacco use (7) Esophageal varices Status: Acute Qualifiers: Esophageal varices type: unspecified type Esophageal varices bleeding: without bleeding Qualified Code(s): I85.00 - Esophageal varices without bleeding Category: Medical Code(s): I85.00 - Esophageal varices without bleeding (8) Pulmonary nodule seen on imaging study Status: Acute Category: Medical Code(s): R91.1 - Solitary pulmonary nodule (9) Cirrhosis of liver Status: Acute Qualifiers: Hepatic cirrhosis type: unspecified hepatic cirrhosis Ascites presence: with ascites Qualified Code(s): K74.60 - Unspecified cirrhosis of liver; R18.8 - Other ascites Category: Medical Code(s): K74.60 - Unspecified cirrhosis of liver
--- NOTE | 2021-03-20 10:29 | DIET.NUTRFU ---
RD reviewed meal intake of 25% over the past 2 meals. She is not meeting nutritional needs and is at risk for weight loss and malnutrition. Added glucerna TID to help meet needs if consumed
[2021-03-20 11:48] LABS: POC Glucose,Bedside 196 (70-110)
--- NOTE | 2021-03-20 15:50 | PC.NURSE ---
PT IS RESTING IN BED. NO COMPLAINTS AT THIS TIME. EARLY THIS MORNING PT WAS VERY FRUSTRATED WITH ALL THE BLOOD WORK, MEDICATIONS AND NOT BEING ABLE TO GET ANY REST. PT STATED SHE HAD BEEN IN AND OUT OF THE HOSPITAL FOR WEEKS AND SHE JUST WANTED A BREAK FROM EVERYTHING. [facility] OFFERED HOSPICE AND PT DECLINED. PT WAS ORDERED IV LASIX THIS MORNING AND HAS DIURESED WELL HOWEVER PT'S MOST RECENT BP WAS 78/48. PT IS ALERT AND ORIENTED X4 AND STATES SHE FEELS FINE. NOTIFIED KRISTAL AND SHE STATED PER TO CONTINUE TO MONITOR FOR NOW. ON ASSESSMENT THIS MORNING LUNG SOUNDS DIMINISHED. ABDOMEN SOFT/NON TENDER WITH ACTIVE BOWEL SOUNDS. EDEMA NOTED TO BLE. O2 SATURATION 90-94% ON 9 L NC. WILL CONTINUE TO MONITOR.
[2021-03-20 16:25] LABS: POC Glucose,Bedside 259 (70-110)
[2021-03-20 22:06] LABS: POC Glucose,Bedside 221 (70-110)
[2021-03-21] VITALS (8 sets, daily range): BP systolic 76–103; BP diastolic 52–63; PULSE 58–89; RESP 16–21; TEMP 36.4–36.6; O2SAT 8–97; BMI 34.7
[2021-03-21 06:31] LABS: POC Glucose,Bedside 176 (70-110)
[2021-03-21 06:56] LABS: Basophils % 0.3 % (0.1-2.0); Eosinophils % 0.4 % (0.1-12.0); Hematocrit 32.7 % (37.0-47.0); Hemoglobin 10.7 g/dL (12.2-16.2); Lymphocytes # 0.4 K/mm3 (0.7-4.5); Lymphocytes % 10.3 % (10-50); Mean Corpuscular HGB Conc 32.6 g/dL (31.8-35.4); Mean Platelet Volume 10.4 fl (7.4-10.4); Monocytes # 0.5 K/mm3 (0.1-1.0); Monocytes % 16.1 % (1.7-9.3); Neutrophils # 2.5 K/mm3 (1.8-7.8); Platelet Count 95 K/mm3 (142-424); Red Blood Count 3.45 M/mm3 (4.20-5.40); Red Cell Distribution Width 15.6 % (11.5-17.5); White Blood Count 3.4 K/mm3 (4.8-10.8)
[2021-03-21 07:20] LABS: Alanine Aminotransferase 15 U/L (12-78); Albumin Level 2.3 g/dl (3.5-5.0); Alkaline Phosphatase 56 U/L (38-126); Aspartate Amino Transferase 63 U/L (14-36); Bilirubin,Direct 0.2 mg/dl (0.0-0.4); Bilirubin,Indirect 0.4 mg/dL (0.0-0.9); Bilirubin,Total 0.6 mg/dl (0.2-1.3); Bilirubin,Unconjugated 0.5 mg/dL (0.0-1.1); Blood Urea Nitrogen 38 mg/dl (7-17); Calcium 8.4 mg/dl (8.4-10.2); Carbon Dioxide 30 mmol/L (22.0-30.0); Chloride 102 mmol/L (98-107); Creatinine Clearance Estimated 64 mL/min (50-200); Estimated Glomerular Filt Rate 50 ml/min (>60); GFR (African American) 60 ML/MIN (>60); Glucose 150 mg/dl (74-100); Sodium 136 mmol/L (136-145)
--- NOTE | 2021-03-21 09:14 | HMH.ACPN2 ---
Internal Medicine - PN: Subj *Date: 03/21/21 *Time: 20:03 Interval history: 66-year-old female patient resting very quietly she denies any respiratory distress or chest pain during the night. H&H is stable today BUN/creatinine slightly more elevated than yesterday, current oxygenation 94% on 10 L high flow nasal cannula Exam Vital signs and Labs for Last 24 Hours: Temp Pulse Resp BP Pulse Ox 97.7 F 89 18 101/52 L 94 L 03/21/21 07:33 03/21/21 07:33 03/21/21 07:33 03/21/21 07:33 03/21/21 07:33 Laboratory Results - last 24 hr 03/20/21 11:16: POC Glucose 196 H 03/20/21 16:18: POC Glucose 259 H 03/20/21 21:53: POC Glucose 221 H 03/21/21 06:16: POC Glucose 176 H 03/21/21 06:34: WBC 3.4 L, RBC 3.45 L, Hgb 10.7 L, Hct 32.7 L, MCV 95.0, MCH 31.0, MCHC 32.6, RDW 15.6, Plt Count 95 L, MPV 10.4, Neut % (Auto) 73.0, Lymph % (Auto) 10.3, [place] % (Auto) 16.1 H, Eos % (Auto) 0.4, Baso % (Auto) 0.3, Neut # (Auto) 2.5, Lymph # (Auto) 0.4 L, [place] # (Auto) 0.5, Eos # (Auto) 0.0, Baso # (Auto) 0.0 03/21/21 06:34: Sodium 136, Potassium 4.0, Chloride 102, Carbon Dioxide 30, Anion Gap 8.0, BUN 38 H, Creatinine 1.10 H D, Estimated Creat Clear 64, Estimated GFR 50 L, Est GFR ( Amer) 60 D, Glucose 150 H, Calcium 8.4 03/21/21 06:34: Total Bilirubin 0.6, Direct Bilirubin 0.2, Conjugated Bilirubin 0.0, Indirect Bilirubin 0.4, Unconjugated Bilirubin 0.5, AST 63 H D, ALT 15, Alkaline Phosphatase 56, Total Protein 5.0 L, Albumin 2.3 L I & O for Last 24 hours: Intake & Output 03/18/21 03/19/21 03/20/21 03/21/21 23:59 23:59 23:59 23:59 Intake Total 600 / 600 1015 / 1015 958 / 958 60 / 60 Output Total 0 / 0 1800 / 2500 700 / 700 Balance 600 / 600 1015 / 1015 -842 / -1542 -640 / -640 Weight 188 lb 7.924 oz 188 lb 1.6 oz 182 lb 1.629 oz 177 lb 0.499 oz - Constitutional no acute distress - *Routine HEENT Exam Head: Present: normocephalic Eye: Present: EOMI ENT: Present: mucous membranes moist - *Routine Respiratory Exam Present: decreased breath sounds. Absent: accessory muscle use - *Routine Cardiovascular Exam Present: RRR - *Routine Abdominal Exam Present: soft, normoactive bowel sounds, distended. Absent: tenderness - *Routine Extremities Exam Present: edema, full ROM, pulses intact. Absent: cyanosis, clubbing - *Routine Skin Exam Present: intact, dry. Absent: cyanosis, erythema - *Routine Neurological Exam Present: alert, oriented X3. Absent: motor deficit - Routine Psychiatric Exam Present: normal affect, normal thought process. Absent: auditory hallucinations Assessment and Plan (1) Obesity (BMI 30-39.9) Status: Acute Category: Medical Code(s): E66.9 - Obesity, unspecified (2) Pleural effusion Status: Acute Category: Medical Code(s): J90 - Pleural effusion, not elsewhere classified (3) COVID-19 Status: Acute Category: Medical Code(s): U07.1 - COVID-19 (4) Renal insufficiency Status: Acute Category: Medical Code(s): N28.9 - Disorder of kidney and ureter, unspecified (5) Ascites Status: Acute Category: Medical Code(s): R18.8 - Other ascites (6) Tobacco use Status: Chronic Category: Social Hx Code(s): Z72.0 - Tobacco use (7) Esophageal varices Status: Acute Qualifiers: Esophageal varices type: unspecified type Esophageal varices bleeding: without bleeding Qualified Code(s): I85.00 - Esophageal varices without bleeding Category: Medical Code(s): I85.00 - Esophageal varices without bleeding (8) Pulmonary nodule seen on imaging study Status: Acute Category: Medical Code(s): R91.1 - Solitary pulmonary nodule (9) Cirrhosis of liver Status: Acute Qualifiers: Hepatic cirrhosis type: unspecified hepatic cirrhosis Ascites presence: with ascites Qualified Code(s): K74.60 - Unspecified cirrhosis of liver; R18.8 - Other ascites Category: Medical Code(s): K74.60 - Unspecified cirrhosis of liver - Assessment and plan
--- NOTE | 2021-03-21 09:27 | HMH.PULMPN ---
Internal Medicine - PN: Subj *Date: 03/21/21 *Time: 11:38 Interval history: No acute respiratory events overnight. Exam - Constitutional Constitutional:: Present: no acute distress, comfortable - HENMT Exam HENMT: Present: normocephalic - Eye Exam Eyes:: Present: normal appearance both eyes and related structures - Neck Exam Neck:: Present: normal visual inspection - Respiratory Exam Respiratory:: Present: no respiratory distress, decreased breath sounds. Absent: wheezing - Cardiovascular Exam Cardiac:: Present: S1, S2 - GI Exam GI:: Present: soft, no tenderness, distended - Skin Exam Skin: Present: warm, no rash - Neurological Exam Neurological: Present: alert, awake, normal cognition - Extremities Exam Extremities: Present: no cyanosis, no clubbing, no edema Assessment and Plan (1) Obesity (BMI 30-39.9) Status: Acute Category: Medical Code(s): E66.9 - Obesity, unspecified (2) Pleural effusion Status: Acute Category: Medical Code(s): J90 - Pleural effusion, not elsewhere classified (3) COVID-19 Status: Acute Category: Medical Code(s): U07.1 - COVID-19 (4) Renal insufficiency Status: Acute Category: Medical Code(s): N28.9 - Disorder of kidney and ureter, unspecified (5) Ascites Status: Acute Category: Medical Code(s): R18.8 - Other ascites (6) Tobacco use Status: Chronic Category: Social Hx Code(s): Z72.0 - Tobacco use (7) Esophageal varices Status: Acute Qualifiers: Qualified Code(s): I85.00 - Esophageal varices without bleeding Category: Medical Code(s): I85.00 - Esophageal varices without bleeding (8) Pulmonary nodule seen on imaging study Status: Acute Category: Medical Code(s): R91.1 - Solitary pulmonary nodule (9) Cirrhosis of liver Status: Acute Qualifiers: Qualified Code(s): K74.60 - Unspecified cirrhosis of liver; R18.8 - Other ascites Category: Medical Code(s): K74.60 - Unspecified cirrhosis of liver - Assessment and plan all Dx Assessment and Plan for all problems:: #Acute hypoxic respiratory failure: #COVID-19 pneumonia: 66-year-old from female with multiple comorbidities. Presented with respiratory distress which is worsening from her recent discharge. Found to be positive for COVID-19 pneumonia. Chest x-ray large left-sided effusion along with small right-sided effusion. Completed 5 days of levofloxacin. Continue to receive remdesivir, dexamethasone and barcitinib Plan: -Continue remdesivir for 10 days along with dexamethasone x 10 days. - Continue baricitinib x 14 days - DuoNebs every 6 hours scheduled along with budesonide every 12 scheduled #Left-sided pleural effusion: # Greater than 97-twpd-eamh smokin-year-old female greater than 64-cqor-ytoh smoking, hepatitis B, decompensated cirrhosis, esophageal varices status post bleeding Thoracentesis twice so far for left-sided pleural effusion, transudate pleural effusion negative for malignancy both times. Presented with worsening respiratory distress, showed recurrence of left pleural effusion pleural effusion along with large volume ascitic fluid along with new small right-sided pleural effusion. Only underwent thoracentesis with removal of 1.[address] abdomen and reported large volume ascitic fluid. Interval update: Continue to receive IV diuresis, slight increase in creatinine to 1.1. We will hold off on spironolactone at this point of time. We will continue IV Lasix. Repeat chest x-ray from this morning showed near complete opacification of the left thorax with reaccumulation of the pleural effusion as expected. We will hold off on thoracentesis Until patient receives paracentesis at this point of time. Plan: -Follow with ultrasound abdomen results. -Continue Lasix IV 40 daily, will hold spironolactone. Closely monitor renal function. -We will also recommend to follow-up with GI and have a scheduled paracentesis as an ou
--- NOTE | 2021-03-21 09:28 | XR_ITS ---
FINAL REPORT CLINICAL HISTORY: Hypoxia COMPARISON: 03/20/2021 FINDINGS: SINGLE VIEW CHEST The heart is normal in size. The mediastinum is unremarkable. There is worsening near total opacification of the left thorax, likely a combination of atelectasis and large pleural effusion. Mild right lung opacities persist, may represent pneumonia or edema. There is no pneumothorax. IMPRESSION: Worsening near total opacification of the left thorax as above. If indicated, chest CT could further evaluate. Right lung opacities persist, may represent pneumonia or edema. Reviewed, Interpreted and Dictated by Micky France III, MD Transcribed by Cara Lund Authenticated by Micky France III, MD on 03/21/2021 11:21:32 AM [facility]
--- NOTE | 2021-03-21 12:33 | DIET.NUTRFU ---
Spoke to nursing, when setup she did consume her glucerna at 100% but still had poor tray consumption. She is receiving glucerna on all trays providing 660kcal and 30gm protein. Will increase to QID, providing 2 cartons with dinner. Possibly drinking 1 at dinner and 1 before bed. Nursing did indicate she may need some assistance with tray setup and she will communicate that with staff.
[2021-03-21 22:36] LABS: POC Glucose,Bedside 231 (70-110)
[2021-03-21 22:36] LABS: POC Glucose,Bedside 206 (70-110)
[2021-03-21 22:36] LABS: POC Glucose,Bedside 256 (70-110)
[2021-03-22] VITALS (10 sets, daily range): BP systolic 91–126; BP diastolic 51–62; PULSE 56–70; RESP 16–20; TEMP 36.3–36.8; O2SAT 92–98; BMI 34.4
[2021-03-22 06:49] LABS: POC Glucose,Bedside 174 (70-110)
[2021-03-22 07:31] LABS: Basophils # 0.1 K/mm3 (0-0.2); Basophils % 1.4 % (0.1-2.0); Eosinophils % 0.3 % (0.1-12.0); Hematocrit 35.4 % (37.0-47.0); Hemoglobin 11.4 g/dL (12.2-16.2); Lymphocytes # 0.4 K/mm3 (0.7-4.5); Lymphocytes % 9.3 % (10-50); Mean Corpuscular HGB Conc 32.4 g/dL (31.8-35.4); Mean Corpuscular Hemoglobin 31.2 pg (27.0-31.2); Mean Corpuscular Volume 96.4 fl (81-99); Monocytes # 0.5 K/mm3 (0.1-1.0); Monocytes % 14.2 % (1.7-9.3); Neutrophils # 2.8 K/mm3 (1.8-7.8); Neutrophils % 74.7 % (37.0-80.0); Platelet Count 104 K/mm3 (142-424); Red Blood Count 3.67 M/mm3 (4.20-5.40); Red Cell Distribution Width 15.7 % (11.5-17.5); White Blood Count 3.8 K/mm3 (4.8-10.8)
--- NOTE | 2021-03-22 09:14 | HMH.PULMPN ---
Internal Medicine - PN: Subj *Date: 03/22/21 *Time: 11:57 Interval history: No acute respiratory events overnight. Patient admits improvement in her symptoms. Exam - Constitutional Constitutional:: Present: no acute distress, comfortable - HENMT Exam HENMT: Present: normocephalic, atraumatic - Eye Exam Eyes:: Present: normal appearance both eyes and related structures - Neck Exam Neck:: Present: normal visual inspection - Respiratory Exam Respiratory:: Present: able to speak in complete sentences, respiratory distress, decreased breath sounds. Absent: wheezing - Cardiovascular Exam Cardiac:: Present: S1, S2 - GI Exam GI:: Present: soft, no tenderness, distended - Skin Exam Skin: Present: warm, no rash - Neurological Exam Neurological: Present: alert, awake, normal cognition - Extremities Exam Extremities: Present: no cyanosis, no clubbing, no edema Assessment and Plan (1) Obesity (BMI 30-39.9) Status: Acute Category: Medical Code(s): E66.9 - Obesity, unspecified (2) Pleural effusion Status: Acute Category: Medical Code(s): J90 - Pleural effusion, not elsewhere classified (3) COVID-19 Status: Acute Category: Medical Code(s): U07.1 - COVID-19 (4) Renal insufficiency Status: Acute Category: Medical Code(s): N28.9 - Disorder of kidney and ureter, unspecified (5) Ascites Status: Acute Category: Medical Code(s): R18.8 - Other ascites (6) Tobacco use Status: Chronic Category: Social Hx Code(s): Z72.0 - Tobacco use (7) Esophageal varices Status: Acute Qualifiers: Esophageal varices type: unspecified type Esophageal varices bleeding: without bleeding Qualified Code(s): I85.00 - Esophageal varices without bleeding Category: Medical Code(s): I85.00 - Esophageal varices without bleeding (8) Pulmonary nodule seen on imaging study Status: Acute Category: Medical Code(s): R91.1 - Solitary pulmonary nodule (9) Cirrhosis of liver Status: Acute Qualifiers: Hepatic cirrhosis type: unspecified hepatic cirrhosis Ascites presence: with ascites Qualified Code(s): K74.60 - Unspecified cirrhosis of liver; R18.8 - Other ascites Category: Medical Code(s): K74.60 - Unspecified cirrhosis of liver - Assessment and plan all Dx Assessment and Plan for all problems:: #Acute hypoxic respiratory failure: #COVID-19 pneumonia: 66-year-old from female with multiple comorbidities. Presented with respiratory distress which is worsening from her recent discharge. Found to be positive for COVID-19 pneumonia. Chest x-ray large left-sided effusion along with small right-sided effusion. Completed 5 days of levofloxacin. Continue to receive remdesivir, dexamethasone and barcitinib Interval update: Patient Respiratory status improved from yesterday. She is saturating 96% on 8 L nasal cannula, weaned to 4 L. We will continue to wean as tolerated. Plan: -Continue with nasal cannula oxygen supplementation to maintain O2 saturation goal of 88% mL, weaned to 4 L this morning. We will continue to wean as tolerated. - Continue remdesivir for 10 days/untill discharge along with dexamethasone x 10 days. - Continue baricitinib x 14 days - DuoNebs every 6 hours scheduled along with budesonide every 12 scheduled #Left-sided pleural effusion: # Greater than 23-sthg-pejt smokin-year-old female greater than 74-mwmo-csmt smoking, hepatitis B, decompensated cirrhosis, esophageal varices status post bleeding Thoracentesis twice so far for left-sided pleural effusion, transudate pleural effusion negative for malignancy both times. Presented with worsening respiratory distress, showed recurrence of left pleural effusion pleural effusion along with large volume ascitic fluid along with new small right-sided pleural effusion. Only underwent thoracentesis with removal of 1.[address] recent [address] abdomen and reported large volume ascitic fluid. Interval update:
[2021-03-22 09:28] LABS: Alanine Aminotransferase 15 U/L (12-78); Albumin Level 2.7 g/dl (3.5-5.0); Alkaline Phosphatase 64 U/L (38-126); Aspartate Amino Transferase 47 U/L (14-36); Bilirubin,Direct 0.1 mg/dl (0.0-0.4); Bilirubin,Indirect 0.5 mg/dL (0.0-0.9); Bilirubin,Total 0.6 mg/dl (0.2-1.3); Bilirubin,Unconjugated 0.5 mg/dL (0.0-1.1); Total Protein,Serum 5.7 g/dl (6.3-8.2)
[2021-03-22 12:15] LABS: Anion Gap 15.4 mEq/L (5-15); Blood Urea Nitrogen 50 mg/dl (7-17); Carbon Dioxide 25 mmol/L (22.0-30.0); Chloride 109 mmol/L (98-107); Creatinine Clearance Estimated 63 mL/min (50-200); Estimated Glomerular Filt Rate 50 ml/min (>60); GFR (African American) 60 ML/MIN (>60); Glucose 159 mg/dl (74-100); Potassium 4.4 mmoL/L (3.5-5.1); Sodium 145 mmol/L (136-145)
[2021-03-22 13:11] LABS: Anion Gap 7.4 mEq/L (5-15); Blood Urea Nitrogen 47 mg/dl (7-17); Calcium 9.1 mg/dl (8.4-10.2); Carbon Dioxide 38 mmol/L (22.0-30.0); Chloride 95 mmol/L (98-107); Creatinine Clearance Estimated 63 mL/min (50-200); Estimated Glomerular Filt Rate 50 ml/min (>60); GFR (African American) 60 ML/MIN (>60); Glucose 188 mg/dl (74-100); Potassium 4.4 mmoL/L (3.5-5.1); Sodium 136 mmol/L (136-145)
--- NOTE | 2021-03-22 14:39 | HMH.ACPN2 ---
Internal Medicine - PN: Subj *Date: 03/22/21 *Time: 08:30 Interval history: pt laying in bed and discussed treatment options, pt does not want hospice and would like transfer Exam Vital signs and Labs for Last 24 Hours: Temp Pulse Resp BP Pulse Ox 97.8 F 61 19 91/61 L 98 03/22/21 07:40 03/22/21 07:40 03/22/21 07:40 03/22/21 07:40 03/22/21 07:40 Laboratory Results - last 24 hr 03/21/21 12:05: POC Glucose 206 H 03/21/21 17:24: POC Glucose 231 H 03/21/21 22:06: POC Glucose 256 H 03/22/21 06:36: POC Glucose 174 H 03/22/21 07:15: WBC 3.8 L, RBC 3.67 L, Hgb 11.4 L, Hct 35.4 L, MCV 96.4, MCH 31.2, MCHC 32.4, RDW 15.7, Plt Count 104 L, MPV 10.0, Neut % (Auto) 74.7, Lymph % (Auto) 9.3 L, [place] % (Auto) 14.2 H, Eos % (Auto) 0.3, Baso % (Auto) 1.4, Neut # (Auto) 2.8, Lymph # (Auto) 0.4 L, [place] # (Auto) 0.5, Eos # (Auto) 0.0, Baso # (Auto) 0.1 03/22/21 07:15: Total Bilirubin 0.6, Direct Bilirubin 0.1, Conjugated Bilirubin 0.0, Indirect Bilirubin 0.5, Unconjugated Bilirubin 0.5, AST 47 H D, ALT 15, Alkaline Phosphatase 64, Total Protein 5.7 L, Albumin 2.7 L D 03/22/21 08:00: Sodium 145, Potassium 4.4, Chloride 109 H, Carbon Dioxide 25, Anion Gap 15.4 H, BUN 50 H D, Creatinine 1.10 H, Estimated Creat Clear 63, Estimated GFR 50 L, Est GFR ( Amer) 60, Glucose 159 H, Calcium 9.0 03/22/21 12:52: Sodium 136, Potassium 4.4, Chloride 95 L, Carbon Dioxide 38 H, Anion Gap 7.4, BUN 47 H, Creatinine 1.10 H, Estimated Creat Clear 63, Estimated GFR 50 L, Est GFR ( Amer) 60, Glucose 188 H, Calcium 9.1 I & O for Last 24 hours: Intake & Output 03/20/21 03/21/21 03/22/21 03/23/21 11:59 11:59 11:59 11:59 Intake Total 1972 60 / 60 420 / 420 Output Total 2500 / 2500 900 / 900 Balance 1972 -2440 / -2440 -480 / -480 Weight 182 lb 1.629 oz 177 lb 0.499 oz 175 lb 7.807 oz - Constitutional mild distress - *Routine HEENT Exam Head: Present: normocephalic Eye: Present: PERRL ENT: Present: mucous membranes moist - *Routine Neck Exam Present: supple. Absent: lymphadenopathy - *Routine Respiratory Exam Present: decreased breath sounds, rhonchi - *Routine Cardiovascular Exam Present: RRR - *Routine Abdominal Exam Present: soft, normoactive bowel sounds, distended. Absent: tenderness - *Routine Extremities Exam Absent: cyanosis, clubbing, edema - *Routine Skin Exam Present: warm. Absent: rash - *Routine Neurological Exam Present: alert, oriented X3 Assessment and Plan (1) Obesity (BMI 30-39.9) Status: Acute Category: Medical Code(s): E66.9 - Obesity, unspecified (2) Pleural effusion Status: Acute Category: Medical Code(s): J90 - Pleural effusion, not elsewhere classified (3) COVID-19 Status: Acute Category: Medical Code(s): U07.1 - COVID-19 (4) Renal insufficiency Status: Acute Category: Medical Code(s): N28.9 - Disorder of kidney and ureter, unspecified (5) Ascites Status: Acute Category: Medical Code(s): R18.8 - Other ascites (6) Tobacco use Status: Chronic Category: Social Hx Code(s): Z72.0 - Tobacco use (7) Esophageal varices Status: Acute Qualifiers: Esophageal varices type: unspecified type Esophageal varices bleeding: without bleeding Qualified Code(s): I85.00 - Esophageal varices without bleeding Category: Medical Code(s): I85.00 - Esophageal varices without bleeding (8) Pulmonary nodule seen on imaging study Status: Acute Category: Medical Code(s): R91.1 - Solitary pulmonary nodule (9) Cirrhosis of liver Status: Acute Qualifiers: Hepatic cirrhosis type: unspecified hepatic cirrhosis Ascites presence: with ascites Qualified Code(s): K74.60 - Unspecified cirrhosis of liver; R18.8 - Other ascites Category: Medical Code(s): K74.60 - Unspecified cirrhosis of liver - Assessment and plan all Dx Assessment and Plan for all problems:: rounded with dr osborne all orders per dr osborne placed on
[2021-03-22 20:07] LABS: POC Glucose,Bedside 217 (70-110)
[2021-03-22 20:07] LABS: POC Glucose,Bedside 215 (70-110)
[2021-03-22 23:02] LABS: POC Glucose,Bedside 156 (70-110)
[2021-03-23] VITALS (12 sets, daily range): BP systolic 72–128; BP diastolic 45–64; PULSE 60–84; RESP 16–18; TEMP 36.4–37; O2SAT 93–99; BMI 33.5
[2021-03-23 06:15] LABS: POC Glucose,Bedside 163 (70-110)
--- NOTE | 2021-03-23 06:16 | PC.NURSE ---
Spoke with Elyssa cummins Watson ([facility]), wanted update, no beds at this time.
[2021-03-23 06:42] LABS: Basophils % 0.4 % (0.1-2.0); Eosinophils % 0.2 % (0.1-12.0); Hematocrit 37.4 % (37.0-47.0); Hemoglobin 11.6 g/dL (12.2-16.2); Lymphocytes # 0.3 K/mm3 (0.7-4.5); Mean Corpuscular HGB Conc 30.9 g/dL (31.8-35.4); Mean Corpuscular Hemoglobin 30.7 pg (27.0-31.2); Mean Corpuscular Volume 99.2 fl (81-99); Mean Platelet Volume 10.4 fl (7.4-10.4); Monocytes # 0.3 K/mm3 (0.1-1.0); Monocytes % 10.4 % (1.7-9.3); Neutrophils # 2.5 K/mm3 (1.8-7.8); Platelet Count 101 K/mm3 (142-424); Red Blood Count 3.77 M/mm3 (4.20-5.40); Red Cell Distribution Width 15.8 % (11.5-17.5); White Blood Count 3.2 K/mm3 (4.8-10.8)
[2021-03-23 07:40] LABS: Alanine Aminotransferase 17 U/L (12-78); Albumin Level 2.7 g/dl (3.5-5.0); Alkaline Phosphatase 75 U/L (38-126); Aspartate Amino Transferase 38 U/L (14-36); Bilirubin,Indirect 0.6 mg/dL (0.0-0.9); Bilirubin,Total 0.6 mg/dl (0.2-1.3); Bilirubin,Unconjugated 0.6 mg/dL (0.0-1.1); Blood Urea Nitrogen 51 mg/dl (7-17); Calcium 8.5 mg/dl (8.4-10.2); Chloride 96 mmol/L (98-107); Creatinine Clearance Estimated 62 mL/min (50-200); Estimated Glomerular Filt Rate 50 ml/min (>60); GFR (African American) 60 ML/MIN (>60); Glucose 140 mg/dl (74-100); Potassium 3.6 mmoL/L (3.5-5.1); Sodium 136 mmol/L (136-145); Total Protein,Serum 5.5 g/dl (6.3-8.2)
[2021-03-23 07:47] LABS: Anion Gap 6.6 mEq/L (5-15); Carbon Dioxide 37 mmol/L (22.0-30.0)
--- NOTE | 2021-03-23 11:24 | HMH.ACPN2 ---
Internal Medicine - PN: Subj *Date: 03/23/21 *Time: 11:27 Interval history: Patient appears much brighter today. She is saturating well on nasal cannula. We have made preliminary plans for transfer to [facility], awaiting bed availability. She is felt to have decompensated cirrhosis as an underlying significant issue. Notes are reviewed Exam Vital signs and Labs for Last 24 Hours: Temp Pulse Resp BP Pulse Ox 98.0 F 66 18 112/60 96 03/23/21 11:11 03/23/21 11:11 03/23/21 11:11 03/23/21 11:11 03/23/21 11:11 Laboratory Results - last 24 hr 03/22/21 08:00: Sodium 145, Potassium 4.4, Chloride 109 H, Carbon Dioxide 25, Anion Gap 15.4 H, BUN 50 H D, Creatinine 1.10 H, Estimated Creat Clear 63, Estimated GFR 50 L, Est GFR ( Amer) 60, Glucose 159 H, Calcium 9.0 03/22/21 12:52: Sodium 136, Potassium 4.4, Chloride 95 L, Carbon Dioxide 38 H, Anion Gap 7.4, BUN 47 H, Creatinine 1.10 H, Estimated Creat Clear 63, Estimated GFR 50 L, Est GFR ( Amer) 60, Glucose 188 H, Calcium 9.1 03/22/21 14:13: POC Glucose 215 H 03/22/21 18:21: POC Glucose 217 H 03/22/21 22:33: POC Glucose 156 H 03/23/21 05:58: POC Glucose 163 H 03/23/21 06:18: WBC 3.2 L, RBC 3.77 L, Hgb 11.6 L, Hct 37.4, MCV 99.2 H, MCH 30.7, MCHC 30.9 L, RDW 15.8, Plt Count 101 L, MPV 10.4, Neut % (Auto) 79.0, Lymph % (Auto) 10.0, [place] % (Auto) 10.4 H, Eos % (Auto) 0.2, Baso % (Auto) 0.4, Neut # (Auto) 2.5, Lymph # (Auto) 0.3 L, [place] # (Auto) 0.3, Eos # (Auto) 0.0, Baso # (Auto) 0.0 03/23/21 06:18: Sodium 136, Potassium 3.6, Chloride 96 L, Carbon Dioxide 37 H, Anion Gap 6.6, BUN 51 H, Creatinine 1.10 H, Estimated Creat Clear 62, Estimated GFR 50 L, Est GFR ( Amer) 60, Glucose 140 H D, Calcium 8.5, Total Bilirubin 0.6, Direct Bilirubin 0.0, Conjugated Bilirubin 0.0, Indirect Bilirubin 0.6, Unconjugated Bilirubin 0.6, AST 38 H, ALT 17, Alkaline Phosphatase 75, Total Protein 5.5 L, Albumin 2.7 L I & O for Last 24 hours: Intake & Output 03/20/21 03/21/21 03/22/21 03/23/21 23:59 23:59 23:59 23:59 Intake Total 958 / 958 420 / 420 60 / 160 100 / 100 Output Total 1800 / 2500 700 / 1600 2100 / 2100 Balance -842 / -1542 -280 / -1180 -2040 / -1940 100 / 100 Weight 182 lb 1.629 oz 177 lb 0.499 oz 175 lb 7.807 oz 171 lb - Constitutional no acute distress, chronically ill appearing, cooperative - *Routine HEENT Exam Head: Present: normocephalic Eye: Present: EOMI, PERRL ENT: Present: mucous membranes moist - *Routine Neck Exam Present: supple. Absent: lymphadenopathy - *Routine Respiratory Exam Present: decreased breath sounds, diminished air movement. Absent: accessory muscle use, wheezes - *Routine Cardiovascular Exam Present: RRR - *Routine Abdominal Exam Present: soft, obese. Absent: tenderness, rebound, guarding, mass - *Routine Extremities Exam Absent: cyanosis, clubbing, edema - *Routine Skin Exam Present: warm. Absent: rash - *Routine Neurological Exam Present: alert, oriented X3 Assessment and Plan (1) Obesity (BMI 30-39.9) Status: Acute Category: Medical Code(s): E66.9 - Obesity, unspecified (2) Pleural effusion Status: Acute Category: Medical Code(s): J90 - Pleural effusion, not elsewhere classified (3) COVID-19 Status: Acute Category: Medical Code(s): U07.1 - COVID-19 (4) Renal insufficiency Status: Acute Category: Medical Code(s): N28.9 - Disorder of kidney and ureter, unspecified (5) Ascites Status: Acute Category: Medical Code(s): R18.8 - Other ascites (6) Tobacco use Status: Chronic Category: Social Hx Code(s): Z72.0 - Tobacco use (7) Esophageal varices Status: Acute Qualifiers: Esophageal varices type: unspecified type Esophageal varices bleeding: without bleeding Qualified Code(s): I85.00 - Esophageal varices without bleeding Category: Medical Code(s): I85.00 - Esophageal varices without bleeding (8) Pulmonary nodule seen on imaging study Status:
[2021-03-23 12:24] LABS: Hep A Ab, IgM Negative (Negative); Hepatitis B Core Antibody IgM Negative (Negative); Hepatitis B Surface Antigen Negative (Negative); Hepatitis C Antibody <0.1 s/co ratio (0.0-0.9)
[2021-03-23 17:51] LABS: POC Glucose,Bedside 162 (70-110)
[2021-03-23 17:52] LABS: POC Glucose,Bedside 311 (70-110)
--- NOTE | 2021-03-23 18:03 | PC.NURSE ---
no acute changes this shift. still no bed available at [facility]. she continues on 2ln for o2 support. no complaints voiced this shift.
[2021-03-23 21:40] LABS: POC Glucose,Bedside 218 (70-110)
[2021-03-24] VITALS (12 sets, daily range): BP systolic 86–115; BP diastolic 49–66; PULSE 62–78; RESP 15–18; TEMP 36.4–36.9; O2SAT 93–99; BMI 31.8
--- NOTE | 2021-03-24 02:32 | PC.NURSE ---
[facility] from called for an update on this patient. No beds available at this time.
--- NOTE | 2021-03-24 04:20 | PC.NURSE ---
Spoke with Shefali bravo [facility] for update, no beds at this time.
[2021-03-24 05:31] LABS: POC Glucose,Bedside 141 (70-110)
[2021-03-24 06:33] LABS: Basophils % 0.1 % (0.1-2.0); Eosinophils % 0.2 % (0.1-12.0); Hematocrit 36.9 % (37.0-47.0); Hemoglobin 11.6 g/dL (12.2-16.2); Lymphocytes # 0.3 K/mm3 (0.7-4.5); Mean Corpuscular HGB Conc 31.3 g/dL (31.8-35.4); Mean Corpuscular Hemoglobin 30.3 pg (27.0-31.2); Mean Corpuscular Volume 96.8 fl (81-99); Mean Platelet Volume 9.7 fl (7.4-10.4); Monocytes # 0.3 K/mm3 (0.1-1.0); Monocytes % 9.6 % (1.7-9.3); Neutrophils # 2.6 K/mm3 (1.8-7.8); Neutrophils % 81.1 % (37.0-80.0); Platelet Count 89 K/mm3 (142-424); Red Blood Count 3.81 M/mm3 (4.20-5.40); Red Cell Distribution Width 15.7 % (11.5-17.5); White Blood Count 3.2 K/mm3 (4.8-10.8)
[2021-03-24 07:15] LABS: Alanine Aminotransferase 20 U/L (12-78); Albumin Level 2.8 g/dl (3.5-5.0); Alkaline Phosphatase 81 U/L (38-126); Aspartate Amino Transferase 46 U/L (14-36); Bilirubin,Direct 0.1 mg/dl (0.0-0.4); Bilirubin,Indirect 0.7 mg/dL (0.0-0.9); Bilirubin,Total 0.8 mg/dl (0.2-1.3); Bilirubin,Unconjugated 0.7 mg/dL (0.0-1.1); Blood Urea Nitrogen 52 mg/dl (7-17); Calcium 8.7 mg/dl (8.4-10.2); Chloride 96 mmol/L (98-107); Creatinine Clearance Estimated 58 mL/min (50-200); Estimated Glomerular Filt Rate 50 ml/min (>60); GFR (African American) 60 ML/MIN (>60); Glucose 137 mg/dl (74-100); Potassium 3.4 mmoL/L (3.5-5.1); Sodium 139 mmol/L (136-145); Total Protein,Serum 5.5 g/dl (6.3-8.2)
[2021-03-24 07:22] LABS: Anion Gap 6.4 mEq/L (5-15); Carbon Dioxide 40 mmol/L (22.0-30.0)
--- NOTE | 2021-03-24 13:09 | HMH.ACPN2 ---
Internal Medicine - PN: Subj *Date: 03/24/21 *Time: 13:09 Interval history: Patient feels about the same as yesterday. No worsening dyspnea. Previous chest films revealed a large pleural effusion, recent thoracentesis returned 1.6 L. Toro chest x-ray from today is pending. Breath sounds are blunted on the left. Urine culture negative blood culture negative. 93 to 96% on 3 L/min. Blood pressure has been diminished but she is without symptoms. We will stop her Avapro and observe. Exam Vital signs and Labs for Last 24 Hours: Temp Pulse Resp BP Pulse Ox 98.3 F 66 18 90/66 L 96 03/24/21 10:57 03/24/21 11:45 03/24/21 10:57 03/24/21 10:57 03/24/21 11:45 Laboratory Results - last 24 hr 03/23/21 12:15: POC Glucose 162 H 03/23/21 17:29: POC Glucose 311 H* 03/23/21 21:11: POC Glucose 218 H 03/24/21 05:13: POC Glucose 141 H 03/24/21 06:09: WBC 3.2 L, RBC 3.81 L, Hgb 11.6 L, Hct 36.9 L, MCV 96.8, MCH 30.3, MCHC 31.3 L, RDW 15.7, Plt Count 89 L, MPV 9.7, Neut % (Auto) 81.1 H, Lymph % (Auto) 9.0 L, [place] % (Auto) 9.6 H, Eos % (Auto) 0.2, Baso % (Auto) 0.1, Neut # (Auto) 2.6, Lymph # (Auto) 0.3 L, [place] # (Auto) 0.3, Eos # (Auto) 0.0, Baso # (Auto) 0.0 03/24/21 06:09: Sodium 139, Potassium 3.4 L, Chloride 96 L, Carbon Dioxide 40 H, Anion Gap 6.4, BUN 52 H, Creatinine 1.10 H, Estimated Creat Clear 58, Estimated GFR 50 L, Est GFR ( Amer) 60, Glucose 137 H, Calcium 8.7, Total Bilirubin 0.8, Direct Bilirubin 0.1, Conjugated Bilirubin 0.0, Indirect Bilirubin 0.7, Unconjugated Bilirubin 0.7, AST 46 H, ALT 20, Alkaline Phosphatase 81, Total Protein 5.5 L, Albumin 2.8 L I & O for Last 24 hours: Intake & Output 03/21/21 03/22/21 03/23/21 03/24/21 23:59 23:59 23:59 23:59 Intake Total 420 / 420 60 / 160 130 / 130 240 / 240 Output Total 700 / 1600 2100 / 2100 Balance -280 / -1180 -2040 / -1940 130 / 130 240 / 240 Weight 177 lb 0.499 oz 175 lb 7.807 oz 171 lb 162 lb 3 oz - Constitutional no acute distress, chronically ill appearing, cooperative - *Routine HEENT Exam Head: Present: normocephalic Eye: Present: EOMI, PERRL ENT: Present: mucous membranes moist - *Routine Neck Exam Present: supple. Absent: lymphadenopathy - *Routine Respiratory Exam Present: decreased breath sounds, crackles, diminished air movement. Absent: accessory muscle use, respiratory distress - *Routine Cardiovascular Exam Present: RRR - *Routine Abdominal Exam Present: soft, normoactive bowel sounds, distended. Absent: tenderness, rebound, guarding, firm, rigid - *Routine Extremities Exam Absent: cyanosis, clubbing, edema - *Routine Skin Exam Present: warm. Absent: jaundice, rash - *Routine Neurological Exam Present: alert, oriented X3, vision grossly intact, hearing grossly intact, normal speech Assessment and Plan (1) Obesity (BMI 30-39.9) Status: Acute Category: Medical Code(s): E66.9 - Obesity, unspecified (2) Pleural effusion Status: Acute Category: Medical Code(s): J90 - Pleural effusion, not elsewhere classified (3) COVID-19 Status: Acute Category: Medical Code(s): U07.1 - COVID-19 (4) Renal insufficiency Status: Acute Category: Medical Code(s): N28.9 - Disorder of kidney and ureter, unspecified (5) Ascites Status: Acute Category: Medical Code(s): R18.8 - Other ascites (6) Tobacco use Status: Chronic Category: Social Hx Code(s): Z72.0 - Tobacco use (7) Esophageal varices Status: Acute Qualifiers: Esophageal varices type: unspecified type Esophageal varices bleeding: without bleeding Qualified Code(s): I85.00 - Esophageal varices without bleeding Category: Medical Code(s): I85.00 - Esophageal varices without bleeding (8) Pulmonary nodule seen on imaging study Status: Acute Category: Medical Code(s): R91.1 - Solitary pulmonary nodule (9) Cirrhosis of liver Status: Acute Qualifiers: Hepatic cirrhosis type: unspecified hepatic cirrh
[2021-03-24 17:05] LABS: POC Glucose,Bedside 223 (70-110)
--- NOTE | 2021-03-24 18:47 | PC.NURSE ---
no acute changes this shift. still no bed available for transfer. continues on 3lnc for o2 support. denies n/v. no pain voiced to this rn. she slept on and off this shift. turns in bed independently
[2021-03-25] VITALS: BP 132/54; PULSE 60; RESP 16; TEMP 37.1; O2SAT 99
[2021-03-25 04:00] VITALS: BP 108/57; PULSE 70; RESP 16; TEMP 36.8; O2SAT 98
--- NOTE | 2021-03-25 04:47 | PC.NURSE ---
No acute changes this shift. No c/o pain, SOA or N/V/D t/o shift. Pt has slept off and on this shift. Has remained on 3L NC with o2 sats above 90% Still no bed available at [facility] or . Call espinoza in [facility] will continue to monitor.
[2021-03-25 05:00] VITALS: BMI 31.8
[2021-03-25 05:55] VITALS: PULSE 51; PULSE 56; O2SAT 97
--- NOTE | 2021-03-25 06:00 | XR_ITS ---
FINAL REPORT CLINICAL HISTORY: pleural effusion COMPARISON: March 21, 2021 FINDINGS: The heart size is normal. The mediastinum is normal. There is a large, partially improved, left pleural effusion. There is left lung and right basilar atelectasis. There is no pneumothorax. There is no osseous abnormality. IMPRESSION: Large left pleural effusion, partially improved. Left lung and right base atelectasis. Reviewed, Interpreted and Dictated by Micky France III, MD Transcribed by Michael Ren Authenticated by Micky France III, MD on 03/25/2021 07:24:[address] [facility]
[2021-03-25 06:39] LABS: POC Glucose,Bedside 287 (70-110)
[2021-03-25 06:39] LABS: POC Glucose,Bedside 278 (70-110)
[2021-03-25 06:39] LABS: POC Glucose,Bedside 196 (70-110)
[2021-03-25 08:00] VITALS: BP 115/56; PULSE 60; RESP 19; TEMP 36.8; O2SAT 93
--- NOTE | 2021-03-25 08:25 | US_ITS ---
FINAL REPORT CLINICAL HISTORY: EVALL ASCITES FINDINGS: Bedside ultrasound was utilized to evaluate patient for paracentesis. Scanning in all 4 quadrants demonstrated no Ascites. The examination was terminated. IMPRESSION: Ultrasound evaluation demonstrating no ascites amenable for paracentesis. Reviewed, Interpreted and Dictated by Micky France III, MD Transcribed by ESPERANZA Hope Authenticated by Micky France III, MD on 03/25/2021 11:25:32 AM [facility]
--- NOTE | 2021-03-25 09:27 | HMH.ACPN2 ---
Internal Medicine - PN: Subj *Date: 03/25/21 *Time: 08:30 Interval history: pt resting comfortable in bed Exam Vital signs and Labs for Last 24 Hours: Temp Pulse Resp BP Pulse Ox 98.2 F 51 L 16 108/57 L 97 03/25/21 04:00 03/25/21 05:55 03/25/21 04:00 03/25/21 04:00 03/25/21 05:55 Laboratory Results - last 24 hr 03/24/21 11:43: POC Glucose 223 H 03/24/21 16:52: POC Glucose 287 H 03/24/21 21:12: POC Glucose 278 H 03/25/21 05:29: POC Glucose 196 H I & O for Last 24 hours: Intake & Output 03/22/21 03/23/21 03/24/21 03/25/21 11:59 11:59 11:59 11:59 Intake Total 420 / 420 100 / 100 270 / 270 360 / 360 Output Total 900 / 900 1200 / 1200 Balance -480 / -480 -1100 / -1100 270 / 270 360 / 360 Weight 175 lb 7.807 oz 171 lb 162 lb 3 oz 162 lb 0.989 oz - Constitutional no acute distress - *Routine HEENT Exam Head: Present: normocephalic Eye: Present: PERRL ENT: Present: mucous membranes moist - *Routine Neck Exam Present: supple. Absent: lymphadenopathy - *Routine Respiratory Exam Present: decreased breath sounds - *Routine Cardiovascular Exam Present: RRR - *Routine Abdominal Exam Present: soft, normoactive bowel sounds, distended. Absent: tenderness - *Routine Extremities Exam Absent: cyanosis, clubbing, edema - *Routine Skin Exam Present: warm. Absent: rash - *Routine Neurological Exam Present: alert, oriented X3 Assessment and Plan (1) Obesity (BMI 30-39.9) Status: Acute Category: Medical Code(s): E66.9 - Obesity, unspecified (2) Pleural effusion Status: Acute Category: Medical Code(s): J90 - Pleural effusion, not elsewhere classified (3) COVID-19 Status: Acute Category: Medical Code(s): U07.1 - COVID-19 (4) Renal insufficiency Status: Acute Category: Medical Code(s): N28.9 - Disorder of kidney and ureter, unspecified (5) Ascites Status: Acute Category: Medical Code(s): R18.8 - Other ascites (6) Tobacco use Status: Chronic Category: Social Hx Code(s): Z72.0 - Tobacco use (7) Esophageal varices Status: Acute Qualifiers: Esophageal varices type: unspecified type Esophageal varices bleeding: without bleeding Qualified Code(s): I85.00 - Esophageal varices without bleeding Category: Medical Code(s): I85.00 - Esophageal varices without bleeding (8) Pulmonary nodule seen on imaging study Status: Acute Category: Medical Code(s): R91.1 - Solitary pulmonary nodule (9) Cirrhosis of liver Status: Acute Qualifiers: Hepatic cirrhosis type: unspecified hepatic cirrhosis Ascites presence: with ascites Qualified Code(s): K74.60 - Unspecified cirrhosis of liver; R18.8 - Other ascites Category: Medical Code(s): K74.60 - Unspecified cirrhosis of liver - Assessment and plan all Dx Assessment and Plan for all problems:: rounded with dr osborne all orders per [place] parathesis today will discuss with [place] [facility]
--- NOTE | 2021-03-25 09:28 | HMH.PULMPN ---
Internal Medicine - PN: Subj *Date: 03/25/21 *Time: 13:15 Interval history: No acute respiratory events overnight. Exam - Constitutional Constitutional:: Present: no acute distress, comfortable - HENMT Exam HENMT: Present: normocephalic, atraumatic - Eye Exam Eyes:: Present: normal appearance both eyes and related structures - Neck Exam Neck:: Present: normal visual inspection - Respiratory Exam Respiratory:: Present: able to speak in complete sentences, no respiratory distress, decreased breath sounds. Absent: wheezing - Cardiovascular Exam Cardiac:: Present: S1, S2 - GI Exam GI:: Present: soft, no tenderness, distended - Skin Exam Skin: Present: warm, no rash - Neurological Exam Neurological: Present: alert, awake, normal cognition - Extremities Exam Extremities: Present: no cyanosis, no clubbing, no edema Assessment and Plan (1) Obesity (BMI 30-39.9) Status: Acute Category: Medical Code(s): E66.9 - Obesity, unspecified (2) Pleural effusion Status: Acute Category: Medical Code(s): J90 - Pleural effusion, not elsewhere classified (3) COVID-19 Status: Acute Category: Medical Code(s): U07.1 - COVID-19 (4) Renal insufficiency Status: Acute Category: Medical Code(s): N28.9 - Disorder of kidney and ureter, unspecified (5) Ascites Status: Acute Category: Medical Code(s): R18.8 - Other ascites (6) Tobacco use Status: Chronic Category: Social Hx Code(s): Z72.0 - Tobacco use (7) Esophageal varices Status: Acute Qualifiers: Esophageal varices type: unspecified type Esophageal varices bleeding: without bleeding Qualified Code(s): I85.00 - Esophageal varices without bleeding Category: Medical Code(s): I85.00 - Esophageal varices without bleeding (8) Pulmonary nodule seen on imaging study Status: Acute Category: Medical Code(s): R91.1 - Solitary pulmonary nodule (9) Cirrhosis of liver Status: Acute Qualifiers: Hepatic cirrhosis type: unspecified hepatic cirrhosis Ascites presence: with ascites Qualified Code(s): K74.60 - Unspecified cirrhosis of liver; R18.8 - Other ascites Category: Medical Code(s): K74.60 - Unspecified cirrhosis of liver - Assessment and plan all Dx Assessment and Plan for all problems:: #Acute hypoxic respiratory failure: #COVID-19 pneumonia: 66-year-old from female with multiple comorbidities. Presented with respiratory distress which is worsening from her recent discharge. Found to be positive for COVID-19 pneumonia. Chest x-ray large left-sided effusion along with small right-sided effusion. Completed 5 days of levofloxacin. Continue to receive remdesivir, dexamethasone and barcitinib Interval update: Patient Respiratory status continued to improve, patient currently needing 3 to 4 L nasal cannula to maintain her saturation 95% and above. Will wean as tolerated. Plan: -Continue with nasal cannula oxygen supplementation to maintain O2 saturation goal of 88% mL - Continue remdesivir for 10 days/untill discharge along with dexamethasone x 10 days. - Continue baricitinib x 14 days - DuoNebs every 6 hours scheduled along with budesonide every 12 scheduled #Left-sided pleural effusion: # Greater than 68-cuib-iylw smokin-year-old female greater than [id number] smoking, hepatitis B, decompensated cirrhosis, esophageal varices status post bleeding Thoracentesis twice so far for left-sided pleural effusion, transudate pleural effusion negative for malignancy both times. Presented with worsening respiratory distress, showed recurrence of left pleural effusion pleural effusion along with large volume ascitic fluid along with new small right-sided pleural effusion. Only underwent thoracentesis with removal of 1.[address] abdomen and reported large volume ascitic fluid. Interval update: Patient does not appear to be in any respiratory distress. Diuretics improved her respiratory st
--- NOTE | 2021-03-25 10:00 | PC.NURSE ---
ORDER WAS PLACED FOR PICC; WENT INTO ROOM WITH LINDY GAR AND PT REFUSED TO ALLOW UP TO PLACE THE PICC; . MD OFFICE CALLED.
[2021-03-25 11:17] VITALS: PULSE 82
[2021-03-25 12:07] LABS: POC Glucose,Bedside 131 (70-110)
--- NOTE | 2021-03-25 13:00 | PC.NURSE ---
Addendum entered by Kitty Lucas RN 03/25/21 13:29: PT'S DAUGHTER ARRIVED. ROOM AIR SATURATION WAS 85-89%. PT REFUSED TO WAIT FOR PORTABLE OXYGEN. Original Note: PT CALLED OUT THIS THIS MORNING AND STATED SHE WANTED ALL THE PAPERWORK SHE NEEDED TO SIGN TO LEAVE THE HOSPITAL. PT WAS INSTRUCTED THAT HER PCP WAS NOT GOING TO DISCHARGE HER B/C SHE WAS NOT STABLE ENOUGH FOR DISCHARGE AND WE ARE WAITING TRANSFER TO ANOTHER HOSPITAL. THE ONLY WAY SHE COULD LEAVE THE HOSPITAL IF SHE SIGNED OUT AMA. THE CONVERSATION WAS HAD WITH PATIENT AND DAUGHTER WHO WAS ON SPEAKER PHONE AT THE TIME AND WAS ALSO AT BEDSIDE. PT'S DAUGHTER STATED SHE WOULD LIKE TO PICK HER MOTHER UP AND SHE COULD DRIVE HER TO A DIFFERENT HOSPITAL. PT'S DAUGHTER STATED SHE WANTED TO TALK TO ONE OF THE PRIMARY PROVIDERS ABOUT DRIVING HER MOM TO A DIFFERENT HOSPITAL TO ADDRESS ALL HER NEEDS. TALKED TO KRISTAL AND SHE STATED SHE DID TALK TO PT'S DAUGHTER AND SHE STATED TO LET HER MOTHER SIGN OUT AMA AND SHE WOULD BE HERE TO GET HER TO TRANSPORT HER TO ANOTHER HOSPITAL.
--- NOTE | 2021-03-25 14:30 | HMH.DCSUM ---
General - General Admission date:: 03/15/21 Discharge date: 03/25/21 HPI HPI: 66-year-old female patient presented to the [facility] emergency department with reports of shortness of breath, abdominal tightness, and I think I am full again . She was recently inpatient at [facility] for pleural effusion and on 03/05 had a paracentesis with 2000 mL removed and a left-sided thoracentesis with 1600 mL removed. She missed her GI GI follow-up appointment due to illness. She reports she has been nauseated, abdomen has been tight, tender, and distended. She denies fever chills or body aches, admits nausea denies vomiting or diarrhea. Reports she does have a nonproductive cough but no worse than usual with slight shortness of breath. 03/14/21 CXR: IMPRESSION: 1. Large left pleural effusion with near complete atelectatic collapse of the left lung. Underlying left pneumonia seen on prior chest CT not well visualized. 2. Suspect mild pulmonary edema. 3. Ill-defined patchy right infrahilar opacity could be atelectasis or pneumonia. Electronically signed by Bryan Kelley MD 03/14/21 Abd/Pelvis CT: IMPRESSION: 1. Cirrhosis. Moderate to large volume ascites, which has increased since 02/24/2021 despite interval paracentesis. 2. Mesenteric edema/congestion. Slight interval decrease in perceived omental nodularity as compared to prior, but continued follow-up is recommended to exclude metastatic disease. 3. Decreased peripancreatic fluid/stranding as compared to prior study. Unclear if this is related to partially resolved pancreatitis or generalized mesenteric edema and congestion. 4. Large left pleural effusion with near complete atelectatic collapse of the left lung (which recently also demonstrated pneumonia) partially visualized. Small right pleural effusion. 5. Body wall edema. Electronically signed by Bryan Kelley MD 66-year-old female patient sitting up in bed resting quietly she denies any abdominal pain/tenderness, oxygen saturation 94% on 4 L per nasal cannula. Abdomen is slightly distended. After discussion with general surgery and pulmonology she will be scheduled for a paracentesis on 03/18/2021 with a thoracentesis to follow. Long discussion with patient regarding importance of making all medical appointments especially specialty appointments in regard to her current medical situation. Hospital Course Hospital Course: left ama Laboratory Tests 03/14/21 03/14/21 03/14/21 21:49 21:58 22:08 WBC RBC Hgb Hct MCV MCH MCHC RDW Plt Count MPV Neut % (Auto) Lymph % (Auto) [place] % (Auto) Eos % (Auto) Baso % (Auto) Neut # (Auto) Lymph # (Auto) [place] # (Auto) Eos # (Auto) Baso # (Auto) Total Counted Neutrophils % (Manual) Band Neutrophils % Lymphocytes % (Manual) Monocytes % (Manual) Platelet Estimate Hypochromasia Macrocytosis ESR 59 H PT INR D-Dimer Specimen Source Right brachial O2 % 4 ABG pH 7.40 7.39 ABG pCO2 37.6 ABG pO2 65.9 L ABG HCO3 22.4 ABG Total CO2 23.6 ABG O2 Saturation 93 ABG Base Excess -2.5 L Wan Test Non applicable Sodium Potassium Chloride Carbon Dioxide Anion Gap BUN Creatinine Estimated Creat Clear Estimated GFR Est GFR ( Amer) Glucose POC Glucose Lactate Calcium Magnesium Total Bilirubin Direct Bilirubin Conjugated Bilirubin Indirect Bilirubin Unconjugated Bilirubin AST ALT Alkaline Phosphatase Troponin I C-Reactive Protein NT-Pro-B Natriuret Pep Total Protein Albumin Globulin Albumin/Globulin Ratio Amylase Lipase Procalcitonin Urine Color Urine Appearance Urine pH Ur Specific [place] Urine Protein Urine Glucose (UA) Urine Ketones Urin
== END 2021-03-25 13:38 | disposition left against medical advice (07) | DRG 177 ==
LOC: ER 23:31 → 2ND 03-15 10:18
PROVIDERS: Internal Medicine Pulmonary Disease; Nurse Practitioner Family; Admitting Provider Emergency Medicine; Emergency Provider Emergency Medicine; PCP Emergency Medicine; Visit Provider Emergency Medicine
DX: U07.1 COVID-19 (principal); J12.82 Pneumonia due to coronavirus disease 2019; J90 Pleural effusion, not elsewhere classified; R18.8 Other ascites; I85.00 Esophageal varices without bleeding; K74.60 Unspecified cirrhosis of liver; E11.9 Type 2 diabetes mellitus without complications; I25.10 Atherosclerotic heart disease of native coronary artery without angina pectoris; E78.5 Hyperlipidemia, unspecified; I25.2 Old myocardial infarction; M19.90 Unspecified osteoarthritis, unspecified site; Z95.5 Presence of coronary angioplasty implant and graft; J44.9 Chronic obstructive pulmonary disease, unspecified; Z87.891 Personal history of nicotine dependence; Z79.84 Long term (current) use of oral hypoglycemic drugs; E66.9 Obesity, unspecified; Z68.31 Body mass index [BMI] 31.0-31.9, adult; N28.9 Disorder of kidney and ureter, unspecified
CPT/HCPCS: 49082; 32555; 36415; 71045; 74176; 76705; 80048; 80053; 80074; 80076; 81001; 82150; 82803; 82962; 83605; 83690; 83735; 83880; 84145; 84484; 85007; 85025; 85378; 85610; 85651; 86140; 87040; 87086; 93005; 94640; 94761; 99281; C9803; J1956; J2405; U0003; U0005